=== PATIENT | male | born 1995 | race Caucasian/White ===

== ENCOUNTER 2018-09-07 23:12 | Emergency (ER) | payer MEDICAID, OTHER ==
[~2018-09-07] VITALS: Ht 175.3 cm; Wt 54.4 kg
[2018-09-07 23:59] LABS: Basophils # (auto) 0.1 uL; Basophils % (auto) 1.5 % (0.0-2.0); Eosinophils # (auto) 0.2 uL; Eosinophils % (auto) 2.6 % (0.0-7.0); Hematocrit 48.4 % (41.0-53.0); Hemoglobin 16.9 g/dL (13.5-17.5); Lymphocytes # (auto) 1.4 uL; Lymphocytes % (auto) 16.5 % (10.0-50.0); Mean Corpuscular Hemoglobin 32.6 pg (28.0-32.0); Mean Corpuscular Hgb Conc. 34.9 g/dL (32.0-36.0); Mean Corpuscular Volume 93.4 fL (80.0-100.0); Monocytes # (auto) 0.5 uL; Monocytes % (auto) 6.1 % (0.0-12.0); Neutrophils # (auto) 6.2 uL; Neutrophils % (auto) 73.3 % (37.0-80.0); Nucleated Red Blood Cells % 0.1 %; Platelet Count (auto) 151 10^3/uL (140-450); Red Blood Cells 5.18 10^6/uL (4.5-5.90); Red Cell Distribution Width 12.5 % (11.8-14.3); White Blood Cell 8.5 10^3/uL (4.4-10.8)
[2018-09-08 00:08] LABS: Alanine Aminotransferase 38 U/L (16-61); Albumin 3.9 g/dL (3.4-5.0); Amylase 69 U/L (25-115); Anion Gap 3 (5-15); Aspartate Aminotransferase 17 U/L (15-37); Calcium 8.5 mg/dL (8.5-10.1); Carbon Dioxide 29 mmol/L (21-32); Chloride 107 mmol/L (98-107); GFR African American > 60 mL/min; GFR Non-African American > 60 mL/min; Glucose 103 mg/dL (74-106); Lipase 101 U/L (73-393); Magnesium 2.3 mg/dL (1.6-2.6); Potassium 3.7 mmol/L (3.5-5.1); Sodium 139 mmol/L (136-145)
[2018-09-08 00:12] LABS: Alkaline Phosphatase 126 U/L (45-117); BUN/Creatinine Ratio 13.3; Bilirubin, Total 0.5 mg/dL (0.2-1.0); Blood Urea Nitrogen 10 mg/dL (7-18); Total Protein 7.5 g/dL (6.4-8.2)
[2018-09-08 01:40] VITALS: BP 102/57
[2018-09-08] MEDS ORDERED: MAGNESIUM CITRATE SOLUTION 300 ML BTL PO ONE (02:00)
== END 2018-09-08 02:14 | disposition home or self-care (01) ==
LOC: EDBD 23:12 → ER 23:15 → EDUNIT# 23:21 → ER 09-08 02:14
DX: K59.00 Constipation, unspecified (principal); G10 Huntington's disease
CPT/HCPCS: 36415; 74176; 80053; 82150; 83690; 83735; 85025

== ENCOUNTER 2019-03-16 11:56 | Emergency (ER) | payer MEDICAID ==
[~2019-03-16] VITALS: Ht 165.1 cm; Wt 52.2 kg
[2019-03-16] MEDS ORDERED: SODIUM CHLORIDE 0.9% 1,000 ML IVB ONE (12:42)
[2019-03-16 13:27] LABS: Basophils # (auto) 0 uL; Basophils % (auto) 0.4 % (0.0-2.0); Eosinophils # (auto) 0 uL; Eosinophils % (auto) 0.7 % (0.0-7.0); Hematocrit 41.9 % (41.0-53.0); Lymphocytes # (auto) 1.2 uL; Lymphocytes % (auto) 17.3 % (10.0-50.0); Mean Corpuscular Hemoglobin 33.5 pg (28.0-32.0); Mean Corpuscular Hgb Conc. 35.8 g/dL (32.0-36.0); Mean Corpuscular Volume 93.4 fL (80.0-100.0); Monocytes # (auto) 0.4 uL; Monocytes % (auto) 6.2 % (0.0-12.0); Neutrophils # (auto) 5.3 uL; Neutrophils % (auto) 75.4 % (37.0-80.0); Nucleated Red Blood Cells % 0.1 %; Platelet Count (auto) 129 10^3/uL (140-450); Red Blood Cells 4.49 10^6/uL (4.5-5.90); Red Cell Distribution Width 12.6 % (11.8-14.3)
[2019-03-16 13:51] LABS: Albumin 2.5 g/dL (3.4-5.0); Calcium 7.1 mg/dL (8.5-10.1); Magnesium 1.7 mg/dL (1.6-2.6); Potassium 3.3 mmol/L (3.5-5.1)
[2019-03-16 14:18] LABS: BUN/Creatinine Ratio 13.5; Bilirubin, Total 0.4 mg/dL (0.2-1.0)
[2019-03-16] MEDS ORDERED: POTASSIUM EFFERVESENT TAB 25 MEQ PO ONE (14:45)
[2019-03-16 15:22] VITALS: BP 120/72
[2019-03-16 15:37] LABS: Urine Bacteria NONE SEEN /hpf (None Seen); Urine Blood Negative /uL (Negative); Urine Specific Gravity 1.005 (1.001-1.035); Urine WBC <1 /hpf (0 - 3)
== END 2019-03-16 15:59 | disposition home or self-care (01) ==
LOC: EDBD 11:56 → ER 11:56
DX: S09.8XXA Other specified injuries of head, initial encounter (principal); E87.6 Hypokalemia; R55 Syncope and collapse; W22.8XXA Striking against or struck by other objects, initial encounter; Y93.E1 Activity, personal bathing and showering; Y92.091 Bathroom in other non-institutional residence as the place of occurrence of the external cause; Y99.8 Other external cause status
CPT/HCPCS: 36415; 70450; 71045; 80053; 81001; 82962; 83735; 85025; 94761; 96360; 99284; J7030

== ENCOUNTER 2024-04-25 05:06 | Inpatient (IN) | payer MEDICAID ==
[~2024-04-25] VITALS: Ht 172.7 cm; Wt 46.4 kg
[2024-04-25 06:07] VITALS: PULSE 58; RESP 14; O2SAT 96
[2024-04-25] MEDS: SODIUM CHLORIDE 0.9% 1,000 ML IV ONE (06:32)
[2024-04-25 07:10] LABS: Basophils # (auto) 0 10 ^3/uL (0-0.2); Basophils % (auto) 0.2 % (0.0-2.0); Eosinophils # (auto) 0.1 10 ^3/uL (0-0.8); Eosinophils % (auto) 0.5 % (0.0-7.0); Hematocrit 42.4 % (41.0-53.0); Hemoglobin 14.9 g/dL (13.5-17.5); Lymphocytes # (auto) 1.8 10 ^3/uL (0.4-5.4); Lymphocytes % (auto) 14.6 % (10.0-50.0); Mean Corpuscular Hemoglobin 32.4 pg (28.0-32.0); Mean Corpuscular Hgb Conc. 35.2 g/dL (32.0-36.0); Mean Corpuscular Volume 92.3 fL (80.0-100.0); Monocytes # (auto) 0.7 10 ^3/uL (0-1.3); Neutrophils # (auto) 9.8 10 ^3/uL (1.6-8.6); Neutrophils % (auto) 78.7 % (37.0-80.0); Platelet Count (auto) 203 10^3/uL (140-450); Red Cell Distribution Width 14.1 % (11.8-14.3); White Blood Cell 12.5 10^3/uL (4.4-10.8)
[2024-04-25 07:25] LABS: Alanine Aminotransferase 15 U/L (7-40); Albumin 3.7 g/dL (3.2-4.8); Alkaline Phosphatase 103 U/L (46-116); Anion Gap 4 (5-15); Aspartate Aminotransferase 13 U/L (13-40); BUN/Creatinine Ratio 11.7 (10.0-20.0); Blood Urea Nitrogen 7 mg/dL (9-23); Calcium 9.2 mg/dL (8.7-10.4); Carbon Dioxide 25 mmol/L (20-30); Chloride 105 mmol/L (98-107); Glucose 90 mg/dL (74-106); Potassium 3.5 mmol/L (3.5-5.1); Sodium 134 mmol/L (136-145)
[2024-04-25 07:26] LABS: Bilirubin, Total 1.1 mg/dL (0.2-1.0); Total Protein 6.7 g/dL (5.7-8.2)
[2024-04-25] MEDS: PANTOPRAZOLE 40 MG/10 ML VIAL INJ IV ONE (13:15)
[2024-04-25] MEDS ORDERED: ONDANSETRON HCL 4 MG/2 ML VIAL IV PRN (13:15)
[2024-04-25] MEDS: SODIUM CHLORIDE 0.9% 1,000 ML IV SCH (13:15)
[2024-04-25] MEDS ORDERED: PPN PER PHARMACY 0 ML IV SCH ×2 (13:15→13:30)
[2024-04-25] MEDS: LIDOCAINE 2% JELLY 11ml (GLYDO) UR ONE (13:30)
[2024-04-25] MEDS: POTASSIUM CHL 20MEQ/100ML 100 ML IV ONE (14:00)
[2024-04-25] MEDS ORDERED: AZEL0.054 EACHEYE (14:02)
[2024-04-25 14:20] VITALS: BP 107/55; PULSE 52; RESP 17; TEMP 98; O2SAT 97
[2024-04-25] MEDS: AMINO ACID INFUSION IN D10W 1,000 ML IV ONE (15:00)
[2024-04-25 20:00] VITALS: PULSE 43; RESP 16; O2SAT 99
[2024-04-25 21:00] VITALS: BP 98/63; PULSE 43; RESP 16; TEMP 97.6; O2SAT 99
[2024-04-25] MEDS: LORazepam 2MG/ML-1ML VIAL IV ONE (22:03)
[2024-04-26] VITALS (8 sets, daily range): BP systolic 103–118; BP diastolic 57–76; PULSE 44–72; RESP 16–22; TEMP 97.4–98.3; O2SAT 98–100
[2024-04-26 06:27] LABS: Alanine Aminotransferase 11 U/L (7-40); Albumin 3.6 g/dL (3.2-4.8); Alkaline Phosphatase 84 U/L (46-116); Anion Gap 4 (5-15); Aspartate Aminotransferase < 8 U/L (13-40); BUN/Creatinine Ratio 11.5 (10.0-20.0); Blood Urea Nitrogen 6 mg/dL (9-23); Calcium 8.4 mg/dL (8.7-10.4); Carbon Dioxide 26 mmol/L (20-30); Chloride 106 mmol/L (98-107); Glucose 87 mg/dL (74-106); Magnesium 1.8 mg/dL (1.6-2.6); Potassium 3.5 mmol/L (3.5-5.1); Sodium 136 mmol/L (136-145)
[2024-04-26 06:28] LABS: Bilirubin, Total 0.8 mg/dL (0.2-1.0); Total Protein 6.3 g/dL (5.7-8.2)
[2024-04-26 07:48] LABS: Basophils # (auto) 0 10 ^3/uL (0-0.2); Basophils % (auto) 0.2 % (0.0-2.0); Eosinophils # (auto) 0.1 10 ^3/uL (0-0.8); Eosinophils % (auto) 2.1 % (0.0-7.0); Hemoglobin 13.9 g/dL (13.5-17.5); Lymphocytes # (auto) 1.8 10 ^3/uL (0.4-5.4); Lymphocytes % (auto) 30.2 % (10.0-50.0); Mean Corpuscular Hemoglobin 31.9 pg (28.0-32.0); Mean Corpuscular Volume 93.9 fL (80.0-100.0); Monocytes # (auto) 0.6 10 ^3/uL (0-1.3); Monocytes % (auto) 9.3 % (0.0-12.0); Neutrophils # (auto) 3.5 10 ^3/uL (1.6-8.6); Neutrophils % (auto) 58.2 % (37.0-80.0); Nucleated Red Blood Cells % 0.2 %; Platelet Count (auto) 180 10^3/uL (140-450); Red Blood Cells 4.37 10^6/uL (4.5-5.90); Red Cell Distribution Width 14.4 % (11.8-14.3)
[2024-04-26 09:09] LABS: Urine Bacteria None Seen /hpf (None Seen)
[2024-04-26 09:21] LABS: Urine Blood Negative /uL (Negative); Urine Clarity Clear (Clear); Urine Color Yellow (Yellow); Urine Mucus FEW (None Seen); Urine Protein, UAD Negative (Negative); Urine Specific Gravity 1.017 (1.001-1.035); Urine Urobilinogen 8 mg/dL (Negative); Urine WBC 70 /hpf (0 - 3)
[2024-04-26 09:32] LABS: Amphetamine Screen, Urine Neg (NEGATIVE); Barbiturate Scree,Urine Neg (NEGATIVE); Benzodiazephine Screen, Urine Neg (NEGATIVE); Cocaine Screen, Urine Neg (NEGATIVE)
[2024-04-26 09:33] LABS: Opiate Scree,Urine Neg (NEGATIVE); Phencyclidine Screen, Urine Neg (NEGATIVE)
[2024-04-26 09:34] LABS: Cannabinoid Screen, Urine Neg (NEGATIVE)
[2024-04-26] MEDS: LORazepam 2MG/ML-1ML VIAL IV ONE (09:45)
[2024-04-26] MEDS: SODIUM PHOSPHATES 20 MEQ in SODIUM CHL 0.9% 100 ML IV ONE (09:45)
[2024-04-26] MEDS: PANTOPRAZOLE 40 MG/10 ML VIAL INJ IV SCH (09:54)
[2024-04-26] MEDS: AUSTEDO PO SCH (10:00)
[2024-04-26] MEDS: InsuLIN REG 1unit/0.01ml Soln (100units/ml) SC SCH (12:00)
[2024-04-26] MEDS ORDERED: DEXTROSE (50%) 50ML SYRG IV SCH (12:00)
[2024-04-26] MEDS: ACCU-CHEK COMFORT CURVE STRIP VI SCH (12:08)
[2024-04-26] MEDS: SODIUM CHLORIDE 0.9% 1,000 ML IV SCH (12:23)
[2024-04-26] MEDS: POTASSIUM CHL 20MEQ/100ML 50 ML IV ONE (13:29)
[2024-04-26] MEDS: cefTRIAXone 1GM/50ML D5W 50 ML IV ONE (17:48)
[2024-04-26] MEDS: AZITHROMYCIN 500MG/ 250ML 250 ML IV ONE (17:49)
[2024-04-26] MEDS: ENOXAPARIN SOD 30 MG/0.3 ML SYRINGE SC ONE (17:56)
[2024-04-26 19:38] LABS: COVID19 ANTIGEN SOFIA FIA NEGATIVE (NEGATIVE)
[2024-04-26 19:42] LABS: Rapid Influenza A Negative (Negative); Rapid Influenza B Negative (Negative)
[2024-04-26] MEDS: POTASSIUM PHOSPHATE IV NR (19:47)
[2024-04-26] MEDS: [UNRECOGNIZED DRUG - OTHER] IV NR (19:47)
[2024-04-26] MEDS: SODIUM CHLORIDE IV NR (19:47)
[2024-04-26] MEDS: FAT EMULSION IV NR (19:47)
[2024-04-26] MEDS ORDERED: [UNRECOGNIZED DRUG - OTHER] IV NR (20:00)
[2024-04-26] MEDS ORDERED: POTASSIUM PHOSPHATE IV NR (20:00)
[2024-04-26] MEDS ORDERED: FAT EMULSION IV NR (20:00)
[2024-04-26] MEDS ORDERED: SODIUM CHLORIDE IV NR (20:00)
[2024-04-27] VITALS (8 sets, daily range): BP systolic 105–120; BP diastolic 57–84; PULSE 42–75; RESP 17–22; TEMP 97.5–98; O2SAT 98–100
[2024-04-27] MEDS: LORazepam 2MG/ML-1ML VIAL IV PRN (01:06)
[2024-04-27 06:14] LABS: Basophils # (auto) 0 10 ^3/uL (0-0.2); Basophils % (auto) 0.3 % (0.0-2.0); Eosinophils # (auto) 0.1 10 ^3/uL (0-0.8); Eosinophils % (auto) 1.5 % (0.0-7.0); Hematocrit 38.2 % (41.0-53.0); Hemoglobin 13.9 g/dL (13.5-17.5); Lymphocytes # (auto) 1.7 10 ^3/uL (0.4-5.4); Mean Corpuscular Hemoglobin 32.4 pg (28.0-32.0); Mean Corpuscular Hgb Conc. 36.4 g/dL (32.0-36.0); Mean Corpuscular Volume 88.9 fL (80.0-100.0); Monocytes # (auto) 0.5 10 ^3/uL (0-1.3); Monocytes % (auto) 8.4 % (0.0-12.0); Neutrophils # (auto) 3.9 10 ^3/uL (1.6-8.6); Neutrophils % (auto) 62.8 % (37.0-80.0); Nucleated Red Blood Cells % 0.2 %; Platelet Count (auto) 158 10^3/uL (140-450); Red Cell Distribution Width 13.7 % (11.8-14.3); White Blood Cell 6.2 10^3/uL (4.4-10.8)
[2024-04-27 06:25] LABS: Alanine Aminotransferase 14 U/L (7-40); Alkaline Phosphatase 81 U/L (46-116); Calcium 8.7 mg/dL (8.7-10.4); Chloride 105 mmol/L (98-107); Triglycerides 69 mg/dL (< 150)
[2024-04-27 06:26] LABS: Albumin 3.5 g/dL (3.2-4.8); Anion Gap 3 (5-15); Aspartate Aminotransferase < 8 U/L (13-40); Bilirubin, Total 0.6 mg/dL (0.2-1.0); Carbon Dioxide 28 mmol/L (20-30); Glucose 88 mg/dL (74-106); Magnesium 1.8 mg/dL (1.6-2.6); Phosphorus 2.7 mg/dL (2.4-5.1); Potassium 3.3 mmol/L (3.5-5.1); Sodium 136 mmol/L (136-145); Total Protein 6.2 g/dL (5.7-8.2)
[2024-04-27 06:31] LABS: Blood Urea Nitrogen < 5 mg/dL (9-23)
[2024-04-27] MEDS: cefTRIAXone 1GM/50ML D5W 50 ML IV SCH (09:50)
[2024-04-27] MEDS: AZITHROMYCIN 500MG/ 250ML 250 ML IV SCH (10:00)
[2024-04-27] MEDS: ENOXAPARIN SOD 30 MG/0.3 ML SYRINGE SC SCH (10:02)
[2024-04-27] MEDS: POTASSIUM CHL 20MEQ/100ML 100 ML IV ONE (10:41)
[2024-04-27] MEDS: FAT EMULSION IV NR (20:33)
[2024-04-27] MEDS: POTASSIUM PHOSPHATE IV NR (20:33)
[2024-04-27] MEDS: [UNRECOGNIZED DRUG - OTHER] IV NR (20:33)
[2024-04-27] MEDS: SODIUM CHLORIDE IV NR (20:33)
[2024-04-28] VITALS (8 sets, daily range): BP systolic 101–113; BP diastolic 61–77; PULSE 44–53; RESP 15–20; TEMP 96.4–98.6; O2SAT 97–100
[2024-04-28 09:44] LABS: Basophils # (auto) 0 10 ^3/uL (0-0.2); Basophils % (auto) 0.4 % (0.0-2.0); Eosinophils # (auto) 0.1 10 ^3/uL (0-0.8); Eosinophils % (auto) 1.1 % (0.0-7.0); Hematocrit 42.5 % (41.0-53.0); Lymphocytes # (auto) 1.6 10 ^3/uL (0.4-5.4); Mean Corpuscular Hemoglobin 31.8 pg (28.0-32.0); Mean Corpuscular Hgb Conc. 35.2 g/dL (32.0-36.0); Mean Corpuscular Volume 90.3 fL (80.0-100.0); Monocytes # (auto) 0.4 10 ^3/uL (0-1.3); Monocytes % (auto) 7.2 % (0.0-12.0); Neutrophils # (auto) 3.9 10 ^3/uL (1.6-8.6); Neutrophils % (auto) 65.3 % (37.0-80.0); Platelet Count (auto) 167 10^3/uL (140-450); Red Blood Cells 4.71 10^6/uL (4.5-5.90); Red Cell Distribution Width 13.8 % (11.8-14.3)
[2024-04-28 09:48] LABS: Chloride 103 mmol/L (98-107); Potassium 3.9 mmol/L (3.5-5.1); Sodium 135 mmol/L (136-145)
[2024-04-28 09:49] LABS: Anion Gap 5 (5-15); Calcium 9.2 mg/dL (8.7-10.4); Carbon Dioxide 27 mmol/L (20-30)
[2024-04-28 09:54] LABS: BUN/Creatinine Ratio 9.1 (10.0-20.0); Blood Urea Nitrogen 5 mg/dL (9-23); Glucose 101 mg/dL (74-106)
[2024-04-28] MEDS: ceFAZolin 1GM/50ML 50 ML IV ONE (12:15)
[2024-04-28 12:34] LABS: Phosphorus 3.4 mg/dL (2.4-5.1)
[2024-04-28] MEDS ORDERED: MIDAZOLAM HCL 2MG/2ML 2ml VIAL (1mg/ml) ONE (14:01)
[2024-04-28] MEDS ORDERED: KETAMINE 50mg/ML 1ml syringe ONE (14:01)
[2024-04-28] MEDS ORDERED: PROPOFOL 10 MG/ML 20 ML IV ONE (14:02)
[2024-04-28] MEDS: ONDANSETRON HCL 4 MG/2 ML VIAL IV ONE (14:30)
[2024-04-28] MEDS: FAT EMULSION IV NR (21:35)
[2024-04-28] MEDS: [UNRECOGNIZED DRUG - OTHER] IV NR (21:35)
[2024-04-28] MEDS: SODIUM CHLORIDE IV NR (21:35)
[2024-04-28] MEDS: POTASSIUM CHLORIDE IV NR (21:35)
[2024-04-29] VITALS (8 sets, daily range): BP systolic 92–121; BP diastolic 51–79; PULSE 49–104; RESP 16–20; TEMP 97.7–98.4; O2SAT 92–100
[2024-04-29] MEDS: ENSURE CLEAR Apple 8oz Carton PO SCH (05:50)
[2024-04-29 07:25] LABS: Basophils # (auto) 0 10 ^3/uL (0-0.2); Basophils % (auto) 0.3 % (0.0-2.0); Eosinophils # (auto) 0 10 ^3/uL (0-0.8); Eosinophils % (auto) 0.2 % (0.0-7.0); Hematocrit 39.3 % (41.0-53.0); Hemoglobin 13.9 g/dL (13.5-17.5); Lymphocytes % (auto) 11.3 % (10.0-50.0); Mean Corpuscular Hemoglobin 31.9 pg (28.0-32.0); Mean Corpuscular Hgb Conc. 35.5 g/dL (32.0-36.0); Mean Corpuscular Volume 89.9 fL (80.0-100.0); Monocytes # (auto) 0.6 10 ^3/uL (0-1.3); Monocytes % (auto) 6.7 % (0.0-12.0); Neutrophils # (auto) 7.3 10 ^3/uL (1.6-8.6); Neutrophils % (auto) 81.5 % (37.0-80.0); Platelet Count (auto) 153 10^3/uL (140-450); Red Blood Cells 4.37 10^6/uL (4.5-5.90); Red Cell Distribution Width 13.9 % (11.8-14.3)
[2024-04-29] MEDS: POTASSIUM CHLORIDE 60 MEQ, LIDOCAINE 1% (LOCAL ANESTH.) 6 ML in SODIUM CHL 0.9% 500 ML IV ONE (07:30)
[2024-04-29] MEDS: CALCIUM GLUC 1,000mg/50ml-NS 50 ML IV SCH (07:30)
[2024-04-29 08:36] LABS: INR 1.13 (0.9-1.15); Partial Thromboplastin Time 29.9 SEC (24.5-34.5); Prothrombin Time 11.9 sec (9.3-11.8)
[2024-04-29 08:53] LABS: Alkaline Phosphatase 79 U/L (46-116); Anion Gap 6 (5-15); Aspartate Aminotransferase < 8 U/L (13-40); Blood Urea Nitrogen 8 mg/dL (9-23); Carbon Dioxide 24 mmol/L (20-30); Chloride 107 mmol/L (98-107); Glucose 102 mg/dL (74-106); Potassium 3.7 mmol/L (3.5-5.1); Sodium 137 mmol/L (136-145)
[2024-04-29 08:54] LABS: Alanine Aminotransferase 15 U/L (7-40); Albumin 3.6 g/dL (3.2-4.8); Bilirubin, Total 0.8 mg/dL (0.2-1.0); Calcium 8.9 mg/dL (8.7-10.4); Magnesium 1.9 mg/dL (1.6-2.6); Phosphorus 1.9 mg/dL (2.4-5.1); Total Protein 6.2 g/dL (5.7-8.2)
[2024-04-29] MEDS: ENSURE CLEAR Apple 8oz Carton GT SCH (10:00)
[2024-04-29] MEDS ORDERED: AZIT-185 PO (14:28)
[2024-04-29] MEDS ORDERED: NUTR-1045 GT (17:40)
[2024-04-29 18:34] LABS: Alanine Aminotransferase 16 U/L (7-40); Albumin 3.5 g/dL (3.2-4.8); Alkaline Phosphatase 75 U/L (46-116); Anion Gap 5 (5-15); Aspartate Aminotransferase < 8 U/L (13-40); Carbon Dioxide 24 mmol/L (20-30); Chloride 108 mmol/L (98-107); Glucose 91 mg/dL (74-106); Phosphorus 2.3 mg/dL (2.4-5.1); Potassium 3.9 mmol/L (3.5-5.1); Sodium 137 mmol/L (136-145)
[2024-04-29 18:35] LABS: Bilirubin, Total 0.6 mg/dL (0.2-1.0); Total Protein 6.1 g/dL (5.7-8.2)
[2024-04-29 18:38] LABS: BUN/Creatinine Ratio 11.6 (10.0-20.0); Blood Urea Nitrogen < 5 mg/dL (9-23)
[2024-04-29] MEDS ORDERED: [UNRECOGNIZED DRUG - OTHER] IV NR ×2 (20:00→23:00)
[2024-04-29] MEDS ORDERED: CALCIUM GLUC IV NR ×2 (20:00→23:00)
[2024-04-29] MEDS ORDERED: SODIUM PHOSPHATES IV NR ×2 (20:00→23:00)
[2024-04-29] MEDS ORDERED: FAT EMULSION IV NR ×2 (20:00→23:00)
[2024-04-29] MEDS: POTASSIUM PHOSPHATE 22 MEQ in SODIUM CHL 0.9% 100 ML IV ONE (20:15)
[2024-04-29] MEDS: AMINO ACID INFUSION IN D10W 1,000 ML IV SCH (22:55)
[2024-04-29] MEDS: ERGOCALCIFEROL 50,000 UNIT(1.25MG) CAP PO SCH (23:40)
[2024-04-30 01:00] VITALS: BP 124/54; PULSE 55; RESP 16; TEMP 98; O2SAT 97
[2024-04-30 05:00] VITALS: BP 91/45; PULSE 50; RESP 16; TEMP 97.4; O2SAT 99
[2024-04-30 06:15] LABS: Basophils # (auto) 0 10 ^3/uL (0-0.2); Basophils % (auto) 0.3 % (0.0-2.0); Eosinophils # (auto) 0 10 ^3/uL (0-0.8); Eosinophils % (auto) 0.4 % (0.0-7.0); Hematocrit 38.3 % (41.0-53.0); Hemoglobin 13.6 g/dL (13.5-17.5); Lymphocytes # (auto) 1.4 10 ^3/uL (0.4-5.4); Lymphocytes % (auto) 16.7 % (10.0-50.0); Mean Corpuscular Hemoglobin 31.9 pg (28.0-32.0); Mean Corpuscular Hgb Conc. 35.6 g/dL (32.0-36.0); Mean Corpuscular Volume 89.7 fL (80.0-100.0); Monocytes # (auto) 0.8 10 ^3/uL (0-1.3); Neutrophils % (auto) 72.6 % (37.0-80.0); Platelet Count (auto) 154 10^3/uL (140-450); Red Blood Cells 4.27 10^6/uL (4.5-5.90); Red Cell Distribution Width 13.7 % (11.8-14.3); White Blood Cell 8.2 10^3/uL (4.4-10.8)
[2024-04-30 06:34] LABS: Alanine Aminotransferase 12 U/L (7-40); Albumin 3.7 g/dL (3.2-4.8); Alkaline Phosphatase 72 U/L (46-116); Anion Gap 5 (5-15); Aspartate Aminotransferase < 8 U/L (13-40); BUN/Creatinine Ratio 20.9 (10.0-20.0); Blood Urea Nitrogen 9 mg/dL (9-23); Calcium 8.6 mg/dL (8.7-10.4); Carbon Dioxide 24 mmol/L (20-30); Chloride 108 mmol/L (98-107); Glucose 87 mg/dL (74-106); Magnesium 1.8 mg/dL (1.6-2.6); Potassium 3.1 mmol/L (3.5-5.1); Sodium 137 mmol/L (136-145)
[2024-04-30 06:35] LABS: Bilirubin, Total 0.5 mg/dL (0.2-1.0); Phosphorus 3.1 mg/dL (2.4-5.1); Total Protein 6.2 g/dL (5.7-8.2)
[2024-04-30 09:00] VITALS: BP 99/52; PULSE 55; RESP 16; TEMP 97.9; O2SAT 100
[2024-04-30] MEDS: POTASSIUM CHL 20MEQ/100ML 100 ML IV ONE ×2 (09:44→14:09)
[2024-04-30 13:00] VITALS: BP 99/60; PULSE 73; RESP 18; TEMP 97.3; O2SAT 99
[2024-04-30] MEDS: MAGNESIUM SULFATE 1GM/100ML 100 ML IV ONE (14:10)
[2024-04-30 17:04] VITALS: BP 95/51; PULSE 49; RESP 14; TEMP 97.7; O2SAT 100
[2024-04-30] MEDS ORDERED: PROPOFOL 10 MG/ML 20 ML IV ONE (19:39)
[2024-04-30] MEDS ORDERED: PPN PER PHARMACY IV NR (20:00)
[2024-04-30] MEDS ORDERED: AMINO ACID INFUSION IN D10W 1,000 ML IV SCH (20:00)
== END 2024-04-30 19:40 | disposition home health service (06) | DRG 42 ==
LOC: ER 05:06 → EDBD 05:06 → OVERFLOW 13:13 → ER 13:14 → WEST WING 16:24
PROVIDERS: ADMIT Internal Medicine Pulmonary Disease; ATTEND Internal Medicine Pulmonary Disease
PROC: 0DH63UZ Insertion of Feeding Device into Stomach, Percutaneous Approach (ICD-10-PCS; principal; 2024-04-28 13:57)
DX: G10 Huntington's disease (principal); R65.11 Systemic inflammatory response syndrome (SIRS) of non-infectious origin with acute organ dysfunction; R64 Cachexia; J15.69 Pneumonia due to other Gram-negative bacteria; E46 Unspecified protein-calorie malnutrition; J15.9 Unspecified bacterial pneumonia; E83.39 Other disorders of phosphorus metabolism; R62.7 Adult failure to thrive; E86.0 Dehydration; Z20.822 Contact with and (suspected) exposure to COVID-19; R91.1 Solitary pulmonary nodule; E87.6 Hypokalemia; Z68.1 Body mass index [BMI] 19.9 or less, adult; Z83.3 Family history of diabetes mellitus; Z82.49 Family history of ischemic heart disease and other diseases of the circulatory system
CPT/HCPCS: 36415; 71045; 71250; 74176; 80048; 80053; 80307; 81001; 82306; 82607; 82962; 83036; 83735; 84100; 84478; 85025; 85610; 85730; 87426; 87804; 92507; 92610; 93005; G0378; J1815; J2001; J2250; J2470; J2704; J3480; J7131

== ENCOUNTER 2024-05-07 00:33 | Inpatient (IN) | payer MEDICAID ==
[~2024-05-07] VITALS: Ht 170.2 cm; Wt 45.2 kg
[~2024-05-07 00:33] MED LIST: AZEL0.054 EACHEYE; AZIT-185 PO; NUTR-1045 GT
[2024-05-07 01:15] VITALS: PULSE 55; RESP 12; O2SAT 100
[2024-05-07] MEDS: ATROPINE SULF 0.5 MG/5ML SYR ONE ×2 (02:07→18:13)
[2024-05-07] MEDS: ATROPINE SULFATE 1 MG/1 ML VIAL ONE (02:08)
[2024-05-07 02:23] LABS: Basophils # (auto) 0 10 ^3/uL (0-0.2); Basophils % (auto) 0.3 % (0.0-2.0); Eosinophils # (auto) 0 10 ^3/uL (0-0.8); Eosinophils % (auto) 0.5 % (0.0-7.0); Hematocrit 41.5 % (41.0-53.0); Hemoglobin 14.6 g/dL (13.5-17.5); Lymphocytes # (auto) 1.6 10 ^3/uL (0.4-5.4); Lymphocytes % (auto) 15.8 % (10.0-50.0); Mean Corpuscular Hemoglobin 32.4 pg (28.0-32.0); Mean Corpuscular Hgb Conc. 35.3 g/dL (32.0-36.0); Mean Corpuscular Volume 91.8 fL (80.0-100.0); Monocytes # (auto) 0.6 10 ^3/uL (0-1.3); Monocytes % (auto) 6.1 % (0.0-12.0); Neutrophils # (auto) 7.8 10 ^3/uL (1.6-8.6); Neutrophils % (auto) 77.3 % (37.0-80.0); Platelet Count (auto) 183 10^3/uL (140-450); Red Blood Cells 4.52 10^6/uL (4.5-5.90); Red Cell Distribution Width 13.9 % (11.8-14.3); White Blood Cell 10.1 10^3/uL (4.4-10.8)
[2024-05-07 02:32] LABS: Alanine Aminotransferase 16 U/L (7-40); Alkaline Phosphatase 89 U/L (46-116); Anion Gap 3 (5-15); Aspartate Aminotransferase < 8 U/L (13-40); BUN/Creatinine Ratio 10.3 (10.0-20.0); Blood Urea Nitrogen 6 mg/dL (9-23); Calcium 9.4 mg/dL (8.7-10.4); Carbon Dioxide 30 mmol/L (20-30); Chloride 104 mmol/L (98-107); Glucose 89 mg/dL (74-106); Potassium 3.8 mmol/L (3.5-5.1); Sodium 137 mmol/L (136-145)
[2024-05-07 02:33] LABS: Bilirubin, Total 0.5 mg/dL (0.2-1.0); Total Protein 6.9 g/dL (5.7-8.2)
[2024-05-07 02:43] LABS: Blood Alcohol < 3.0 mg/dL (<10)
[2024-05-07] MEDS: ATROPINE SULF 1 MG/10ml SYR IV ONE ×3 (03:00→18:11)
[2024-05-07] MEDS: LORazepam 2MG/ML-1ML VIAL ONE (08:17)
[2024-05-07] MEDS: LORazepam 2MG/ML-1ML VIAL IV ONE (08:18)
[2024-05-07] MEDS ORDERED: NITROGLYCERIN 0.4 MG SL TAB SL PRN (12:00)
[2024-05-07] MEDS ORDERED: MORPHINE SULFATE INJ 2 MG/ml SYRG IV PRN (12:00)
[2024-05-07] MEDS ORDERED: ONDANSETRON HCL 4 MG/2 ML VIAL IV PRN (12:00)
[2024-05-07] MEDS ORDERED: DOCUSATE SOD 100 MG CAP PO PRN (12:00)
[2024-05-07] MEDS: SODIUM CHLORIDE 0.9% 1,000 ML IV SCH (12:12)
[2024-05-07] MEDS: LORazepam 2MG/ML-1ML VIAL IV PRN (15:05)
[2024-05-07 15:33] LABS: Urine Amorphous Crystal FEW /hpf (None Seen); Urine Bacteria FEW /hpf (None Seen); Urine Blood Negative /uL (Negative); Urine Clarity Turbid (Clear); Urine Color Yellow (Yellow); Urine Protein, UAD TRACE (Negative); Urine Specific Gravity 1.023 (1.001-1.035); Urine Urobilinogen 8 mg/dL (Negative); Urine WBC 6 /hpf (0 - 3); Urine pH 7.5 (5.0-9.0)
[2024-05-07 20:30] VITALS: PULSE 53; O2SAT 53
[2024-05-07] MEDS: GASTROGRAFIN 30 ML SOL ONE (21:30)
[2024-05-08 04:25] LABS: Basophils # (auto) 0 10 ^3/uL (0-0.2); Basophils % (auto) 0.5 % (0.0-2.0); Eosinophils # (auto) 0 10 ^3/uL (0-0.8); Eosinophils % (auto) 0.5 % (0.0-7.0); Hematocrit 38.7 % (41.0-53.0); Hemoglobin 13.6 g/dL (13.5-17.5); Lymphocytes # (auto) 0.9 10 ^3/uL (0.4-5.4); Lymphocytes % (auto) 18.3 % (10.0-50.0); Mean Corpuscular Hgb Conc. 35.2 g/dL (32.0-36.0); Mean Corpuscular Volume 90.8 fL (80.0-100.0); Monocytes # (auto) 0.3 10 ^3/uL (0-1.3); Monocytes % (auto) 6.7 % (0.0-12.0); Neutrophils # (auto) 3.8 10 ^3/uL (1.6-8.6); Platelet Count (auto) 210 10^3/uL (140-450); Red Blood Cells 4.26 10^6/uL (4.5-5.90); Red Cell Distribution Width 14.1 % (11.8-14.3); White Blood Cell 5.2 10^3/uL (4.4-10.8)
[2024-05-08 05:00] LABS: Alanine Aminotransferase 16 U/L (7-40); Albumin 3.8 g/dL (3.2-4.8); Alkaline Phosphatase 85 U/L (46-116); Anion Gap 12 (5-15); Aspartate Aminotransferase < 8 U/L (13-40); BUN/Creatinine Ratio 10.5 (10.0-20.0); Blood Urea Nitrogen 6 mg/dL (9-23); Chloride 108 mmol/L (98-107); Glucose 140 mg/dL (74-106); Potassium 3.6 mmol/L (3.5-5.1); Sodium 139 mmol/L (136-145)
[2024-05-08 05:01] LABS: Bilirubin, Total 0.8 mg/dL (0.2-1.0); Total Protein 6.2 g/dL (5.7-8.2)
[2024-05-08 05:10] LABS: Carbon Dioxide 19 mmol/L (20-30)
[2024-05-08 07:45] VITALS: PULSE 46; RESP 10; O2SAT 100
[2024-05-08] MEDS: ENOXAPARIN SOD 40 MG/0.4 ML SYRINGE SC SCH (11:26)
[2024-05-08 11:50] LABS: Magnesium 1.8 mg/dL (1.6-2.6)
[2024-05-08 11:51] LABS: Phosphorus 1.8 mg/dL (2.4-5.1)
[2024-05-08 12:08] LABS: Rapid Influenza A Negative (Negative); Rapid Influenza B Negative (Negative)
[2024-05-08 12:09] LABS: COVID19 ANTIGEN SOFIA FIA NEGATIVE (NEGATIVE)
[2024-05-08] MEDS: POTASSIUM CHL 20MEQ/100ML 100 ML IV SCH (15:14)
[2024-05-08 19:30] VITALS: PULSE 46; RESP 14; O2SAT 96
[2024-05-08] MEDS: POTASSIUM PHOSPHATE 22 MEQ in SODIUM CHL 0.9% 100 ML IV ONE (20:00)
[2024-05-08] MEDS: MAGNESIUM SULFATE 1GM/100ML 100 ML IV ONE (20:00)
[2024-05-08] MEDS: ERGOCALCIFEROL 50,000 UNIT(1.25MG) CAP PO SCH (20:00)
[2024-05-09 06:00] LABS: Basophils # (auto) 0 10 ^3/uL (0-0.2); Basophils % (auto) 0.5 % (0.0-2.0); Eosinophils # (auto) 0.1 10 ^3/uL (0-0.8); Eosinophils % (auto) 1.8 % (0.0-7.0); Hematocrit 41.3 % (41.0-53.0); Hemoglobin 14.6 g/dL (13.5-17.5); Lymphocytes # (auto) 1.1 10 ^3/uL (0.4-5.4); Lymphocytes % (auto) 23.8 % (10.0-50.0); Mean Corpuscular Hemoglobin 32.2 pg (28.0-32.0); Mean Corpuscular Hgb Conc. 35.4 g/dL (32.0-36.0); Mean Corpuscular Volume 90.9 fL (80.0-100.0); Monocytes # (auto) 0.3 10 ^3/uL (0-1.3); Monocytes % (auto) 7.3 % (0.0-12.0); Neutrophils # (auto) 3.1 10 ^3/uL (1.6-8.6); Neutrophils % (auto) 66.6 % (37.0-80.0); Nucleated Red Blood Cells % 0.1 %; Platelet Count (auto) 205 10^3/uL (140-450); Red Blood Cells 4.55 10^6/uL (4.5-5.90); Red Cell Distribution Width 14.3 % (11.8-14.3); White Blood Cell 4.6 10^3/uL (4.4-10.8)
[2024-05-09 06:13] LABS: Chloride 106 mmol/L (98-107); Potassium 4.1 mmol/L (3.5-5.1); Sodium 140 mmol/L (136-145)
[2024-05-09 06:14] LABS: Anion Gap 12 (5-15); Calcium 9.5 mg/dL (8.7-10.4); Carbon Dioxide 22 mmol/L (20-30)
[2024-05-09 06:19] LABS: Glucose 103 mg/dL (74-106); Magnesium 1.9 mg/dL (1.6-2.6)
[2024-05-09 06:21] LABS: BUN/Creatinine Ratio 8.6 (10.0-20.0); Blood Urea Nitrogen < 5 mg/dL (9-23); Phosphorus 3.2 mg/dL (2.4-5.1)
[2024-05-09 10:02] VITALS: PULSE 49; RESP 12; O2SAT 96
[2024-05-09 16:45] VITALS: BP_SYST 96; BP_SYST 99; BP_DIAS 61; BP_DIAS 65; PULSE 41; PULSE 46; PULSE 89; RESP 18; TEMP 97.6; TEMP 98.3; O2SAT 98; O2SAT 99
[2024-05-09 20:00] VITALS: PULSE 52; RESP 19
[2024-05-09 21:00] VITALS: BP 93/50; PULSE 49; RESP 16; TEMP 97.6; O2SAT 100
[2024-05-10] VITALS (9 sets, daily range): BP systolic 89–104; BP diastolic 48–62; PULSE 43–72; RESP 14–18; TEMP 97.4–98.2; O2SAT 91–100
[2024-05-10 06:11] LABS: Basophils # (auto) 0 10 ^3/uL (0-0.2); Basophils % (auto) 0.4 % (0.0-2.0); Eosinophils # (auto) 0.1 10 ^3/uL (0-0.8); Eosinophils % (auto) 1.8 % (0.0-7.0); Hematocrit 41.4 % (41.0-53.0); Hemoglobin 14.6 g/dL (13.5-17.5); Lymphocytes # (auto) 1.5 10 ^3/uL (0.4-5.4); Mean Corpuscular Hgb Conc. 35.2 g/dL (32.0-36.0); Mean Corpuscular Volume 90.8 fL (80.0-100.0); Monocytes # (auto) 0.4 10 ^3/uL (0-1.3); Monocytes % (auto) 7.7 % (0.0-12.0); Neutrophils # (auto) 2.7 10 ^3/uL (1.6-8.6); Neutrophils % (auto) 57.1 % (37.0-80.0); Nucleated Red Blood Cells % 0.1 %; Platelet Count (auto) 234 10^3/uL (140-450); Red Blood Cells 4.56 10^6/uL (4.5-5.90); Red Cell Distribution Width 14.7 % (11.8-14.3); White Blood Cell 4.7 10^3/uL (4.4-10.8)
[2024-05-10 06:18] LABS: Alanine Aminotransferase 18 U/L (7-40); Albumin 3.9 g/dL (3.2-4.8); Alkaline Phosphatase 82 U/L (46-116); Anion Gap 6 (5-15); Aspartate Aminotransferase < 8 U/L (13-40); Blood Urea Nitrogen 6 mg/dL (9-23); Carbon Dioxide 30 mmol/L (20-30); Chloride 103 mmol/L (98-107); Glucose 91 mg/dL (74-106); Magnesium 2.1 mg/dL (1.6-2.6); Phosphorus 3.4 mg/dL (2.4-5.1); Potassium 4.5 mmol/L (3.5-5.1); Sodium 139 mmol/L (136-145)
[2024-05-10 06:19] LABS: Bilirubin, Total 0.7 mg/dL (0.2-1.0); Total Protein 6.5 g/dL (5.7-8.2)
[2024-05-10 06:51] LABS: Calcium 9.5 mg/dL (8.7-10.4)
[2024-05-10] MEDS: Jevity 1.2 Cal/Fiber 1 Liter GT SCH (21:15)
[2024-05-10] MEDS ORDERED: ERGO1CAP23 PO (22:09)
[2024-05-11] VITALS (8 sets, daily range): BP systolic 87–97; BP diastolic 51–59; PULSE 42–54; RESP 15–16; TEMP 97.3–97.6; O2SAT 91–100
[2024-05-11] MEDS ORDERED: [UNRECOGNIZED DRUG - CODE] OR (18:24)
== END 2024-05-11 20:50 | disposition home or self-care (01) | DRG 423 ==
LOC: EDBD 00:33 → ER 00:33 → TELE 11:59 → TELE-EAST 05-09 16:23 → EAST 05-11 09:06
PROVIDERS: ADMIT Internal Medicine Pulmonary Disease; ATTEND Internal Medicine Pulmonary Disease
DX: E83.39 Other disorders of phosphorus metabolism (principal); G93.41 Metabolic encephalopathy; G10 Huntington's disease; E87.20 Acidosis, unspecified; R13.19 Other dysphagia; E87.8 Other disorders of electrolyte and fluid balance, not elsewhere classified; R00.1 Bradycardia, unspecified; E55.9 Vitamin D deficiency, unspecified; N39.0 Urinary tract infection, site not specified; R91.1 Solitary pulmonary nodule; E87.6 Hypokalemia; Z93.1 Gastrostomy status; Z79.899 Other long term (current) drug therapy
CPT/HCPCS: 36415; 36600; 70450; 70551; 71045; 74018; 80048; 80053; 80320; 81001; 82306; 82805; 82962; 83605; 83735; 84100; 84443; 84484; 85025; 85379; 87426; 87804; 92610; 93005; 93306; 93886; G0378; J0461; J3480

== ENCOUNTER 2024-08-17 22:07 | Emergency (ER) | payer MEDICAID ==
[~2024-08-17] VITALS: Ht 175.3 cm; Wt 49.1 kg
[~2024-08-17 22:07] MED LIST changes: +ERGO1CAP23 PO; +[UNRECOGNIZED DRUG - CODE] OR
--- NOTE | 2024-08-17 22:59 | ED.PDOC ---
History of Present Illness HPI Comments 29 y/o M, with a Hx of [place]'s disease, G-tube placement, home O2 use, assisted home care, presents with mother with c/o cough, congestion, shortness of breath, and low heart rate, today. Per mother, patient is nonverbal and is in advanced stages of [place]'s disease and was brought after she noticed his SpO2 being at 79% with his home O2 and heart rate in the "low 30's," this evening, along with other remaining symptoms. Patient's baseline heart rate is stated to, usually, be within the 50-60's range after last hospitalization 2x months ago. Mother denies on the patient having any recent sick contact, injuries, strenuous activities, or other relevant or pertinent Hx. She denies on the patient having any chest pain, fever, chills, or other associated symptoms or modifiers at this time. Chief Complaint: Shortness of Breath Time Seen by MD: 22:30 Primary Care Provider: UNKNOWN Reviewed Notes: Nurses Notes, Medications, Allergies Allergies: Coded Allergies: NO KNOWN ALLERGIES (Unverified , 09/07/18) Home Meds Active Scripts Nutritional Supplements (JEVITY 1 FELIPA) Liq, 1 BOT OR DAILY for 30 Days, #30 LIQ Prov:HAILE MILLIGAN RESIDENT 05/11/24 Ergocalciferol (VITAMIN D 63237 UNIT) 50,000 [place], [address] UNIT PO Q7D for 30 Days, #10 CAP Prov:HAILE MILLIGAN RESIDENT 05/10/24 Nutritional Supplements (ENSURE CLEAR) Bbry/Pom Liq, 240 ML GT Q6HR for 30 Days, #120 LIQ Prov:HAILE MILLIGAN RESIDENT 04/29/24 Azithromycin (ZITHROMAX TABLET) 250 Mg Tb, 250 MG PO DAILY for 3 Days, #3 TAB Prov:CHELHAILE [facility] 04/29/24 Reported Medications Azelastine Hcl (Ophth) (Azelastine Hcl) 0.05 % Ketan, 1 DROP EACHEYE BID, #6 ML 2 Refills 04/25/24 Information Source: Relative (Mother) Mode of Arrival: Wheelchair Severity: Moderate Timing: Hours Duration: Since onset Prehospital treatment: None Past Medical History Past Medical History (Other): [place]'s disease, with neuromuscular dysphagia sinus bradycardia hypophosphatemia, hypokalemia, hypercholeremia with secondary metabolic acidosis vitamin D-deficiency Surgical History (Other): G-tube placement Family History Family History: Reviewed,noncontributory to illness, No family hx of DM, No family hx of Heart silver, No family hx of HTN, No family hx ofKidney silver, No family hx of Liver silver, No family hx of Lung silver, No family hx of Stroke, Family hx of Cancer Social History Smoker: Non-Smoker Alcohol: Denies ETOH Use Drugs: Denies Drug Use Lives In: Home, Assisted Care Other wheelchair-bound EENTM: reports: others (congestion) Respiratory: reports: cough, shortness of breath Cardiovascular: reports: others (bradycardia ) All Other Systems: Reviewed and Negative (negative unless otherwise stated above or in HPI) Physical Exam Exam Comments Patient is nonverbal and is in advanced stages of [place]'s disease General Appearance: No Apparent Distress, Normal HEENT: Normal ENT Inspection, Pharynx Normal, TMs Normal Neck: Full Range of Motion, Non-Tender, Normal, Normal Inspection Respiratory: Chest Non-Tender, Lungs Clear, No Accessory Muscle Use, No Respiratory Distress, Normal Breath Sounds Cardiovascular: No Edema, No JVD, No Murmur, No Gallop, Normal Peripheral Pulses, Regular Rate/Rhythm Breast Exam: Deferred Gastrointestinal: No Organomegaly, Non Tender, No Pulsatile Mass, Normal Bowel Sounds, Soft, Other (G-tube in place ) Genitalia: Deferred Pelvic: Deferred Rectal: Deferred Extremities: NOT DONE Musculoskeletal : Apperance: Normal Neurologic: NOT DONE Cerebellar Function: NOT DONE Reflexes: NOT DONE Skin: Dry, Normal Color, Warm Lymphatic: No Adenopathy Was a procedure done? Was a procedure done?: No EKG EKG : Pulse Rate (adult): 53 [place]aw: Normal Cardiac Rhythm: NSR Block: None Hypertrophy: None ST: Normal Differential Dx Considerations may include: URI, viral syndrome, bradycardia, arrhythmia, PNA, bronchitis, pleural effusions, influenza, covid19, acute respiratory failure X-Ray, Labs, Meds, VS Vital Signs Date Time Temp Pulse Resp B/P (MAP) Pulse Ox O2 Delivery O2 Flow Rate FiO2 08/17/24 22:59 53 08/17/24 22:40 53 08/17/24 22:37 99.1 56 16 94/62 (73) 99 X-Ray, Labs, Meds, VS Comment Imaging: X-rays and CT scans were reviewed and interpreted by this provider, imaging shows no fractures and no pathological disease. Pending radiology review. Laboratory: Labs reviewed and interpreted by this provider. No significant abnormalities noted. Patient has prior medical visits reviewed. Med reconciliation performed Vital signs reviewed Patient clinically stable, asymptomatic upon triage and upon discharge. Time of 1ST Reevaluation: 23:00 Reevaluation 1ST: Unchanged Patient Education/Counseling: Other (patient has Brittany's disease) Family Education/Counseling: Diagnosis, Treatment, Need For Follow Up (Patient advised to follow-up in the emergency room in the next 24 to 48 hours if symptoms do not improve. Advised follow-up with PCP in the next 3 to 5 days. Patient verbalized understanding. ) Additional Information Reviewed previous notes: admission discharge summary report on 05/10/24 ordered: EKG, chest X-ray concur with result findings: chest X-ray information provided by: mother Departure 1 Departure Time of Disposition: 00:09 Impression: Primary Impression: Brittany's disease Additional Impression: Bradycardia Disposition: 01 HOME / SELF CARE / HOMELESS Condition: Fair Discharged With: Relative (Mother) Comments Mother advised he will need to follow up with a contract administration manager or PCP next available appointment. They may return to emergency department if symptoms worsen or returned. Critical Care Note Critical Care Time?: No Stability Stability form required: No Heart Score Heart Score: Heart Score Response (Comments) Value History N/A 0 EKG N/A 0 Age N/A 0 Risk Factors N/A 0 Troponin N/A 0 Total 0 I personally scribed for FEDERICO TANG ([email or web address]) on 08/17/24 at 22:59. Electronically submitted by Jovani Tomas ([email or web address]). FEDERICO TANG Aug 17, 2024 22:59
--- NOTE | 2024-08-17 23:26 | DVH ---
EXAM: XY CHEST XRAY 1 VIEW CLINICAL HISTORY: cough TECHNIQUE: Single AP view of the chest WID: COMPARISON: XY CHEST PORTABLE on DOS: 05/07/24 FINDINGS: Lines and tubes: Gastrostomy tube projects over the left upper quadrant. Chest: The heart size and pulmonary vasculature is within normal limits. No pleural effusion, pneumothorax, or consolidation. The osseous structures are grossly intact. IMPRESSION: No acute cardiopulmonary abnormality.
[2024-08-18 00:36] VITALS: BP 112/81; PULSE 57; RESP 18; O2SAT 98
--- NOTE | 2024-08-18 19:09 | ECG ---
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
== END 2024-08-18 00:36 | disposition home or self-care (01) ==
LOC: ER 22:07
DX: G10 Huntington's disease (principal); R00.1 Bradycardia, unspecified; F06.70 Mild neurocognitive disorder due to known physiological condition without behavioral disturbance; Z99.3 Dependence on wheelchair
CPT/HCPCS: 71045; 93005

== ENCOUNTER 2024-09-06 16:33 | Inpatient (IN) | payer MEDICAID ==
[~2024-09-06] VITALS: Ht 165.1 cm; Wt 48.5 kg
[2024-09-06] MEDS: ACCU-CHEK COMFORT CURVE STRIP VI ONE ×2 (16:21→18:57)
[2024-09-06] MEDS: DEXTROSE (50%) 50ML SYRG IV ONE ×2 (16:37→18:21)
[2024-09-06] MEDS ORDERED: GLUCAGON EMERG KIT 1mg/1ml ONE (16:38)
[2024-09-06] MEDS: ATROPINE SULF 1 MG/10ml SYR IV ONE (16:38)
[2024-09-06] MEDS: ETOMIDATE (2MG/ML) 20ML VIAL IV ONE ×2 (16:43→17:07)
[2024-09-06] MEDS: SUCCINYLCHOLINE CHLORIDE 20 MG/ML 10ML VIAL IV ONE ×2 (16:44→17:07)
[2024-09-06 17:10] VITALS: PULSE 166; RESP 15; O2SAT 99
[2024-09-06] MEDS ORDERED: VANCOMYCIN PER PHARMACY 0 MG IV SCH (17:15)
[2024-09-06] MEDS: fentaNYL Drip 2500mCg/250mlNS 250 ML IV SCH (18:19)
[2024-09-06] MEDS: DEXTROSE 10% 250 ML IV ONE (18:21)
[2024-09-06] MEDS: DEXTROSE 10% 1,000 ML IV ONE (18:22)
--- NOTE | 2024-09-06 18:37 | ED.PDOC ---
Altered Mental Status HPI Comments Jayy Delgado is a 29-year-old male patient with a past medical history of Brittany disease who was brought to ER by his family for the evaluation of unresponsiveness.Per records, patient is not vocal for the past many years per his mom, and usually conveys his wishes by nodding. On the time of evaluation patient was unresponsive with hypoglycemia (24), was not protecting airway, decided to emergently intubate patient. No review of systems could be obtained at the moment of evaluation, all past medical history obtained from EMR. Past medical history: Britt[place]'s disease, neuromuscular dysphagia status post PEG placement, asymptomatic bradycardia (evaluated by cardiology previously), V itamin D deficiency, left lower lobar solitary nodule Surgical history: 04/2024 PEG tube placement Family history: Non contributory Social history Lives with family. Denies tobacco, alcohol and other drug abuse. Allergies: Denies Chief Complaint: ALOC Time Seen by MD: 16:50 Primary Care Provider: UNKNOWN Allergies: Coded Allergies: NO KNOWN ALLERGIES (Unverified , 09/07/18) Home Meds Active Scripts Nutritional Supplements (JEVITY 1 FELIPA) Liq, 1 BOT OR DAILY for 30 Days, #30 LIQ Prov:HIALE MILLIGAN RESIDENT 05/11/24 Ergocalciferol (VITAMIN D 01103 UNIT) 50,000 [place], [address] UNIT PO Q7D for 30 Days, #10 CAP Prov:HAILE MILLIGAN RESIDENT 05/10/24 Nutritional Supplements (ENSURE CLEAR) Bbry/Pom Liq, 240 ML GT Q6HR for 30 Days, #120 LIQ Prov:HAILE MILLIGAN RESIDENT 04/29/24 Azithromycin (ZITHROMAX TABLET) 250 Mg Tb, 250 MG PO DAILY for 3 Days, #3 TAB Prov:HAILE MILLIGAN RESIDENT 04/29/24 Reported Medications Azelastine Hcl (Ophth) (Azelastine Hcl) 0.05 % Ketan, 1 DROP EACHEYE BID, #6 ML 2 Refills 04/25/24 Information Source: Emergency Med Personnel Mode of Arrival: EMS Severity: Severe Family History Family History: Reviewed,noncontributory to illness, No family hx of DM, No family hx of Heart silver, No family hx of HTN, No family hx ofKidney silver, No family hx of Liver silver, No family hx of Lung silver, No family hx of Stroke, Family hx of Cancer Social History Smoker: Non-Smoker Alcohol: Denies ETOH Use Drugs: Denies Drug Use Lives In: Home, Assisted Care Unable to Obtain due to: Altered Mental Status Physical Exam General Appearance: Cachectic, Mild Distress HEENT: Other (Pupils symmetric and reactive. Dry mucous membranes.) Neck: Full Range of Motion, Normal Inspection Respiratory: Accessory Muscle Use, Decreased Breath Sounds Cardiovascular: Bradycardia, No Edema, No JVD Breast Exam: Deferred Gastrointestinal: Soft, Other (PEG) Genitalia: Deferred Pelvic: Deferred Rectal: Deferred Extremities: No pedal edema, Other (Increased tonicity, diffuse muscle wasting) Neurologic: Aphasia, Motor Weakness, Sensory Deficit Cerebellar Function: Unable to Test, NOT DONE Reflexes: NOT DONE Skin: Dry, Pallor, Warm Lymphatic: NOT DONE Was a procedure done? Was a procedure done?: Yes Sedation Sedation?: No, Yes Informed consent obtained: No Sedation start time: 16:45 Sedation end time: 17:00 Sedation total time: 15 Central Line Recorder of insertion practice: Forepart Laster Indication: Hypotension, CVP monitoring, Volume resuscitation Room prepared for procedure: Yes Forepart Laster performed hand hygien: Yes Maximal sterile barrier precau: Mask/Eye shield, Sterile gown, Cap, Sterlie gloves, Large sterlie drape Skin Preparation: Chlorhexidine gluconate Skin preparation completely dr: Yes Insertion site: Left, Internal jugular Central line catheter type: [id number]-dlb dialysis Number of lumens: 3 Central line exchanged over a: No Antiseptic ointment applied to: Yes Post Assessment: Chest X-Ray Informed consent obtained: No Risks/benefits/alt described: No UTO Consent Altered mental status Intubation Indication: Altered Mental Status, Airway Protection Prep: Preoxygenation Pretreated with: Sedation Intubation Approach: Orotracheal Intubation size: cm (7) Informed consent obtained: No Risks/benefits/alt described: No UTO Consent Altered mental status Differential Diagnosis (ALOC) Differential Diagnosis: Dehydration, Hypoglycemia, Encephalopathy, Sepsis, Hypoxemia, CVA, Drug Overdose, ETOH Intoxication, Other (Electrolyte imbalance, infection such as UTI, arrhythmia, DE, among others) X-Ray, Labs, Meds, VS Vital Signs Date Time Temp Pulse Resp B/P (MAP) Pulse Ox O2 Delivery O2 Flow Rate FiO2 09/06/24 22:00 88/63 09/06/24 21:00 90.9 60 16 95/65 (75) 96 90.9 09/06/24 20:45 90.9 63 16 96/68 (77) 96 90.9 09/06/24 20:30 90.1 70 16 114/83 (93) 97 90.1 09/06/24 20:15 76 16 105/74 (84) 99 40 09/06/24 20:15 90.1 76 16 105/74 (84) 98 90.1 09/06/24 20:00 90.1 76 16 105/74 (84) 98 90.1 09/06/24 19:45 89.8 73 16 98/74 (82) 98 89.8 09/06/24 19:30 89.4 71 15 120/86 (97) 100 89.4 09/06/24 19:19 98/74 09/06/24 18:45 97 25 126/80 (95) 98 100 09/06/24 18:30 85.6 99 126/80 (95) 100 85.6 09/06/24 18:19 126/80 09/06/24 18:15 86.7 171 96 86.7 09/06/24 18:00 95 18 141/104 (116) 99 09/06/24 17:45 83 22 145/109 (121) 99 09/06/24 17:30 80 17 133/100 (111) 100 09/06/24 17:15 54 16 108/80 (89) 99 09/06/24 17:10 166 15 99 Mechanical Ventilator+ 100 100 09/06/24 17:03 60 16 96/62 (73) 99 100 09/06/24 16:33 84.8 37 12 107/68 (81) 91 Lab Test 09/06/24 21:30 09/06/24 19:48 09/06/24 19:28 09/06/24 18:54 Range/Units Direct Bilirubin 1.8 H <0.3 mg/dL Troponin I High Sensitivity 10 7 </=54 ng/L Thyroid Stimulating Hormone (TSH) Pending Blood Gas Specimen Type Arterial Blood Gas Sample Site Right radial Blood Gas Patient Temperature 37.0 Arterial Blood Date Drawn [id number] Arterial Blood pH 7.361 7.350-7.450 Arterial Blood Partial Pressure CO2 38.3 35.0-48.0 mmHg Arterial Blood Partial Pressure O2 > 529.9 *H 83.0-108.0 mmHg Arterial Blood HCO3 21.2 21.0-28.0 mmol/L Arterial Blood Oxygen Saturation 99.6 H 94.0-98.0 % Arterial Blood Base Excess -3.8 L -2.0-3.0 mmol/L Arterial Blood Oxyhemoglobin 98.6 H 94.0-98.0 % Arterial Blood Carboxyhemoglobin 0.3 L 0.5-1.5 % Arterial Blood Methemoglobin 0.7 0.0-1.5 % Yasir Test Modified Blood Gas Total Hemoglobin 13.50 13.5-17.5 g/dL Blood Gas Set Respiration Rate 16.0 Blood Gas Modality Vent - ac FiO2 % 100.0 Blood Gas Tidal Volume 400.0 Blood Gas PEEP or CPAP 5.0 Blood Gas Critical Value Read Back Yes Blood Gas Notified Whom Dr. obed degroot Blood Gas Notified Time [id number] Blood Gas Notified By Rt elsa young POC Glucose 181 H 300 H 70-106 mg/dl Test 09/06/24 18:16 09/06/24 18:15 09/06/24 18:00 09/06/24 17:05 Range/Units POC Glucose 29 *L 70-106 mg/dl Lactic Acid Level 1.7 0.4-2.0 mmol/L White Blood Count 9.8 4.4-10.8 10^3/uL Red Blood Count 4.52 4.5-5.90 10^6/uL Hemoglobin 15.0 13.5-17.5 g/dL Hematocrit 42.0 41.0-53.0 % Mean Corpuscular Volume 92.9 80.0-100.0 fL Mean Corpuscular Hemoglobin 33.3 H 28.0-32.0 pg Mean Corpuscular Hemoglobin Concent 35.8 32.0-36.0 g/dL Red Cell Distribution Width 13.3 11.8-14.3 % Platelet Count 131 L 140-450 10^3/uL Mean Platelet Volume 9.0 6.9-10.8 fL Neutrophils (%) (Auto) 78.0 37.0-80.0 % Lymphocytes (%) (Auto) 17.9 10.0-50.0 % Monocytes (%) (Auto) 3.9 0.0-12.0 % Eosinophils (%) (Auto) 0.1 0.0-7.0 % Basophils (%) (Auto) 0.1 0.0-2.0 % Neutrophils # (Auto) 7.7 1.6-8.6 10 ^3/uL Lymphocytes # (Auto) 1.8 0.4-5.4 10 ^3/uL Monocytes # (Auto) 0.4 0-1.3 10 ^3/uL Eosinophils # (Auto) 0 0-0.8 10 ^3/uL Basophils # (Auto) 0 0-0.2 10 ^3/uL Nucleated Red Blood Cells 0.1 % Prothrombin Time 16.9 H 9.3-11.8 sec Prothrombin Time INR 1.68 H 0.9-1.15 Activated Partial Thromboplast Time 30.2 24.5-34.5 SEC Sodium Level 136 136-145 mmol/L Potassium Level 5.3 H 3.5-5.1 mmol/L Chloride Level 100 98-107 mmol/L Carbon Dioxide Level 30 20-31 mmol/L Anion Gap 6 5-15 Blood Urea Nitrogen 43 H 9-23 mg/dL Creatinine 0.48 L 0.700-1.30 mg/dL Glomerular Filtration Rate Calc 143 >90 mL/min BUN/Creatinine Ratio 89.6 H 10.0-20.0 Serum Glucose 37 *L 74-106 mg/dL Calcium Level 8.0 L 8.7-10.4 mg/dL Magnesium Level 2.0 1.6-2.6 mg/dL Total Bilirubin 2.6 H 0.2-1.0 mg/dL Aspartate Amino Transferase (AST) 4741 H 13-40 U/L Alanine Aminotransferase (ALT) 3394 H 7-40 U/L Alkaline Phosphatase 670 H 46-116 U/L Troponin I High Sensitivity 6 </=54 ng/L Total Protein 5.9 5.7-8.2 g/dL Albumin 3.4 3.2-4.8 g/dL Plasma/Serum Blood Alcohol 3.3 <10 mg/dL Hepatitis A IgM Antibody Pending Hepatitis B Surface Antigen Pending Hepatitis B Core IgM Antibody Pending Hepatitis C Antibody Pending Urine Color Yellow Yellow Urine Clarity Clear Clear Urine pH 6.0 5.0-9.0 Urine Specific Wells 1.019 1.001-1.035 Urine Protein Negative Negative Urine Ketones Negative Negative Urine Blood Trace H Negative /uL Urine Nitrite 1+ H Negative Urine Bilirubin Negative Negative Urine Urobilinogen 3 H Negative mg/dL Urine Leukocyte Esterase 1+ Negative /uL Urine RBC 1 0 - 3 /hpf Urine WBC 8 0 - 3 /hpf Urine Squamous Epithelial Cells Few <5 /hpf Urine Bacteria None seen None Seen /hpf Urine Hyaline Casts Mod 0 - 2 /lpf Urine Mucus Few None Seen Urine Glucose 3+ H Normal mg/dL Urine Opiates Screen Neg NEGATIVE Urine Fentanyl Screen Neg NEGATIVE Urine Barbiturates Screen Neg NEGATIVE Urine Phencyclidine Screen Neg NEGATIVE Urine Amphetamines Screen Neg NEGATIVE Urine Benzodiazepines Screen Neg NEGATIVE Urine Cocaine Screen Neg NEGATIVE Urine Cannabinoids Screen Neg NEGATIVE Current Medications Medications (Trade) Dose Ordered Sig/Gisselle Route Start Time Stop Time Status Last Admin Diagnostic Test (Pha) (Accu-Chek Comfort Curve T) 1 strip ONCE ONCE 09/06/24 17:15 09/06/24 17:16 DC 09/06/24 16:21 Diagnostic Test (Pha) (Accu-Chek Comfort Curve T) 1 strip ONCE ONCE 09/06/24 17:30 09/06/24 17:31 DC 09/06/24 18:57 Dextrose 50 ml PRN ONCE IV 09/06/24 17:15 09/06/24 17:16 DC 09/06/24 16:37 Dextrose 50 ml PRN ONCE IV 09/06/24 17:30 09/06/24 17:31 DC 09/06/24 18:21 Sodium Chloride 1,000 ml @ 150 mls/hr Q6H40M ONCE IV 09/06/24 17:15 09/06/24 23:54 09/06/24 18:48 Dextrose 250 ml @ 1,000 mls/hr ONCE ONCE IV 09/06/24 17:15 09/06/24 17:32 DC 09/06/24 18:21 Ceftriaxone Sodium 50 ml @ 100 mls/hr ONCE ONCE IV 09/06/24 17:15 09/06/24 17:44 DC 09/06/24 19:30 Etomidate 30 mg ONCE ONCE IV 09/06/24 17:15 09/06/24 17:16 DC 09/06/24 16:43 Succinylcholine Chloride (Quelicin) 80 mg ONCE ONCE IV 09/06/24 17:15 09/06/24 17:16 DC 09/06/24 16:44 Atropine Sulfate (Atropine Sulfate) 1 mg ONCE ONCE IV 09/06/24 17:30 09/06/24 17:31 DC 09/06/24 16:38 Vancomycin HCl 100 ml @ 100 mls/hr ONCE ONCE IV 09/06/24 18:00 09/06/24 18:59 DC 09/06/24 19:47 Fentanyl Citrate 250 ml @ 2.5 mls/hr Q24H IV 09/06/24 17:45 09/06/24 18:19 Lorazepam (Ativan Inj) 1 mg Q5MINP PRN IV 09/06/24 18:45 09/06/24 19:06 Midazolam HCl 50 ml @ 1 mls/hr Q24H IV 09/06/24 19:45 09/06/24 22:40 Artificial Tears (Tears Naturale) 2 drop HS EACHEYE 09/06/24 22:00 09/06/24 22:00 Dextrose 1,000 ml @ 100 mls/hr Q10H IV 09/06/24 20:00 09/06/24 22:30 DC 09/06/24 20:27 Pantoprazole Sodium (Protonix) 40 mg ONCE ONCE IV 09/06/24 21:00 09/06/24 21:01 DC 09/06/24 22:04 Dopamine HCl/ Dextrose 250 ml @ 8.438 mls/ hr Q24H ONCE IV 09/06/24 22:00 09/07/24 21:59 09/06/24 22:00 PROCEDURE(s): HWOCT - HEAD WITHOUT CONTRAST REASON: ALOC ORDER NUMBER(s): [id number], ACCESSION NUMBER(s): [id number] EXAM: CT HEAD WITHOUT CONTRAST INDICATION: ALOC TECHNIQUE: CT of the head without intravenous contrast. Radiation Dose : 1. Head: CT Dose: CTDI volume is 56.5 mGy. Dose-length product is 1131.62 mGy*cm The dose indicators for CT are the volume Computed Tomography (CT) Dose Index (CTDIvol) and the Dose Length Product (DLP), and are measured in units of mGy and mGy-cm, respectively. These indicators are not patient dose, but values generated from the CT scanner acquisition factors. The report includes radiation exposure data for exposures received during this examination. COMPARISON: CT HEAD WITHOUT CONTRAST on DOS: 05/07/24 FINDINGS: There is no evidence of acute intracranial hemorrhage, extra-axial collection, mass effect, midline shift, herniation or hydrocephalus. The ventricles, sulci and cisterns are age appropriate. The morrissey-white differentiation is intact. Patchy periventricular and subcortical white matter hypoattenuation is nonspecific but may be related to small vessel ischemic disease. The visualized paranasal sinuses and mastoid air cells are clear. The surrounding soft tissues and osseous structures are unremarkable. IMPRESSION: 1. No acute intracranial abnormality. Radiation optimization: All CT scans at this facility use at least one of these dose optimization techniques: automated exposure control mA and/or kV adjustment per patient size (includes targeted exams where dose is matched to clinical indication) or iterative reconstruction. EDURE(s): CXRP - CHEST PORTABLE REASON: Post intubation and central line ORDER NUMBER(s): [id number], ACCESSION NUMBER(s): [id number] EXAM: XR Chest, 1 View CLINICAL INDICATION: Post intubation and central line TECHNIQUE: Frontal view of the chest. COMPARISON: XY CHEST XRAY 1 VIEW on DOS: 08/17/24, XY CHEST PORTABLE on DOS: 05/07/24, XY CHEST PORTABLE on DOS: 04/25/24 FINDINGS: LUNGS AND PLEURAL SPACES: Unremarkable. No consolidation. No pneumothorax. HEART: Unremarkable. No cardiomegaly. MEDIASTINUM: Unremarkable. Normal mediastinal contour. BONES/JOINTS: Unremarkable. No acute fracture. TUBES, LINES AND DEVICES: Left internal jugular central venous catheter tip in the superior vena cava. OTHER FINDINGS: . . ETt. . IMPRESSION: No acute cardiopulmonary process. HS:Y X-Ray, Labs, Meds, VS Comment Patient seen in conjunction with Candelaria Milligan, resident physician. Agree with assessment and plan. Jayy Delgado is a 29-year-old male patient with a past medical history of Brittany disease who was brought to ER by his family for the evaluation of unresponsiveness Vitals remarkable for rectal temperature 90.[address] unremarkable Chest x-ray unremarkable CBC unremarkable Metabolic panel remarkable for potassium 5.3, BUN 43, creatinine 0.48, glucose 37, calcium 8, AST 4741, ALT 11/21/1993, alkaline phos 670 Troponin and BNP negative Lactate normal Lipase, ammonia level, CT abdomen and pelvis and right upper quadrant ultrasound pending Patient treated with the following in the ED Intubated by Dr. Milligan for airway protection. Although oxygen saturation was normal, there was there was a large amount of vomitus within the oral cavity, so there was a high suspicion for aspiration. Patient also received IV D50 for hypoglycemia which improved his blood glucose from 27 to 300, atropine for bradycardia at 33, which improved his heart rate to the 80s initially. Patient began to drop his heart rate to the 50s and blood pressure was borderline, so he was placed on a dopamine infusion. Patient also received IV antibiotic coverage for possible sepsis with Rocephin and vancomycin, and a 30 cc/kilogram IV normal saline bolus. He also received Lokelma 10 g via G-tube for hyperkalemia. Time of 1ST Reevaluation: 23:00 Reevaluation 1ST: Improved Patient Education/Counseling: Pt Unresponsive Family Education/Counseling: Diagnosis, Treatment Departure 1 Departure Time of Disposition: 23:00 Impression: Primary Impression: Metabolic encephalopathy Additional Impressions: Altered mental status Sepsis Aspiration pneumonia UTI (urinary tract infection) Transaminitis Acute kidney injury Hyperkalemia Hypoglycemia Bradycardia Disposition: ADMITTED INPATIENT Admit to: ICU Condition: Serious Critical Care Note Critical Care Time?: Yes (45 min-critical care time only) Critical care comment: Critical care time including multiple bedside re-evaluations, review of lab and imaging studies, and discussion of the case with the admitting provider. Patient is high risk for respiratory, metabolic and/or hemodynamic decompensation. Stability Stability form required: No Heart Score Heart Score: Heart Score Response (Comments) Value History N/A 0 EKG N/A 0 Age N/A 0 Risk Factors N/A 0 Troponin N/A 0 Total 0 [place] PARNELL MD Sep 06, 2024 18:37
--- NOTE | 2024-09-06 18:40 | DVH ---
EXAM: XR Chest, 1 View CLINICAL INDICATION: Post intubation and central line TECHNIQUE: Frontal view of the chest. COMPARISON: XY CHEST XRAY 1 VIEW on DOS: 08/17/24, XY CHEST PORTABLE on DOS: 05/07/24, XY CHEST PORT ABLE on DOS: 04/25/24 FINDINGS: LUNGS AND PLEURAL SPACES: Unremarkable. No consolidation. No pneumothorax. HEART: Unremarkable. No cardiomegaly. MEDIASTINUM: Unremarkable. Normal mediastinal contour. BONES/JOINTS: Unremarkable. No acute fracture. TUBES, LINES AND DEVICES: Left internal jugular central venous catheter tip in the superior vena cav a. OTHER FINDINGS: . . ETt. . IMPRESSION: No acute cardiopulmonary process. HS:Y
[2024-09-06 18:45] VITALS: BP 126/80; PULSE 97; RESP 25; O2SAT 98
[2024-09-06] MEDS: SODIUM CHLORIDE 0.9% 1,000 ML IV ONE (18:48)
[2024-09-06 18:50] LABS: Basophils # (auto) 0 10 ^3/uL (0-0.2); Basophils % (auto) 0.1 % (0.0-2.0); Eosinophils # (auto) 0 10 ^3/uL (0-0.8); Eosinophils % (auto) 0.1 % (0.0-7.0); Lymphocytes # (auto) 1.8 10 ^3/uL (0.4-5.4); Lymphocytes % (auto) 17.9 % (10.0-50.0); Mean Corpuscular Hemoglobin 33.3 pg (28.0-32.0); Mean Corpuscular Hgb Conc. 35.8 g/dL (32.0-36.0); Mean Corpuscular Volume 92.9 fL (80.0-100.0); Monocytes # (auto) 0.4 10 ^3/uL (0-1.3); Monocytes % (auto) 3.9 % (0.0-12.0); Neutrophils # (auto) 7.7 10 ^3/uL (1.6-8.6); Nucleated Red Blood Cells % 0.1 %; Platelet Count (auto) 131 10^3/uL (140-450); Red Blood Cells 4.52 10^6/uL (4.5-5.90); Red Cell Distribution Width 13.3 % (11.8-14.3); White Blood Cell 9.8 10^3/uL (4.4-10.8)
[2024-09-06 19:06] LABS: Albumin 3.4 g/dL (3.2-4.8); Anion Gap 6 (5-15); BUN/Creatinine Ratio 89.6 (10.0-20.0); Blood Alcohol 3.3 mg/dL (<10); Carbon Dioxide 30 mmol/L (20-31); Chloride 100 mmol/L (98-107)
[2024-09-06] MEDS: LORazepam 2MG/ML-1ML VIAL IV PRN (19:06)
[2024-09-06 19:07] LABS: Total Protein 5.9 g/dL (5.7-8.2)
[2024-09-06 19:08] LABS: INR 1.68 (0.9-1.15); Partial Thromboplastin Time 30.2 SEC (24.5-34.5); Prothrombin Time 16.9 sec (9.3-11.8)
[2024-09-06] MEDS: cefTRIAXone 1GM/50ML D5W 50 ML IV ONE (19:30)
[2024-09-06 19:43] LABS: Urine Bacteria None Seen /hpf (None Seen)
[2024-09-06] MEDS: ARTIFICIAL TEAR OPTH(EYE) OINT 3.5GM EACHEYE ONE (19:45)
[2024-09-06] MEDS: VANCOMYCIN 750MG KIT 100 ML IV ONE (19:47)
[2024-09-06 19:54] LABS: Base Excess -3.8 mmol/L (-2.0-3.0)
[2024-09-06 20:15] VITALS: BP 105/74; PULSE 76; RESP 16; O2SAT 99
[2024-09-06 20:17] LABS: Urine Blood TRACE /uL (Negative); Urine Clarity Clear (Clear); Urine Color Yellow (Yellow); Urine Hyaline Cast MOD /lpf (0 - 2); Urine Mucus FEW (None Seen); Urine Protein, UAD Negative (Negative); Urine Specific Gravity 1.019 (1.001-1.035); Urine Squamous Epithelial Cell FEW /hpf (<5); Urine Urobilinogen 3 mg/dL (Negative); Urine WBC 8 /hpf (0 - 3)
[2024-09-06 20:19] LABS: Alanine Aminotransferase 3394 U/L (7-40); Alkaline Phosphatase 670 U/L (46-116); Aspartate Aminotransferase 4741 U/L (13-40); Bilirubin, Total 2.6 mg/dL (0.2-1.0); Blood Urea Nitrogen 43 mg/dL (9-23); Potassium 5.3 mmol/L (3.5-5.1); Sodium 136 mmol/L (136-145)
[2024-09-06 20:20] LABS: Amphetamine Screen, Urine Neg (NEGATIVE); Barbiturate Scree,Urine Neg (NEGATIVE); Benzodiazephine Screen, Urine Neg (NEGATIVE); Cannabinoid Screen, Urine Neg (NEGATIVE); Cocaine Screen, Urine Neg (NEGATIVE); Opiate Scree,Urine Neg (NEGATIVE); Phencyclidine Screen, Urine Neg (NEGATIVE)
[2024-09-06 20:20] LABS: Glucose 37 mg/dL (74-106)
[2024-09-06] MEDS: DEXTROSE 10% 1,000 ML IV SCH (20:27)
--- NOTE | 2024-09-06 20:27 | DVH ---
EXAM: CT HEAD WITHOUT CONTRAST INDICATION: ALOC TECHNIQUE: CT of the head without intravenous contrast. Radiation Dose : 1. Head: CT Dose: CTDI volume is 56.5 mGy. Dose-length product is 1131.62 mGy*cm The dose indicators for CT are the volume Computed Tomography (CT) Dose Index (CTDIvol) and the Dose Length Product (DLP), and are measured in units of mGy and mGy-cm, respectively. These indicators are not patient dose, but values generated from the CT scanner acquisition factors. The report includes radiation exposure data for exposures received during this examination. COMPARISON: CT HEAD WITHOUT CONTRAST on DOS: 05/07/24 FINDINGS: There is no evidence of acute intracranial hemorrhage, extra-axial collection, mass effect, midline s hift, herniation or hydrocephalus. The ventricles, sulci and cisterns are age appropriate. The morrissey-white differentiation is intact. Patchy periventricular and subcortical white matter hypoattenuation is nonspecific but may be related to small vessel ischemic disease. The visualized paranasal sinuses and mastoid air cells are clear. The surrounding soft tissues and osseous structures are unremarkable. IMPRESSION: 1. No acute intracranial abnormality. Radiation optimization: All CT scans at this facility use at least one of these dose optimization dangelo hniques: automated exposure control mA and/or kV adjustment per patient size (includes targeted exam s where dose is matched to clinical indication) or iterative reconstruction.
[2024-09-06] MEDS: DOPamine 1600MCG/ML D5W 250 ML IV ONE (22:00)
[2024-09-06] MEDS: ARTIFICIAL TEARS 15ml EACHEYE SCH (22:00)
[2024-09-06] MEDS: PANTOPRAZOLE 40 MG/10 ML VIAL INJ IV ONE (22:04)
[2024-09-06 22:30] VITALS: BP 93/67; PULSE 57; RESP 16; O2SAT 96
[2024-09-06] MEDS: D5W 5% 1,000 ML IV SCH (22:30)
[2024-09-06] MEDS ORDERED: Glucerna 1.2 Cal 1Liter BOTTLE GT SCH (22:30)
--- NOTE | 2024-09-06 22:32 | DVHHPRES ---
History of Present Illness Resident Creating Document: TERRY VAZQUEZ RESIDENT History of Present Illness Patient is 29-year-old male with past medical history of Union's disease who brought to the hospital by family members for evaluation of altered level of consciousness. As per mother , patient was not responding to commands, head gestures of upper arm contractions, low temperature that prompted visit to emergency department. During initial evaluation in emergency department, patient was unresponsive with hypoglycemia and he was not protecting airway that is why patient was intubated in emergency department. At the time of evaluation patient was intubated , on dopamine for bradycardia, received antibiotics and on D10 IV fluids for hypo glycemia. All information obtained from EMR and family members. No any other events. Past medical history: Union disease, asymptomatic bradycardia, vitamin-D deficiency, left lower lobe solitary nodules, status post PEG tube placement in mid of 2023. Surgical history: Peg tube placement in 2023. Family history noncontributory Social history noncontributory Allergies none Review of Systems Review of Systems ROS can not be obtained given patient is intubated on sedated. Allergies: Coded Allergies: NO KNOWN ALLERGIES (Unverified , 09/07/18) Medications Current Medications Medications Dose Ordered Sig/Gisselle Route Start Time Stop Time Status Last Admin Dose Admin Ceftriaxone Sodium 50 ml @ 100 mls/hr DAILY@09 IV 09/07/24 09:00 Vancomycin HCl 0 ml @ 0 mls/hr UD IV 09/06/24 17:15 Fentanyl Citrate 250 ml @ 2.5 mls/hr Q24H IV 09/06/24 17:45 09/06/24 18:19 2.5 MLS/HR Lorazepam 1 mg Q5MINP PRN IV 09/06/24 18:45 09/06/24 19:06 1 MG Midazolam HCl 50 ml @ 1 mls/hr Q24H IV 09/06/24 19:45 Artificial Tears 2 drop HS EACHEYE 09/06/24 22:00 09/06/24 22:00 2 DROP Pantoprazole Sodium 40 mg DAILY IV 09/07/24 10:00 Enoxaparin Sodium 30 mg DAILY SC 09/07/24 10:00 Enteral Nutritional Formula 1,000 ml 30ML/HR GT 09/06/24 22:30 UNV Dextrose 1,000 ml @ 75 mls/hr [id number] IV 09/06/24 22:30 UNV Exam Vital Signs Vital Signs Date Time Temp Pulse Resp B/P (MAP) Pulse Ox O2 Delivery O2 Flow Rate FiO2 09/06/24 22:00 88/63 09/06/24 21:00 90.9 60 16 96 90.9 09/06/24 20:15 40 09/06/24 17:10 Mechanical Ventilator+ Exam General Appearance: Ventilated and sedated. Head Exam: Normal inspection Neck Exam: Normal inspection. Non-tender. Normal alignment Pulmonary/Respiratory: Chest non-tender. Clear bilateral breath sounds Cardiovascular/Chest: Regular rate and rhythm. No murmurs. No JVD. Peripheral Pulses: 2+ Radial (R). 2+ Radial (L). 2+ Pedal (R). 2+ Pedal (L) Abdominal Exam: Normal bowel sounds. Soft. Nontender. No hepatospenomegaly. No masses Ankle Exam: Negative ankle edema Lower extremities: Negative lower extremity edema Neuro/Mental Status: Sedated, pupillary reflex present. Labs/Xrays Labs Test 09/06/24 21:30 09/06/24 19:48 09/06/24 19:28 09/06/24 18:15 Range/Units Troponin I High Sensitivity 10 </=54 ng/L Blood Gas Specimen Type Arterial Blood Gas Sample Site Right radial Blood Gas Patient Temperature 37.0 Arterial Blood Date Drawn [id number] Arterial Blood pH 7.361 7.350-7.450 Arterial Blood Partial Pressure CO2 38.3 35.0-48.0 mmHg Arterial Blood Partial Pressure O2 > 529.9 *H 83.0-108.0 mmHg Arterial Blood HCO3 21.2 21.0-28.0 mmol/L Arterial Blood Oxygen Saturation 99.6 H 94.0-98.0 % Arterial Blood Base Excess -3.8 L -2.0-3.0 mmol/L Arterial Blood Oxyhemoglobin 98.6 H 94.0-98.0 % Arterial Blood Carboxyhemoglobin 0.3 L 0.5-1.5 % Arterial Blood Methemoglobin 0.7 0.0-1.5 % Yasir Test Modified Blood Gas Total Hemoglobin 13.50 13.5-17.5 g/dL Blood Gas Set Respiration Rate 16.0 Blood Gas Modality Vent - ac FiO2 % 100.0 Blood Gas Tidal Volume 400.0 Blood Gas PEEP or CPAP 5.0 Blood Gas Critical Value Read Back Yes Blood Gas Notified Whom Dr. obed degroot Blood Gas Notified Time [id number] Blood Gas Notified By Rt elsa young POC Glucose 181 H 70-106 mg/dl Lactic Acid Level 1.7 0.4-2.0 mmol/L Test 09/06/24 18:00 09/06/24 17:05 Range/Units White Blood Count 9.8 4.4-10.8 10^3/uL Red Blood Count 4.52 4.5-5.90 10^6/uL Hemoglobin 15.0 13.5-17.5 g/dL Hematocrit 42.0 41.0-53.0 % Mean Corpuscular Volume 92.9 80.0-100.0 fL Mean Corpuscular Hemoglobin 33.3 H 28.0-32.0 pg Mean Corpuscular Hemoglobin Concent 35.8 32.0-36.0 g/dL Red Cell Distribution Width 13.3 11.8-14.3 % Platelet Count 131 L 140-450 10^3/uL Mean Platelet Volume 9.0 6.9-10.8 fL Neutrophils (%) (Auto) 78.0 37.0-80.0 % Lymphocytes (%) (Auto) 17.9 10.0-50.0 % Monocytes (%) (Auto) 3.9 0.0-12.0 % Eosinophils (%) (Auto) 0.1 0.0-7.0 % Basophils (%) (Auto) 0.1 0.0-2.0 % Neutrophils # (Auto) 7.7 1.6-8.6 10 ^3/uL Lymphocytes # (Auto) 1.8 0.4-5.4 10 ^3/uL Monocytes # (Auto) 0.4 0-1.3 10 ^3/uL Eosinophils # (Auto) 0 0-0.8 10 ^3/uL Basophils # (Auto) 0 0-0.2 10 ^3/uL Nucleated Red Blood Cells 0.1 % Prothrombin Time 16.9 H 9.3-11.8 sec Prothrombin Time INR 1.68 H 0.9-1.15 Activated Partial Thromboplast Time 30.2 24.5-34.5 SEC Sodium Level 136 136-145 mmol/L Potassium Level 5.3 H 3.5-5.1 mmol/L Chloride Level 100 98-107 mmol/L Carbon Dioxide Level 30 20-31 mmol/L Anion Gap 6 5-15 Blood Urea Nitrogen 43 H 9-23 mg/dL Creatinine 0.48 L 0.700-1.30 mg/dL Glomerular Filtration Rate Calc 143 >90 mL/min BUN/Creatinine Ratio 89.6 H 10.0-20.0 Serum Glucose 37 *L 74-106 mg/dL Calcium Level 8.0 L 8.7-10.4 mg/dL Magnesium Level 2.0 1.6-2.6 mg/dL Total Bilirubin 2.6 H 0.2-1.0 mg/dL Aspartate Amino Transferase (AST) 4741 H 13-40 U/L Alanine Aminotransferase (ALT) 3394 H 7-40 U/L Alkaline Phosphatase 670 H 46-116 U/L Total Protein 5.9 5.7-8.2 g/dL Albumin 3.4 3.2-4.8 g/dL Plasma/Serum Blood Alcohol 3.3 <10 mg/dL Urine Color Yellow Yellow Urine Clarity Clear Clear Urine pH 6.0 5.0-9.0 Urine Specific [place] 1.019 1.001-1.035 Urine Protein Negative Negative Urine Ketones Negative Negative Urine Blood Trace H Negative /uL Urine Nitrite 1+ H Negative Urine Bilirubin Negative Negative Urine Urobilinogen 3 H Negative mg/dL Urine Leukocyte Esterase 1+ Negative /uL Urine RBC 1 0 - 3 /hpf Urine WBC 8 0 - 3 /hpf Urine Squamous Epithelial Cells Few <5 /hpf Urine Bacteria None seen None Seen /hpf Urine Hyaline Casts Mod 0 - 2 /lpf Urine Mucus Few None Seen Urine Glucose 3+ H Normal mg/dL Urine Opiates Screen Neg NEGATIVE Urine Fentanyl Screen Neg NEGATIVE Urine Barbiturates Screen Neg NEGATIVE Urine Phencyclidine Screen Neg NEGATIVE Urine Amphetamines Screen Neg NEGATIVE Urine Benzodiazepines Screen Neg NEGATIVE Urine Cocaine Screen Neg NEGATIVE Urine Cannabinoids Screen Neg NEGATIVE Assessment/Plan Assessment/Plan Sepsis likely due to UTI Acute metabolic encephalopathy Altered mental status likely due to sepsis Acute hypoxic respiratory failure UTI Asymptomatic bradycardia Transaminitis with hyperbilirubinemia Severe hypoglycemia Hyperkalemia Plan/recommendation -on mechanical ventilation: Currently in setting of respiratory rate 16, tidal volume 400, FiO2 30%, peep of five. Sedation with midazolam and fentanyl. -dopamine drip for severe bradycardia, Cardiology consultation -sepsis protocol: Cumulative IV fluid given 1.5 L., IV fluid normal saline at 75 mL/hour, transitioned from D5 to NS given hypoglycemia improved. -IV antibiotic with ceftriaxone and vancomycin, continue follow with vancomycin level. -pending blood culture, sputum culture urine culture. -urinalysis likely positive for UTI -nutrition via G-tube, Glucerna target rate 30 mL/hour. -PUD prophylaxis with Protonix -DVT prophylaxis with enoxaparin -p.r.n. Acetaminophen for elevated temperature. Goals of care discussed with mother, greater than 22 minutes, full code status. Plan discussed with Dr. Arzola Plan discussed with: Other (mother) My Orders Orders - TERRY VAZQUEZ Procedure Category Date Status Time Abdomen Limited US 09/06/24 Logged 22:24 Nutritional PHA 09/06/24 Logged Supplements (Glucerna 22:30 Thyroid Stimulating LAB 09/06/24 In Process Hormone 22:24 Electrocardigram EKG 09/06/24 Logged 22:24 Admit ADMIT 09/06/24 Transmitted 22:28 Stat Ekg For Chest JN 09/06/24 In Process Pain 22:28 Notify Of Changes JN 09/06/24 In Process From Base 22:28 Pulverizer Mill Operator For JN 09/06/24 In Process 24 Hours 22:28 Emergency Dysrhythmia JN 09/06/24 In Process Protocol 22:28 Rhythm Strips Once [facility] 09/06/24 In Process Every Shift 22:28 D5w 5% (Dextrose 5%) PHA 09/06/24 Logged 22:30 Bilirubin, Direct LAB 09/06/24 In Process 22:30 Acute Hepatitis Panel LAB 09/06/24 In Process 22:30 Date of Service: Sep 06, 2024 Billing Provider: TOMY ARZOLA MD Common Visit Codes: [id number] INP/OBS CARE (HIGH) TERRY VAZQUEZ Sep 06, 2024 22:32 TOMY ARZOLA MD Sep 07, 2024 09:45
[2024-09-06] MEDS: MIDAZOLAM DRIP 50 mg/50mL 50 ML IV SCH (22:40)
[2024-09-06 22:48] VITALS: BP 101/60; PULSE 60; RESP 14; O2SAT 100
[2024-09-07] VITALS (71 sets, daily range): BP systolic 79–138; BP diastolic 45–99; PULSE 49–101; RESP 15–17; TEMP 95.2–98.8; O2SAT 96–100
--- NOTE | 2024-09-07 00:06 | DVH ---
INDICATION: elevated liver enzyme TECHNIQUE: Multiple real-time sonographic images were obtained of the right upper quadrant. COMPARISON: None FINDINGS: The liver demonstrates normal echotexture without focal mass lesions. The liver measures 1 0.3 cm. There is no intrahepatic or extrahepatic ductal dilatation. The common duct is not visualized. The gallbladder is without evidence of stone or sludge. The gallbladder wall is within normal limits . The pancreas is not well visualized due to overlying bowel gas. IMPRESSION: 1. Unremarkable right upper quadrant sonogram.
[2024-09-07] MEDS: SODIUM ZIRCONIUM CYCL 10 GM PAK GT ONE (00:29)
[2024-09-07] MEDS ORDERED: ACETAMINOPHEN 650 MG RECT SUPP PR PRN (05:30)
--- NOTE | 2024-09-07 05:41 | DVH ---
CHEST RADIOGRAPH Indication: intubated Technique: Single frontal view of the chest was obtained COMPARISON: XY CHEST PORTABLE on DOS: 09/06/24, XY CHEST XRAY 1 VIEW on DOS: 08/17/24, XY CHEST PORTAB LE on DOS: 05/07/24, XY CHEST PORTABLE on DOS: 04/25/24 FINDINGS: Lines and Tubes: Endotracheal tube and enteric catheter in satisfactory position. Lungs: Clear Pleura: No effusion. No pneumothorax. Cardiomediastinal contours: Unremarkable Bones: Unremarkable IMPRESSION: Lines and tubes in satisfactory position. No significant interval change.
[2024-09-07 06:25] LABS: Base Excess 3.2 mmol/L (-2.0-3.0)
[2024-09-07 06:26] LABS: Anion Gap 7 (5-15); BUN/Creatinine Ratio 57.7 (10.0-20.0); Carbon Dioxide 27 mmol/L (20-31)
[2024-09-07 06:39] LABS: Alanine Aminotransferase 3123 U/L (7-40); Alkaline Phosphatase 651 U/L (46-116); Aspartate Aminotransferase 4090 U/L (13-40); Blood Urea Nitrogen 30 mg/dL (9-23); Calcium 7.4 mg/dL (8.7-10.4); Chloride 97 mmol/L (98-107); Glucose 140 mg/dL (74-106); Potassium 3.3 mmol/L (3.5-5.1); Sodium 131 mmol/L (136-145); Total Protein 5.4 g/dL (5.7-8.2)
[2024-09-07 07:19] LABS: Basophils # (auto) 0 10 ^3/uL (0-0.2); Basophils % (auto) 0.1 % (0.0-2.0); Eosinophils # (auto) 0 10 ^3/uL (0-0.8); Hematocrit 40.4 % (41.0-53.0); Hemoglobin 14.5 g/dL (13.5-17.5); Lymphocytes # (auto) 2.2 10 ^3/uL (0.4-5.4); Lymphocytes % (auto) 17.8 % (10.0-50.0); Mean Corpuscular Hemoglobin 33.3 pg (28.0-32.0); Mean Corpuscular Hgb Conc. 35.9 g/dL (32.0-36.0); Mean Corpuscular Volume 92.8 fL (80.0-100.0); Monocytes # (auto) 0.7 10 ^3/uL (0-1.3); Monocytes % (auto) 5.5 % (0.0-12.0); Neutrophils # (auto) 9.3 10 ^3/uL (1.6-8.6); Neutrophils % (auto) 76.6 % (37.0-80.0); Nucleated Red Blood Cells % 0.2 %; Platelet Count (auto) 119 10^3/uL (140-450); Red Blood Cells 4.35 10^6/uL (4.5-5.90); Red Cell Distribution Width 13.7 % (11.8-14.3); White Blood Cell 12.1 10^3/uL (4.4-10.8)
[2024-09-07] MEDS: DOPamine 1600MCG/ML D5W 250 ML IV ONE (08:31)
[2024-09-07] MEDS: cefTRIAXone 1GM/50ML D5W 50 ML IV ONE (08:32)
[2024-09-07] MEDS: POTASSIUM CHL 20MEQ/100ML 100 ML IV ONE ×3 (08:32→11:50)
[2024-09-07] MEDS: cefTRIAXone 1GM/50ML D5W 50 ML IV SCH (08:32)
[2024-09-07] MEDS: SODIUM CHLORIDE 0.9% 1,000 ML IV SCH (08:34)
[2024-09-07] MEDS: MAGNESIUM SULFATE 1GM/100ML 100 ML IV ONE ×2 (08:35→08:43)
[2024-09-07] MEDS: DOPamine 1600MCG/ML D5W 250 ML IV SCH (09:00)
--- NOTE | 2024-09-07 09:46 | DVH ---
Procedure: CT CT AB PEL WO CON-NO ORAL OR IV 09/07/2024 09:04 AM Indication: transaminitis, aloc Comparison Study: None available at time of dictation. Technique: Axial images were obtained and reformatted in coronal and sagittal planes. All CT scans at this medical facility are performed using dose modulation techniques as appropriate t o a performed exam including the following: Automated exposure control was utilized; adjustment of th e MA and/or KV according to patient size; and use of iterative reconstruction technique. CT Dose: CTDI volume is 5.24 mGy. Dose-length product is 291.86 mGy*cm FINDINGS: Lower Chest: Unremarkable. Hepatobiliary: Unremarkable. Spleen: Unremarkable. Pancreas: Unremarkable. Adrenal Glands: Unremarkable. tract: The kidneys are normal in size bilaterally without hydronephrosis or nephrolithiasis. [place] is partially decompressed with a Lilly catheter and cannot be adequately assessed. Moderate amoun t of air is seen in the lumen of the bladder GI tract: The enteric tube ends in the distal esophagus not extending to the gastric lumen. A G-tube is seen in the lumen of the stomach. The stomach is moderately gas and fluid distended mostly disten ded with air. Moderate gaseous distention of the large bowel measuring up to 8.8 cm. Mild fecal rete ntion throughout the large bowel. The small bowel is collapsed and displaced to the pelvis by the dis tended stomach and large bowel. Small caliber tube is seen in the rectum. Lymphatics: No mesenteric, retroperitoneal or periportal lymphadenopathy. Vasculature: The abdominal aorta is normal in in caliber. Pelvic Organs: Unremarkable Bones/soft tissues: No acute abnormality. Other: None. IMPRESSION: 1. The NGT ends in the distal esophagus and does not extend to the lumen of the stomach. Recommend at least 10 cm advancement. 2. The gastric tube in satisfactory position. Moderately gas and fluid distended stomach. 3. Moderately gas distended large bowel. Mild fecal retention throughout the large bowel. A small avtar iber tube is seen in the lumen of the rectum. 4. Small bowel is collapsed and displaced to pelvis by distended large bowel and stomach. 5. The liver is grossly unremarkable. No signs of hepatic steatosis. Hepatic vein appears engorged th at is of uncertain etiology. No evidence of CHF or right heart strain.
[2024-09-07] MEDS: PANTOPRAZOLE 40 MG/10 ML VIAL INJ IV SCH (10:35)
[2024-09-07] MEDS: ENOXAPARIN SOD 30 MG/0.3 ML SYRINGE SC SCH (10:35)
--- NOTE | 2024-09-07 10:51 | DVH ---
Upper extremity Procedure: US Lt Upper Ext Art Duplex Exam Date: 09/07/2024 09:39 AM History: PERFUSION, COLD TO TOUCH Comparison Study: None available at time of dictation. Findings: Duplex Doppler interrogation of the upper extremity arteries was performed including color Doppler an d spectral/pulsed waveform analysis. Left upper extremity velocities and ratios within normal limits. IMPRESSION: Normal study. END IMPRESSION:
[2024-09-07] MEDS: MAGNESIUM SULFATE 1GM/100ML 100 ML IV SCH (11:28)
[2024-09-07] MEDS: PIPERACILLIN-TAZO 4.5GM 100 ML IV ONE (11:40)
[2024-09-07] MEDS ORDERED: PIPERACILLIN-TAZOB 3.375GM 100 ML IV SCH (12:00)
[2024-09-07] MEDS: InsuLIN REG 1unit/0.01ml Soln (100units/ml) SC SCH (12:08)
[2024-09-07] MEDS: ACCU-CHEK COMFORT CURVE STRIP VI SCH (12:09)
[2024-09-07] MEDS: NOREPINEPHRINE 8 MG/250ML KIT 250 ML IV SCH (12:25)
--- NOTE | 2024-09-07 13:54 | DVHNC2 ---
Central Line Recorder of insertion practice: Hiv Cts Specialist Occupation of alarm operator: Other (Resident) Indication: Hypotension, Volume resuscitation, Inability to obtain IV Room prepared for procedure: Yes Hiv Cts Specialist performed hand hygien: Yes Maximal sterile barrier precau: Mask/Eye shield, Sterile gown, Cap, Sterlie gloves, Large sterlie drape Skin Preparation: Chlorhexidine gluconate Skin preparation completely dr: Yes Insertion site: Left, Internal jugular Number of lumens: 3 Central line exchanged over a: No Antiseptic ointment applied to: No UTO Consent Patient was non responsive, did not obtain informed consent. supervised by Dr Barron Date of Service: Sep 06, 2024 Billing Provider: KY PARNELL MD Common Visit Codes: PROCEDURE ONLY Procedure Codes: [id number] NON-TUNNEL CV CATH HAILE MILLIGAN RESIDENT Sep 07, 2024 13:54
--- NOTE | 2024-09-07 13:56 | DVHNC2 ---
Intubation Indication: Respiratory Insufficiency, Airway Protection Prep: Preoxygenation Pretreated with: Sedation Medicated with: Succinylcholine, Other (Rocuronium) Intubation Approach: Orotracheal Intubation size: cm (7) Informed consent obtained: No Risks/benefits/alt described: No UTO Consent Did not obtain consent due to unresponsiveness. Procedure supervised by Dr Barron Date of Service: Sep 06, 2024 Billing Provider: KY PARNELL MD Common Visit Codes: PROCEDURE ONLY Procedure Codes: [id number] NON-TUNNEL CV CATH HAILE MILLIGAN RESIDENT Sep 07, 2024 13:56
[2024-09-07] MEDS: DEXTROSE (50%) 50ML SYRG IV PRN (15:33)
[2024-09-07] MEDS: PIPERACILLIN-TAZOB 3.375GM 100 ML IV SCH (17:20)
--- NOTE | 2024-09-07 19:28 | DVHPNRES ---
Progress Note Date Seen: Sep 07, 2024 Resident Creating Document: MALDONADO LOPEZ RESIDENT Medical Necessity Reason Pt with a Central, PICC or Fol: No Subjective Review of Systems Patient seen and examined at bedside Patient is currently sedated and intubated Review of system could not be done as patient is intubated and sedated Objective vital signs Vital Sign Date Time Temp Pulse Resp B/P (MAP) Pulse Ox O2 Delivery O2 Flow Rate FiO2 09/07/24 19:15 98.8 90 16 105/67 (80) 98 209.8 09/07/24 18:35 30 09/07/24 18:00 Mechanical Ventilator+ 09/06/24 19:30 0 Total Intake and Output 09/06/24 09/06/24 09/07/24 15:00 23:00 07:00 Intake Total 905.0 ml 750 ml Balance 905.0 ml 750 ml medications Current Medications Medications Dose Ordered Sig/Gisselle Route Start Time Stop Time Status Last Admin Dose Admin Vancomycin HCl 0 ml @ 0 mls/hr UD IV 09/06/24 17:15 Fentanyl Citrate 250 ml @ 2.5 mls/hr Q24H IV 09/06/24 17:45 09/06/24 18:19 2.5 MLS/HR Midazolam HCl 50 ml @ 1 mls/hr Q24H IV 09/06/24 19:45 09/07/24 17:21 5 MLS/HR Artificial Tears 2 drop HS EACHEYE 09/06/24 22:00 09/06/24 22:00 2 DROP Pantoprazole Sodium 40 mg DAILY IV 09/07/24 10:00 09/07/24 10:35 40 MG Enoxaparin Sodium 30 mg DAILY SC 09/07/24 10:00 09/07/24 10:35 30 MG Enteral Nutritional Formula 1,000 ml 30ML/HR GT 09/06/24 22:30 Acetaminophen 650 mg Q6HP PRN DE 09/07/24 05:30 Sodium Chloride 1,000 ml @ 75 mls/hr [id number] IV 09/07/24 07:30 09/07/24 08:34 75 MLS/HR Diagnostic Test (Pha) 1 strip IQ4HR 09/07/24 12:00 09/07/24 15:37 1 STRIP Insulin Human Regular IQ4HR SC 09/07/24 12:00 09/07/24 12:08 2 UNITS Dextrose 50 ml UD PRN IV 09/07/24 08:45 09/07/24 15:33 50 ML Dopamine HCl/ Dextrose 250 ml @ 8.438 mls/ hr Q24H IV 09/07/24 09:00 09/07/24 11:00 33.75 MLS/HR Norepinephrine Bitartrate 250 ml @ 3.75 mls/hr Q24H IV 09/07/24 11:30 09/07/24 12:25 3.75 MLS/HR Piperacillin Sod/ Tazobactam Sod 100 ml @ 25 mls/hr Q6HR IV 09/07/24 18:00 09/07/24 17:20 25 MLS/HR Vancomycin HCl 100 ml @ 100 mls/hr Q6H IV 09/07/24 23:00 Examination Examination General Appearance: Sedated and intubated Respiratory: on Mechanical ventilation Cardiovascular: Regular rate, Normal S1, Normal S2 Abdominal: Nondistended, peg tube present Extremities: No cyanosis, No edema, Normal pulses, No tenderness/swelling Skin: No rashes, No breakdown Neuro: sedated and intubated laboratory and microbiology Laboratory Tests 09/07/24 04:58 Test 09/07/24 04:58 Range/Units Serum Glucose 140 #H 74-106 mg/dL Microbiology Date/Time Source Procedure Growth Status 09/06/24 18:15 Blood Blood Culture - Preliminary Resulted 09/06/24 17:05 Urine - Lilly [place] Urine Culture - Preliminary Resulted 09/06/24 17:00 Sputum Gram Stain - Final Resulted 09/06/24 17:00 Sputum Respiratory Culture - Preliminary Resulted Labs and/or images reviewed: Labs reviewed by me, Image(s) reviewed by me Problem List/Assessment/Plan Problem List/Assessment/Plan Assessment/plan Neurology # sedation -on midazolam # metabolic encephalopathy due to sepsis -head CT did not show any acute abnormalities # 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 Aspiration pneumonia -IV antibiotics Sputum culture Many growth: Possible Staphylococcus aureus GI # status post PEG tube, present on admission -was placed due to dysphagia due to Brittany's # transaminitis likely due to septic shock Monitor liver enzymes #Moderately gas distended large bowel. -seen on imaging -NG tube, low continuous suction #Moderately gas and fluid distended stomach. -seen on imaging NG tube, low continuous suction # engorged hepatic vein Uncertain etiology Seen on imaging Nephrology # hypomagnesemia Corrected Monitor # hypokalemia Corrected Monitor #hyperkalemia -resolved # hyponatremia -monitor BMP Hematology/oncology # thrombocytopenia likely due to sepsis Monitor Endocrine # hypoglycemia likely due to sepsis -started IV Clinimix, D 10 W -Accu-Cheks Dermatology/integumentary # sacral ulcer, POA -wound culture # hypothermia likely due to sepsis Warm blanket Urology # UTI -urine culture IV antibiotic DVT prophylaxis -Low dose Lovenox 30 mg SC daily Peptic ulcer disease prophylaxis IV Protonix Nutrition Hold enteral nutrition due to possible bowel obstruction IV Clinimix Bowel Regimen Currently on hold as patient has distended colon stomach Drips Midazolam Norepinephrine Dopamine Lines Lilly's catheter placed on 09/06/2023 Left internal jugular CVC placed on 09/06/2023 Code status discussed with the family for greater than 23 minutes, full code Mother at bedside explained about the condition of the patient Case discussion with dr mishra Critical care time excluding procedures: 87 minutes Plan discussed with: Other My Orders My Orders Orders - MALDNOADO LOPEZ RESIDENT Procedure Category Date Status Time Mrsa Screen SANJAY 09/07/24 Logged 18:07 Warming Logan JN 09/07/24 In Process 10:34 Norepinephrine 8 PHA 09/07/24 In Process Mg/250ml Kit 11:30 Piperacillin-Tazob PHA 09/07/24 In Process 3.375gm (Zosyn 3.375g 18:00 Mrsa Screen SANJAY 09/07/24 In Process 09:40 Wound Culture W/ Gs SANJAY 09/07/24 Logged 17:01 Ventilator Orders RT 09/07/24 Transmitted 17:03 Clinimix Per Pharmacy JN 09/07/24 In Process 17:14 Kub Abdomen Single XY 09/08/24 Logged View 04:00 Comprehensive LAB 09/08/24 Verified Metabolic Panel 04:00 Magnesium LAB 09/08/24 Verified 04:00 Chest Portable XY 09/08/24 Logged 04:00 Abg W/ Co-Ox RT 09/08/24 Logged 04:00 Blood Culture SANJAY 09/08/24 Uncollected 04:00 Wound Culture W/ Gs SANJAY 09/07/24 Uncollected 19:18 Date of Service: Sep 07, 2024 Billing Provider: RADHA MISHRA MD Common Visit Codes: [id number] CARE 30-74 MIN, [id number] CARE-EACH +30MIN MALDONADO LOPEZ RESIDENT Sep 07, 2024 19:28 RADHA MISHRA MD Sep 08, 2024 15:51
[2024-09-07] MEDS ORDERED: CLINIMIX PER PHARMACY 0 ML IV SCH (21:15)
[2024-09-07] MEDS: DEXTROSE 10% 1,000 ML IV SCH (21:26)
[2024-09-07] MEDS: VANCOMYCIN 750MG KIT 100 ML IV SCH (22:58)
[2024-09-08] VITALS (108 sets, daily range): BP systolic 92–146; BP diastolic 54–101; PULSE 37–116; RESP 14–19; TEMP 96.3–99.5; O2SAT 97–100
[2024-09-08] MEDS: AMINO ACID INFUSION IN D10W 1,000 ML IV SCH (00:24)
[2024-09-08 03:51] LABS: Anion Gap 5 (5-15); BUN/Creatinine Ratio 35.3 (10.0-20.0); Carbon Dioxide 26 mmol/L (20-31); Chloride 102 mmol/L (98-107)
[2024-09-08 04:09] LABS: Alanine Aminotransferase 1990 U/L (7-40); Albumin 2.6 g/dL (3.2-4.8); Alkaline Phosphatase 495 U/L (46-116); Aspartate Aminotransferase 1441 U/L (13-40); Bilirubin, Total 2.6 mg/dL (0.2-1.0); Blood Urea Nitrogen 24 mg/dL (9-23); Glucose 131 mg/dL (74-106); Phosphorus 1.2 mg/dL (2.4-5.1); Potassium 2.9 mmol/L (3.5-5.1); Sodium 133 mmol/L (136-145); Total Protein 4.6 g/dL (5.7-8.2)
[2024-09-08 04:21] LABS: Magnesium 2.4 mg/dL (1.6-2.6)
[2024-09-08 04:27] LABS: Basophils # (auto) 0 10 ^3/uL (0-0.2); Basophils % (auto) 0.1 % (0.0-2.0); Eosinophils # (auto) 0 10 ^3/uL (0-0.8); Hematocrit 36.8 % (41.0-53.0); Hemoglobin 13.2 g/dL (13.5-17.5); Lymphocytes # (auto) 1.3 10 ^3/uL (0.4-5.4); Lymphocytes % (auto) 12.3 % (10.0-50.0); Mean Corpuscular Hemoglobin 33.5 pg (28.0-32.0); Mean Corpuscular Hgb Conc. 35.9 g/dL (32.0-36.0); Mean Corpuscular Volume 93.3 fL (80.0-100.0); Monocytes # (auto) 0.4 10 ^3/uL (0-1.3); Monocytes % (auto) 3.3 % (0.0-12.0); Neutrophils % (auto) 84.3 % (37.0-80.0); Nucleated Red Blood Cells % 0.2 %; Platelet Count (auto) 85 10^3/uL (140-450); Red Blood Cells 3.94 10^6/uL (4.5-5.90); Red Cell Distribution Width 13.7 % (11.8-14.3); White Blood Cell 10.6 10^3/uL (4.4-10.8)
--- NOTE | 2024-09-08 05:24 | DVH ---
CHEST RADIOGRAPH Indication: mechanical vent Technique: Single frontal view of the chest was obtained Comparison: XY CHEST XRAY 1 VIEW on DOS: 09/07/24, XY CHEST PORTABLE on DOS: 09/06/24, XY CHEST XRAY 1 VIEW on DOS: 08/17/24, XY CHEST PORTABLE on DOS: 05/07/24, XY CHEST PORTABLE on DOS: 04/25/24, XY CHEST XRAY 1 VIEW on DOS: 09/07/24 FINDINGS: Lines and Tubes: Endotracheal tube and enteric catheter in satisfactory position. Lungs: Clear Pleura: No effusion. No pneumothorax. Cardiomediastinal contours: Unremarkable Bones: Unremarkable IMPRESSION: 1. Lines and tubes in satisfactory position. No significant interval change.
[2024-09-08] MEDS: POTASSIUM CHL 20MEQ/100ML 100 ML IV SCH (07:04)
--- NOTE | 2024-09-08 07:12 | DVH ---
Exam: XY KUB ABDOMEN SINGLE VIEW Indication: bowel distension Comparison: XY KUB ABDOMEN SINGLE VIEW on DOS: 05/07/24 Technique: 1 radiographic views of the abdomen. Findings: Enteric catheter in satisfactory position. Gastrostomy tube in-situ. Abnormal nonspecific bowel-gas pattern with large volume colonic stool. There is no definite evidence for pneumoperitoneum. No abnormal calcifications noted. Impression: Abnormal nonspecific bowel-gas pattern with large volume colonic stool.
[2024-09-08] MEDS: CALCIUM GLUC 1,000mg/50ml-NS 50 ML IV ONE (09:00)
--- NOTE | 2024-09-08 09:18 | DVHINCON2 ---
Date Seen: Sep 08, 2024 Referring Physician MD Marti resident Reason for Consultation Bradycardia History of Present Illness This is a 29-year-old male patient who presents to the emergency room with chief complaint of altered level of mentation. Apparently, the patient has been nonverbal for many years but can respond by nodding to his family members. When the family members noted that he was not responding, EMS was called and the patient was brought to the emergency room. The patient was emergently intubated upon emergency room arrival per documentation. At the time of assessment, the patient remains chemically sedated and mechanically ventilated. Cardiology has been consulted at this time for bradycardia. No twelve lead electrocardiogram done on admission (didn't find in hard chart or cardioserver). Per emergency room documentation, the patient was found to have a heart rate of 31bpm by emergency medical services and atropine was administered. Apparently, he remained bradycardic upon emergency room arrival and so the patient was started on dopamine for chronotropic support by ER physician. While in the emergency room, he was found to have a rectal temperature as low as 89.6 F (per RN note in ER). He was also found to have a blood glucose level of 37 upon emergency room arrival. At the time of assessment, the patient is now in sinus tachycardia on front desk monitor while in the intensive care unit. Serial troponin levels have been negative. At the time of assessment, there is no family at bedside. Past medical history from medical records and bedside RN. 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 Of note, records show that the patient has had previous episodes of asymptomatic bradycardia in the past. The patient was seen at this facility in April 2024 in which our cardiology team saw the patient for sinus bradycardia. It was noted that the patient was in sinus bradycardia with rate in the 40s without any pauses or AV blocks and no further workup was deemed necessary at that time. Past Medical History Past medical history reviewed. No other significant than mentioned above. Past Surgical History Denies Family History: Diabetes during grandmother, Onset:40's - 50 Hypertension grandmother, Onset:50's - 60 Family History Family history reviewed. Social History Denies the use of tobacco, alcohol or illicit drugs. Allergies: Coded Allergies: NO KNOWN ALLERGIES (Unverified , 09/07/18) Home Meds Active Scripts Nutritional Supplements (JEVITY 1 FELIPA) Liq, 1 BOT OR DAILY for 30 Days, #30 LIQ Prov:HAILE MILLIGAN RESIDENT 05/11/24 Ergocalciferol (VITAMIN D 28848 UNIT) 50,000 [place], [address] UNIT PO Q7D for 30 Days, #10 CAP Prov:HAILE MILLIGAN 05/10/24 Nutritional Supplements (ENSURE CLEAR) Bbry/Pom Liq, 240 ML GT Q6HR for 30 Days, #120 LIQ Prov:HAILE MILLIGAN RESIDENT 04/29/24 Azithromycin (ZITHROMAX TABLET) 250 Mg Tb, 250 MG PO DAILY for 3 Days, #3 TAB Prov:HAILE MILLIGAN RESIDENT 04/29/24 Reported Medications Azelastine Hcl (Ophth) (Azelastine Hcl) 0.05 % Ketan, 1 DROP EACHEYE BID, #6 ML 2 Refills 04/25/24 Home Meds Home medications reviewed. Current Medications Current Medications Medications (Trade) Dose Ordered Sig/Gisselle Route PRN Reason Start Time Stop Time Status Last Admin Pantoprazole Sodium (Protonix) 40 mg DAILY IV 09/07/24 10:00 09/07/24 10:35 Enoxaparin Sodium (Lovenox) 30 mg DAILY SC 09/07/24 10:00 09/07/24 10:35 Diagnostic Test (Pha) (Accu-Chek Comfort Curve T) 1 strip IQ4HR 09/07/24 12:00 09/08/24 07:56 Insulin Human Regular (InsuLIN R) IQ4HR SC 09/07/24 12:00 09/08/24 00:16 Piperacillin Sod/ Tazobactam Sod 100 ml @ 25 mls/hr Q6HR IV 09/07/24 12:00 09/07/24 12:17 DC Magnesium Sulfate/ Dextrose 100 ml @ 100 mls/hr Q1HR IV 09/07/24 11:00 09/07/24 14:59 DC 09/07/24 15:35 Norepinephrine Bitartrate 250 ml @ 3.75 mls/hr Q24H IV 09/07/24 11:30 09/08/24 06:55 Piperacillin Sod/ Tazobactam Sod 100 ml @ 25 mls/hr Q6HR IV 09/07/24 18:00 09/08/24 06:55 Vancomycin HCl 100 ml @ 100 mls/hr Q6H IV 09/07/24 23:00 09/08/24 05:44 Dextrose 1,000 ml @ 30 mls/hr Q24H IV 09/07/24 20:45 09/07/24 21:26 Amino Acids 0 ml @ 0 mls/hr PER PHARMACY IV 09/07/24 21:15 Amino Acids/ Electrolytes/ Dextrose 1,000 ml @ 41 mls/hr DAILY@2200 IV 09/07/24 22:00 09/08/24 00:24 Potassium Chloride 100 ml @ 50 mls/hr Q2H IV 09/08/24 05:45 09/08/24 09:44 09/08/24 07:04 Review of Systems Constitutional: No symptom reported Ears, Nose, & Throat: No symptom reported Eyes: No symptom reported Neurological: Altered level of consciousness Pulmonary/Respiratory: No symptoms reported Cardiovascular: No symptom reported Gastrointestinal: No symptom reported Genitourinary: No symptom reported Musculoskeletal: No symptom reported Skin: No symptom reported Psychiatric: No symptom reported Endocrine: No symptom reported Hematologic/Lymphatic: No symptom reported Vital Signs Vital Signs Date Time Temp Pulse Resp B/P (MAP) Pulse Ox O2 Delivery O2 Flow Rate FiO2 09/08/24 07:00 104/66 09/08/24 06:45 97.5 54 14 99 207.5 09/08/24 06:30 30 09/08/24 06:00 Mechanical Ventilator+ 09/06/24 19:30 0 Physical Exam General Appearance: Calm, relaxed. Thin, frail, cachectic Pulmonary/Respiratory: Clear, bilateral breaths sounds. Mechanically ventilated Cardiovascular/Chest: Regular rate and rhythm. Peripheral Pulses: 2+ Radial (R). 2+ Radial (L). 2+ Pedal (R). 2+ Pedal (L) Abdominal Exam: Normal bowel sounds. Ankle Exam: Negative ankle edema Lower extremities: Negative lower extremity edema Neuro/Mental Status: Chemically sedated Thoughts/Psych: Deferred Appearance: No acute distress. Skin Exam: Sacral wounds. Skin warm and dry Labs/Diagnostic Data Labs Test 09/08/24 07:55 09/08/24 03:05 09/07/24 11:53 09/07/24 06:14 Range/Units POC Glucose 95 70-106 mg/dl White Blood Count 10.6 4.4-10.8 10^3/uL Red Blood Count 3.94 L 4.5-5.90 10^6/uL Hemoglobin 13.2 L 13.5-17.5 g/dL Hematocrit 36.8 L 41.0-53.0 % Mean Corpuscular Volume 93.3 80.0-100.0 fL Mean Corpuscular Hemoglobin 33.5 H 28.0-32.0 pg Mean Corpuscular Hemoglobin Concent 35.9 32.0-36.0 g/dL Red Cell Distribution Width 13.7 11.8-14.3 % Platelet Count 85 L 140-450 10^3/uL Mean Platelet Volume 8.8 6.9-10.8 fL Neutrophils (%) (Auto) 84.3 H 37.0-80.0 % Lymphocytes (%) (Auto) 12.3 10.0-50.0 % Monocytes (%) (Auto) 3.3 0.0-12.0 % Eosinophils (%) (Auto) 0.0 0.0-7.0 % Basophils (%) (Auto) 0.1 0.0-2.0 % Neutrophils # (Auto) 9.0 H 1.6-8.6 10 ^3/uL Lymphocytes # (Auto) 1.3 0.4-5.4 10 ^3/uL Monocytes # (Auto) 0.4 0-1.3 10 ^3/uL Eosinophils # (Auto) 0 0-0.8 10 ^3/uL Basophils # (Auto) 0 0-0.2 10 ^3/uL Nucleated Red Blood Cells 0.2 % Sodium Level 133 L 136-145 mmol/L Potassium Level 2.9 L 3.5-5.1 mmol/L Chloride Level 102 98-107 mmol/L Carbon Dioxide Level 26 20-31 mmol/L Anion Gap 5 5-15 Blood Urea Nitrogen 24 H 9-23 mg/dL Creatinine 0.68 L 0.700-1.30 mg/dL Glomerular Filtration Rate Calc 129 >90 mL/min BUN/Creatinine Ratio 35.3 H 10.0-20.0 Serum Glucose 131 H 74-106 mg/dL Calcium Level 7.0 L 8.7-10.4 mg/dL Phosphorus Level 1.2 L 2.4-5.1 mg/dL Magnesium Level 2.4 # 1.6-2.6 mg/dL Total Bilirubin 2.6 H 0.2-1.0 mg/dL Aspartate Amino Transferase (AST) 1441 H 13-40 U/L Alanine Aminotransferase (ALT) 1990 H 7-40 U/L Alkaline Phosphatase 495 H 46-116 U/L Total Protein 4.6 L 5.7-8.2 g/dL Albumin 2.6 L 3.2-4.8 g/dL Lactic Acid Level 1.1 0.4-2.0 mmol/L Ammonia 35 H 11-32 umol/L Acetaminophen Level < 2.0 L 10.0-20.0 UG/ML Blood Gas Specimen Type Arterial Blood Gas Sample Site Right radial Blood Gas Patient Temperature 37.0 Arterial Blood Date Drawn Arterial Blood pH 7.533 H 7.350-7.450 Arterial Blood Partial Pressure CO2 30.3 L 35.0-48.0 mmHg Arterial Blood Partial Pressure O2 133.9 H 83.0-108.0 mmHg Arterial Blood HCO3 24.9 21.0-28.0 mmol/L Arterial Blood Oxygen Saturation 98.8 H 94.0-98.0 % Arterial Blood Base Excess 3.2 H -2.0-3.0 mmol/L Arterial Blood Oxyhemoglobin 97.8 94.0-98.0 % Arterial Blood Carboxyhemoglobin 0.3 L 0.5-1.5 % Arterial Blood Methemoglobin 0.7 0.0-1.5 % Yasir Test Yes Blood Gas Total Hemoglobin 15.00 13.5-17.5 g/dL Blood Gas Set Respiration Rate 16.0 Blood Gas Modality Vent - ac FiO2 % 30.0 Blood Gas Tidal Volume 400.0 Blood Gas PEEP or CPAP 5.0 Test 09/07/24 04:58 09/07/24 01:00 09/06/24 21:30 09/06/24 19:48 Range/Units Hemoglobin A1c 4.7 <5.7 % A1C Random Vancomycin Level 9.1 5-10 ug/mL Lipase 49 12-53 U/L Direct Bilirubin 1.8 H <0.3 mg/dL Troponin I High Sensitivity 10 </=54 ng/L Thyroid Stimulating Hormone (TSH) 3.31 0.55-4.78 uIU/mL Blood Gas Critical Value Read Back Yes Blood Gas Notified Whom Dr. obed degroot Blood Gas Notified Time [id number] Blood Gas Notified By Rt b young Test 09/06/24 18:00 09/06/24 17:05 Range/Units Prothrombin Time 16.9 H 9.3-11.8 sec Prothrombin Time INR 1.68 H 0.9-1.15 Activated Partial Thromboplast Time 30.2 24.5-34.5 SEC Plasma/Serum Blood Alcohol 3.3 <10 mg/dL Urine Color Yellow Yellow Urine Clarity Clear Clear Urine pH 6.0 5.0-9.0 Urine Specific [place] 1.019 1.001-1.035 Urine Protein Negative Negative Urine Ketones Negative Negative Urine Blood Trace H Negative /uL Urine Nitrite 1+ H Negative Urine Bilirubin Negative Negative Urine Urobilinogen 3 H Negative mg/dL Urine Leukocyte Esterase 1+ Negative /uL Urine RBC 1 0 - 3 /hpf Urine WBC 8 0 - 3 /hpf Urine Squamous Epithelial Cells Few <5 /hpf Urine Bacteria None seen None Seen /hpf Urine Hyaline Casts Mod 0 - 2 /lpf Urine Mucus Few None Seen Urine Glucose 3+ H Normal mg/dL Urine Opiates Screen Neg NEGATIVE Urine Fentanyl Screen Neg NEGATIVE Urine Barbiturates Screen Neg NEGATIVE Urine Phencyclidine Screen Neg NEGATIVE Urine Amphetamines Screen Neg NEGATIVE Urine Benzodiazepines Screen Neg NEGATIVE Urine Cocaine Screen Neg NEGATIVE Urine Cannabinoids Screen Neg NEGATIVE Microbiology Date/Time Source Procedure Growth Status 09/06/24 18:15 Blood Blood Culture - Preliminary Staphylococcus aureus Resulted 09/06/24 17:05 Urine - [place] Urine Culture - Preliminary Resulted 09/06/24 17:00 Sputum Gram Stain - Final Resulted 09/06/24 17:00 Sputum Respiratory Culture - Preliminary Resulted Assessment Sinus bradycardia, now sinus tachycardia Edwards's disease Bacteremia Acute hypoxic respiratory failure Hypoglycemia Hypothermia Thrombocytopenia Transaminitis Urinary tract infection Plan/Recommendation We will continue following plan/recommendations (Dr. Schulz): * Echocardiogram to evaluate cardiac function * Avoid all AV eli blocking agents * Dopamine drip- titrate down to assess chronotropic response * Vasopressors for hemodynamic support * EKG in AM * Antibiotics per primary care team Patient seen and examined at bedside by . At this time, we will recommend to titrate patient off of dopamine drip as tolerated. Patient currently sinus tachycardia on front desk monitor. The patient has a previous history of asymptomatic bradycardia. The patient came in with hypothermia, hypoglycemia, and acute respiratory failure which can all further contribute to bradycardia. We will recommend to treat the underlying causes and began to wean the patient of the dopamine drip. Thank you for allowing us to care for this patient. Please call with any questions or concerns. Critical care time spent: 43 minutes This medical document was created using an electronic medical record system with voice recognition software and computerized dictation system. Although this document has been carefully reviewed, there might still be some phonetic and typographical errors. Occasional wrong-word or ``sound-alike substitutions may have occurred due to the inherent limitations of voice recognition software. These areas are purely typographical due to imperfections of the software programs and do not reflect any compromise in the patient's medical care. Please read the chart carefully and recognize, using context, where these s ubstitutions have occurred. Plan discussed with: Patient NYHA Physical activity limitations: NA Date of Service: Sep 08, 2024 Billing Provider: DAVID SCHULZ MD Cardiology Common Codes: 91787-[id number] INP/OBS CARE (High) Cardiology Consultation Codes: [id number] CONSULT <45MIN FISH GRAY Sep 08, 2024 09:18
[2024-09-08] MEDS: NEUTRA-PHOS TABLET PO ONE (10:25)
[2024-09-08 10:48] LABS: Base Excess 0.8 mmol/L (-2.0-3.0)
[2024-09-08] MEDS: POTASSIUM CHL 20MEQ/100ML 100 ML IV ONE ×2 (11:35→22:11)
--- NOTE | 2024-09-08 14:49 | DVHPNRES ---
Progress Note Date Seen: Sep 08, 2024 Resident Creating Document: MALDONADO LOPEZ RESIDENT Medical Necessity Reason Pt with a Central, PICC or Fol: No Subjective Review of Systems Patient seen and examined at bedside Patient is currently sedated and intubated Review of system could not be done as patient is intubated and sedated Objective vital signs Vital Sign Date Time Temp Pulse Resp B/P (MAP) Pulse Ox O2 Delivery O2 Flow Rate FiO2 09/08/24 14:20 125/87 09/08/24 14:00 30 09/08/24 14:00 14 98 Mechanical Ventilator+ 09/08/24 12:00 96.4 44 205.5 09/06/24 19:30 0 Total Intake and Output 09/07/24 09/07/24 09/08/24 15:00 23:00 07:00 Intake Total 1560.483 ml 1085.56 ml 1627.00 ml Output Total 1650 ml 1700 ml Balance 1560.483 ml -564.44 ml -73.00 ml medications Current Medications Medications Dose Ordered Sig/Gisselle Route Start Time Stop Time Status Last Admin Dose Admin Vancomycin HCl 0 ml @ 0 mls/hr UD IV 09/06/24 17:15 Fentanyl Citrate 250 ml @ 2.5 mls/hr Q24H IV 09/06/24 17:45 09/06/24 18:19 2.5 MLS/HR Midazolam HCl 50 ml @ 1 mls/hr Q24H IV 09/06/24 19:45 09/08/24 11:16 7 MLS/HR Artificial Tears 2 drop HS EACHEYE 09/06/24 22:00 09/07/24 22:59 2 DROP Pantoprazole Sodium 40 mg DAILY IV 09/07/24 10:00 09/08/24 10:25 40 MG Enoxaparin Sodium 30 mg DAILY SC 09/07/24 10:00 09/08/24 11:15 30 MG Enteral Nutritional Formula 1,000 ml 30ML/HR GT 09/06/24 22:30 Acetaminophen 650 mg Q6HP PRN CO 09/07/24 05:30 Diagnostic Test (Pha) 1 strip IQ4HR 09/07/24 12:00 09/08/24 12:15 1 STRIP Insulin Human Regular IQ4HR SC 09/07/24 12:00 09/08/24 00:16 3 UNITS Dextrose 50 ml UD PRN IV 09/07/24 08:45 09/07/24 20:42 50 ML Dopamine HCl/ Dextrose 250 ml @ 8.438 mls/ hr Q24H IV 09/07/24 09:00 09/07/24 11:00 33.75 MLS/HR Norepinephrine Bitartrate 250 ml @ 3.75 mls/hr Q24H IV 09/07/24 11:30 09/08/24 06:55 11.25 MLS/HR Piperacillin Sod/ Tazobactam Sod 100 ml @ 25 mls/hr Q6HR IV 09/07/24 18:00 09/08/24 12:15 25 MLS/HR Vancomycin HCl 100 ml @ 100 mls/hr Q6H IV 09/07/24 23:00 09/08/24 10:26 100 MLS/HR Dextrose 1,000 ml @ 30 mls/hr Q24H IV 09/07/24 20:45 09/07/24 21:26 30 MLS/HR Amino Acids 0 ml @ 0 mls/hr PER PHARMACY IV 09/07/24 21:15 Amino Acids/ Electrolytes/ Dextrose 1,000 ml @ 41 mls/hr DAILY@2200 IV 09/07/24 22:00 09/08/24 00:24 41 MLS/HR Examination Examination General Appearance: Sedated and intubated Respiratory: on Mechanical ventilation Cardiovascular: Regular rate, Normal S1, Normal S2 Abdominal: Nondistended, peg tube present Extremities: No cyanosis, No edema, Normal pulses, No tenderness/swelling Skin: No rashes, No breakdown Neuro: sedated and intubated laboratory and microbiology Laboratory Tests 09/08/24 03:05 Test 09/08/24 03:05 Range/Units Serum Glucose 131 H 74-106 mg/dL Microbiology Date/Time Source Procedure Growth Status 09/07/24 16:00 Scrotum Gram Stain - Final Resulted 09/07/24 16:00 Scrotum Wound Culture Pending Resulted 09/06/24 18:15 Blood Blood Culture - Preliminary Staphylococcus aureus Resulted 09/06/24 17:05 Urine - [place] Urine Culture - Final Staphylococcus aureus Complete 09/06/24 17:00 Sputum Gram Stain - Final Complete 09/06/24 17:00 Respiratory Culture - Final Staphylococcus aureus Complete Labs and/or images reviewed: Labs reviewed by me, Image(s) reviewed by me Problem List/Assessment/Plan Problem List/Assessment/Plan Assessment/plan Neurology # sedation -on midazolam # metabolic encephalopathy due to sepsis -head CT did not show any acute abnormalities # 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 Aspiration pneumonia -IV antibiotics Sputum culture Many growth: Possible Staphylococcus aureus GI # status post PEG tube, present on admission -was placed due to dysphagia due to Brittany's # transaminitis likely due to septic shock Monitor liver enzymes #Moderately gas distended large bowel. -seen on imaging -NG tube, low continuous suction #Moderately gas and fluid distended stomach. -seen on imaging NG tube, low continuous suction # engorged hepatic vein Uncertain etiology Seen on imaging Nephrology # hypomagnesemia Corrected Monitor # hypokalemia Corrected Monitor #hyperkalemia -resolved # hyponatremia -monitor BMP #hypophosphatemia corrected Hematology/oncology # thrombocytopenia likely due to sepsis Monitor Endocrine # hypoglycemia likely due to sepsis -started IV Clinimix, D 10 W -Accu-Cheks Dermatology/integumentary # sacral ulcer, POA -wound culture # hypothermia likely due to sepsis Warm blanket Urology # UTI -urine culture shows staph aureus IV antibiotic DVT prophylaxis -Low dose Lovenox 30 mg SC daily Peptic ulcer disease prophylaxis IV Protonix Nutrition Hold enteral nutrition due to possible bowel obstruction IV Clinimix Bowel Regimen Currently on hold as patient has distended colon stomach Drips Midazolam Norepinephrine Dopamine Lines Lilly's catheter placed on 09/06/2023 Left internal jugular CVC placed on 09/06/2023 Code status discussed with the family for greater than 23 minutes, full code Mother at bedside explained about the condition of the patient Case discussion with dr mishra Critical care time excluding procedures: 83 minutes Plan discussed with: Other My Orders My Orders Orders - MALDONADO LOPEZ RESIDENT Procedure Category Date Status Time Wound Culture W/ Gs SANJAY 09/07/24 In Process 17:01 Ventilator Orders RT 09/07/24 Transmitted 17:03 Clinimix Per Pharmacy JN 09/07/24 In Process 17:14 Kub Abdomen Single XY 09/08/24 Resulted View 04:00 Chest Portable XY 09/08/24 Resulted 04:00 Abg W/ Co-Ox RT 09/08/24 Logged 04:00 Blood Culture SANJAY 09/08/24 Uncollected 04:00 Wound Culture W/ Gs SANJAY 09/07/24 Uncollected 19:18 Dextrose 10% PHA 09/07/24 In Process 20:45 Clinimix Per Pharmacy PHA 09/07/24 In Process 21:15 Amino Acid Infusion PHA 09/07/24 In Process In D10w (Clinimix 4. 22:00 Dietary Evaluation Review Comments: 1) If GI is accessible, consider Jevity 1.2 @ 35 ml/hr x 24hr goal rate as tolerated 2) Consider 1 pkt BEN BID for wound 3) If pt remains NPO >7 days consider TPN to meet at least 75% of estimated needs Expected Outcomes/Goals: 1) Pt to receive nutrition support within 7 days of NPO status 2) F/U in 2-3 days Date of Service: Sep 08, 2024 Billing Provider: RADHA MISHRA MD Common Visit Codes: [id number] CARE 30-74 MIN, [id number] CARE-EACH +30MIN MALDONADO LOPEZ RESIDENT Sep 08, 2024 14:49 RADHA MISHRA MD Sep 09, 2024 12:09
[2024-09-08] MEDS ORDERED: POTASSIUM PHOSPHATE 22 MEQ in SODIUM CHL 0.9% 100 ML IV ONE (18:00)
[2024-09-08] MEDS: SODIUM PHOSPHATES 24 MEQ in SODIUM CHL 0.9% 100 ML IV ONE (18:10)
[2024-09-08] MEDS: DOPamine 1600MCG/ML D5W 250 ML IV SCH (20:00)
[2024-09-08] MEDS ORDERED: VANCOMYCIN 750MG KIT 100 ML IV SCH (20:00)
[2024-09-08] MEDS: EPINEPHrine HCL 250 ML IV SCH (20:00)
[2024-09-08] MEDS: PIPERACILLIN-TAZOB 3.375GM 100 ML IV SCH (20:25)
[2024-09-08] MEDS: METOCLOPRAMIDE HCL 5MG/ml INJ 2ml VIAL IV SCH (22:00)
[2024-09-08] MEDS: VANCOMYCIN 750MG KIT 100 ML IV SCH (23:00)
[2024-09-09] VITALS (106 sets, daily range): BP systolic 86–132; BP diastolic 48–92; PULSE 34–88; RESP 12–15; TEMP 96.8–99.5; O2SAT 97–100
[2024-09-09] MEDS: ARTIFICIAL TEARS 15ml EACHEYE SCH
[2024-09-09 04:32] LABS: Anion Gap 3 (5-15); Blood Urea Nitrogen 18 mg/dL (9-23); Carbon Dioxide 28 mmol/L (20-31); Magnesium 1.8 mg/dL (1.6-2.6); Sodium 139 mmol/L (136-145)
[2024-09-09 04:52] LABS: Alkaline Phosphatase 422 U/L (46-116); Aspartate Aminotransferase 629 U/L (13-40); Chloride 108 mmol/L (98-107); Glucose 109 mg/dL (74-106); Potassium 3.3 mmol/L (3.5-5.1)
[2024-09-09 04:53] LABS: Alanine Aminotransferase 1417 U/L (7-40); Albumin 2.6 g/dL (3.2-4.8); Bilirubin, Total 2.4 mg/dL (0.2-1.0); Calcium 7.9 mg/dL (8.7-10.4); Phosphorus 0.9 mg/dL (2.4-5.1); Total Protein 4.7 g/dL (5.7-8.2)
--- NOTE | 2024-09-09 05:28 | DVH ---
CHEST RADIOGRAPH Indication: mech vent Technique: Single frontal view of the chest was obtained Comparison: XY CHEST PORTABLE on DOS: 09/08/24 FINDINGS: Lines and Tubes: Endotracheal tube terminates 3.4 cm above the [place]. Left central venous catheter t erminates in the superior vena cava. The enteric tube courses below the left hemidiaphragm and the ti p extends outside the field of view. Lungs: No focal consolidation. Pleura: No effusion. No pneumothorax. Cardiomediastinal contours: Unremarkable Bones: No acute osseous abnormality. IMPRESSION: 1. Appropriate position of the support lines and tubes. 2. No acute cardiopulmonary disease.
--- NOTE | 2024-09-09 05:30 | DVH ---
ABDOMINAL RADIOGRAPH Indication: colonic distension Technique: Single frontal view of the abdomen was obtained Comparison: XY KUB ABDOMEN SINGLE VIEW on DOS: 09/08/24 FINDINGS: Lines and tubes: The enteric tube terminates in the stomach. There is a percutaneous gastrostomy tu be overlying the central abdomen. There is a nonobstructive bowel gas pattern. No supine radiographic evidence of pneumoperitoneum. Bon y structures unremarkable. IMPRESSION: 1. Nonobstructive bowel gas pattern.
[2024-09-09 07:12] LABS: Base Excess 4.2 mmol/L (-2.0-3.0)
[2024-09-09] MEDS ORDERED: EPINEPHrine HCL 250 ML IV SCH (08:15)
[2024-09-09 08:27] LABS: Basophils # (auto) 0 10 ^3/uL (0-0.2); Eosinophils # (auto) 0 10 ^3/uL (0-0.8); Eosinophils % (auto) 0.1 % (0.0-7.0); Hematocrit 35.3 % (41.0-53.0); Hemoglobin 12.6 g/dL (13.5-17.5); Lymphocytes # (auto) 1.6 10 ^3/uL (0.4-5.4); Lymphocytes % (auto) 14.9 % (10.0-50.0); Mean Corpuscular Hemoglobin 33.7 pg (28.0-32.0); Mean Corpuscular Hgb Conc. 35.6 g/dL (32.0-36.0); Mean Corpuscular Volume 94.7 fL (80.0-100.0); Monocytes # (auto) 0.4 10 ^3/uL (0-1.3); Monocytes % (auto) 3.6 % (0.0-12.0); Neutrophils # (auto) 8.5 10 ^3/uL (1.6-8.6); Neutrophils % (auto) 81.4 % (37.0-80.0); Nucleated Red Blood Cells % 0.2 %; Platelet Count (auto) 67 10^3/uL (140-450); Red Blood Cells 3.73 10^6/uL (4.5-5.90); Red Cell Distribution Width 13.3 % (11.8-14.3); White Blood Cell 10.4 10^3/uL (4.4-10.8)
[2024-09-09] MEDS: MAGNESIUM SULFATE 1GM/100ML 100 ML IV ONE (09:03)
[2024-09-09 09:49] LABS: Hepatitis A Ab IgM Negative; Hepatitis B Core IgM Negative (Negative); Hepatitis B Surface Antigen Negative (Negative); Hepatitis C Antibody Negative (Negative)
--- NOTE | 2024-09-09 10:02 | ECG ---
[facility] Test Date: 2024-09-08 Test Time: 20:16:03 Pat Name: JOANNA SCHREIBER Department: Room: [address] [place] [address] A Gender: M Booth Operator: : 1995 Requested By: MALDONADO LOPEZ Order Number: [id number] Reading MD: Kendall Stewart Measurements Intervals [place] Rate: 55 P: 0 MA: 158 QRS: 150 QRSD: 84 T: 146 QT: 478 QTc: 457 Interpretive Statements Suspect arm lead reversal, interpretation assumes no reversal Sinus bradycardia Low voltage QRS Possible Lateral infarct , age undetermined T wave abnormality, consider anterior ischemia Electronically Signed On 09-09-2024 13:38:01 PST by Kendall Stewart Please click the below link to view image of tracing.
[2024-09-09] MEDS: POTASSIUM PHOSPHATE 22 MEQ in SODIUM CHL 0.9% 100 ML IV ONE (10:18)
--- NOTE | 2024-09-09 11:15 | DVHSR ---
APPROVED REPORT EXAM: Two-dimensional and M-mode echocardiogram with Doppler and color Doppler. Blood Pressure: 105/63 mmHg INDICATION Evaluate cardiac function RISK FACTORS Height: 5'5", Weight: 74 DIMENSIONS LVDd3.5 (3.8-5.7cm)LA (2D)1.5 (1.9-4.0cm)Aortic Root (2.0-3.7cm) LVDs2.4 (2.5-4.0cm)LA (MM) (1.9-4.0cm)Aortic Cusp Exc (1.5-2.0cm) EF (%) 60.0 (55-70%)Rt. Atrium (1.9-4.0cm)Asc. Aorta cm IVSd0.6 (0.7-1.1cm)RV (D) (1.8-2.4cm) PWd0.7 (0.7-1.1cm) Mitral Valve MitralMitral Stenosis E/A ratio0.02D MVAcm2 Aortic Valve Aortic ValveAortic Stenosis LVOT Diameter2.0 (1.8-2.4cm)Doppler AVAcm2 Tricuspid Valve TR Velocity1.95m/s [id number] LEFT VENTRICLE The left ventricle is of normal size. Wall thickness is normal. Ejection fraction is normal and is estimated at 60%. There is no gross motion abnormalities. Diastolic function not assessed. RIGHT VENTRICLE Not well visualized. ATRIA The left atrium is of normal size. The right atrium is not well visualized. Not well visualized. MITRAL VALVE Normal structure and function. No significant mitral regurgitation. PULMONIC VALVE Not visualized. TRICUSPID VALVE Not well visualized. PA systolic pressure is not estimated. AORTIC VALVE Limited evaluation. Normal structure in the parasternal views. GREAT VESSELS Aortic root is of normal size. Proximal ascending aorta is not well visualized. PERICARDIAL EFFUSION No significant pericardial effusion. IVC is of normal size. Other Information Quality : Technically LimitedRhythm : Technically limited study due to body habitus and on vent. Conclusion The study is very technically limited. Normal left ventricular size and systolic function. Ejection fraction is estimated at 60%. The right ventricle is not well visualized. No significant pericardial effusion.
--- NOTE | 2024-09-09 13:03 | ECG ---
[facility] [place]24-09-08 Test Time: 20:18:06 Pat Name: JOANNA SCHREIBER Department: Room: [address] [place] [address] A Gender: M Fpga Design Engineer: : 1995 Requested By: MALDONADO LOPEZ Order Number: [id number] Reading MD: Kendall Stewart Measurements Intervals [place] Rate: 51 P: 41 AR: 172 QRS: 89 QRSD: 84 T: 86 QT: 464 QTc: 427 Interpretive Statements Sinus bradycardia ST & T wave abnormality, consider anterior ischemia Electronically Signed On 09-09-2024 13:38:06 PST by Kendall Stewart Please click the below link to view image of tracing.
--- NOTE | 2024-09-09 13:06 | ECG ---
[facility] Test Date: 2024-09-08 Test Time: 09:39:38 Pat Name: JOANNA SCHREIBER Department: Room: [address] [place] [address] A Gender: M Materials Mgmt Tech: : 1995 Requested By: FISH GRAY Order Number: [id number] Reading MD: Kendall Stewart Measurements Intervals [place] Rate: 47 P: 0 PA: 0 QRS: 94 QRSD: 80 T: 37 QT: 614 QTc: 543 Interpretive Statements Junctional rhythm with occasional premature ventricular complexes Rightward axis Nonspecific ST and T wave abnormality Prolonged QT Electronically Signed On 09-09-2024 13:32:58 PST by Kendall Stewart Please click the below link to view image of tracing.
[2024-09-09] MEDS: EPINEPHrine HCL 0 ML IV ONE (13:23)
[2024-09-09] MEDS: EPINEPHrine HCL 250 ML IV SCH (13:45)
[2024-09-09] MEDS: SODIUM PHOSPHATES 20 MEQ in SODIUM CHL 0.9% 100 ML IV ONE (14:55)
--- NOTE | 2024-09-09 15:34 | ECG ---
[facility] Test Date: 2024-09-08 Test Time: 09:38:28 Pat Name: JOANNA SCHREIBER Department: Room: [address] [place] [address] A Gender: M Principal Secretary: : 1995 Requested By: MALDONADO LOPEZ Order Number: [id number] Reading MD: Kendall Stewart Measurements Intervals [place] Rate: 46 P: 0 [place]: 0 QRS: 95 QRSD: 80 T: 38 QT: 606 QTc: 530 Interpretive Statements Junctional rhythm with occasional premature ventricular complexes Rightward axis Nonspecific ST and T wave abnormality Prolonged QT Electronically Signed On 09-13-2024 10:11:36 PST by Kendall Stewart Please click the below link to view image of tracing.
--- NOTE | 2024-09-09 18:02 | DVHPN2 ---
Consult Progress Note Date Seen: Sep 09, 2024 Subjective Other Systems: No overnight cardiac events Objective vital signs Vital Sign Date Time Temp Pulse Resp B/P (MAP) Pulse Ox O2 Delivery O2 Flow Rate FiO2 09/09/24 16:45 46 14 101/62 (75) 99 30 09/09/24 16:00 Mechanical Ventilator+ 09/09/24 15:45 99.5 211.1 Total Intake and Output 09/08/24 09/08/24 09/09/24 15:00 23:00 07:00 Intake Total 1032.772 ml 938.850 ml 1102.760 ml Output Total 1750 ml 910 ml Balance 1032.772 ml -811.150 ml 192.760 ml medications Current Medications Medications Dose Ordered Sig/Gisselle Route Start Time Stop Time Status Last Admin Dose Admin Vancomycin HCl 0 ml @ 0 mls/hr UD IV 09/06/24 17:15 Fentanyl Citrate 250 ml @ 2.5 mls/hr Q24H IV 09/06/24 17:45 09/08/24 15:58 2.5 MLS/HR Midazolam HCl 50 ml @ 1 mls/hr Q24H IV 09/06/24 19:45 09/08/24 11:16 7 MLS/HR Pantoprazole Sodium 40 mg DAILY IV 09/07/24 10:00 09/09/24 10:03 40 MG Enoxaparin Sodium 30 mg DAILY SC 09/07/24 10:00 09/09/24 10:04 30 MG Enteral Nutritional Formula 1,000 ml 30ML/HR GT 09/06/24 22:30 Acetaminophen 650 mg Q6HP PRN WV 09/07/24 05:30 Diagnostic Test (Pha) 1 strip IQ4HR 09/07/24 12:00 09/09/24 16:08 1 STRIP Insulin Human Regular IQ4HR SC 09/07/24 12:00 09/08/24 21:11 3 UNITS Dextrose 50 ml UD PRN IV 09/07/24 08:45 09/07/24 20:42 50 ML Norepinephrine Bitartrate 250 ml @ 3.75 mls/hr Q24H IV 09/07/24 11:30 09/09/24 05:29 18.75 MLS/HR Dextrose 1,000 ml @ 30 mls/hr Q24H IV 09/07/24 20:45 09/09/24 05:38 30 MLS/HR Amino Acids 0 ml @ 0 mls/hr PER PHARMACY IV 09/07/24 21:15 Amino Acids/ Electrolytes/ Dextrose 1,000 ml @ 41 mls/hr DAILY@2200 IV 09/07/24 22:00 09/08/24 22:12 41 MLS/HR Piperacillin Sod/ Tazobactam Sod 100 ml @ 25 mls/hr Q8H IV 09/08/24 20:00 09/09/24 12:20 25 MLS/HR Metoclopramide HCl 5 mg Q8HR IV 09/08/24 22:00 09/09/24 14:11 5 MG Artificial Tears 2 drop Q6HR EACHEYE 09/09/24 00:00 09/09/24 12:00 2 DROP Vancomycin HCl 100 ml @ 100 mls/hr Q12H IV 09/08/24 23:00 09/09/24 10:57 100 MLS/HR Epinephrine HCl 250 ml @ 7.5 mls/hr Q24H IV 09/09/24 13:45 Examination: GENERAL:Abnormal, LUNGS:Abnormal (Mechanically ventilated), CVS:Abnormal (On vasopressor, off dopamine, HR 40s bpm), NEURO:Abnormal (Chemically sedated) laboratory and microbiology Laboratory Tests 09/09/24 03:52 Test 09/09/24 03:52 Range/Units Serum Glucose 109 H 74-106 mg/dL Problem List/Assessment/Plan Problem List/Assessment/Plan Sinus bradycardia, now sinus tachycardia 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 Schulz) * Transthoracic echocardiogram revealed EF 60% * Avoid all AV eli blocking agents * Vasopressors for hemodynamic support * Antibiotics per primary care team Patient seen and examined at bedside by . The patient has a previous history of asymptomatic bradycardia. The patient came in with hypothermia, hypoglycemia, and acute respiratory failure which can all further contribute to worsening bradycardia. We will sign off at this time. Kindly call if in need to re-consult. Thank you for allowing us to care for this patient. This medical document was created using an electronic medical record system with voice recognition software and computerized dictation system. Although this document has been carefully reviewed, there might still be some phonetic and typographical errors. Occasional wrong-word or ``sound-alike substitutions may have occurred due to the inherent limitations of voice recognition software. These areas are purely typographical due to imperfections of the software programs and do not reflect any compromise in the patient's medical care. Please read the chart carefully and recognize, using context, where these substitutions have occurred. Plan discussed with: Other Dietary Evaluation Review Comments: 1) If GI is accessible, consider Jevity 1.2 @ 35 ml/hr x 24hr goal rate as tolerated 2) Consider 1 pkt BEN BID for wound 3) If pt remains NPO >7 days consider TPN to meet at least 75% of estimated needs Expected Outcomes/Goals: 1) Pt to receive nutrition support within 7 days of NPO status 2) F/U in 2-3 days Date of Service: Sep 09, 2024 Billing Provider: DAVID SCHULZ MD Cardiology Common Codes: [id number] INP/OBS CARE(Mod) ELSA AGUIRRE LEHR ATTENDANT Sep 09, 2024 18:02
--- NOTE | 2024-09-09 20:16 | DVHPNRES ---
Progress Note Date Seen: Sep 09, 2024 Resident Creating Document: MALDONADO LOPEZ RESIDENT Medical Necessity Reason Pt with a Central, PICC or Fol: No Subjective Review of Systems Patient seen and examined at bedside Patient is currently sedated and intubated Review of system could not be done as patient is intubated and sedated Objective vital signs Vital Sign Date Time Temp Pulse Resp B/P (MAP) Pulse Ox O2 Delivery O2 Flow Rate FiO2 09/09/24 18:45 97.9 42 14 109/75 (86) 100 208.2 09/09/24 18:17 30 09/09/24 18:00 Mechanical Ventilator+ Total Intake and Output 09/08/24 09/08/24 09/09/24 14:59 22:59 06:59 Intake Total 1202.377 ml 928.495 ml 1129.010 ml Output Total 1750 ml 910 ml Balance 1202.377 ml -821.505 ml 219.010 ml medications Current Medications Medications Dose Ordered Sig/Gisselle Route Start Time Stop Time Status Last Admin Dose Admin Vancomycin HCl 0 ml @ 0 mls/hr UD IV 09/06/24 17:15 Fentanyl Citrate 250 ml @ 2.5 mls/hr Q24H IV 09/06/24 17:45 09/08/24 15:58 2.5 MLS/HR Midazolam HCl 50 ml @ 1 mls/hr Q24H IV 09/06/24 19:45 09/08/24 11:16 7 MLS/HR Pantoprazole Sodium 40 mg DAILY IV 09/07/24 10:00 09/09/24 10:03 40 MG Enoxaparin Sodium 30 mg DAILY SC 09/07/24 10:00 09/09/24 10:04 30 MG Enteral Nutritional Formula 1,000 ml 30ML/HR GT 09/06/24 22:30 Acetaminophen 650 mg Q6HP PRN [place] 09/07/24 05:30 Diagnostic Test (Pha) 1 strip IQ4HR 09/07/24 12:00 09/09/24 16:08 1 STRIP Insulin Human Regular IQ4HR SC 09/07/24 12:00 09/08/24 21:11 3 UNITS Dextrose 50 ml UD PRN IV 09/07/24 08:45 09/07/24 20:42 50 ML Norepinephrine Bitartrate 250 ml @ 3.75 mls/hr Q24H IV 09/07/24 11:30 09/09/24 05:29 18.75 MLS/HR Dextrose 1,000 ml @ 30 mls/hr Q24H IV 09/07/24 20:45 09/09/24 05:38 30 MLS/HR Amino Acids 0 ml @ 0 mls/hr PER PHARMACY IV 09/07/24 21:15 Amino Acids/ Electrolytes/ Dextrose 1,000 ml @ 41 mls/hr DAILY@2200 IV 09/07/24 22:00 09/08/24 22:12 41 MLS/HR Piperacillin Sod/ Tazobactam Sod 100 ml @ 25 mls/hr Q8H IV 09/08/24 20:00 09/09/24 12:20 25 MLS/HR Metoclopramide HCl 5 mg Q8HR IV 09/08/24 22:00 09/09/24 14:11 5 MG Artificial Tears 2 drop Q6HR EACHEYE 09/09/24 00:00 09/09/24 18:22 2 DROP Vancomycin HCl 100 ml @ 100 mls/hr Q12H IV 09/08/24 23:00 09/09/24 10:57 100 MLS/HR Epinephrine HCl 250 ml @ 7.5 mls/hr Q24H IV 09/09/24 13:45 Examination Examination General Appearance: Sedated and intubated Respiratory: on Mechanical ventilation Cardiovascular: Regular rate, Normal S1, Normal S2 Abdominal: Nondistended, peg tube present Extremities: No cyanosis, No edema, Normal pulses, No tenderness/swelling Skin: No rashes, No breakdown Neuro: sedated and intubated laboratory and microbiology Laboratory Tests 09/09/24 03:52 Test 09/09/24 03:52 Range/Units Serum Glucose 109 H 74-106 mg/dL Microbiology Date/Time Source Procedure Growth Status 09/07/24 16:00 Scrotum Gram Stain - Final Resulted 09/07/24 16:00 Scrotum Wound Culture Pending Resulted 09/06/24 18:15 Blood Blood Culture - Final Staphylococcus aureus Complete 09/06/24 17:05 Urine - Lilly Port Urine Culture - Final Staphylococcus aureus Complete 09/06/24 17:00 Sputum Gram Stain - Final Complete 09/06/24 17:00 Respiratory Culture - Final Staphylococcus aureus Complete Labs and/or images reviewed: Labs reviewed by me, Image(s) reviewed by me Problem List/Assessment/Plan Problem List/Assessment/Plan Assessment/plan Neurology # sedation -on midazolam, fentanyl # metabolic encephalopathy due to sepsis -head CT did not show any acute abnormalities # 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 Aspiration pneumonia -IV antibiotics Sputum culture Many growth: Possible Staphylococcus aureus -IV vancomycin GI # status post PEG tube, present on admission -was placed due to dysphagia due to Klamath's # transaminitis likely due to septic shock, improving Monitor liver enzymes #Moderately gas distended large bowel. -seen on imaging -NG tube, low continuous suction Repeat KUB #Moderately gas and fluid distended stomach. -seen on imaging NG tube, low continuous suction Repeat KUB # engorged hepatic vein Uncertain etiology Seen on imaging Nephrology # hypomagnesemia Corrected Monitor # hypokalemia Corrected Monitor #hyperkalemia -resolved # hyponatremia -monitor BMP #hypophosphatemia corrected Hematology/oncology # thrombocytopenia likely due to sepsis Monitor Endocrine # hypoglycemia likely due to sepsis -started IV Clinimix, D 10 W -Accu-Cheks Dermatology/integumentary # sacral ulcer, POA -wound culture # hypothermia likely due to sepsis Warm blanket Urology # UTI -urine culture shows staph aureus IV antibiotic DVT prophylaxis -Low dose Lovenox 30 mg SC daily Peptic ulcer disease prophylaxis IV Protonix Nutrition Hold enteral nutrition due to possible bowel obstruction IV Clinimix Bowel Regimen Currently on hold as patient has distended colon stomach Drips Midazolam Norepinephrine fentanyl Lines Lilly's catheter placed on 09/06/2023 Left internal jugular CVC placed on 09/06/2023 Code status discussed with the family for greater than 23 minutes, full code Mother at bedside explained about the condition of the patient Case discussion with dr mishra Critical care time excluding procedures: 83 minutes Plan discussed with: Other My Orders My Orders Orders - MALDONADO LOPEZ RESIDENT Procedure Category Date Status Time Chest Portable XY 09/09/24 Resulted 04:00 Abg W/ Co-Ox RT 09/09/24 Logged 04:00 Electrocardigram EKG 09/08/24 Resulted 20:48 Electrocardigram EKG 09/09/24 Resulted 08:06 Ventilator Orders RT 09/09/24 Transmitted 10:27 Comprehensive LAB 09/10/24 Verified Metabolic Panel 04:00 Magnesium LAB 09/10/24 Verified 04:00 Phosphorus LAB 09/10/24 Verified 04:00 Clinimix Per Pharmacy JN 09/09/24 In Process 22:00 Complete Blood Count LAB 09/10/24 Verified 04:00 Chest Portable XY 09/10/24 Logged 04:00 Abg W/ Co-Ox RT 09/10/24 Logged 04:00 Thyroid Stimulating LAB 09/10/24 Verified Hormone 04:00 Nutritional PHA 09/09/24 Transmitted Supplements (Jevity 20:00 Dietary Evaluation Review Comments: 1) If GI is accessible, consider Jevity 1.2 @ 35 ml/hr x 24hr goal rate as tolerated 2) Consider 1 pkt BEN BID for wound 3) If pt remains NPO >7 days consider TPN to meet at least 75% of estimated needs Expected Outcomes/Goals: 1) Pt to receive nutrition support within 7 days of NPO status 2) F/U in 2-3 days Date of Service: Sep 09, 2024 Billing Provider: RADHA MISHRA MD Common Visit Codes: [id number] CARE 30-74 MIN, [id number] CARE-EACH +30MIN MALDONADO LOPEZ RESIDENT Sep 09, 2024 20:15 RADHA MISHRA MD Sep 12, 2024 16:50
[2024-09-10] VITALS (106 sets, daily range): BP systolic 108–166; BP diastolic 54–115; PULSE 51–104; RESP 12–19; TEMP 97.2–99.7; O2SAT 93–100
[2024-09-10 04:49] LABS: Mean Corpuscular Volume 93.4 fL (80.0-100.0); Platelet Count (auto) 56 10^3/uL (140-450); White Blood Cell 8.9 10^3/uL (4.4-10.8)
[2024-09-10 04:51] LABS: Basophils # (auto) 0 10 ^3/uL (0-0.2); Basophils % (auto) 0.3 % (0.0-2.0); Eosinophils # (auto) 0 10 ^3/uL (0-0.8); Eosinophils % (auto) 0.1 % (0.0-7.0); Hematocrit 33.6 % (41.0-53.0); Hemoglobin 12.2 g/dL (13.5-17.5); Lymphocytes # (auto) 0.6 10 ^3/uL (0.4-5.4); Lymphocytes % (auto) 6.9 % (10.0-50.0); Mean Corpuscular Hemoglobin 33.8 pg (28.0-32.0); Mean Corpuscular Hgb Conc. 36.2 g/dL (32.0-36.0); Monocytes # (auto) 0.4 10 ^3/uL (0-1.3); Monocytes % (auto) 4.7 % (0.0-12.0); Neutrophils # (auto) 7.8 10 ^3/uL (1.6-8.6); Nucleated Red Blood Cells % 0.2 %; Red Cell Distribution Width 13.4 % (11.8-14.3)
--- NOTE | 2024-09-10 06:16 | DVH ---
CHEST RADIOGRAPH Indication: mech vent Technique: Single frontal view of the chest was obtained Comparison: XY CHEST PORTABLE on DOS: 09/09/24, XY CHEST PORTABLE on DOS: 09/08/24, XY CHEST XRAY 1 VIE W on DOS: 09/07/24, XY CHEST PORTABLE on DOS: 09/06/24, XY CHEST XRAY 1 VIEW on DOS: 08/17/24, XY CHEST PORTABLE on DOS: 09/09/24 FINDINGS: Lines and Tubes: Endotracheal tube terminates 3.4 cm above the [place]. Left central venous catheter t erminates in the superior vena cava. The enteric tube courses below the left hemidiaphragm and the ti p extends outside the field of view. Lungs: No focal consolidation. Pleura: No effusion. No pneumothorax. Cardiomediastinal contours: Unremarkable Bones: No acute osseous abnormality. IMPRESSION: 1. Appropriate position of the support lines and tubes. 2. No acute cardiopulmonary disease.
[2024-09-10 06:18] LABS: Base Excess 2.5 mmol/L (-2.0-3.0)
[2024-09-10 06:55] LABS: Anion Gap 6 (5-15); BUN/Creatinine Ratio 40.5 (10.0-20.0); Blood Urea Nitrogen 17 mg/dL (9-23); Carbon Dioxide 26 mmol/L (20-31); Chloride 105 mmol/L (98-107); Sodium 137 mmol/L (136-145)
[2024-09-10 06:59] LABS: Alanine Aminotransferase 973 U/L (7-40); Albumin 2.7 g/dL (3.2-4.8); Alkaline Phosphatase 410 U/L (46-116); Aspartate Aminotransferase 355 U/L (13-40); Bilirubin, Total 1.7 mg/dL (0.2-1.0); Calcium 8.2 mg/dL (8.7-10.4); Glucose 111 mg/dL (74-106); Potassium 3.2 mmol/L (3.5-5.1); Total Protein 4.9 g/dL (5.7-8.2)
[2024-09-10] MEDS ORDERED: CLINIMIX PER PHARMACY 0 ML IV SCH (09:00)
[2024-09-10] MEDS: POTASSIUM CHL 20MEQ/100ML 100 ML IV SCH (09:04)
[2024-09-10] MEDS: Jevity 1.2 Cal/Fiber 1 Liter GT SCH (10:47)
[2024-09-10] MEDS: VANCOMYCIN 750MG KIT 100 ML IV SCH (12:26)
[2024-09-10] MEDS: AMINO ACID INFUSION IN D10W 1,000 ML IV SCH (13:49)
[2024-09-10 13:54] LABS: Magnesium 1.6 mg/dL (1.6-2.6); Phosphorus 1.3 mg/dL (2.4-5.1)
[2024-09-10] MEDS: AMINO ACID INFUSION IN D10W 1,000 ML IV NR (14:00)
[2024-09-10] MEDS: MAGNESIUM SULFATE 1GM/100ML 100 ML IV SCH (15:42)
[2024-09-10] MEDS: SODIUM PHOSPHATES 40 MEQ in D5W 5% 250 ML IV ONE (17:12)
--- NOTE | 2024-09-10 18:53 | DVHPNRES ---
Progress Note Date Seen: Sep 10, 2024 Resident Creating Document: MALDONADO LOPEZ RESIDENT Medical Necessity Reason Pt with a Central, PICC or Fol: No Subjective Review of Systems Patient seen and examined at bedside Patient is currently sedated and intubated Review of system could not be done as patient is intubated and sedated pt was off sedation in the morning and was opening eyes and following commands failed CPAP trial will do CPAP trial tomorrow Objective vital signs Vital Sign Date Time Temp Pulse Resp B/P (MAP) Pulse Ox O2 Delivery O2 Flow Rate FiO2 09/10/24 18:15 57 15 147/72 (97) 97 30 09/10/24 18:15 98.1 208.6 09/10/24 18:00 Mechanical Ventilator+ Total Intake and Output 09/09/24 09/09/24 09/10/24 15:00 23:00 07:00 Intake Total 824.25 ml 558.00 ml 335.00 ml Output Total 730 ml 550 ml Balance 824.25 ml -172.00 ml -215.00 ml medications Current Medications Medications Dose Ordered Sig/Gisselle Route Start Time Stop Time Status Last Admin Dose Admin Vancomycin HCl 0 ml @ 0 mls/hr UD IV 09/06/24 17:15 Fentanyl Citrate 250 ml @ 2.5 mls/hr Q24H IV 09/06/24 17:45 09/10/24 07:38 2.5 MLS/HR Midazolam HCl 50 ml @ 1 mls/hr Q24H IV 09/06/24 19:45 09/08/24 11:16 7 MLS/HR Pantoprazole Sodium 40 mg DAILY IV 09/07/24 10:00 09/10/24 10:40 40 MG Enoxaparin Sodium 30 mg DAILY SC 09/07/24 10:00 09/09/24 10:04 30 MG Acetaminophen 650 mg Q6HP PRN [place] 09/07/24 05:30 Diagnostic Test (Pha) 1 strip IQ4HR 09/07/24 12:00 09/10/24 16:01 1 STRIP Insulin Human Regular IQ4HR SC 09/07/24 12:00 09/08/24 21:11 3 UNITS Dextrose 50 ml UD PRN IV 09/07/24 08:45 09/07/24 20:42 50 ML Norepinephrine Bitartrate 250 ml @ 3.75 mls/hr Q24H IV 09/07/24 11:30 09/09/24 20:14 7.5 MLS/HR Dextrose 1,000 ml @ 30 mls/hr Q24H IV 09/07/24 20:45 09/10/24 07:36 30 MLS/HR Metoclopramide HCl 5 mg Q8HR IV 09/08/24 22:00 09/10/24 13:49 5 MG Artificial Tears 2 drop Q6HR EACHEYE 09/09/24 00:00 09/10/24 18:28 2 DROP Epinephrine HCl 250 ml @ 7.5 mls/hr Q24H IV 09/09/24 13:45 Enteral Nutritional Formula 1,000 ml 30ML/HR GT 09/09/24 20:00 09/10/24 10:47 1,000 ML Amino Acids 0 ml @ 0 mls/hr PER PHARMACY IV 09/10/24 09:00 Vancomycin HCl 100 ml @ 100 mls/hr Q10H IV 09/10/24 11:00 09/10/24 12:26 100 MLS/HR Amino Acids/ Electrolytes/ Dextrose 1,000 ml @ 41 mls/hr ONCE IV 09/10/24 13:15 09/10/24 21:59 Amino Acids/ Electrolytes/ Dextrose 1,000 ml @ 41 mls/hr DAILY@2200 IV 09/10/24 22:00 09/10/24 13:49 41 MLS/HR Hydralazine HCl 10 mg Q6HP PRN IV 09/10/24 17:30 Examination Examination General Appearance: Sedated and intubated Respiratory: on Mechanical ventilation Cardiovascular: Regular rate, Normal S1, Normal S2 Abdominal: Nondistended, peg tube present Extremities: No cyanosis, No edema, Normal pulses, No tenderness/swelling Skin: No rashes, No breakdown Neuro: sedated and intubated laboratory and microbiology Laboratory Tests 09/10/24 03:22 Test 09/10/24 03:22 Range/Units Serum Glucose 111 H 74-106 mg/dL Microbiology Date/Time Source Procedure Growth Status 09/07/24 16:00 Scrotum Gram Stain - Final Resulted 09/07/24 16:00 Wound Culture - Preliminary Enterobacter cloacae Enterococcus faecalis Resulted 09/06/24 18:15 Blood Blood Culture - Final Staphylococcus aureus Complete 09/06/24 17:05 Urine - Lilly Port Urine Culture - Final Staphylococcus aureus Complete 09/06/24 17:00 Sputum Gram Stain - Final Complete 09/06/24 17:00 Respiratory Culture - Final Staphylococcus aureus Complete Problem List/Assessment/Plan Problem List/Assessment/Plan Assessment/plan Neurology # sedation -on fentanyl # metabolic encephalopathy due to sepsis -head CT did not show any acute abnormalities # 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 Aspiration pneumonia -IV antibiotics Sputum culture Many growth: Possible Staphylococcus aureus -IV vancomycin GI # status post PEG tube, present on admission -was placed due to dysphagia due to Brittany's # transaminitis likely due to septic shock, improving Monitor liver enzymes #Moderately gas distended large bowel. -seen on imaging -NG tube, low continuous suction Repeat KUB #Moderately gas and fluid distended stomach. -seen on imaging NG tube, low continuous suction Repeat KUB # engorged hepatic vein Uncertain etiology Seen on imaging Nephrology # hypomagnesemia Corrected Monitor # hypokalemia Corrected Monitor #hyperkalemia -resolved # hyponatremia -monitor BMP #hypophosphatemia corrected Hematology/oncology # thrombocytopenia likely due to sepsis Monitor Endocrine # hypoglycemia likely due to sepsis -started IV Clinimix, D 10 W -Accu-Cheks -started on nutrition through NG tube Dermatology/integumentary # sacral ulcer, POA -wound culture growing enterococcus -pt is already on IV vancomycin # hypothermia likely due to sepsis Warm blanket Urology # UTI -urine culture shows staph aureus IV antibiotic DVT prophylaxis -Low dose Lovenox 30 mg SC daily, on hold because of low platelets -SCD's Peptic ulcer disease prophylaxis IV Protonix Nutrition started on NG tube feedings Bowel Regimen Currently on hold as patient has distended colon stomach Drips fentanyl Lines Lilly's catheter placed on 09/06/2023 Left internal jugular CVC placed on 09/06/2023 Code status discussed with the family for greater than 23 minutes, full code Mother at bedside explained about the condition of the patient Case discussion with dr Dangelo Critical care time excluding procedures: 83 minutes Plan discussed with: Other My Orders My Orders Orders - MALDONADO LOPEZ RESIDENT Procedure Category Date Status Time Chest Portable XY 09/10/24 Resulted 04:00 Abg W/ Co-Ox RT 09/10/24 Logged 04:00 Nutritional PHA 09/09/24 In Process Supplements (Jevity 20:00 Clinimix Per Pharmacy PHA 09/10/24 In Process 09:00 Blood Culture SANJAY 09/10/24 In Process 12:58 Amino Acid Infusion PHA 09/10/24 In Process In D10w (Clinimix 4. 13:15 Amino Acid Infusion PHA 09/10/24 In Process In D10w (Clinimix 4. 22:00 Sodium Phosphates PHA 09/10/24 In Process 15:30 Comprehensive LAB 09/11/24 Verified Metabolic Panel 05:00 Magnesium LAB 09/11/24 Verified 05:00 Phosphorus LAB 09/11/24 Verified 05:00 Clinimix Per Pharmacy JN 09/10/24 In Process 22:00 Hydralazine Injection PHA 09/10/24 In Process (Apresoline Inject 17:30 Communication Order ORDERS 09/10/24 Transmitted 17:21 Cpap Trial For Am ORDERS 09/11/24 Transmitted 08:00 Dietary Evaluation Review Comments: 1) If GI is accessible, consider Jevity 1.2 @ 35 ml/hr x 24hr goal rate as tolerated 2) Consider 1 pkt BEN BID for wound 3) If pt remains NPO >7 days consider TPN to meet at least 75% of estimated needs Expected Outcomes/Goals: 1) Pt to receive nutrition support within 7 days of NPO status 2) F/U in 2-3 days MALDONADO LOPEZ RESIDENT Sep 10, 2024 18:53
[2024-09-11] VITALS (108 sets, daily range): BP systolic 121–163; BP diastolic 71–116; PULSE 49–100; RESP 7–19; TEMP 97.5–99.5; O2SAT 96–99
[2024-09-11 04:42] LABS: Anion Gap 4 (5-15); Blood Urea Nitrogen 17 mg/dL (9-23); Carbon Dioxide 29 mmol/L (20-31); Chloride 101 mmol/L (98-107); Magnesium 1.9 mg/dL (1.6-2.6); Potassium 3.9 mmol/L (3.5-5.1)
[2024-09-11 04:44] LABS: Alkaline Phosphatase 365 U/L (46-116); Aspartate Aminotransferase 203 U/L (13-40); Glucose 111 mg/dL (74-106); Sodium 134 mmol/L (136-145)
[2024-09-11 04:45] LABS: Alanine Aminotransferase 694 U/L (7-40); Albumin 2.7 g/dL (3.2-4.8); Bilirubin, Total 1.5 mg/dL (0.2-1.0); Calcium 8.3 mg/dL (8.7-10.4); Phosphorus 2.3 mg/dL (2.4-5.1); Total Protein 4.7 g/dL (5.7-8.2)
[2024-09-11 05:23] LABS: Basophils # (auto) 0 10 ^3/uL (0-0.2); Basophils % (auto) 0.1 % (0.0-2.0); Eosinophils # (auto) 0 10 ^3/uL (0-0.8); Eosinophils % (auto) 0.3 % (0.0-7.0); Lymphocytes # (auto) 1.4 10 ^3/uL (0.4-5.4); Monocytes # (auto) 0.6 10 ^3/uL (0-1.3); Nucleated Red Blood Cells % 0.1 %
[2024-09-11 05:25] LABS: Hematocrit 28.7 % (41.0-53.0); Hemoglobin 10.2 g/dL (13.5-17.5); Lymphocytes % (auto) 16.3 % (10.0-50.0); Mean Corpuscular Hemoglobin 33.8 pg (28.0-32.0); Mean Corpuscular Hgb Conc. 35.7 g/dL (32.0-36.0); Mean Corpuscular Volume 94.7 fL (80.0-100.0); Monocytes % (auto) 7.2 % (0.0-12.0); Neutrophils # (auto) 6.5 10 ^3/uL (1.6-8.6); Neutrophils % (auto) 76.1 % (37.0-80.0); Platelet Count (auto) 62 10^3/uL (140-450); Red Blood Cells 3.03 10^6/uL (4.5-5.90); Red Cell Distribution Width 13.5 % (11.8-14.3); White Blood Cell 8.6 10^3/uL (4.4-10.8)
--- NOTE | 2024-09-11 05:27 | DVH ---
CHEST RADIOGRAPH Indication: mechanical vent Technique: Single frontal view of the chest was obtained COMPARISON: XY CHEST PORTABLE on DOS: 09/10/24, XY CHEST PORTABLE on DOS: 09/09/24, XY CHEST PORTABLE o n DOS: 09/08/24, XY CHEST XRAY 1 VIEW on DOS: 09/07/24, XY CHEST PORTABLE on DOS: 09/06/24 FINDINGS: Lines and Tubes: Endotracheal tube, enteric catheter and left central venous catheter in satisfactory position. Lungs: Mild congestion Pleura: No effusion. No pneumothorax. Cardiomediastinal contours: Unremarkable Bones: Unremarkable IMPRESSION: Lines and tubes in satisfactory position. No significant interval change.
[2024-09-11 09:08] LABS: Base Excess 3.6 mmol/L (-2.0-3.0)
--- NOTE | 2024-09-11 10:43 | MEDREC ---
[facility] Intervention Section I [facility] Intervention: Review courses of therapy (PATIENT IS ON VANCOMYCIN TO TREAT STAPHYLOCOCCUS SPECIES SHOWED IN BLOOD CULTURE AND ENTEROCOCCUS FAECALIS FROM WOUND CULTURE. THE PRELIMINARY WOUND CULTURE ALSO SHOWED ENTEROBACTER CLOACAE WHICH IS SUSCEPTIBLE TO CIPROFLOXACIN, CEFEPIME, OR CARBAPENEM. PLEASE CONSIDER ADDING ANTIBIOTIC TO COVER FOR THIS BACTERIA IF NEEDED) MAZIN PICKARD Sep 11, 2024 10:43
[2024-09-11] MEDS: SODIUM PHOSPHATES 20 MEQ in SODIUM CHL 0.9% 100 ML IV ONE (15:00)
--- NOTE | 2024-09-11 20:29 | DVHPN2 ---
Subjective in bed resting intubated Changes from previous H/P or p: No Changes Objective Vitals Vital Signs Date Time Temp Pulse Resp B/P (MAP) Pulse Ox O2 Delivery O2 Flow Rate FiO2 09/11/24 18:45 97.9 58 13 131/89 (103) 98 208.2 09/11/24 18:00 30 09/11/24 18:00 Mechanical Ventilator+ Intake/Output Intake and Output 09/11/24 05:00 Intake Total 1999.975 ml Output Total 1000 ml Balance 999.975 ml Intake Oral 0 ml IV Total 1926.975 ml Tube Feeding 73 ml Output Urine Total 1000 ml Medications Current Medications Medications Dose Ordered Sig/Gisselle Route Start Time Stop Time Status Last Admin Dose Admin Vancomycin HCl 0 ml @ 0 mls/hr UD IV 09/06/24 17:15 Fentanyl Citrate 250 ml @ 2.5 mls/hr Q24H IV 09/06/24 17:45 09/10/24 07:38 2.5 MLS/HR Midazolam HCl 50 ml @ 1 mls/hr Q24H IV 09/06/24 19:45 09/08/24 11:16 7 MLS/HR Pantoprazole Sodium 40 mg DAILY IV 09/07/24 10:00 09/11/24 08:11 40 MG Acetaminophen 650 mg Q6HP PRN IA 09/07/24 05:30 Diagnostic Test (Pha) 1 strip IQ4HR 09/07/24 12:00 09/11/24 20:01 1 STRIP Insulin Human Regular IQ4HR SC 09/07/24 12:00 09/10/24 23:22 2 UNITS Dextrose 50 ml UD PRN IV 09/07/24 08:45 09/07/24 20:42 50 ML Norepinephrine Bitartrate 250 ml @ 3.75 mls/hr Q24H IV 09/07/24 11:30 09/09/24 20:14 7.5 MLS/HR Dextrose 1,000 ml @ 30 mls/hr Q24H IV 09/07/24 20:45 09/11/24 15:48 30 MLS/HR Metoclopramide HCl 5 mg Q8HR IV 09/08/24 22:00 09/11/24 13:43 5 MG Artificial Tears 2 drop Q6HR EACHEYE 09/09/24 00:00 09/11/24 17:45 2 DROP Epinephrine HCl 250 ml @ 7.5 mls/hr Q24H IV 09/09/24 13:45 Enteral Nutritional Formula 1,000 ml 30ML/HR GT 09/09/24 20:00 09/10/24 10:47 1,000 ML Amino Acids 0 ml @ 0 mls/hr PER PHARMACY IV 09/10/24 09:00 Vancomycin HCl 100 ml @ 100 mls/hr Q10H IV 09/10/24 11:00 09/11/24 16:52 100 MLS/HR Amino Acids/ Electrolytes/ Dextrose 1,000 ml @ 41 mls/hr DAILY@2200 IV 09/10/24 22:00 09/10/24 13:49 41 MLS/HR Hydralazine HCl 10 mg Q6HP PRN IV 09/10/24 17:30 Laboratory Results Laboratory Tests 09/11/24 03:15 Chemistry Test 09/11/24 03:15 Albumin 2.7 g/dL (3.2-4.8) L Calcium Level 8.3 mg/dL (8.7-10.4) L Magnesium Level 1.9 mg/dL (1.6-2.6) Phosphorus Level 2.3 mg/dL (2.4-5.1) L Total Protein 4.7 g/dL (5.7-8.2) L LFT Test 09/11/24 03:15 Alanine Aminotransferase (ALT) 694 U/L (7-40) H Alkaline Phosphatase 365 U/L (46-116) H Aspartate Amino Transferase (AST) 203 U/L (13-40) H Total Bilirubin 1.5 mg/dL (0.2-1.0) H Urinalysis Test 09/06/24 17:05 Urine Color Yellow (Yellow) Urine Clarity Clear (Clear) Urine pH 6.0 (5.0-9.0) Urine Specific [place] 1.019 (1.001-1.035) Urine Protein Negative (Negative) Urine Ketones Negative (Negative) Urine Blood Trace /uL (Negative) H Urine Nitrite 1+ (Negative) H Urine Bilirubin Negative (Negative) Urine Urobilinogen 3 mg/dL (Negative) H Urine Leukocyte Esterase 1+ /uL (Negative) Urine RBC 1 /hpf (0 - 3) Urine WBC 8 /hpf (0 - 3) Urine Squamous Epithelial Cells Few /hpf (<5) Urine Bacteria None seen /hpf (None Seen) Urine Hyaline Casts Mod /lpf (0 - 2) Urine Mucus Few (None Seen) Urine Glucose 3+ mg/dL (Normal) H Blood Gas Results Test 09/11/24 07:30 Arterial Blood pH 7.454 (7.350-7.450) FiO2 % 30.0 Microbiology Microbiology Date/Time Source Procedure Growth Status 09/10/24 18:02 Blood Blood Culture - Preliminary NO GROWTH AFTER 24 HOURS OF INCUBATION. 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 Aspiration pneumonia -IV antibiotics Sputum culture Many growth: Possible Staphylococcus aureus -IV vancomycin GI # status post PEG tube, present on admission -was placed due to dysphagia due to Brittany's # transaminitis likely due to septic shock, improving Monitor liver enzymes #Moderately gas distended large bowel. -seen on imaging -NG tube, low continuous suction Repeat KUB #Moderately gas and fluid distended stomach. -seen on imaging NG tube, low continuous suction Repeat KUB # engorged hepatic vein Uncertain etiology Seen on imaging Nephrology # hypomagnesemia Corrected Monitor # hypokalemia Corrected Monitor #hyperkalemia -resolved # hyponatremia -monitor BMP #hypophosphatemia corrected Hematology/oncology # thrombocytopenia likely due to sepsis Monitor Endocrine # hypoglycemia likely due to sepsis -started IV Clinimix, D 10 W -Accu-Cheks -started on nutrition through NG tube Dermatology/integumentary # sacral ulcer, POA -wound culture growing enterococcus -pt is already on IV vancomycin # hypothermia likely due to sepsis Warm blanket Urology # UTI -urine culture shows staph aureus IV antibiotic DVT prophylaxis -Low dose Lovenox 30 mg SC daily, on hold because of low platelets -SCD's Peptic ulcer disease prophylaxis IV Protonix Nutrition started on NG tube feedings Bowel Regimen Currently on hold as patient has distended colon stomach Drips fentanyl Lines Lilly's catheter placed on 09/06/2023 Left internal jugular CVC placed on 09/06/2023 Code status discussed with the family for greater than 23 minutes, full code Mother at bedside explained about the condition of the patient Critical care time excluding procedures: 83 minutes Plan discussed with: Other (nurse) Date of Service: Sep 11, 2024 Billing Provider: ELFEGO COYNE MD Common Visit Codes: 25516-[id number] CARE 30-74 MIN ELFEGO COYNE MD Sep 11, 2024 20:29
--- NOTE | 2024-09-11 23:15 | DVHINCON2 ---
Date of service: Sep 11, 2024 Referring Physician Jin Feldman MD Reason for Consultation Acute hypoxic respiratory failure requiring mechanical ventilator, aspiration pneumonia History of Present Illness A 29-year-old man with past medical history of left lower lobe solitary pulmonary nodule, Brittany disease, asymptomatic bradycardia, and vitamin-D deficiency who presented to ED on 09/06/24 for evaluation of altered level of consciousness. As per mother, patient was not responding to commands, head gestures of upper arm contractions, low temperature that prompted visit to emergency department. During initial evaluation in ED the patient was unresponsive with hypoglycemia and he was not protecting airway, therefore was intubated and placed on mechanical ventilator. Information was obtained from EMR and family. Patient was thus admitted for further care and pulmonary consultation is requested for evaluation and management due to the above findings. Review of Systems: Unable to obtain d/t intubated status. Past Medical History: Left lower lobe solitary pulmonary nodule, Grant disease, asymptomatic bradycardia, vitamin-D deficiency. Past Surgical History: PEG tube placement in 2023. Medications: Reviewed. Allergies: No known drug allergies. Family History: Hypertension, gestational diabetes. Social History: Nonsmoker. No alcohol or illicit drug use. Family History: Diabetes during grandmother, Onset:40's - 50 Hypertension grandmother, Onset:50's - 60 Allergies: Coded Allergies: NO KNOWN ALLERGIES (Unverified , 09/07/18) Home Meds Active Scripts Nutritional Supplements (JEVITY 1 FELIPA) Liq, 1 BOT OR DAILY for 30 Days, #30 LIQ Prov:HAILE MILLIGAN RESIDENT 05/11/24 Ergocalciferol (VITAMIN D 42694 UNIT) 50,000 [place], [address] UNIT PO Q7D for 30 Days, #10 CAP Prov:HAILE MILLIGAN [facility] 05/10/24 Nutritional Supplements (ENSURE CLEAR) Bbry/Pom Liq, 240 ML GT Q6HR for 30 Days, #120 LIQ Prov:HAILE MILLIGAN [facility] 04/29/24 Azithromycin (ZITHROMAX TABLET) 250 Mg Tb, 250 MG PO DAILY for 3 Days, #3 TAB Prov:HAILE MILLIGAN [facility] 04/29/24 Reported Medications Azelastine Hcl (Ophth) (Azelastine Hcl) 0.05 % Ketan, 1 DROP EACHEYE BID, #6 ML 2 Refills 04/25/24 Vital Signs Vital Signs Date Time Temp Pulse Resp B/P (MAP) Pulse Ox O2 Delivery O2 Flow Rate FiO2 09/11/24 22:00 57 14 138/90 (106) 97 30 09/11/24 22:00 Mechanical Ventilator+ 09/11/24 18:45 97.9 208.2 Physical Exam Gen.: Patient lying in bed in medical ICU. Intubated on mechanical ventilator. Head: Normocephalic, atraumatic. Eyes: PERRLA. Ears: Normal external anatomy. Throat: Endotracheal tube and orogastric tube in place. Neck: Supple, trachea midline. Chest: Transmitted breath sounds bilaterally. Decreased air entry bilaterally. No wheezing. Bibasilar crackles. Cardiovascular: Positive S1, positive S2. Regular rate and rhythm. Abdomen: Positive bowel sounds in all 4 quadrants. Soft, nontender, nondistended. : Lilly in place. Normal external genitalia. Rectal: Deferred. Skin: Warm, dry. Intact. Extremities: 2+ radial pulses bilaterally. No lower extremity edema. Neuro: Off sedation. Labs/Diagnostic Data Labs Test 09/11/24 20:00 09/11/24 15:48 09/11/24 07:30 09/11/24 03:15 Range/Units POC Glucose 91 70-106 mg/dl Vancomycin Level Trough 13.8 H 5-10 ug/mL Blood Gas Specimen Type Arterial Blood Gas Sample Site Right radial Blood Gas Patient Temperature 37.0 Arterial Blood Date Drawn [id number] Arterial Blood pH 7.454 H 7.350-7.450 Arterial Blood Partial Pressure CO2 40.5 35.0-48.0 mmHg Arterial Blood Partial Pressure O2 103.8 83.0-108.0 mmHg Arterial Blood HCO3 27.8 21.0-28.0 mmol/L Arterial Blood Oxygen Saturation 97.6 94.0-98.0 % Arterial Blood Base Excess 3.6 H -2.0-3.0 mmol/L Arterial Blood Oxyhemoglobin 96.9 94.0-98.0 % Arterial Blood Carboxyhemoglobin 0.2 L 0.5-1.5 % Arterial Blood Methemoglobin 0.5 0.0-1.5 % Yasir Test Modified Blood Gas Total Hemoglobin 10.90 L 13.5-17.5 g/dL Blood Gas Set Respiration Rate 14.0 Blood Gas Modality Vent - ac FiO2 % 30.0 Blood Gas Tidal Volume 350.0 Blood Gas PEEP or CPAP 5.0 White Blood Count 8.6 4.4-10.8 10^3/uL Red Blood Count 3.03 L 4.5-5.90 10^6/uL Hemoglobin 10.2 #L 13.5-17.5 g/dL Hematocrit 28.7 #L 41.0-53.0 % Mean Corpuscular Volume 94.7 80.0-100.0 fL Mean Corpuscular Hemoglobin 33.8 H 28.0-32.0 pg Mean Corpuscular Hemoglobin Concent 35.7 32.0-36.0 g/dL Red Cell Distribution Width 13.5 11.8-14.3 % Platelet Count 62 L 140-450 10^3/uL Mean Platelet Volume 9.6 6.9-10.8 fL Neutrophils (%) (Auto) 76.1 37.0-80.0 % Lymphocytes (%) (Auto) 16.3 10.0-50.0 % Monocytes (%) (Auto) 7.2 0.0-12.0 % Eosinophils (%) (Auto) 0.3 0.0-7.0 % Basophils (%) (Auto) 0.1 0.0-2.0 % Neutrophils # (Auto) 6.5 1.6-8.6 10 ^3/uL Lymphocytes # (Auto) 1.4 0.4-5.4 10 ^3/uL Monocytes # (Auto) 0.6 0-1.3 10 ^3/uL Eosinophils # (Auto) 0 0-0.8 10 ^3/uL Basophils # (Auto) 0 0-0.2 10 ^3/uL Nucleated Red Blood Cells 0.1 % Sodium Level 134 L 136-145 mmol/L Potassium Level 3.9 3.5-5.1 mmol/L Chloride Level 101 98-107 mmol/L Carbon Dioxide Level 29 20-31 mmol/L Anion Gap 4 L 5-15 Blood Urea Nitrogen 17 9-23 mg/dL Creatinine 0.34 L 0.700-1.30 mg/dL Glomerular Filtration Rate Calc 159 >90 mL/min BUN/Creatinine Ratio 50.0 H 10.0-20.0 Serum Glucose 111 H 74-106 mg/dL Calcium Level 8.3 L 8.7-10.4 mg/dL Phosphorus Level 2.3 L 2.4-5.1 mg/dL Magnesium Level 1.9 1.6-2.6 mg/dL Total Bilirubin 1.5 H 0.2-1.0 mg/dL Aspartate Amino Transferase (AST) 203 H 13-40 U/L Alanine Aminotransferase (ALT) 694 H 7-40 U/L Alkaline Phosphatase 365 H 46-116 U/L Total Protein 4.7 L 5.7-8.2 g/dL Albumin 2.7 L 3.2-4.8 g/dL Test 09/10/24 03:22 09/09/24 07:32 09/09/24 07:02 09/07/24 11:53 Range/Units Thyroid Stimulating Hormone (TSH) 2.38 0.55-4.78 uIU/mL Blood Gas Critical Value Read Back Yes Blood Gas Spontaneous Rate 20 Lactic Acid Level 1.1 0.4-2.0 mmol/L Ammonia 35 H 11-32 umol/L Acetaminophen Level < 2.0 L 10.0-20.0 UG/ML Test 09/07/24 04:58 09/07/24 01:00 09/06/24 21:30 09/06/24 19:48 Range/Units Hemoglobin A1c 4.7 <5.7 % A1C Random Vancomycin Level 9.1 5-10 ug/mL Lipase 49 12-53 U/L Direct Bilirubin 1.8 H <0.3 mg/dL Troponin I High Sensitivity 10 </=54 ng/L Blood Gas Notified Whom Dr. obed degroot Blood Gas Notified Time [id number] Blood Gas Notified By Rt elsa young Test 09/06/24 18:00 09/06/24 17:05 Range/Units Prothrombin Time 16.9 H 9.3-11.8 sec Prothrombin Time INR 1.68 H 0.9-1.15 Activated Partial Thromboplast Time 30.2 24.5-34.5 SEC Plasma/Serum Blood Alcohol 3.3 <10 mg/dL Hepatitis A IgM Antibody Negative Hepatitis B Surface Antigen Negative Negative Hepatitis B Core IgM Antibody Negative Negative Hepatitis C Antibody Negative Negative Urine Color Yellow Yellow Urine Clarity Clear Clear Urine pH 6.0 5.0-9.0 Urine Specific [place] 1.019 1.001-1.035 Urine Protein Negative Negative Urine Ketones Negative Negative Urine Blood Trace H Negative /uL Urine Nitrite 1+ H Negative Urine Bilirubin Negative Negative Urine Urobilinogen 3 H Negative mg/dL Urine Leukocyte Esterase 1+ Negative /uL Urine RBC 1 0 - 3 /hpf Urine WBC 8 0 - 3 /hpf Urine Squamous Epithelial Cells Few <5 /hpf Urine Bacteria None seen None Seen /hpf Urine Hyaline Casts Mod 0 - 2 /lpf Urine Mucus Few None Seen Urine Glucose 3+ H Normal mg/dL Urine Opiates Screen Neg NEGATIVE Urine Fentanyl Screen Neg NEGATIVE Urine Barbiturates Screen Neg NEGATIVE Urine Phencyclidine Screen Neg NEGATIVE Urine Amphetamines Screen Neg NEGATIVE Urine Benzodiazepines Screen Neg NEGATIVE Urine Cocaine Screen Neg NEGATIVE Urine Cannabinoids Screen Neg NEGATIVE Microbiology Date/Time Source Procedure Growth Status 09/10/24 18:02 Blood Blood Culture - Preliminary NO GROWTH AFTER 24 HOURS OF INCUBATION. Resulted 09/07/24 16:00 Scrotum Gram Stain - Final Resulted 09/07/24 16:00 Wound Culture - Preliminary Enterobacter cloacae Enterococcus faecalis Resulted 09/06/24 17:05 Urine - Lilly [place] Urine Culture - Final Staphylococcus aureus Complete 09/06/24 17:00 Sputum Gram Stain - Final Complete 09/06/24 17:00 Respiratory Culture - Final Staphylococcus aureus Complete Assessment Impression: Acute hypoxic respiratory failure On mechanical ventilator Brittany's disease Acute metabolic encephalopathy Septic shock Aspiration pneumonia Urinary tract infection Plan: s/p intubation on mechanical ventilator. CXR image and report reviewed. Devices in place. Mild pulmonary congestion. No pneumothorax. No pleural effusion. ABG reviewed, notable for alkalemia. Patient failed CPAP trial - apneic episodes. Recommend CPAP in the AM. OK to increase PS to max 20 cmH2O to achieve tidal volume 350-400 mL. On AC mode; RR 20, VT 350, PEEP 5, FiO2 30% Titrate FIO2 to keep O2 saturation above 90%. VAP bundle. Daily ABG and CXR while intubated Off sedation Fentanyl for analgesia. Off pressors, hemodynamically stable. Continue antibiotics. F/u cultures. Start pressors if necessary to maintain a mean arterial blood pressure greater than 65 mmHg. Tube feeds for nutritional support Monitor renal function Monitor electrolytes. Supplement as necessary. Monitor ins and outs. Na phos supplementation D10W for hypoglycemia GI prophylaxis. DVT prophylaxis. Prognosis: Poor given patient's multiple co-morbidities. Condition: Critical Rest of plan per hospitalist and other consultants. A total of 35 minutes of critical care time was spent reviewing the patient record, examining the patient, making a diagnostic and therapeutic plan, discussing this plan with the medical personnel, following up on diagnostic studies and following the patient for clinical stability excluding any and all procedures. At least 50% of this time was spent in direct, [id number] contact. Thank you, Dr. Feldman, for allowing me to participate in this patient's care. Further recommendations will depend on the patient's clinical course. Please do not hesitate to contact me if you have any questions or concerns. This medical document was created using an electronic medical record system with [employer] dictation system. Although these documentations are being carefully reviewed, there may still be some phonetic and typographical changes. The errors are purely typographical, due to imperfection on the software program, and do not reflect any compromise in the patient's medical care. Plan discussed with: Other (SANTOSH Suarez) TIM CADENA MD Sep 11, 2024 23:15
[2024-09-12] VITALS (108 sets, daily range): BP systolic 107–175; BP diastolic 65–110; PULSE 49–114; RESP 7–21; TEMP 97.3–99.3; O2SAT 94–100
--- NOTE | 2024-09-12 | DVH ---
CHEST RADIOGRAPH Indication: INTUBATED Technique: Single frontal view of the chest was obtained Comparison: XY CHEST PORTABLE on DOS: 09/11/24, XY CHEST PORTABLE on DOS: 09/10/24, XY CHEST PORTABLE o n DOS: 09/09/24 FINDINGS: Lines and Tubes: None Lungs: Prominent markings in the lung bases may represent infiltrate or atelectasis. Pleura: No effusion. No pneumothorax. Cardiomediastinal contours: Unremarkable Bones: No acute osseous abnormality. IMPRESSION: 1. Bibasilar areas of developing infiltrate or atelectasis. HS:Y .
[2024-09-12 03:38] LABS: Basophils # (auto) 0 10 ^3/uL (0-0.2); Hemoglobin 9.6 g/dL (13.5-17.5)
[2024-09-12 03:45] LABS: Basophils % (auto) 0.1 % (0.0-2.0); Eosinophils # (auto) 0 10 ^3/uL (0-0.8); Eosinophils % (auto) 0.4 % (0.0-7.0); Hematocrit 26.1 % (41.0-53.0); Lymphocytes # (auto) 0.8 10 ^3/uL (0.4-5.4); Lymphocytes % (auto) 15.5 % (10.0-50.0); Mean Corpuscular Volume 92.8 fL (80.0-100.0); Monocytes # (auto) 0.6 10 ^3/uL (0-1.3); Monocytes % (auto) 10.8 % (0.0-12.0); Neutrophils # (auto) 3.9 10 ^3/uL (1.6-8.6); Neutrophils % (auto) 73.2 % (37.0-80.0); Nucleated Red Blood Cells % 0.2 %; Platelet Count (auto) 59 10^3/uL (140-450); Red Blood Cells 2.82 10^6/uL (4.5-5.90); White Blood Cell 5.3 10^3/uL (4.4-10.8)
[2024-09-12 04:07] LABS: Mean Corpuscular Hgb Conc. 36.6 g/dL (32.0-36.0)
[2024-09-12 04:23] LABS: Anion Gap 4 (5-15); BUN/Creatinine Ratio 66.7 (10.0-20.0); Blood Urea Nitrogen 18 mg/dL (9-23); Carbon Dioxide 29 mmol/L (20-31); Chloride 100 mmol/L (98-107); Potassium 4.2 mmol/L (3.5-5.1)
[2024-09-12 04:26] LABS: Alanine Aminotransferase 540 U/L (7-40); Albumin 2.6 g/dL (3.2-4.8); Alkaline Phosphatase 337 U/L (46-116); Aspartate Aminotransferase 133 U/L (13-40); Bilirubin, Total 1.6 mg/dL (0.2-1.0); Calcium 8.3 mg/dL (8.7-10.4); Glucose 110 mg/dL (74-106); Magnesium 1.6 mg/dL (1.6-2.6); Sodium 133 mmol/L (136-145); Total Protein 4.6 g/dL (5.7-8.2)
[2024-09-12] MEDS: hydrALAZINE HCL 20 MG/ML VL IV PRN (04:28)
[2024-09-12] MEDS: MAGNESIUM SULFATE 1GM/100ML 100 ML IV ONE (05:00)
--- NOTE | 2024-09-12 05:42 | DVH ---
CHEST RADIOGRAPH Indication: intubated Technique: Single frontal view of the chest was obtained COMPARISON: XY CHEST PORTABLE on DOS: 09/11/24, XY CHEST PORTABLE on DOS: 09/11/24, XY CHEST PORTABLE o n DOS: 09/10/24, XY CHEST PORTABLE on DOS: 09/09/24, XY CHEST PORTABLE on DOS: 09/08/24 FINDINGS: Lines and Tubes: The left internal jugular central venous catheter extends to the superior vena cava. Endotracheal tube is above the whitney. The nasogastric tube extends below the diaphragm with its ti p outside field of view. Lungs: Clear Pleura: No effusion. No pneumothorax. Cardiomediastinal contours: Unremarkable Bones: Unremarkable IMPRESSION: 1. No acute disease.
[2024-09-12] MEDS: SODIUM CHLORIDE 0.9% 1,000 ML IV SCH (13:45)
--- NOTE | 2024-09-12 19:55 | DVHPN2 ---
Subjective in bed resting intubated Changes from previous H/P or p: No Changes Objective Vitals Vital Signs Date Time Temp Pulse Resp B/P (MAP) Pulse Ox O2 Delivery O2 Flow Rate FiO2 09/12/24 18:45 98.6 61 14 117/72 (87) 96 209.5 09/12/24 18:27 30 09/12/24 18:00 Mechanical Ventilator+ Intake/Output Intake and Output 09/12/24 04:59 Intake Total 2062.0 ml Output Total 925 ml Balance 1137.0 ml IV Total 1964.0 ml Tube Feeding 98 ml Output Urine Total 925 ml Medications Current Medications Medications Dose Ordered Sig/Gisselle Route Start Time Stop Time Status Last Admin Dose Admin Vancomycin HCl 0 ml @ 0 mls/hr UD IV 09/06/24 17:15 Fentanyl Citrate 250 ml @ 2.5 mls/hr Q24H IV 09/06/24 17:45 09/12/24 04:17 7.5 MLS/HR Midazolam HCl 50 ml @ 1 mls/hr Q24H IV 09/06/24 19:45 09/08/24 11:16 7 MLS/HR Pantoprazole Sodium 40 mg DAILY IV 09/07/24 10:00 09/12/24 07:32 40 MG Acetaminophen 650 mg Q6HP PRN ID 09/07/24 05:30 Diagnostic Test (Pha) 1 strip IQ4HR 09/07/24 12:00 09/12/24 16:28 1 STRIP Insulin Human Regular IQ4HR SC 09/07/24 12:00 09/10/24 23:22 2 UNITS Dextrose 50 ml UD PRN IV 09/07/24 08:45 09/07/24 20:42 50 ML Norepinephrine Bitartrate 250 ml @ 3.75 mls/hr Q24H IV 09/07/24 11:30 09/09/24 20:14 7.5 MLS/HR Dextrose 1,000 ml @ 30 mls/hr Q24H IV 09/07/24 20:45 09/11/24 15:48 30 MLS/HR Metoclopramide HCl 5 mg Q8HR IV 09/08/24 22:00 09/12/24 16:13 5 MG Artificial Tears 2 drop Q6HR EACHEYE 09/09/24 00:00 09/12/24 17:46 2 DROP Epinephrine HCl 250 ml @ 7.5 mls/hr Q24H IV 09/09/24 13:45 Enteral Nutritional Formula 1,000 ml 30ML/HR GT 09/09/24 20:00 09/10/24 10:47 1,000 ML Amino Acids 0 ml @ 0 mls/hr PER PHARMACY IV 09/10/24 09:00 Vancomycin HCl 100 ml @ 100 mls/hr Q10H IV 09/10/24 11:00 09/12/24 16:13 100 MLS/HR Amino Acids/ Electrolytes/ Dextrose 1,000 ml @ 41 mls/hr DAILY@2200 IV 09/10/24 22:00 09/11/24 22:06 41 MLS/HR Hydralazine HCl 10 mg Q6HP PRN IV 09/10/24 17:30 09/12/24 11:48 10 MG Sodium Chloride 1,000 ml @ 75 mls/hr [id number] IV 09/12/24 13:45 09/12/24 13:45 75 MLS/HR Laboratory Results Laboratory Tests 09/12/24 03:25 Chemistry Test 09/12/24 03:25 Albumin 2.6 g/dL (3.2-4.8) L Calcium Level 8.3 mg/dL (8.7-10.4) L Magnesium Level 1.6 mg/dL (1.6-2.6) Phosphorus Level 3.0 mg/dL (2.4-5.1) Total Protein 4.6 g/dL (5.7-8.2) L LFT Test 09/12/24 03:25 Alanine Aminotransferase (ALT) 540 U/L (7-40) H Alkaline Phosphatase 337 U/L (46-116) H Aspartate Amino Transferase (AST) 133 U/L (13-40) H Total Bilirubin 1.6 mg/dL (0.2-1.0) H Urinalysis Test 09/06/24 17:05 Urine Color Yellow (Yellow) Urine Clarity Clear (Clear) Urine pH 6.0 (5.0-9.0) Urine Specific [place] 1.019 (1.001-1.035) Urine Protein Negative (Negative) Urine Ketones Negative (Negative) Urine Blood Trace /uL (Negative) H Urine Nitrite 1+ (Negative) H Urine Bilirubin Negative (Negative) Urine Urobilinogen 3 mg/dL (Negative) H Urine Leukocyte Esterase 1+ /uL (Negative) Urine RBC 1 /hpf (0 - 3) Urine WBC 8 /hpf (0 - 3) Urine Squamous Epithelial Cells Few /hpf (<5) Urine Bacteria None seen /hpf (None Seen) Urine Hyaline Casts Mod /lpf (0 - 2) Urine Mucus Few (None Seen) Urine Glucose 3+ mg/dL (Normal) H Blood Gas Results Test 09/12/24 07:33 Arterial Blood pH 7.474 (7.350-7.450) FiO2 % 30.0 Microbiology Microbiology Date/Time Source Procedure Growth Status 09/10/24 18:02 Blood Blood Culture - Preliminary NO GROWTH AFTER 48 HOURS OF INCUBATION. 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 Aspiration pneumonia -IV antibiotics Sputum culture Many growth: Possible Staphylococcus aureus -IV vancomycin GI # status post PEG tube, present on admission -was placed due to dysphagia due to [place]'s # transaminitis likely due to septic shock, improving Monitor liver enzymes #Moderately gas distended large bowel. -seen on imaging -NG tube, low continuous suction Repeat KUB #Moderately gas and fluid distended stomach. -seen on imaging NG tube, low continuous suction Repeat KUB # engorged hepatic vein Uncertain etiology Seen on imaging Nephrology # hypomagnesemia Corrected Monitor # hypokalemia Corrected Monitor #hyperkalemia -resolved # hyponatremia -monitor BMP #hypophosphatemia corrected Hematology/oncology # thrombocytopenia likely due to sepsis Monitor Endocrine # hypoglycemia likely due to sepsis -started IV Clinimix, D 10 W -Accu-Cheks -started on nutrition through NG tube Dermatology/integumentary # sacral ulcer, POA -wound culture growing enterococcus -pt is already on IV vancomycin # hypothermia likely due to sepsis Warm blanket Urology # UTI -urine culture shows staph aureus IV antibiotic DVT prophylaxis -Low dose Lovenox 30 mg SC daily, on hold because of low platelets -SCD's Peptic ulcer disease prophylaxis IV Protonix Nutrition started on NG tube feedings Bowel Regimen Currently on hold as patient has distended colon stomach Drips fentanyl Lines Lilly's catheter placed on 09/06/2023 Left internal jugular CVC placed on 09/06/2023 Code status discussed with the family for greater than 23 minutes, full code Mother at bedside explained about the condition of the patient Critical care time excluding procedures: 83 minutes Plan discussed with: Other (mother) My Orders Orders - ELFEGO COYNE MD Procedure Category Date Status Time Sodium Chloride 0.9% PHA 09/12/24 In Process 13:45 * Neurology Consult CONS 09/12/24 Transmitted 13:33 Date of Service: Sep 12, 2024 Billing Provider: ELFEGO COYNE MD Common Visit Codes: [id number] CARE 30-74 MIN ELFEGO COYNE MD Sep 12, 2024 19:55
--- NOTE | 2024-09-12 23:43 | DVHPN2 ---
Progress Note - Dictate Date Seen: Sep 12, 2024 Medical Necessity Reason Pt with a Central, PICC or Fol: No Subjective Patient seen and examined at bedside. Intubated on mechanical ventilator. Overnight events reviewed. vital signs Vital Sign Date Time Temp Pulse Resp B/P (MAP) Pulse Ox O2 Delivery O2 Flow Rate FiO2 09/12/24 23:30 99.1 71 12 138/90 (106) 97 210.4 09/12/24 22:14 30 09/12/24 22:00 Mechanical Ventilator+ Total Intake and Output 09/11/24 09/11/24 09/12/24 15:00 23:00 07:00 Intake Total 588.0 ml 603.0 ml 897.5 ml Output Total 500 ml 325 ml Balance 588.0 ml 103.0 ml 572.5 ml medications Current Medications Medications Dose Ordered Sig/Gisselle Route Start Time Stop Time Status Last Admin Dose Admin Vancomycin HCl 0 ml @ 0 mls/hr UD IV 09/06/24 17:15 Fentanyl Citrate 250 ml @ 2.5 mls/hr Q24H IV 09/06/24 17:45 09/12/24 04:17 7.5 MLS/HR Midazolam HCl 50 ml @ 1 mls/hr Q24H IV 09/06/24 19:45 09/08/24 11:16 7 MLS/HR Pantoprazole Sodium 40 mg DAILY IV 09/07/24 10:00 09/12/24 07:32 40 MG Acetaminophen 650 mg Q6HP PRN NH 09/07/24 05:30 Diagnostic Test (Pha) 1 strip IQ4HR 09/07/24 12:00 09/12/24 19:56 1 STRIP Insulin Human Regular IQ4HR SC 09/07/24 12:00 09/10/24 23:22 2 UNITS Dextrose 50 ml UD PRN IV 09/07/24 08:45 09/07/24 20:42 50 ML Norepinephrine Bitartrate 250 ml @ 3.75 mls/hr Q24H IV 09/07/24 11:30 09/09/24 20:14 7.5 MLS/HR Dextrose 1,000 ml @ 30 mls/hr Q24H IV 09/07/24 20:45 09/12/24 21:02 30 MLS/HR Metoclopramide HCl 5 mg Q8HR IV 09/08/24 22:00 09/12/24 21:46 5 MG Artificial Tears 2 drop Q6HR EACHEYE 09/09/24 00:00 09/12/24 17:46 2 DROP Epinephrine HCl 250 ml @ 7.5 mls/hr Q24H IV 09/09/24 13:45 Enteral Nutritional Formula 1,000 ml 30ML/HR GT 09/09/24 20:00 09/10/24 10:47 1,000 ML Amino Acids 0 ml @ 0 mls/hr PER PHARMACY IV 09/10/24 09:00 Vancomycin HCl 100 ml @ 100 mls/hr Q10H IV 09/10/24 11:00 09/12/24 23:05 100 MLS/HR Amino Acids/ Electrolytes/ Dextrose 1,000 ml @ 41 mls/hr DAILY@2200 IV 09/10/24 22:00 09/12/24 21:47 41 MLS/HR Hydralazine HCl 10 mg Q6HP PRN IV 09/10/24 17:30 09/12/24 11:48 10 MG Sodium Chloride 1,000 ml @ 75 mls/hr [id number] IV 09/12/24 13:45 09/12/24 13:45 75 MLS/HR objective Gen.: Patient lying in bed in medical ICU. Intubated on mechanical ventilator. Head: Normocephalic, atraumatic. Eyes: PERRLA. Ears: Normal external anatomy. Throat: Endotracheal tube and orogastric tube in place. Neck: Supple, trachea midline. Chest: Transmitted breath sounds bilaterally. Decreased air entry bilaterally. No wheezing. Bibasilar crackles. Cardiovascular: Positive S1, positive S2. Regular rate and rhythm. Abdomen: Positive bowel sounds in all 4 quadrants. Soft, nontender, nondistended. : Lilly in place. Normal external genitalia. Rectal: Deferred. Skin: Warm, dry. Intact. Extremities: 2+ radial pulses bilaterally. No lower extremity edema. Neuro: Off sedation. laboratory and microbiology Laboratory Tests 09/12/24 03:25 Test 09/12/24 03:25 Range/Units Serum Glucose 110 H 74-106 mg/dL Assessment/Plan Impression: Acute hypoxic respiratory failure On mechanical ventilator Coeymans's disease Acute metabolic encephalopathy Septic shock Aspiration pneumonia Urinary tract infection Plan: s/p intubation on mechanical ventilator. CXR image and report reviewed. Devices in place. No acute opacities, pneumothorax or pleural effusion. ABG reviewed, notable for alkalemia. Patient failed CPAP trial yesterday, had apneic episodes. On AC mode; RR 20 -->14, VT 350, PEEP 5, FiO2 30% Titrate FIO2 to keep O2 saturation above 90%. VAP bundle. Daily ABG and CXR while intubated Off sedation Fentanyl for analgesia. Off pressors, hemodynamically stable. Continue antibiotics. Start pressors if necessary to maintain a mean arterial blood pressure greater than 65 mmHg. Tube feeds/Clinimix for nutritional support Monitor renal function Monitor electrolytes. Supplement as necessary. Monitor ins and outs. D10W PRN for low blood sugars Consider tracheostomy for liberation from vent. GI prophylaxis. DVT prophylaxis. Prognosis: Poor given patient's multiple co-morbidities. Condition: Critical Rest of plan per hospitalist and other consultants. A total of 35 minutes of critical care time was spent reviewing the patient record, examining the patient, making a diagnostic and therapeutic plan, discussing this plan with the medical personnel, following up on diagnostic studies and following the patient for clinical stability excluding any and all procedures. At least 50% of this time was spent in direct, [id number] contact. Thank you, Dr. Feldman, for allowing me to participate in this patient's care. Further recommendations will depend on the patient's clinical course. Please do not hesitate to contact me if you have any questions or concerns. This medical document was created using an electronic medical record system with [employer] dictation system. Although these documentations are being carefully reviewed, there may still be some phonetic and typographical changes. The errors are purely typographical, due to imperfection on the software program, and do not reflect any compromise in the patient's medical care. Dietary Evaluation Review Comments: 1) If GI is accessible, consider Jevity 1.2 @ 35 ml/hr x 24hr goal rate as tolerated 2) Consider 1 pkt BEN BID for wound 3) If pt remains NPO >7 days consider TPN to meet at least 75% of estimated needs Expected Outcomes/Goals: 1) Pt to receive nutrition support within 7 days of NPO status 2) F/U in 2-3 days Plan discussed with: Other (SANTOSH Suarez) Critical Care Time(min): 35 TIM CADENA MD Sep 12, 2024 23:43
[2024-09-13] VITALS (114 sets, daily range): BP systolic 105–169; BP diastolic 60–129; PULSE 54–128; RESP 8–29; TEMP 96.4–99.3; O2SAT 79–100
[2024-09-13 03:57] LABS: Basophils # (auto) 0 10 ^3/uL (0-0.2); Basophils % (auto) 0.1 % (0.0-2.0); Eosinophils # (auto) 0 10 ^3/uL (0-0.8); Eosinophils % (auto) 0.4 % (0.0-7.0); Lymphocytes # (auto) 0.7 10 ^3/uL (0.4-5.4)
[2024-09-13 04:00] LABS: Hematocrit 25.2 % (41.0-53.0); Hemoglobin 9.4 g/dL (13.5-17.5); Lymphocytes % (auto) 12.2 % (10.0-50.0); Mean Corpuscular Hemoglobin 34.6 pg (28.0-32.0); Mean Corpuscular Volume 92.5 fL (80.0-100.0); Monocytes # (auto) 0.7 10 ^3/uL (0-1.3); Monocytes % (auto) 11.5 % (0.0-12.0); Neutrophils # (auto) 4.6 10 ^3/uL (1.6-8.6); Neutrophils % (auto) 75.8 % (37.0-80.0); Platelet Count (auto) 56 10^3/uL (140-450); Red Blood Cells 2.72 10^6/uL (4.5-5.90)
[2024-09-13 04:10] LABS: Mean Corpuscular Hgb Conc. 37.4 g/dL (32.0-36.0)
[2024-09-13 04:35] LABS: Anion Gap 3 (5-15); BUN/Creatinine Ratio 54.5 (10.0-20.0); Blood Urea Nitrogen 18 mg/dL (9-23); Carbon Dioxide 28 mmol/L (20-31); Chloride 100 mmol/L (98-107); Glucose 92 mg/dL (74-106); Magnesium 1.7 mg/dL (1.6-2.6); Potassium 4.5 mmol/L (3.5-5.1)
[2024-09-13 04:54] LABS: Alanine Aminotransferase 426 U/L (7-40); Albumin 2.7 g/dL (3.2-4.8); Alkaline Phosphatase 328 U/L (46-116); Aspartate Aminotransferase 103 U/L (13-40); Bilirubin, Total 1.5 mg/dL (0.2-1.0); Calcium 8.4 mg/dL (8.7-10.4); Phosphorus 1.9 mg/dL (2.4-5.1); Sodium 131 mmol/L (136-145); Total Protein 4.8 g/dL (5.7-8.2)
--- NOTE | 2024-09-13 05:12 | DVH ---
CHEST RADIOGRAPH Indication: INTUBATED Technique: Single frontal view of the chest was obtained Comparison: XY CHEST PORTABLE on DOS: 09/12/24 FINDINGS: Lines and Tubes: Endotracheal tube terminates 2.8 cm above the [place]. There is a left central venous catheter with its tip terminating in the superior vena cava. Lungs: No focal consolidation. Pleura: No effusion. No pneumothorax. Cardiomediastinal contours: Unremarkable Bones: No acute osseous abnormality. IMPRESSION: 1. Stable position of the support lines and tubes. 2. No acute cardiopulmonary disease.
[2024-09-13 06:31] LABS: Base Excess 2.2 mmol/L (-2.0-3.0)
--- NOTE | 2024-09-13 06:43 | DVHPNRES ---
Progress Note Date Seen: Sep 13, 2024 Resident Creating Document: MALDONADO LOPEZ RESIDENT Medical Necessity Reason Pt with a Central, PICC or Fol: No Subjective Review of Systems pt seen and examined at bedside currently sedated and intubated currently on mechanical ventilator, with RR18/TV 350/30%FiO2 and PEEP of 5 Planned for CPAP trial today Later patient had a CPAP trial and was extubated, was transitioned to BiPAP post extubation Due to work of breathing and patient desaturating, patient was later reintubated in the evening. Objective vital signs Vital Sign Date Time Temp Pulse Resp B/P (MAP) Pulse Ox O2 Delivery O2 Flow Rate FiO2 09/13/24 06:00 61 09/13/24 06:00 128/82 09/13/24 06:00 14 97 Mechanical Ventilator+ 30 30 09/13/24 06:00 98.6 209.5 Total Intake and Output 09/12/24 09/12/24 09/13/24 15:00 23:00 07:00 Intake Total 745.5 ml 1474 ml 1352 ml Output Total 800 ml 1050 ml Balance 745.5 ml 674 ml 302 ml medications Current Medications Medications Dose Ordered Sig/Gisselle Route Start Time Stop Time Status Last Admin Dose Admin Vancomycin HCl 0 ml @ 0 mls/hr UD IV 09/06/24 17:15 Fentanyl Citrate 250 ml @ 2.5 mls/hr Q24H IV 09/06/24 17:45 09/13/24 06:00 10 MLS/HR Midazolam HCl 50 ml @ 1 mls/hr Q24H IV 09/06/24 19:45 09/08/24 11:16 7 MLS/HR Pantoprazole Sodium 40 mg DAILY IV 09/07/24 10:00 09/12/24 07:32 40 MG Acetaminophen 650 mg Q6HP PRN DC 09/07/24 05:30 Diagnostic Test (Pha) 1 strip IQ4HR 09/07/24 12:00 09/13/24 04:27 1 STRIP Insulin Human Regular IQ4HR SC 09/07/24 12:00 09/10/24 23:22 2 UNITS Dextrose 50 ml UD PRN IV 09/07/24 08:45 09/07/24 20:42 50 ML Norepinephrine Bitartrate 250 ml @ 3.75 mls/hr Q24H IV 09/07/24 11:30 09/09/24 20:14 7.5 MLS/HR Dextrose 1,000 ml @ 30 mls/hr Q24H IV 09/07/24 20:45 09/12/24 21:02 30 MLS/HR Metoclopramide HCl 5 mg Q8HR IV 09/08/24 22:00 09/13/24 05:31 5 MG Artificial Tears 2 drop Q6HR EACHEYE 09/09/24 00:00 09/13/24 05:31 2 DROP Epinephrine HCl 250 ml @ 7.5 mls/hr Q24H IV 09/09/24 13:45 Enteral Nutritional Formula 1,000 ml 30ML/HR GT 09/09/24 20:00 09/10/24 10:47 1,000 ML Amino Acids 0 ml @ 0 mls/hr PER PHARMACY IV 09/10/24 09:00 Vancomycin HCl 100 ml @ 100 mls/hr Q10H IV 09/10/24 11:00 09/12/24 23:05 100 MLS/HR Amino Acids/ Electrolytes/ Dextrose 1,000 ml @ 41 mls/hr DAILY@2200 IV 09/10/24 22:00 09/12/24 21:47 41 MLS/HR Hydralazine HCl 10 mg Q6HP PRN IV 09/10/24 17:30 09/12/24 11:48 10 MG Sodium Chloride 1,000 ml @ 75 mls/hr [id number] IV 09/12/24 13:45 09/13/24 02:00 75 MLS/HR Examination Examination General Appearance: Sedated and intubated Respiratory: on Mechanical ventilation Cardiovascular: Regular rate, Normal S1, Normal S2 Abdominal: Nondistended, peg tube present Extremities: No cyanosis, No edema, Normal pulses, No tenderness/swelling Skin: No rashes, No breakdown Neuro: sedated and intubated laboratory and microbiology Laboratory Tests 09/13/24 03:15 Test 09/13/24 03:15 Range/Units Serum Glucose 92 74-106 mg/dL Microbiology Date/Time Source Procedure Growth Status 09/10/24 18:02 Blood Blood Culture - Preliminary NO GROWTH AFTER 48 HOURS OF INCUBATION. Resulted 09/07/24 16:00 Scrotum Gram Stain - Final Complete 09/07/24 16:00 Wound Culture - Final Enterobacter cloacae Enterococcus faecalis Enterobacter aerogenes Pseudomonas aeruginosa Complete 09/06/24 17:05 Urine - [place] Urine Culture - Final Staphylococcus aureus Complete 09/06/24 17:00 Sputum Gram Stain - Final Complete 09/06/24 17:00 Respiratory Culture - Final Staphylococcus aureus Complete Labs and/or images reviewed: Labs reviewed by me, Image(s) reviewed by me Problem List/Assessment/Plan Problem List/Assessment/Plan Assessment/plan Neurology # sedation -on fentanyl # metabolic encephalopathy due to sepsis -head CT did not show any acute abnormalities # [place]'s disease -patient was nonverbal and has dysphagia status post PEG tube Cardiology # sinus bradycardia, resolved -currently off dopamine -has history of sinus bradycardia Likely to hypothermia # shock likely septic -currently off pressors Respiratory # acute on chronic hypoxic respiratory failure likely due to sepsis/aspiration pneumonia -on mechanical ventilator, intubated on 09/06/24 extubated 09/13/2024 reintubated 09/13/24 #? Aspiration pneumonia -IV antibiotics Sputum culture Many growth: Possible Staphylococcus aureus -IV vancomycin GI # status post PEG tube, present on admission -was placed due to dysphagia due to [place]'s # transaminitis likely due to septic shock, improving Monitor liver enzymes #Moderately gas distended large bowel. -seen on imaging -NG tube, low continuous suction Repeat KUB started on tube feedings #Moderately gas and fluid distended stomach. -seen on imaging NG tube, low continuous suction Repeat KUB started on tube feedings # engorged hepatic vein Uncertain etiology Seen on imaging Nephrology # hypomagnesemia Corrected Monitor # hypokalemia Corrected Monitor #hyperkalemia -resolved # hyponatremia -monitor BMP #hypophosphatemia corrected Hematology/oncology # thrombocytopenia likely due to sepsis Monitor Endocrine # hypoglycemia likely due to sepsis -started D 10 W -Accu-Cheks -started on nutrition through NG tube Dermatology/integumentary # sacral ulcer, POA -wound culture growing enterococcus -pt is already on IV vancomycin # hypothermia likely due to sepsis Warm blanket Urology # UTI -urine culture shows staph aureus IV antibiotic DVT prophylaxis -Low dose Lovenox 30 mg SC daily, on hold because of low platelets -SCD's Peptic ulcer disease prophylaxis IV Protonix Nutrition started on NG tube feedings Bowel Regimen started on colace Drips fentanyl Lines Lilly's catheter placed on 09/06/2023 Left internal jugular CVC placed on 09/06/2023 Code status discussed with the family for greater than 23 minutes, full code Mother at bedside explained about the condition of the patient Critical care time excluding procedures and CPAP trial and monitoring post extubation : 111 minutes Plan discussed with: Other My Orders My Orders Orders - MALDONADO LOPEZ Procedure Category Date Status Time Clinimix Per Pharmacy JN 09/12/24 In Process 22:00 Dietary Evaluation Review Comments: 1) If GI is accessible, consider Jevity 1.2 @ 35 ml/hr x 24hr goal rate as tolerated 2) Consider 1 pkt BEN BID for wound 3) If pt remains NPO >7 days consider TPN to meet at least 75% of estimated needs Expected Outcomes/Goals: 1) Pt to receive nutrition support within 7 days of NPO status 2) F/U in 2-3 days Date of Service: Sep 13, 2024 Billing Provider: RADHA MISHRA MD Common Visit Codes: [id number] CARE 30-74 MIN, [id number] CARE-EACH +30MIN (x2) MALDONADO LOPEZ Sep 13, 2024 06:43 RADHA MISHRA MD Sep 14, 2024 13:09
--- NOTE | 2024-09-13 09:00 | DVHINCON2 ---
Date of service: Sep 13, [address] Feldman Reason for Consultation [place] disease History of Present Illness Mr. Delgado is a 29 years old gentleman with a history of Brittany's disease, the patient was brought to the hospital on 08/3024 with a chief company of altered mental status. At this time, he was intubated, but he is awake, he is nonresponsive to my verbal stimuli, or move his extremities, I do not see abnormal spontaneous movement either Before he came to the hospital, the family noted the patient was nonresponsive, when the EMS came over, his sugar level was 24, and in the hospital, he was found to have urinary tract infection, the patient was intubated on 09/07/2024. He was history of [place]'s disease, the symptoms started about 16 years of and then later he was diagnosed with [place]'s disease in the [facility] of the gene test. His problems progressive, he has gait disturbance, he was not able to walk for two years, he was not able to talk for 2-3 years, but mother claimed the patient was has clear sensorium, and he use head movement to company with the family His father and some other paternal family member had/have [place]'s disease He has been seen by [facility], the next appointment is in the few weeks. He was not on specific treatment Mother mentioned the patient need a conservKeyweehip paperwork for the court UDS, 09/06/2024: Negative Plasma alcohol, 09/06/2019 5:3.3 Urinalysis, 09/06/2024: WBC: 8, urine leukocyte esterase: 1+, urine nitrate: 1+ WBC/HB/PLT/MCV, 09/13/2024: 6/9.4/56/92.5 PT/INR/PTT, 16.9/1.68/30.2 BMP, 09/13/2024: Unremarkable TBI/AST/ALT/AP, 09/13/2024: 1.5/103/426/328 Hepatitis panel, 09/06/2024: Negative Chest x-ray, 09/07/2024:Lines and tubes in satisfactory position. No significant interval change (Endotracheal tube and enteric catheter in satisfactory position) CT head, 09/23/2024: No acute intracranial abnormality Past Medical History Sinus bradycardia, hypophosphatemia, hypokalemia, hypochloremia with secondary metabolic acidosis, vitamin-D deficiency, Brittany disease, bradycardia Past Surgical History G-tube insertion Family History: Diabetes during grandmother, Onset:40's - 50 Hypertension grandmother, Onset:50's - 60 Family History Hypertension, diabetes, [place]'s disease run in father's family Social History Smoker: Non-Smoker Alcohol: Denies ETOH Use Drugs: Denies Drug Use Lives In: Home, Assisted Care Allergies: Coded Allergies: NO KNOWN ALLERGIES (Unverified , 09/07/18) Home Meds Active Scripts Nutritional Supplements (JEVITY 1 FEILPA) Liq, 1 BOT OR DAILY for 30 Days, #30 LIQ Prov:HAILE MILLIGAN [facility] 05/11/24 Ergocalciferol (VITAMIN D 92078 UNIT) 50,000 [place], [address] UNIT PO Q7D for 30 Days, #10 CAP [facility] 05/10/24 Nutritional Supplements (ENSURE CLEAR) Bbry/Pom Liq, 240 ML GT Q6HR for 30 Days, #120 LIQ Prov:HAILE MILLIGAN [facility] 04/29/24 Azithromycin (ZITHROMAX TABLET) 250 Mg Tb, 250 MG PO DAILY for 3 Days, #3 TAB Prov:HAILE MILLIGAN [facility] 04/29/24 Reported Medications Azelastine Hcl (Ophth) (Azelastine Hcl) 0.05 % Ketan, 1 DROP EACHEYE BID, #6 ML 2 Refills 04/25/24 Current Medications Current Medications Medications (Trade) Dose Ordered Sig/Gisselle Route PRN Reason Start Time Stop Time Status Last Admin Sodium Chloride 1,000 ml @ 75 mls/hr [id number] IV 09/12/24 13:45 09/13/24 06:54 DC 09/13/24 02:00 Docusate Sodium (Colace Capsule) 100 mg BID PO 09/13/24 10:00 Review of Systems As above, the other systems are negative Vital Signs Vital Signs Date Time Temp Pulse Resp B/P (MAP) Pulse Ox O2 Delivery O2 Flow Rate FiO2 09/13/24 07:17 60 12 122/82 (95) 98 30 09/13/24 07:15 98.4 209.1 09/13/24 06:00 Mechanical Ventilator+ Physical Exam The patient is well-nourished and well-developed with no distress. The patient is intubated HEENT: Normocephalic, neck supple, no carotid bruits Lungs: Clear to auscultation Cardiovascular: Regular rate and region, S1, S2, no murmurs Abdomen: Soft, nontender, normal bowel sounds MENTAL STATUS: HPI CRANIAL NERVES: Pupils are equal, round and reactive. I do not see conjugated eye movement. No signs of facial weakness. There are gagging or coughing reflexes SENSATION: Okay to light painful stimuli MOTOR: Normal tone in the upper and lower extremity. Normal muscle bulk. No fasciculations. No spontaneous movement. No abnormal spontaneous movement REFLEXES: Deep tendon reflexes are symmetrical. No pathological reflexes. CEREBELLAR/COORDINATION: Deferred GAIT/STATION: deferred. Labs/Diagnostic Data Labs Test 09/13/24 07:52 09/13/24 06:26 09/13/24 03:15 09/11/24 15:48 Range/Units POC Glucose 91 70-106 mg/dl Blood Gas Specimen Type Arterial Blood Gas Sample Site Right radial Blood Gas Patient Temperature 37.0 Arterial Blood Date Drawn [id number] Arterial Blood pH 7.416 7.350-7.450 Arterial Blood Partial Pressure CO2 43.1 35.0-48.0 mmHg Arterial Blood Partial Pressure O2 89.1 83.0-108.0 mmHg Arterial Blood HCO3 27.1 21.0-28.0 mmol/L Arterial Blood Oxygen Saturation 96.5 94.0-98.0 % Arterial Blood Base Excess 2.2 -2.0-3.0 mmol/L Arterial Blood Oxyhemoglobin 96.0 94.0-98.0 % Arterial Blood Carboxyhemoglobin 0.3 L 0.5-1.5 % Arterial Blood Methemoglobin 0.2 0.0-1.5 % Yasir Test Modified Blood Gas Total Hemoglobin 11.30 L 13.5-17.5 g/dL Blood Gas Set Respiration Rate 14.0 Blood Gas Modality Vent - ac FiO2 % 30.0 Blood Gas Tidal Volume 350.0 Blood Gas PEEP or CPAP 5.0 White Blood Count 6.0 4.4-10.8 10^3/uL Red Blood Count 2.72 L 4.5-5.90 10^6/uL Hemoglobin 9.4 L 13.5-17.5 g/dL Hematocrit 25.2 L 41.0-53.0 % Mean Corpuscular Volume 92.5 80.0-100.0 fL Mean Corpuscular Hemoglobin 34.6 H 28.0-32.0 pg Mean Corpuscular Hemoglobin Concent 37.4 H 32.0-36.0 g/dL Red Cell Distribution Width 13.0 11.8-14.3 % Platelet Count 56 L 140-450 10^3/uL Mean Platelet Volume 8.0 6.9-10.8 fL Neutrophils (%) (Auto) 75.8 37.0-80.0 % Lymphocytes (%) (Auto) 12.2 10.0-50.0 % Monocytes (%) (Auto) 11.5 0.0-12.0 % Eosinophils (%) (Auto) 0.4 0.0-7.0 % Basophils (%) (Auto) 0.1 0.0-2.0 % Neutrophils # (Auto) 4.6 1.6-8.6 10 ^3/uL Lymphocytes # (Auto) 0.7 0.4-5.4 10 ^3/uL Monocytes # (Auto) 0.7 0-1.3 10 ^3/uL Eosinophils # (Auto) 0 0-0.8 10 ^3/uL Basophils # (Auto) 0 0-0.2 10 ^3/uL Nucleated Red Blood Cells 0.0 % Sodium Level 131 L 136-145 mmol/L Potassium Level 4.5 3.5-5.1 mmol/L Chloride Level 100 98-107 mmol/L Carbon Dioxide Level 28 20-31 mmol/L Anion Gap 3 L 5-15 Blood Urea Nitrogen 18 9-23 mg/dL Creatinine 0.33 L 0.700-1.30 mg/dL Glomerular Filtration Rate Calc 161 >90 mL/min BUN/Creatinine Ratio 54.5 H 10.0-20.0 Serum Glucose 92 74-106 mg/dL Calcium Level 8.4 L 8.7-10.4 mg/dL Phosphorus Level 1.9 L 2.4-5.1 mg/dL Magnesium Level 1.7 1.6-2.6 mg/dL Total Bilirubin 1.5 H 0.2-1.0 mg/dL Aspartate Amino Transferase (AST) 103 H 13-40 U/L Alanine Aminotransferase (ALT) 426 H 7-40 U/L Alkaline Phosphatase 328 H 46-116 U/L Total Protein 4.8 L 5.7-8.2 g/dL Albumin 2.7 L 3.2-4.8 g/dL Vancomycin Level Trough 13.8 H 5-10 ug/mL Test 09/10/24 03:22 09/09/24 07:32 09/09/24 07:02 09/07/24 11:53 Range/Units Thyroid Stimulating Hormone (TSH) 2.38 0.55-4.78 uIU/mL Blood Gas Critical Value Read Back Yes Blood Gas Spontaneous Rate 20 Lactic Acid Level 1.1 0.4-2.0 mmol/L Ammonia 35 H 11-32 umol/L Acetaminophen Level < 2.0 L 10.0-20.0 UG/ML Test 09/07/24 04:58 09/07/24 01:00 09/06/24 21:30 09/06/24 19:48 Range/Units Hemoglobin A1c 4.7 <5.7 % A1C Random Vancomycin Level 9.1 5-10 ug/mL Lipase 49 12-53 U/L Direct Bilirubin 1.8 H <0.3 mg/dL Troponin I High Sensitivity 10 </=54 ng/L Blood Gas Notified Whom Dr. obed degroot Blood Gas Notified Time [id number] Blood Gas Notified By Rt elsa young Test 09/06/24 18:00 09/06/24 17:05 Range/Units Prothrombin Time 16.9 H 9.3-11.8 sec Prothrombin Time INR 1.68 H 0.9-1.15 Activated Partial Thromboplast Time 30.2 24.5-34.5 SEC Plasma/Serum Blood Alcohol 3.3 <10 mg/dL Hepatitis A IgM Antibody Negative Hepatitis B Surface Antigen Negative Negative Hepatitis B Core IgM Antibody Negative Negative Hepatitis C Antibody Negative Negative Urine Color Yellow Yellow Urine Clarity Clear Clear Urine pH 6.0 5.0-9.0 Urine Specific Parnell 1.019 1.001-1.035 Urine Protein Negative Negative Urine Ketones Negative Negative Urine Blood Trace H Negative /uL Urine Nitrite 1+ H Negative Urine Bilirubin Negative Negative Urine Urobilinogen 3 H Negative mg/dL Urine Leukocyte Esterase 1+ Negative /uL Urine RBC 1 0 - 3 /hpf Urine WBC 8 0 - 3 /hpf Urine Squamous Epithelial Cells Few <5 /hpf Urine Bacteria None seen None Seen /hpf Urine Hyaline Casts Mod 0 - 2 /lpf Urine Mucus Few None Seen Urine Glucose 3+ H Normal mg/dL Urine Opiates Screen Neg NEGATIVE Urine Fentanyl Screen Neg NEGATIVE Urine Barbiturates Screen Neg NEGATIVE Urine Phencyclidine Screen Neg NEGATIVE Urine Amphetamines Screen Neg NEGATIVE Urine Benzodiazepines Screen Neg NEGATIVE Urine Cocaine Screen Neg NEGATIVE Urine Cannabinoids Screen Neg NEGATIVE Microbiology Date/Time Source Procedure Growth Status 09/10/24 18:02 Blood Blood Culture - Preliminary NO GROWTH AFTER 48 HOURS OF INCUBATION. Resulted 09/07/24 16:00 Scrotum Gram Stain - Final Complete 09/07/24 16:00 Wound Culture - Final Enterobacter cloacae Enterococcus faecalis Enterobacter aerogenes Pseudomonas aeruginosa Complete 09/06/24 17:05 Urine - [place] Urine Culture - Final Staphylococcus aureus Complete 09/06/24 17:00 Sputum Gram Stain - Final Complete 09/06/24 17:00 Respiratory Culture - Final Staphylococcus aureus Complete Assessment Altered mental status Metabolic encephalopathy Hypoxic encephalopathy Toxic encephalopathy Urinary tract infection Sepsis Hypoglycemia Respiratory failure Brittany's disease General weakness Gait disturbance/bed-bound Bradycardia Plan/Recommendation Monitoring Supportive treatment Follow-up lab Stabilize vitals Respiratory support/vent management IV antibiotics Tube feeding Follow with his [facility] on discharge More recommendation per clinical course Progress: Poor This medical document was created using an electronic medical record system with [employer] dictation system. Although this document has been carefully reviewed, there may still be some phonetic and typographical errors. These areas are purely typographical due to imperfections of the software programs, and do not reflect any compromise in the patient's medical care. Plan discussed with: Other ALISHA LOVE MD Sep 13, 2024 09:00
[2024-09-13 10:00] LABS: Base Excess 3.3 mmol/L (-2.0-3.0)
[2024-09-13] MEDS: DOCUSATE SOD 100 MG CAP PO SCH (10:00)
[2024-09-13] MEDS: FUROSEMIDE 20 MG/2 ML VIAL IV ONE (10:55)
[2024-09-13] MEDS: FUROSEMIDE 20 MG/2 ML VIAL ONE (10:55)
--- NOTE | 2024-09-13 11:40 | DVH ---
CHEST RADIOGRAPH Indication: S/P EXTUBATION Technique: Single frontal view of the chest was obtained Comparison: XY CHEST PORTABLE on DOS: 09/13/24, XY CHEST PORTABLE on DOS: 09/12/24, XY CHEST PORTABLE o n DOS: 09/11/24, XY CHEST PORTABLE on DOS: 09/11/24, XY CHEST PORTABLE on DOS: 09/10/24 FINDINGS: Lines and Tubes: Left central venous catheter is unchanged. Endotracheal tube and nasogastric tube whatley ve been removed. Lungs: No focal consolidation. Pleura: No effusion. No pneumothorax. Cardiomediastinal contours: Unremarkable Bones: No acute osseous abnormality. IMPRESSION: No acute cardiopulmonary disease.
[2024-09-13 12:08] LABS: Base Excess 4.4 mmol/L (-2.0-3.0)
[2024-09-13] MEDS: ALBUTEROL SULF 2.5 MG/0.5ML(0.5%) NEB SOLN NEB PRN (17:32)
[2024-09-13] MEDS: IPRATROPIUM BROM 0.5 MG/2.5ML INH SOL NEB PRN (17:32)
[2024-09-13] MEDS: ETOMIDATE (2MG/ML) 20ML VIAL IV ONE ×3 (18:11→20:26)
[2024-09-13] MEDS: ROCURONIUM 10MG/ML 10ML VIAL IV ONE ×3 (18:13→20:26)
[2024-09-13] MEDS: NOREPINEPHRINE 8 MG/250ML KIT 250 ML IV SCH (18:15)
--- NOTE | 2024-09-13 18:45 | DVH ---
EXAM: XR Chest, 1 View CLINICAL INDICATION: intubation TECHNIQUE: Frontal view of the chest. COMPARISON: XY CHEST PORTABLE on DOS: 09/13/24, XY CHEST PORTABLE on DOS: 09/13/24, XY CHEST PORTABLE on DOS: 09/12/24, XY CHEST PORTABLE on DOS: 09/11/24, XY CHEST PORTABLE on DOS: 09/11/24 FINDINGS: LUNGS AND PLEURAL SPACES: Right basilar atelectasis or pneumonia. No pneumothorax. HEART: Unremarkable. No cardiomegaly. MEDIASTINUM: Unremarkable. Normal mediastinal contour. BONES/JOINTS: Unremarkable. No acute fracture. TUBES, LINES AND DEVICES: The endotracheal tube (ETT) is in satisfactory position. Left internal ju gular central venous catheter tip in the superior vena cava. OTHER FINDINGS: . . IMPRESSION: Right basilar atelectasis or pneumonia. HS:Y
[2024-09-13 21:17] LABS: Base Excess 0.1 mmol/L (-2.0-3.0)
--- NOTE | 2024-09-13 21:49 | ED.PDOC ---
Was a procedure done? Was a procedure done?: Yes Sedation Sedation?: No Intubation Indication: Altered Mental Status, Airway Protection Prep: Preoxygenation Pretreated with: Other (Fentanyl) Medicated with: Nothing Intubation Approach: Orotracheal Intubation size: cm (7.5) Informed consent obtained: No Risks/benefits/alt described: No Notes Replaced patients 6.5 tube with a 7.5 over bougie. RIVAS THAYER MD Sep 13, 2024 21:49
--- NOTE | 2024-09-13 22:23 | DVHNC2 ---
Intubation Indication: Respiratory Insufficiency Medicated with: Other (etomidate and rocuronium) Intubation Approach: Orotracheal Intubation size: cm (6.5cm) Notes PROCEDURE SUMMARY: A time out was performed. My hands were washed immediately prior to the pro cedure. I wore a surgical cap, mask with protective eyewear, gown and gloves throughout the procedure. The patient was placed on a front desk monitor including continuous pulse oximetry. Rapid Sequence Intubation was conducted. The patient received 15 mg of etomidate for induction and 50 mg of rocuronium for adequate paralysis. Cricoid pressure was maintained from time induction agent was given to time of cuff balloon inflation. Using a video laryngoscope and an endotracheal tube with stylet, the patient was intubated . pt was tried 1st with a tube size of 7cm which was not passing through the vocal cords and then tube with 6.5cm was inserted which was easily passing through the vocal cords. The stylet was removed and cuff balloon was inflated. Appropriate endotracheal tube position was confirmed by direct visualization of vocal cord passage, fogging of the tube, CO2 colormetric indicator and symmetric breath sounds. The tube was secured at 26 cm at the lips. ET tube exchange of 7cm with bougie was tired but there was resistance and 6.5 cm ET tube was reinserted again. Post intubation chest x-ray showed confirmation of the ET tube position. Jimmy Grimm Leroy MD Date of Service: Sep 13, 2024 Billing Provider: MYRA RICHEY MD Common Visit Codes: PROCEDURE ONLY Procedure Codes: [id number] JIMMY GRIMM Sep 13, 2024 22:22
--- NOTE | 2024-09-13 22:42 | DVH ---
CHEST RADIOGRAPH Indication: ett exchange Technique: Single frontal view of the chest was obtained Comparison: XY CHEST XRAY 1 VIEW on DOS: 09/13/24, XY CHEST PORTABLE on DOS: 09/13/24, XY CHEST PORTABL E on DOS: 09/13/24 FINDINGS: Lines and Tubes: Endotracheal tube projects 2 cm superior to the whitney. Left IJ CVC projects termina ting near the cavoatrial junction. Lungs: Clear Pleura: No effusion. No pneumothorax. Cardiomediastinal contours: Unremarkable Bones: Unremarkable IMPRESSION: Life-support devices as described above. Hyperexpanded lungs otherwise no active cardiopulmonary dis ease.
[2024-09-14] VITALS (100 sets, daily range): BP systolic 79–134; BP diastolic 51–96; PULSE 48–121; RESP 11–23; TEMP 97.2–99.3; O2SAT 90–100
[2024-09-14 04:07] LABS: Basophils # (auto) 0 10 ^3/uL (0-0.2); Basophils % (auto) 0.1 % (0.0-2.0); Eosinophils # (auto) 0 10 ^3/uL (0-0.8); Hemoglobin 8.9 g/dL (13.5-17.5); Lymphocytes # (auto) 0.5 10 ^3/uL (0.4-5.4); Nucleated Red Blood Cells % 0.1 %
[2024-09-14 04:15] LABS: Hematocrit 24.5 % (41.0-53.0); Lymphocytes % (auto) 9.3 % (10.0-50.0); Mean Corpuscular Hemoglobin 33.6 pg (28.0-32.0); Mean Corpuscular Hgb Conc. 36.3 g/dL (32.0-36.0); Mean Corpuscular Volume 92.4 fL (80.0-100.0); Monocytes # (auto) 0.7 10 ^3/uL (0-1.3); Monocytes % (auto) 12.7 % (0.0-12.0); Neutrophils # (auto) 4.2 10 ^3/uL (1.6-8.6); Neutrophils % (auto) 77.9 % (37.0-80.0); Platelet Count (auto) 63 10^3/uL (140-450); Red Blood Cells 2.65 10^6/uL (4.5-5.90); Red Cell Distribution Width 12.9 % (11.8-14.3); White Blood Cell 5.4 10^3/uL (4.4-10.8)
[2024-09-14 04:26] LABS: Anion Gap 3 (5-15); BUN/Creatinine Ratio 47.5 (10.0-20.0); Blood Urea Nitrogen 19 mg/dL (9-23); Carbon Dioxide 29 mmol/L (20-31); Chloride 100 mmol/L (98-107); Glucose 75 mg/dL (74-106); Potassium 4.3 mmol/L (3.5-5.1)
[2024-09-14 04:27] LABS: Alanine Aminotransferase 333 U/L (7-40); Albumin 2.8 g/dL (3.2-4.8); Alkaline Phosphatase 294 U/L (46-116); Aspartate Aminotransferase 75 U/L (13-40); Bilirubin, Total 1.4 mg/dL (0.2-1.0); Calcium 8.5 mg/dL (8.7-10.4); Magnesium 1.4 mg/dL (1.6-2.6); Sodium 132 mmol/L (136-145); Total Protein 4.7 g/dL (5.7-8.2)
--- NOTE | 2024-09-14 05:19 | DVH ---
CHEST RADIOGRAPH Indication: mech vent Technique: Single frontal view of the chest was obtained COMPARISON: XY CHEST PORTABLE on DOS: 09/13/24, XY CHEST XRAY 1 VIEW on DOS: 09/13/24, XY CHEST PORTABL E on DOS: 09/13/24, XY CHEST PORTABLE on DOS: 09/13/24, XY CHEST PORTABLE on DOS: 09/12/24 FINDINGS: Lines and Tubes: Endotracheal tube and left central venous catheter in satisfactory position. Lungs: Clear Pleura: No effusion. No pneumothorax. Cardiomediastinal contours: Unremarkable Bones: Unremarkable IMPRESSION: Lines and tubes in satisfactory position. No significant interval change.
[2024-09-14] MEDS: PIPERACILLIN-TAZOB 3.375GM 100 ML IV ONE (10:06)
[2024-09-14] MEDS: MAGNESIUM SULFATE 1GM/100ML 100 ML IV SCH (10:06)
--- NOTE | 2024-09-14 10:32 | DVHPN2 ---
Progress Note - Dictate Date Seen: Sep 14, 2024 Medical Necessity Reason Pt with a Central, PICC or Fol: No Subjective Mr. Delgado is a 29 years old gentleman with a history of Macoupin's disease, the patient was brought to the hospital on 08/3024 with a chief company of altered mental status. I have seen and examined the patient, I have talked to his nurse, the patient was intubated, but he is awake, he tracks, he follows verbal commands, he was able to move the arms and legs UDS, 09/06/2024: Negative Plasma alcohol, 09/06/2019 5:3.3 Urinalysis, 09/06/2024: WBC: 8, urine leukocyte esterase: 1+, urine nitrate: 1+ WBC/HB/PLT/MCV, 09/13/2024: 6/9.4/56/92.5 PT/INR/PTT, 16.9/1.68/30.2 BMP, 09/13/2024: Unremarkable TBI/AST/ALT/AP, 09/13/2024: 1.5/103/426/328 Hepatitis panel, 09/06/2024: Negative Chest x-ray, 09/07/2024:Lines and tubes in satisfactory position. No significant interval change (Endotracheal tube and enteric catheter in satisfactory position) CT head, 09/23/2024: No acute intracranial abnormality vital signs Vital Sign Date Time Temp Pulse Resp B/P (MAP) Pulse Ox O2 Delivery O2 Flow Rate FiO2 09/14/24 08:06 58 14 92/58 (69) 97 30 09/14/24 07:42 Mechanical Ventilator+ 09/14/24 06:45 97.2 207.0 09/13/24 16:37 10.0 Total Intake and Output 09/13/24 09/13/24 09/14/24 15:00 23:00 07:00 Intake Total 361 ml 315.0 ml 462.45 ml Output Total 1800 ml 550 ml Balance 361 ml -1485.0 ml -87.55 ml medications Current Medications Medications Dose Ordered Sig/Gisselle Route Start Time Stop Time Status Last Admin Dose Admin Vancomycin HCl 0 ml @ 0 mls/hr UD IV 09/06/24 17:15 Fentanyl Citrate 250 ml @ 2.5 mls/hr Q24H IV 09/06/24 17:45 09/13/24 06:00 10 MLS/HR Midazolam HCl 50 ml @ 1 mls/hr Q24H IV 09/06/24 19:45 09/08/24 11:16 7 MLS/HR Pantoprazole Sodium 40 mg DAILY IV 09/07/24 10:00 09/14/24 09:00 40 MG Acetaminophen 650 mg Q6HP PRN WA 09/07/24 05:30 Diagnostic Test (Pha) 1 strip IQ4HR 09/07/24 12:00 09/14/24 08:13 1 STRIP Insulin Human Regular IQ4HR SC 09/07/24 12:00 09/10/24 23:22 2 UNITS Dextrose 50 ml UD PRN IV 09/07/24 08:45 09/07/24 20:42 50 ML Dextrose 1,000 ml @ 30 mls/hr Q24H IV 09/07/24 20:45 09/14/24 04:14 30 MLS/HR Metoclopramide HCl 5 mg Q8HR IV 09/08/24 22:00 09/14/24 05:58 5 MG Artificial Tears 2 drop Q6HR EACHEYE 09/09/24 00:00 09/14/24 05:58 2 DROP Enteral Nutritional Formula 1,000 ml 30ML/HR GT 09/09/24 20:00 09/13/24 17:01 1,000 ML Vancomycin HCl 100 ml @ 100 mls/hr Q10H IV 09/10/24 11:00 09/14/24 04:42 100 MLS/HR Ipratropium [place] 0.5 mg Q4HPRN PRN NEB 09/13/24 13:30 09/13/24 17:32 0.5 MG Albuterol 2.5 mg Q4HPRN PRN NEB 09/13/24 13:30 09/13/24 17:32 2.5 MG Norepinephrine Bitartrate 250 ml @ 3.75 mls/hr Q24H IV 09/13/24 18:15 09/14/24 03:19 3.75 MLS/HR Piperacillin Sod/ Tazobactam Sod 100 ml @ 25 mls/hr Q6H IV 09/14/24 16:00 Magnesium Sulfate/ Dextrose 100 ml @ 100 mls/hr Q1HR IV 09/14/24 10:00 09/14/24 12:59 09/14/24 10:06 100 MLS/HR Docusate Sodium 100 mg BID GT 09/14/24 22:00 UNV objective The patient is the cachectic. The patient is intubated MENTAL STATUS: Subjective CRANIAL NERVES: Pupils are equal, round and reactive. There is normal conjugated eye movement. No signs of facial weakness. There are gagging or coughing reflexes SENSATION: Okay to light painful stimuli MOTOR: Normal tone in the upper and lower extremity. Diffuse muscle atrophy. No fasciculations. No spontaneous movement. Moves the arms and legs for me REFLEXES: Deep tendon reflexes are symmetrical. No pathological reflexes. CEREBELLAR/COORDINATION: Deferred GAIT/STATION: deferred. laboratory and microbiology Laboratory Tests 09/14/24 03:30 Test 09/14/24 03:30 Range/Units Serum Glucose 75 74-106 mg/dL Problem List Altered mental status Metabolic encephalopathy Hypoxic encephalopathy Toxic encephalopathy Urinary tract infection Sepsis Hypoglycemia Respiratory failure Macoupin's disease General weakness Gait disturbance/bed-bound Bradycardia Assessment/Plan Monitoring Supportive treatment Follow-up lab Stabilize vitals Respiratory support/vent management IV antibiotics Tube feeding Follow with his [place] [facility] on discharge More recommendation per clinical course This medical document was created using an electronic medical record system with [employer] computerized dictation system. Although this document has been carefully reviewed, there may still be some phonetic and typographical errors. These areas are purely typographical due to imperfections of the software programs, and do not reflect any compromise in the patient's medical care Prognosis guarded Dietary Evaluation Review Comments: 1) If GI is accessible, consider Jevity 1.2 @ 35 ml/hr x 24hr goal rate as tolerated 2) Consider 1 pkt BEN BID for wound 3) If pt remains NPO >7 days consider TPN to meet at least 75% of estimated needs Expected Outcomes/Goals: 1) Pt to receive nutrition support within 7 days of NPO status 2) F/U in 2-3 days Plan discussed with: Other Critical Care Time(min): 30 AILSHA LOVE MD Sep 14, 2024 10:32
[2024-09-14 13:36] LABS: Base Excess 2.4 mmol/L (-2.0-3.0)
[2024-09-14] MEDS: PIPERACILLIN-TAZOB 3.375GM 100 ML IV SCH (14:44)
[2024-09-14 15:23] LABS: INR 1.3 (0.9-1.15); Partial Thromboplastin Time 28.8 SEC (24.5-34.5); Prothrombin Time 13.4 sec (9.3-11.8)
--- NOTE | 2024-09-14 17:09 | DVHINCON2 ---
Consultation - Surgical Date Seen: Sep 14, 2024 Referring Physician Referring Physician Icu Reason for Consultation resp. failure/failure to wean of vent. History of Present Illness History of Present Illness A 29-year-old man with past medical history of left lower lobe solitary pulmonary nodule, Brittany disease, asymptomatic bradycardia, and vitamin-D deficiency who presented to ED on 09/06/24 for evaluation of altered level of consciousness. As per mother, patient was not responding to commands, head gestures of upper arm contractions, low temperature that prompted visit to emergency department. During initial evaluation in ED the patient was unresponsive with hypoglycemia and he was not protecting airway, therefore was intubated and placed on mechanical ventilator. 48 hours ago the patient was extubated had to be reintubated within 12 hours. Is currently on ventilator Levophed. May require tracheostomy. Patient currently blood cultures as well as sputum. Past Medical/Surgical History Past Medical/Surgical History Walton disease, asymptomatic bradycardia, and vitamin-D deficiency Family and Social History Family and Social History Noncontributory Allergies and medications Allergies: Coded Allergies: NO KNOWN ALLERGIES (Unverified , 09/07/18) Home Meds Active Scripts Nutritional Supplements (JEVITY 1 FELIPA) Liq, 1 BOT OR DAILY for 30 Days, #30 LIQ Prov:HAILE MILLIGAN RESIDENT 05/11/24 Ergocalciferol (VITAMIN D 76932 UNIT) 50,000 [place], [address] UNIT PO Q7D for 30 Days, #10 CAP Prov:HAILE MILLIGAN RESIDENT 05/10/24 Nutritional Supplements (ENSURE CLEAR) Bbry/Pom Liq, 240 ML GT Q6HR for 30 Days, #120 LIQ Prov:HAILE MILLIGAN RESIDENT 04/29/24 Azithromycin (ZITHROMAX TABLET) 250 Mg Tb, 250 MG PO DAILY for 3 Days, #3 TAB Prov:HAILE MILLIGAN RESIDENT 04/29/24 Reported Medications Azelastine Hcl (Ophth) (Azelastine Hcl) 0.05 % Ketan, 1 DROP EACHEYE BID, #6 ML 2 Refills 04/25/24 Review of systems Review of Systems: HEENT:Normal, CVS:Abnormal (Hypotensive), RESPIRATORY:Abnormal (Ventilated) Examination Vital signs Vital Signs Date Time Temp Pulse Resp B/P (MAP) Pulse Ox O2 Delivery O2 Flow Rate FiO2 09/14/24 16:00 98.4 56 13 93/59 (70) 97 209.1 09/14/24 15:57 30 09/14/24 15:43 Mechanical Ventilator+ 09/13/24 16:37 10.0 Medications Current Medications Medications (Trade) Dose Ordered Sig/Gisselle Route PRN Reason Start Time Stop Time Status Last Admin Norepinephrine Bitartrate 250 ml @ 3.75 mls/hr Q24H IV 09/13/24 18:15 09/14/24 03:19 Piperacillin Sod/ Tazobactam Sod 100 ml @ 25 mls/hr Q6H IV 09/14/24 16:00 Magnesium Sulfate/ Dextrose 100 ml @ 100 mls/hr Q1HR IV 09/14/24 10:00 09/14/24 12:59 DC 09/14/24 12:00 Docusate Sodium (Colace Liquid) 100 mg BID GT 09/14/24 22:00 Laboratory Labs Test 09/14/24 14:19 09/14/24 14:05 09/14/24 14:00 09/14/24 07:12 Range/Units Prothrombin Time 13.4 H 9.3-11.8 sec Prothrombin Time INR 1.30 H 0.9-1.15 Activated Partial Thromboplast Time 28.8 24.5-34.5 SEC POC Glucose 145 H 70-106 mg/dl Vancomycin Level Trough 23.0 H 5-10 ug/mL Blood Gas Specimen Type Arterial Blood Gas Sample Site Right radial Blood Gas Patient Temperature 37.0 Arterial Blood Date Drawn [id number] Arterial Blood pH 7.405 7.350-7.450 Arterial Blood Partial Pressure CO2 44.9 35.0-48.0 mmHg Arterial Blood Partial Pressure O2 97.0 83.0-108.0 mmHg Arterial Blood HCO3 27.5 21.0-28.0 mmol/L Arterial Blood Oxygen Saturation 96.6 94.0-98.0 % Arterial Blood Base Excess 2.4 -2.0-3.0 mmol/L Arterial Blood Oxyhemoglobin 95.9 94.0-98.0 % Arterial Blood Carboxyhemoglobin 0.2 L 0.5-1.5 % Arterial Blood Methemoglobin 0.5 0.0-1.5 % Yasir Test Modified Blood Gas Total Hemoglobin 9.50 L 13.5-17.5 g/dL Blood Gas Set Respiration Rate 14.0 Blood Gas Modality Vent - ac Blood Gas Spontaneous Rate 18 FiO2 % 30.0 Blood Gas Tidal Volume 350.0 Blood Gas PEEP or CPAP 5.0 Test 09/14/24 03:30 09/13/24 16:15 09/13/24 12:03 09/13/24 09:55 Range/Units White Blood Count 5.4 4.4-10.8 10^3/uL Red Blood Count 2.65 L 4.5-5.90 10^6/uL Hemoglobin 8.9 L 13.5-17.5 g/dL Hematocrit 24.5 L 41.0-53.0 % Mean Corpuscular Volume 92.4 80.0-100.0 fL Mean Corpuscular Hemoglobin 33.6 H 28.0-32.0 pg Mean Corpuscular Hemoglobin Concent 36.3 H 32.0-36.0 g/dL Red Cell Distribution Width 12.9 11.8-14.3 % Platelet Count 63 L 140-450 10^3/uL Mean Platelet Volume 8.9 6.9-10.8 fL Neutrophils (%) (Auto) 77.9 37.0-80.0 % Lymphocytes (%) (Auto) 9.3 L 10.0-50.0 % Monocytes (%) (Auto) 12.7 H 0.0-12.0 % Eosinophils (%) (Auto) 0.0 0.0-7.0 % Basophils (%) (Auto) 0.1 0.0-2.0 % Neutrophils # (Auto) 4.2 1.6-8.6 10 ^3/uL Lymphocytes # (Auto) 0.5 0.4-5.4 10 ^3/uL Monocytes # (Auto) 0.7 0-1.3 10 ^3/uL Eosinophils # (Auto) 0 0-0.8 10 ^3/uL Basophils # (Auto) 0 0-0.2 10 ^3/uL Nucleated Red Blood Cells 0.1 % Sodium Level 132 L 136-145 mmol/L Potassium Level 4.3 3.5-5.1 mmol/L Chloride Level 100 98-107 mmol/L Carbon Dioxide Level 29 20-31 mmol/L Anion Gap 3 L 5-15 Blood Urea Nitrogen 19 9-23 mg/dL Creatinine 0.40 L 0.700-1.30 mg/dL Glomerular Filtration Rate Calc 151 >90 mL/min BUN/Creatinine Ratio 47.5 H 10.0-20.0 Serum Glucose 75 74-106 mg/dL Calcium Level 8.5 L 8.7-10.4 mg/dL Magnesium Level 1.4 L 1.6-2.6 mg/dL Total Bilirubin 1.4 H 0.2-1.0 mg/dL Aspartate Amino Transferase (AST) 75 H 13-40 U/L Alanine Aminotransferase (ALT) 333 H 7-40 U/L Alkaline Phosphatase 294 H 46-116 U/L Total Protein 4.7 L 5.7-8.2 g/dL Albumin 2.8 L 3.2-4.8 g/dL Blood Gas EPAP 5 Blood Gas IPAP 10 Blood Gas Critical Value Read Back Yes Blood Gas Notified Whom Blood Gas Notified Time [id number] Blood Gas Notified By Power Switchboard Operator jermaine Blood Gas Pressure Support 8 Test 09/13/24 03:15 09/10/24 03:22 09/07/24 11:53 09/07/24 04:58 Range/Units Phosphorus Level 1.9 L 2.4-5.1 mg/dL Thyroid Stimulating Hormone (TSH) 2.38 0.55-4.78 uIU/mL Lactic Acid Level 1.1 0.4-2.0 mmol/L Ammonia 35 H 11-32 umol/L Acetaminophen Level < 2.0 L 10.0-20.0 UG/ML Hemoglobin A1c 4.7 <5.7 % A1C Random Vancomycin Level 9.1 5-10 ug/mL Test 09/07/24 01:00 09/06/24 21:30 09/06/24 18:00 09/06/24 17:05 Range/Units Lipase 49 12-53 U/L Direct Bilirubin 1.8 H <0.3 mg/dL Troponin I High Sensitivity 10 </=54 ng/L Plasma/Serum Blood Alcohol 3.3 <10 mg/dL Hepatitis A IgM Antibody Negative Hepatitis B Surface Antigen Negative Negative Hepatitis B Core IgM Antibody Negative Negative Hepatitis C Antibody Negative Negative Urine Color Yellow Yellow Urine Clarity Clear Clear Urine pH 6.0 5.0-9.0 Urine Specific [place] 1.019 1.001-1.035 Urine Protein Negative Negative Urine Ketones Negative Negative Urine Blood Trace H Negative /uL Urine Nitrite 1+ H Negative Urine Bilirubin Negative Negative Urine Urobilinogen 3 H Negative mg/dL Urine Leukocyte Esterase 1+ Negative /uL Urine RBC 1 0 - 3 /hpf Urine WBC 8 0 - 3 /hpf Urine Squamous Epithelial Cells Few <5 /hpf Urine Bacteria None seen None Seen /hpf Urine Hyaline Casts Mod 0 - 2 /lpf Urine Mucus Few None Seen Urine Glucose 3+ H Normal mg/dL Urine Opiates Screen Neg NEGATIVE Urine Fentanyl Screen Neg NEGATIVE Urine Barbiturates Screen Neg NEGATIVE Urine Phencyclidine Screen Neg NEGATIVE Urine Amphetamines Screen Neg NEGATIVE Urine Benzodiazepines Screen Neg NEGATIVE Urine Cocaine Screen Neg NEGATIVE Urine Cannabinoids Screen Neg NEGATIVE Microbiology Date/Time Source Procedure Growth Status 09/13/24 18:20 Sputum Gram Stain - Final Resulted 09/13/24 18:20 Sputum Respiratory Culture - Preliminary Resulted 09/10/24 18:02 Blood Blood Culture - Preliminary NO GROWTH AFTER 72 HOURS OF INCUBATION. Resulted 09/07/24 16:00 Scrotum Gram Stain - Final Complete 09/07/24 16:00 Wound Culture - Final Enterobacter cloacae Enterococcus faecalis Enterobacter aerogenes Pseudomonas aeruginosa Complete 09/06/24 17:05 Urine - [place] Urine Culture - Final Staphylococcus aureus Complete Examination: GENERAL:Abnormal (Well-nourished), LUNGS:Abnormal (Currently on the ventilator decreased breath sounds at bases), CVS:Abnormal (Hypotensive on Levophed), ABDOMEN:Abnormal (Soft), MSK:Normal Problem List/Assessment/Plan Problems: (1) Brittany's disease (2) Aspiration pneumonia (3) Sepsis Assessment and Plan 29-year-old male with Walton's disease. Currently failed recent extubation attempt. May require tracheostomy near future. Needs to be stabilized prior to considering tracheostomy Will discuss Dr. Reis Plan discussed with Plan discussed with: Other (nurse) Visit Coding Surgery Date of Service if different f: Sep 14, 2024 Billing Provider: DA MCGHEE Jr., MD Surgery Visit Codes: 45288 - INP CONSULT <80 MIN DA MCGHEE Jr., MD Sep 14, 2024 17:09
[2024-09-14] MEDS ORDERED: SODIUM CHLORIDE 0.9% 1,000 ML IV SCH (17:15)
[2024-09-14] MEDS: SODIUM CHLORIDE 0.9% 1,000 ML IV SCH (17:30)
--- NOTE | 2024-09-14 19:00 | DVHPNRES ---
Progress Note Date Seen: Sep 14, 2024 Resident Creating Document: MALDONADO LOPEZ RESIDENT Medical Necessity Reason Pt with a Central, PICC or Fol: No Subjective Review of Systems pt seen and examined at bedside. he is sedated and intubated on [facility] vent ROS could not be done as patient is sedated Objective vital signs Vital Sign Date Time Temp Pulse Resp B/P (MAP) Pulse Ox O2 Delivery O2 Flow Rate FiO2 09/14/24 18:00 52 16 83/53 (63) 97 30 09/14/24 17:34 Mechanical Ventilator+ 09/14/24 16:00 98.4 209.1 09/13/24 16:37 10.0 Total Intake and Output 09/13/24 09/13/24 09/14/24 15:00 23:00 07:00 Intake Total 361 ml 315.0 ml 462.45 ml Output Total 1800 ml 550 ml Balance 361 ml -1485.0 ml -87.55 ml medications Current Medications Medications Dose Ordered Sig/Gisselle Route Start Time Stop Time Status Last Admin Dose Admin Vancomycin HCl 0 ml @ 0 mls/hr UD IV 09/06/24 17:15 Fentanyl Citrate 250 ml @ 2.5 mls/hr Q24H IV 09/06/24 17:45 09/14/24 11:14 15 MLS/HR Midazolam HCl 50 ml @ 1 mls/hr Q24H IV 09/06/24 19:45 09/08/24 11:16 7 MLS/HR Pantoprazole Sodium 40 mg DAILY IV 09/07/24 10:00 09/14/24 09:00 40 MG Acetaminophen 650 mg Q6HP PRN ID 09/07/24 05:30 Diagnostic Test (Pha) 1 strip IQ4HR 09/07/24 12:00 09/14/24 16:14 1 STRIP Insulin Human Regular IQ4HR SC 09/07/24 12:00 09/14/24 12:00 2 UNITS Dextrose 50 ml UD PRN IV 09/07/24 08:45 09/14/24 17:03 50 ML Dextrose 1,000 ml @ 30 mls/hr Q24H IV 09/07/24 20:45 09/14/24 04:14 30 MLS/HR Metoclopramide HCl 5 mg Q8HR IV 09/08/24 22:00 09/14/24 14:14 5 MG Artificial Tears 2 drop Q6HR EACHEYE 09/09/24 00:00 09/14/24 17:03 2 DROP Enteral Nutritional Formula 1,000 ml 30ML/HR GT 09/09/24 20:00 09/13/24 17:01 1,000 ML Vancomycin HCl 100 ml @ 100 mls/hr Q10H IV 09/10/24 11:00 09/14/24 04:42 100 MLS/HR Ipratropium [place] 0.5 mg Q4HPRN PRN NEB 09/13/24 13:30 09/13/24 17:32 0.5 MG Albuterol 2.5 mg Q4HPRN PRN NEB 09/13/24 13:30 09/13/24 17:32 2.5 MG Norepinephrine Bitartrate 250 ml @ 3.75 mls/hr Q24H IV 09/13/24 18:15 09/14/24 03:19 3.75 MLS/HR Piperacillin Sod/ Tazobactam Sod 100 ml @ 25 mls/hr Q6H IV 09/14/24 16:00 Docusate Sodium 100 mg BID GT 09/14/24 22:00 Sodium Chloride 1,000 ml @ 60 mls/hr [id number] IV 09/14/24 17:30 09/14/24 23:59 Examination Examination General Appearance: Sedated and intubated Respiratory: on Mechanical ventilation Cardiovascular: Regular rate, Normal S1, Normal S2 Abdominal: Nondistended, peg tube present Extremities: No cyanosis, No edema, Normal pulses, No tenderness/swelling Skin: No rashes, No breakdown Neuro: sedated and intubated laboratory and microbiology Laboratory Tests 09/14/24 03:30 Test 09/14/24 03:30 Range/Units Serum Glucose 75 74-106 mg/dL Microbiology Date/Time Source Procedure Growth Status 09/13/24 18:20 Sputum Gram Stain - Final Resulted 09/13/24 18:20 Sputum Respiratory Culture - Preliminary Resulted 09/10/24 18:02 Blood Blood Culture - Preliminary NO GROWTH AFTER 72 HOURS OF INCUBATION. 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 Aspiration pneumonia -IV antibiotics Sputum culture Many growth: Possible Staphylococcus aureus -IV vancomycin -added IV zosyn based on repeat sputum GI # status post PEG tube, present on admission -was placed due to dysphagia due to Brittany's # transaminitis likely due to septic shock, improving Monitor liver enzymes #Moderately gas distended large bowel. -seen on imaging -NG tube, low continuous suction Repeat KUB started on tube feedings #Moderately gas and fluid distended stomach. -seen on imaging NG tube, low continuous suction Repeat KUB started on tube feedings # engorged hepatic vein Uncertain etiology Seen on imaging Nephrology # hypomagnesemia Corrected Monitor # hypokalemia Corrected Monitor #hyperkalemia -resolved # hyponatremia -monitor BMP #hypophosphatemia corrected Hematology/oncology # thrombocytopenia likely due to sepsis Monitor Endocrine # hypoglycemia likely due to sepsis -started D 10 W -Accu-Cheks -started on nutrition through NG tube Dermatology/integumentary # sacral ulcer, POA -wound culture growing enterococcus -pt is already on IV vancomycin # hypothermia likely due to sepsis Warm blanket Urology # UTI -urine culture shows staph aureus IV antibiotic DVT prophylaxis -Low dose Lovenox 30 mg SC daily, on hold because of low platelets -SCD's Peptic ulcer disease prophylaxis IV Protonix Nutrition started on NG tube feedings Bowel Regimen started on colace Drips fentanyl Lines Lilly's catheter placed on 09/06/2023 Left internal jugular CVC placed on 09/06/2023 Code status discussed with the family for greater than 23 minutes, full code Mother at bedside explained about the condition of the patient had a discussion regarding the need for tracheostomy surgery was consulted Later family decided not to take a decision right now regarding tracheostomy \ Critical care time excluding procedures : 87 minutes Plan discussed with: Other My Orders My Orders Orders - MALDONADO LOPEZ Procedure Category Date Status Time Respiratory Culture SANJAY 09/13/24 In Process W/ Gs 19:00 Ventilator Orders RT 09/13/24 Transmitted 20:12 Abg W/ Co-Ox RT 09/13/24 Logged 19:00 Chest Portable XY 09/14/24 Resulted 04:00 Abg W/ Co-Ox RT 09/14/24 Logged 04:00 Piperacillin-Tazob PHA 09/14/24 In Process 3.375gm (Zosyn 3.375g 16:00 Docusate Sodium PHA 09/14/24 In Process Liquid (Colace Liquid) 22:00 Send Out LAB 09/14/24 Logged Miscellaneous Lab Ref 13:52 Routine Bacterial SANJAY 09/14/24 Uncollected Culture 13:56 Sodium Chloride 0.9% PHA 09/14/24 In Process 17:30 Dietary Evaluation Review Comments: 1) If GI is accessible, consider Jevity 1.2 @ 35 ml/hr x 24hr goal rate as tolerated 2) Consider 1 pkt BEN BID for wound 3) If pt remains NPO >7 days consider TPN to meet at least 75% of estimated needs Expected Outcomes/Goals: 1) Pt to receive nutrition support within 7 days of NPO status 2) F/U in 2-3 days Date of Service: Sep 14, 2024 Billing Provider: RADHA MISHRA MD Common Visit Codes: [id number] CARE 30-74 MIN, [id number] CARE-EACH +30MIN MALDONADO LOPEZ Sep 14, 2024 19:00 RADHA MISHRA MD Sep 19, 2024 11:42
[2024-09-14] MEDS: DOCUSATE ORAL LIQUID 100 MG/10 ML UD GT SCH (21:31)
[2024-09-15] VITALS (105 sets, daily range): BP systolic 84–133; BP diastolic 17–102; PULSE 49–130; RESP 3–24; TEMP 97–100.2; O2SAT 91–100
[2024-09-15 03:58] LABS: Basophils # (auto) 0 10 ^3/uL (0-0.2); Basophils % (auto) 0.1 % (0.0-2.0); Eosinophils # (auto) 0 10 ^3/uL (0-0.8); Eosinophils % (auto) 0.5 % (0.0-7.0); Hemoglobin 8.3 g/dL (13.5-17.5); Neutrophils # (auto) 5.9 10 ^3/uL (1.6-8.6); Nucleated Red Blood Cells % 0.1 %; White Blood Cell 7.9 10^3/uL (4.4-10.8)
[2024-09-15 04:03] LABS: Chloride 101 mmol/L (98-107); Potassium 4.2 mmol/L (3.5-5.1)
[2024-09-15 04:04] LABS: Anion Gap 2 (5-15)
[2024-09-15 04:07] LABS: Hematocrit 22.9 % (41.0-53.0); Lymphocytes # (auto) 0.9 10 ^3/uL (0.4-5.4); Lymphocytes % (auto) 11.6 % (10.0-50.0); Mean Corpuscular Hemoglobin 33.7 pg (28.0-32.0); Mean Corpuscular Hgb Conc. 36.3 g/dL (32.0-36.0); Mean Corpuscular Volume 92.6 fL (80.0-100.0); Monocytes % (auto) 13.1 % (0.0-12.0); Neutrophils % (auto) 74.7 % (37.0-80.0); Platelet Count (auto) 108 10^3/uL (140-450); Red Blood Cells 2.48 10^6/uL (4.5-5.90); Red Cell Distribution Width 12.8 % (11.8-14.3)
[2024-09-15 04:09] LABS: Blood Urea Nitrogen 16 mg/dL (9-23)
[2024-09-15 04:10] LABS: Magnesium 1.9 mg/dL (1.6-2.6)
[2024-09-15 04:17] LABS: Calcium 7.9 mg/dL (8.7-10.4); Carbon Dioxide 31 mmol/L (20-31); Glucose 127 mg/dL (74-106); Sodium 134 mmol/L (136-145)
--- NOTE | 2024-09-15 04:48 | DVH ---
CHEST RADIOGRAPH Indication: [facility] vent Technique: Single frontal view of the chest was obtained Comparison: XY CHEST PORTABLE on DOS: 09/14/24 FINDINGS: Lines and Tubes: Endotracheal tube terminates 2.9 cm above [place]. Left central venous catheter term inates in the superior vena cava. Lungs: No focal consolidation. Pleura: No effusion. No pneumothorax. Cardiomediastinal contours: Unremarkable Bones: No acute osseous abnormality. IMPRESSION: 1. Stable position of the support lines and tubes. 2. No acute cardiopulmonary disease.
[2024-09-15 08:36] LABS: Base Excess 1.5 mmol/L (-2.0-3.0)
--- NOTE | 2024-09-15 09:56 | DVHPN2 ---
Progress Note - Dictate Date Seen: Sep 15, 2024 Medical Necessity Reason Pt with a Central, PICC or Fol: No Subjective Mr. Delgado is a 29 years old gentleman with a history of [place]'s disease, the patient was brought to the hospital on 08/3024 with a chief company of altered mental status. I have seen and examined the patient, I have talked to his nurse, the patient was intubated, eyes are alf open, but he is not respond to verbal stimuli. No spontaneous extremity movement noticed UDS, 09/06/2024: Negative Plasma alcohol, 09/06/2019 5:3.3 Urinalysis, 09/06/2024: WBC: 8, urine leukocyte esterase: 1+, urine nitrate: 1+ WBC/HB/PLT/MCV, 09/13/2024: 6/9.4/56/92.5 PT/INR/PTT, 16.9/1.68/30.2 BMP, 09/13/2024: Unremarkable TBI/AST/ALT/AP, 09/13/2024: 1.5/103/426/328 Hepatitis panel, 09/06/2024: Negative Chest x-ray, 09/07/2024:Lines and tubes in satisfactory position. No significant interval change (Endotracheal tube and enteric catheter in satisfactory position) CT head, 09/23/2024: No acute intracranial abnormality vital signs Vital Sign Date Time Temp Pulse Resp B/P (MAP) Pulse Ox O2 Delivery O2 Flow Rate FiO2 09/15/24 07:53 54 15 93/55 (68) 99 30 09/15/24 06:30 98.8 209.8 09/15/24 06:00 Mechanical Ventilator+ 09/13/24 16:37 10.0 Total Intake and Output 09/14/24 09/14/24 09/15/24 15:00 23:00 07:00 Intake Total 441.00 ml 1277.50 ml 698.50 ml Output Total 900 ml 700 ml Balance 441.00 ml 377.50 ml -1.50 ml medications Current Medications Medications Dose Ordered Sig/Gisselle Route Start Time Stop Time Status Last Admin Dose Admin Vancomycin HCl 0 ml @ 0 mls/hr UD IV 09/06/24 17:15 Fentanyl Citrate 250 ml @ 2.5 mls/hr Q24H IV 09/06/24 17:45 09/15/24 01:40 20 MLS/HR Midazolam HCl 50 ml @ 1 mls/hr Q24H IV 09/06/24 19:45 09/14/24 23:01 1 MLS/HR Pantoprazole Sodium 40 mg DAILY IV 09/07/24 10:00 09/14/24 09:00 40 MG Acetaminophen 650 mg Q6HP PRN VA 09/07/24 05:30 Diagnostic Test (Pha) 1 strip IQ4HR 09/07/24 12:00 09/15/24 04:00 1 STRIP Insulin Human Regular IQ4HR SC 09/07/24 12:00 09/14/24 12:00 2 UNITS Dextrose 50 ml UD PRN IV 09/07/24 08:45 09/14/24 20:07 50 ML Dextrose 1,000 ml @ 30 mls/hr Q24H IV 09/07/24 20:45 09/14/24 04:14 30 MLS/HR Metoclopramide HCl 5 mg Q8HR IV 09/08/24 22:00 09/15/24 05:47 5 MG Artificial Tears 2 drop Q6HR EACHEYE 09/09/24 00:00 09/15/24 05:48 2 DROP Enteral Nutritional Formula 1,000 ml 30ML/HR GT 09/09/24 20:00 09/13/24 17:01 1,000 ML Ipratropium [place] 0.5 mg Q4HPRN PRN NEB 09/13/24 13:30 09/13/24 17:32 0.5 MG Albuterol 2.5 mg Q4HPRN PRN NEB 09/13/24 13:30 09/13/24 17:32 2.5 MG Norepinephrine Bitartrate 250 ml @ 3.75 mls/hr Q24H IV 09/13/24 18:15 09/15/24 00:04 18.75 MLS/HR Piperacillin Sod/ Tazobactam Sod 100 ml @ 25 mls/hr Q6H IV 09/14/24 16:00 09/15/24 03:47 25 MLS/HR Docusate Sodium 100 mg BID GT 09/14/24 22:00 09/14/24 21:31 100 MG objective The patient is the cachectic. The patient is intubated MENTAL STATUS: Subjective CRANIAL NERVES: Pupils are equal, round and reactive.There are corneal reflexes and doll's eyes phenomenon. No signs of facial weakness. There are gagging or coughing reflexes SENSATION: Okay to light painful stimuli MOTOR: Normal tone in the upper and lower extremity. Diffuse muscle atrophy. No fasciculations. No spontaneous movement. No spontaneous extremity movement REFLEXES: Deep tendon reflexes are symmetrical. No pathological reflexes. CEREBELLAR/COORDINATION: Deferred GAIT/STATION: deferred. laboratory and microbiology Laboratory Tests 09/15/24 03:12 Test 09/15/24 03:12 Range/Units Serum Glucose 127 H 74-106 mg/dL Problem List Altered mental status Metabolic encephalopathy Hypoxic encephalopathy Toxic encephalopathy Urinary tract infection Sepsis Hypoglycemia Respiratory failure Brittany's disease General weakness Gait disturbance/bed-bound Bradycardia Assessment/Plan Monitoring Supportive treatment Follow-up lab Stabilize vitals Respiratory support/vent management IV antibiotics Tube feeding Follow with his [place] [facility] on discharge More recommendation per clinical course This medical document was created using an electronic medical record system with [employer] dictation system. Although this document has been carefully reviewed, there may still be some phonetic and typographical errors. These areas are purely typographical due to imperfections of the software programs, and do not reflect any compromise in the patient's medical care Prognosis Guarded, poor Dietary Evaluation Review Comments: 1) If GI is accessible, consider Jevity 1.2 @ 35 ml/hr x 24hr goal rate as tolerated 2) Consider 1 pkt BEN BID for wound 3) If pt remains NPO >7 days consider TPN to meet at least 75% of estimated needs Expected Outcomes/Goals: 1) Pt to receive nutrition support within 7 days of NPO status 2) F/U in 2-3 days Plan discussed with: Other ALISHA LOVE MD Sep 15, 2024 09:56
[2024-09-15] MEDS: VANCOMYCIN 750MG KIT 100 ML IV SCH (12:00)
--- NOTE | 2024-09-15 13:25 | DVH ---
EXAM: XY CHEST PORTABLE Indication: PICC LINE PLACEMENT. Technique: Single frontal view of the chest was obtained Comparison: XY CHEST PORTABLE on DOS: 09/15/24, XY CHEST PORTABLE on DOS: 09/14/24, XY CHEST PORTABLE o n DOS: 09/13/24, XY CHEST XRAY 1 VIEW on DOS: 09/13/24, XY CHEST PORTABLE on DOS: 09/13/24 FINDINGS: Lines and Tubes: Right PICC tip projects over the superior vena cava left internal jugular central ve nous catheter tip projects over the vena cava. Endotracheal tube is 2 cm above level the [place]. Lungs: No focal consolidation. Pleura: No effusion. No pneumothorax. Cardiomediastinal contours: Unremarkable Bones: No acute osseous abnormality. IMPRESSION: Interval placement right PICC with tip in appropriate position.
[2024-09-15] MEDS: PIPERACILLIN-TAZOB 3.375GM 100 ML IV SCH (17:32)
--- NOTE | 2024-09-15 18:14 | DVHPNRES ---
Progress Note Date Seen: Sep 15, 2024 Resident Creating Document: MALDONADO LOPEZ RESIDENT Medical Necessity Reason Pt with a Central, PICC or Fol: No Subjective Review of Systems pt seen and examined at bedside. he is sedated and intubated on [facility] vent ROS could not be done as patient is sedated Objective vital signs Vital Sign Date Time Temp Pulse Resp B/P (MAP) Pulse Ox O2 Delivery O2 Flow Rate FiO2 09/15/24 17:15 98.2 74 14 97/61 (73) 100 208.8 09/15/24 16:00 30 09/15/24 16:00 Mechanical Ventilator+ 09/13/24 16:37 10.0 Total Intake and Output 09/14/24 09/14/24 09/15/24 15:00 23:00 07:00 Intake Total 441.00 ml 1277.50 ml 770.75 ml Output Total 900 ml 700 ml Balance 441.00 ml 377.50 ml 70.75 ml medications Current Medications Medications Dose Ordered Sig/Gisselle Route Start Time Stop Time Status Last Admin Dose Admin Vancomycin HCl 0 ml @ 0 mls/hr UD IV 09/06/24 17:15 Fentanyl Citrate 250 ml @ 2.5 mls/hr Q24H IV 09/06/24 17:45 09/15/24 11:50 22.5 MLS/HR Midazolam HCl 50 ml @ 1 mls/hr Q24H IV 09/06/24 19:45 09/14/24 23:01 1 MLS/HR Pantoprazole Sodium 40 mg DAILY IV 09/07/24 10:00 09/15/24 09:49 40 MG Acetaminophen 650 mg Q6HP PRN HI 09/07/24 05:30 Diagnostic Test (Pha) 1 strip IQ4HR 09/07/24 12:00 09/15/24 16:00 1 STRIP Insulin Human Regular IQ4HR SC 09/07/24 12:00 09/14/24 12:00 2 UNITS Dextrose 50 ml UD PRN IV 09/07/24 08:45 09/14/24 20:07 50 ML Dextrose 1,000 ml @ 30 mls/hr Q24H IV 09/07/24 20:45 09/14/24 04:14 30 MLS/HR Metoclopramide HCl 5 mg Q8HR IV 09/08/24 22:00 09/15/24 13:59 5 MG Artificial Tears 2 drop Q6HR EACHEYE 09/09/24 00:00 09/15/24 17:30 2 DROP Enteral Nutritional Formula 1,000 ml 30ML/HR GT 09/09/24 20:00 09/15/24 17:30 1,000 ML Ipratropium Skip[place] 0.5 mg Q4HPRN PRN NEB 09/13/24 13:30 09/15/24 11:51 0.5 MG Albuterol 2.5 mg Q4HPRN PRN NEB 09/13/24 13:30 09/15/24 11:51 2.5 MG Norepinephrine Bitartrate 250 ml @ 3.75 mls/hr Q24H IV 09/13/24 18:15 09/15/24 11:51 18.75 MLS/HR Docusate Sodium 100 mg BID GT 09/14/24 22:00 09/15/24 09:48 100 MG Vancomycin HCl 100 ml @ 100 mls/hr Q12H IV 09/15/24 12:00 09/15/24 12:00 100 MLS/HR Piperacillin Sod/ Tazobactam Sod 100 ml @ 25 mls/hr Q8H IV 09/15/24 18:00 09/15/24 17:32 25 MLS/HR Sodium Chloride 10 ml QSHIFT@10,22 IV 09/15/24 22:00 Examination Examination General Appearance: Sedated and intubated Respiratory: on Mechanical ventilation Cardiovascular: Regular rate, Normal S1, Normal S2 Abdominal: Nondistended, peg tube present Extremities: No cyanosis, No edema, Normal pulses, No tenderness/swelling Skin: No rashes, No breakdown Neuro: sedated and intubated laboratory and microbiology Laboratory Tests 09/15/24 03:12 Test 09/15/24 03:12 Range/Units Serum Glucose 127 H 74-106 mg/dL Microbiology Date/Time Source Procedure Growth Status 09/13/24 18:20 Sputum Gram Stain - Final Complete 09/13/24 18:20 Respiratory Culture - Final Pseudomonas aeruginosa Complete 09/10/24 18:02 Blood Blood Culture - Preliminary NO GROWTH AFTER 72 HOURS OF INCUBATION. 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 Aspiration pneumonia -IV antibiotics Sputum culture Many growth: Possible Staphylococcus aureus -IV vancomycin -added IV Meropenem based on culture and sensitivity GI # status post PEG tube, present on admission -was placed due to dysphagia due to Brittany's # transaminitis likely due to septic shock, improving Monitor liver enzymes #Moderately gas distended large bowel. -seen on imaging -NG tube, low continuous suction Repeat KUB started on tube feedings #Moderately gas and fluid distended stomach. -seen on imaging NG tube, low continuous suction Repeat KUB started on tube feedings # engorged hepatic vein Uncertain etiology Seen on imaging Nephrology # hypomagnesemia Corrected Monitor # hypokalemia Corrected Monitor #hyperkalemia -resolved # hyponatremia -monitor BMP #hypophosphatemia corrected Hematology/oncology # thrombocytopenia likely due to sepsis Monitor Endocrine # hypoglycemia likely due to sepsis -started D 10 W -Accu-Cheks -started on nutrition through NG tube Dermatology/integumentary # sacral ulcer, POA -wound culture growing enterococcus -pt is already on IV vancomycin # hypothermia likely due to sepsis Warm blanket Urology # UTI -urine culture shows staph aureus IV antibiotic DVT prophylaxis -Low dose Lovenox 30 mg SC daily, on hold because of low platelets -SCD's Peptic ulcer disease prophylaxis IV Protonix Nutrition started on NG tube feedings Bowel Regimen started on colace Drips fentanyl midazolam norepi Lines Lilly's catheter placed on 09/06/2023 Left internal jugular CVC placed on 09/06/2023 Code status discussed with the family for greater than 23 minutes, full code Mother updated about the condition of the patient over the phone will have a family meeting AM Case discussion with Dr mishra Critical care time excluding procedures : 63 minutes Plan discussed with: Other My Orders My Orders Orders - MALDONADO LOPEZ Procedure Category Date Status Time Chest Portable XY 09/15/24 Resulted 04:00 Abg W/ Co-Ox RT 09/15/24 Logged 04:00 Piperacillin-Tazob PHA 09/15/24 In Process 3.375gm (Zosyn 3.375g 18:00 Meropenem 1gm Ivpb X PHA 09/15/24 Verified ONE 18:15 Meropenem 1gm PHA 09/15/24 Verified Q8h(Gfr>50) 22:00 Dietary Evaluation Review Comments: 1) If GI is accessible, consider Jevity 1.2 @ 35 ml/hr x 24hr goal rate as tolerated 2) Consider 1 pkt BEN BID for wound 3) If pt remains NPO >7 days consider TPN to meet at least 75% of estimated needs Expected Outcomes/Goals: 1) Pt to receive nutrition support within 7 days of NPO status 2) F/U in 2-3 days Date of Service: Sep 15, 2024 Billing Provider: RADHA MISHRA MD Common Visit Codes: [id number] CARE 30-74 MIN MALDONADO LOPEZ Sep 15, 2024 18:14 RADHA MISHRA MD Sep 16, 2024 11:08
[2024-09-15] MEDS: MEROPENEM 1GM IVPB 50 ML IV ONE (19:51)
[2024-09-15] MEDS: SODIUM CHLOR 0.9% PF (SALINE LOCK) 10ML VIAL/SYR IV SCH (21:45)
[2024-09-16] VITALS (106 sets, daily range): BP systolic 97–129; BP diastolic 53–87; PULSE 58–107; RESP 10–19; TEMP 97.2–99.1; O2SAT 98–100
[2024-09-16] MEDS: VANCOMYCIN 1GM/250ML KIT 250 ML IV ONE (00:42)
[2024-09-16 03:57] LABS: Chloride 101 mmol/L (98-107); Potassium 3.9 mmol/L (3.5-5.1)
[2024-09-16 03:58] LABS: Anion Gap 3 (5-15)
[2024-09-16 04:03] LABS: BUN/Creatinine Ratio 36.1 (10.0-20.0); Blood Urea Nitrogen 13 mg/dL (9-23)
[2024-09-16 04:06] LABS: Carbon Dioxide 31 mmol/L (20-31); Glucose 115 mg/dL (74-106); Magnesium 1.5 mg/dL (1.6-2.6); Sodium 135 mmol/L (136-145)
[2024-09-16 04:41] LABS: Basophils # (auto) 0 10 ^3/uL (0-0.2); Eosinophils # (auto) 0 10 ^3/uL (0-0.8); Hematocrit 22.7 % (41.0-53.0); Lymphocytes # (auto) 0.1 10 ^3/uL (0.4-5.4); Monocytes # (auto) 0 10 ^3/uL (0-1.3); Neutrophils # (auto) 0 10 ^3/uL (1.6-8.6)
[2024-09-16 04:43] LABS: Basophils % (auto) 1.2 % (0.0-2.0); Eosinophils % (auto) 6.4 % (0.0-7.0); Hemoglobin 8.2 g/dL (13.5-17.5); Mean Corpuscular Hemoglobin 33.7 pg (28.0-32.0); Mean Corpuscular Hgb Conc. 36.2 g/dL (32.0-36.0); Mean Corpuscular Volume 93.2 fL (80.0-100.0); Neutrophils % (auto) 13.8 % (37.0-80.0); Nucleated Red Blood Cells % 0.2 %; Platelet Count (auto) 89 10^3/uL (140-450); Red Blood Cells 2.44 10^6/uL (4.5-5.90); Red Cell Distribution Width 12.9 % (11.8-14.3)
[2024-09-16 04:44] LABS: Lymphocytes % (auto) 55.2 % (10.0-50.0); Monocytes % (auto) 23.4 % (0.0-12.0)
[2024-09-16] MEDS: MEROPENEM 1GM IVPB 50 ML IV SCH (04:44)
[2024-09-16 04:47] LABS: White Blood Cell 0.2 10^3/uL (4.4-10.8)
--- NOTE | 2024-09-16 05:27 | DVH ---
Exam: US US GUIDED VASCULAR ACCESS Clinical History: PICC PLACEMENT Comparison: None Findings: Targeted sonographic evaluation of the right arm veinwas obtained utilizing grayscale and color Doppl er imaging. IMPRESSION: Sonographic assistance for peripheral central line placement. Please refer to procedural report for d etailed findings.
--- NOTE | 2024-09-16 05:27 | DVH ---
CHEST RADIOGRAPH Indication: mech vent Technique: Single frontal view of the chest was obtained COMPARISON: XY CHEST PORTABLE on DOS: 09/15/24, XY CHEST PORTABLE on DOS: 09/15/24, XY CHEST PORTABLE o n DOS: 09/14/24, XY CHEST PORTABLE on DOS: 09/13/24, XY CHEST XRAY 1 VIEW on DOS: 09/13/24 FINDINGS: Lines and Tubes: Endotracheal tube, right PICC and gastrostomy tube appear in satisfactory position. Lungs: Clear Pleura: No effusion. No pneumothorax. Cardiomediastinal contours: Unremarkable Bones: Unremarkable IMPRESSION: Lines and tubes in satisfactory position. No significant interval change.
[2024-09-16 05:46] LABS: Base Excess 6.4 mmol/L (-2.0-3.0)
[2024-09-16] MEDS: MAGNESIUM SULFATE 1GM/100ML 100 ML IV ONE (06:31)
[2024-09-16] MEDS: LIDOCAINE 1% (LOCAL ANESTH.) PF 5ml SDV ID ONE (08:00)
[2024-09-16 08:47] LABS: Bilirubin, Total 0.8 mg/dL (0.2-1.0)
[2024-09-16 08:51] LABS: Albumin 2.6 g/dL (3.2-4.8); Bilirubin, Direct 0.5 mg/dL (<0.3); Total Protein 4.5 g/dL (5.7-8.2)
[2024-09-16] MEDS: MAGNESIUM SULFATE 1GM/100ML 100 ML IV SCH (09:10)
[2024-09-16 09:28] LABS: Basophils # (auto) 0 10 ^3/uL (0-0.2); Eosinophils # (auto) 0 10 ^3/uL (0-0.8); Hemoglobin 7.2 g/dL (13.5-17.5); Lymphocytes # (auto) 0.1 10 ^3/uL (0.4-5.4); Monocytes # (auto) 0.1 10 ^3/uL (0-1.3); Neutrophils # (auto) 0 10 ^3/uL (1.6-8.6)
[2024-09-16 09:30] LABS: Basophils % (auto) 0.6 % (0.0-2.0); Eosinophils % (auto) 4.7 % (0.0-7.0); Hematocrit 19.8 % (41.0-53.0); Lymphocytes % (auto) 50.6 % (10.0-50.0); Mean Corpuscular Hemoglobin 33.8 pg (28.0-32.0); Mean Corpuscular Hgb Conc. 36.1 g/dL (32.0-36.0); Mean Corpuscular Volume 93.5 fL (80.0-100.0); Nucleated Red Blood Cells % 1.8 %; Platelet Count (auto) 82 10^3/uL (140-450); Red Blood Cells 2.12 10^6/uL (4.5-5.90); Red Cell Distribution Width 12.9 % (11.8-14.3)
[2024-09-16 09:46] LABS: Monocytes % (auto) 34.1 % (0.0-12.0)
[2024-09-16 09:47] LABS: White Blood Cell 0.2 10^3/uL (4.4-10.8)
--- NOTE | 2024-09-16 11:00 | DVHPN2 ---
Progress Note - Dictate Date Seen: Sep 16, 2024 Medical Necessity Reason Pt with a Central, PICC or Fol: No Subjective Mr. Delgado is a 29 years old gentleman with a history of Ellsworth's disease, the patient was brought to the hospital on 08/3024 with a chief company of altered mental status. I have seen and examined the patient, I have talked to his nurse, the patient is intubated, sedated, he is nonresponsive to painful stimuli today, pupils are small and nonreactive Fentanyl 175 mcg/hour, Versed 3mg/hour UDS, 09/06/2024: Negative Plasma alcohol, 09/06/2019 5:3.3 Urinalysis, 09/06/2024: WBC: 8, urine leukocyte esterase: 1+, urine nitrate: 1+ WBC/HB/PLT/MCV, 09/13/2024: 6/9.4/56/92.5 PT/INR/PTT, 16.9/1.68/30.2 BMP, 09/13/2024: Unremarkable TBI/AST/ALT/AP, 09/13/2024: 1.5/103/426/328 Hepatitis panel, 09/06/2024: Negative Chest x-ray, 09/07/2024:Lines and tubes in satisfactory position. No significant interval change (Endotracheal tube and enteric catheter in satisfactory position) CT head, 09/23/2024: No acute intracranial abnormality vital signs Vital Sign Date Time Temp Pulse Resp B/P (MAP) Pulse Ox O2 Delivery O2 Flow Rate FiO2 09/16/24 10:00 59 14 101/61 (74) 99 30 09/16/24 08:00 Mechanical Ventilator+ 09/16/24 07:00 98.1 208.6 Total Intake and Output 09/15/24 09/15/24 09/16/24 15:00 23:00 07:00 Intake Total 727.00 ml 701.50 ml 735.00 ml Output Total 600 ml 400 ml Balance 727.00 ml 101.50 ml 335.00 ml medications Current Medications Medications Dose Ordered Sig/Gisselle Route Start Time Stop Time Status Last Admin Dose Admin Vancomycin HCl 0 ml @ 0 mls/hr UD IV 09/06/24 17:15 Fentanyl Citrate 250 ml @ 2.5 mls/hr Q24H IV 09/06/24 17:45 09/16/24 00:40 17.5 MLS/HR Midazolam HCl 50 ml @ 1 mls/hr Q24H IV 09/06/24 19:45 09/15/24 20:37 2 MLS/HR Pantoprazole Sodium 40 mg DAILY IV 09/07/24 10:00 09/16/24 09:11 40 MG Acetaminophen 650 mg Q6HP PRN AL 09/07/24 05:30 Diagnostic Test (Pha) 1 strip IQ4HR 09/07/24 12:00 09/16/24 08:58 1 STRIP Insulin Human Regular IQ4HR SC 09/07/24 12:00 09/14/24 12:00 2 UNITS Dextrose 50 ml UD PRN IV 09/07/24 08:45 09/14/24 20:07 50 ML Dextrose 1,000 ml @ 30 mls/hr Q24H IV 09/07/24 20:45 09/14/24 04:14 30 MLS/HR Metoclopramide HCl 5 mg Q8HR IV 09/08/24 22:00 09/16/24 06:00 5 MG Artificial Tears 2 drop Q6HR EACHEYE 09/09/24 00:00 09/16/24 06:00 2 DROP Enteral Nutritional Formula 1,000 ml 30ML/HR GT 09/09/24 20:00 09/15/24 17:30 1,000 ML Ipratropium [place] 0.5 mg Q4HPRN PRN NEB 09/13/24 13:30 09/16/24 06:45 0.5 MG Albuterol 2.5 mg Q4HPRN PRN NEB 09/13/24 13:30 09/16/24 06:45 2.5 MG Norepinephrine Bitartrate 250 ml @ 3.75 mls/hr Q24H IV 09/13/24 18:15 09/16/24 00:39 18.75 MLS/HR Docusate Sodium 100 mg BID GT 09/14/24 22:00 09/16/24 09:11 100 MG Vancomycin HCl 100 ml @ 100 mls/hr Q12H IV 09/15/24 12:00 09/15/24 12:00 100 MLS/HR Sodium Chloride 10 ml QSHIFT@ IV 09/15/24 22:00 09/16/24 09:11 10 ML Meropenem 50 ml @ 17 mls/hr Q8H IV 09/16/24 04:00 09/16/24 04:44 17 MLS/HR Magnesium Sulfate/ Dextrose 100 ml @ 100 mls/hr Q1HR IV 09/16/24 09:00 09/16/24 11:59 09/16/24 10:46 100 MLS/HR objective The patient is the cachectic. The patient is intubated MENTAL STATUS: Subjective CRANIAL NERVES: Pupils are equal, round and reactive.There are corneal reflexes and doll's eyes phenomenon. No signs of facial weakness. There are gagging or coughing reflexes SENSATION: Okay to light painful stimuli MOTOR: Normal tone in the upper and lower extremity. Diffuse muscle atrophy. No fasciculations. No spontaneous movement. No spontaneous extremity movement REFLEXES: Deep tendon reflexes are symmetrical. No pathological reflexes. CEREBELLAR/COORDINATION: Deferred GAIT/STATION: deferred. laboratory and microbiology Laboratory Tests 09/16/24 09:07 09/16/24 03:05 Test 09/16/24 03:05 Range/Units Serum Glucose 115 H 74-106 mg/dL Problem List Altered mental status Metabolic encephalopathy Hypoxic encephalopathy Toxic encephalopathy Urinary tract infection Sepsis Hypoglycemia Respiratory failure Ellsworth's disease General weakness Gait disturbance/bed-bound Bradycardia Assessment/Plan Monitoring Supportive treatment Follow-up lab Stabilize vitals Respiratory support/vent management IV antibiotics Tube feeding Follow with his [facility] on discharge More recommendation per clinical course This medical document was created using an electronic medical record system with [employer] dictation system. Although this document has been carefully reviewed, there may still be some phonetic and typographical errors. These areas are purely typographical due to imperfections of the software programs, and do not reflect any compromise in the patient's medical care Prognosis guarded Dietary Evaluation Review Comments: 1) If GI is accessible, consider Jevity 1.2 @ 35 ml/hr x 24hr goal rate as tolerated 2) Consider 1 pkt BEN BID for wound 3) If pt remains NPO >7 days consider TPN to meet at least 75% of estimated needs Expected Outcomes/Goals: 1) Pt to receive nutrition support within 7 days of NPO status 2) F/U in 2-3 days Plan discussed with: Other ALISHA LOVE MD Sep 16, 2024 11:00
--- NOTE | 2024-09-16 14:29 | DVHPNRES ---
Progress Note Date Seen: Sep 16, 2024 Resident Creating Document: MALDONADO LOPEZ RESIDENT Medical Necessity Reason Pt with a Central, PICC or Fol: No Subjective Review of Systems pt seen and examined at bedside. he is sedated and intubated on [place] vent ROS could not be done as patient is sedated Objective vital signs Vital Sign Date Time Temp Pulse Resp B/P (MAP) Pulse Ox O2 Delivery O2 Flow Rate FiO2 09/16/24 14:00 14 99 Mechanical Ventilator+ 30 30 09/16/24 14:00 69 09/16/24 13:53 100/61 09/16/24 11:15 97.2 207.0 Total Intake and Output 09/15/24 09/15/24 09/16/24 15:00 23:00 07:00 Intake Total 727.00 ml 701.50 ml 766.75 ml Output Total 600 ml 400 ml Balance 727.00 ml 101.50 ml 366.75 ml medications Current Medications Medications Dose Ordered Sig/Gisselle Route Start Time Stop Time Status Last Admin Dose Admin Vancomycin HCl 0 ml @ 0 mls/hr UD IV 09/06/24 17:15 Fentanyl Citrate 250 ml @ 2.5 mls/hr Q24H IV 09/06/24 17:45 09/16/24 13:53 17.5 MLS/HR Midazolam HCl 50 ml @ 1 mls/hr Q24H IV 09/06/24 19:45 09/16/24 11:05 3 MLS/HR Pantoprazole Sodium 40 mg DAILY IV 09/07/24 10:00 09/16/24 09:11 40 MG Acetaminophen 650 mg Q6HP PRN NM 09/07/24 05:30 Diagnostic Test (Pha) 1 strip IQ4HR 09/07/24 12:00 09/16/24 11:08 1 STRIP Insulin Human Regular IQ4HR SC 09/07/24 12:00 09/14/24 12:00 2 UNITS Dextrose 50 ml UD PRN IV 09/07/24 08:45 09/14/24 20:07 50 ML Dextrose 1,000 ml @ 30 mls/hr Q24H IV 09/07/24 20:45 09/14/24 04:14 30 MLS/HR Artificial Tears 2 drop Q6HR EACHEYE 09/09/24 00:00 09/16/24 12:04 2 DROP Enteral Nutritional Formula 1,000 ml 30ML/HR GT 09/09/24 20:00 09/15/24 17:30 1,000 ML Ipratropium [place] 0.5 mg Q4HPRN PRN NEB 09/13/24 13:30 09/16/24 06:45 0.5 MG Albuterol 2.5 mg Q4HPRN PRN NEB 09/13/24 13:30 09/16/24 06:45 2.5 MG Norepinephrine Bitartrate 250 ml @ 3.75 mls/hr Q24H IV 09/13/24 18:15 09/16/24 00:39 18.75 MLS/HR Docusate Sodium 100 mg BID GT 09/14/24 22:00 09/16/24 09:11 100 MG Vancomycin HCl 100 ml @ 100 mls/hr Q12H IV 09/15/24 12:00 09/16/24 11:56 100 MLS/HR Sodium Chloride 10 ml QSHIFT@10,22 IV 09/15/24 22:00 09/16/24 09:11 10 ML Meropenem 50 ml @ 17 mls/hr Q8H IV 09/16/24 04:00 09/16/24 11:56 17 MLS/HR Examination Examination General Appearance: Sedated and intubated Respiratory: on Mechanical ventilation Cardiovascular: Regular rate, Normal S1, Normal S2 Abdominal: Nondistended, peg tube present Extremities: No cyanosis, No edema, Normal pulses, No tenderness/swelling Skin: No rashes, No breakdown Neuro: sedated and intubated laboratory and microbiology Laboratory Tests 09/16/24 09:07 09/16/24 03:05 Test 09/16/24 03:05 Range/Units Serum Glucose 115 H 74-106 mg/dL Microbiology Date/Time Source Procedure Growth Status 09/15/24 18:20 Catheter Site Aerobic Culture - Preliminary Resulted 09/13/24 18:20 Sputum Gram Stain - Final Complete 09/13/24 18:20 Respiratory Culture - Final Pseudomonas aeruginosa Complete 09/10/24 18:02 Blood Blood Culture - Final NO GROWTH AFTER 5 DAYS OF INCUBATION. 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 Aspiration pneumonia -IV antibiotics Sputum culture: Pseudomonas -IV vancomycin -will switch to tobramycin considering sudden drop in WBC count after starting the meropenam GI # status post PEG tube, present on admission -was placed due to dysphagia due to Brittany's # transaminitis likely due to septic shock, improving Monitor liver enzymes #Moderately gas distended large bowel. -seen on imaging -NG tube, low continuous suction Repeat KUB started on tube feedings #Moderately gas and fluid distended stomach. -seen on imaging NG tube, low continuous suction Repeat KUB started on tube feedings # engorged hepatic vein Uncertain etiology Seen on imaging Nephrology # hypomagnesemia Corrected Monitor # hypokalemia Corrected Monitor #hyperkalemia -resolved # hyponatremia -monitor BMP #hypophosphatemia corrected Hematology/oncology #Leukopenia -sudden drop in WBC count 0.2 -will switch to tobramycin considering sudden drop in WBC count after starting the meropenam # thrombocytopenia likely due to sepsis Monitor Endocrine # hypoglycemia likely due to sepsis -started D 10 W -Accu-Cheks -started on nutrition through NG tube Dermatology/integumentary # sacral ulcer, POA -wound culture growing enterococcus -pt is already on IV vancomycin # hypothermia likely due to sepsis Warm blanket Urology # UTI -urine culture shows staph aureus IV antibiotic DVT prophylaxis -Low dose Lovenox 30 mg SC daily, on hold because of low platelets -SCD's Peptic ulcer disease prophylaxis IV Protonix Nutrition started on NG tube feedings Bowel Regimen started on colace Drips fentanyl midazolam norepi Lines Lilly's catheter placed on 09/06/2023 Left internal jugular CVC placed on 09/06/2023 Code status discussed with the family for greater than 23 minutes, full code Mother updated about the condition of the patient mother initially decided for LTACH facility transfer and refused for tracheostomy Discussion was continued in the evening Mother decided for home hospice Case discussion with Dr mishra Critical care time excluding procedures : 89 minutes Plan discussed with: Other My Orders My Orders Orders - MALDONADO LOPEZ Procedure Category Date Status Time Routine Bacterial SANJAY 09/14/24 In Process Culture 13:56 Chest Portable XY 09/16/24 Resulted 04:00 Abg W/ Co-Ox RT 09/16/24 Logged 04:00 Meropenem 1gm Ivpb PHA 09/16/24 In Process (Merrem 1gm/ Ns) 04:00 Comprehensive LAB 09/17/24 Verified Metabolic Panel 04:00 Complete Blood Count LAB 09/17/24 Verified 04:00 Magnesium LAB 09/17/24 Verified 04:00 Abg W/ Co-Ox RT 09/17/24 Verified 04:00 Chest Portable XY 09/17/24 Verified 04:00 Dietary Evaluation Review Comments: 1) If GI is accessible, consider Jevity 1.2 @ 35 ml/hr x 24hr goal rate as tolerated 2) Consider 1 pkt BEN BID for wound 3) If pt remains NPO >7 days consider TPN to meet at least 75% of estimated needs Expected Outcomes/Goals: 1) Pt to receive nutrition support within 7 days of NPO status 2) F/U in 2-3 days Date of Service: Sep 16, 2024 Billing Provider: RADHA MISHRA MD Common Visit Codes: [id number] CARE 30-74 MIN, [id number] CARE-EACH +30MIN MALDONADO LOPEZ Sep 16, 2024 14:29 RADHA MISHRA MD Sep 19, 2024 12:28
[2024-09-16 14:59] LABS: Basophils # (auto) 0 10 ^3/uL (0-0.2); Eosinophils # (auto) 0 10 ^3/uL (0-0.8); Eosinophils % (auto) 4.9 % (0.0-7.0); Neutrophils # (auto) 0 10 ^3/uL (1.6-8.6)
[2024-09-16 15:04] LABS: Basophils % (auto) 0.5 % (0.0-2.0); Hematocrit 22.4 % (41.0-53.0); Hemoglobin 8.1 g/dL (13.5-17.5); Lymphocytes # (auto) 0.1 10 ^3/uL (0.4-5.4); Lymphocytes % (auto) 48.2 % (10.0-50.0); Mean Corpuscular Hemoglobin 33.4 pg (28.0-32.0); Mean Corpuscular Hgb Conc. 35.9 g/dL (32.0-36.0); Mean Corpuscular Volume 93.2 fL (80.0-100.0); Monocytes # (auto) 0.1 10 ^3/uL (0-1.3); Monocytes % (auto) 39.3 % (0.0-12.0); Neutrophils % (auto) 7.1 % (37.0-80.0); Nucleated Red Blood Cells % 2.1 %; Platelet Count (auto) 96 10^3/uL (140-450); Red Blood Cells 2.41 10^6/uL (4.5-5.90); Red Cell Distribution Width 12.5 % (11.8-14.3)
[2024-09-16 15:17] LABS: White Blood Cell 0.2 10^3/uL (4.4-10.8)
[2024-09-16 15:32] LABS: Platelet Estimate Decreased
[2024-09-16] MEDS ORDERED: TOBRAMYCIN PER PHARMACY 0 ML IV SCH (19:00)
[2024-09-16] MEDS: CEFTAZIDIME-AVIBACTAM 2.5gm 2.5 GM in D5W 5% 100 ML IV SCH (21:59)
[2024-09-17] VITALS (107 sets, daily range): BP systolic 90–131; BP diastolic 51–90; PULSE 57–91; RESP 11–20; TEMP 95.9–98.9; O2SAT 98–100
[2024-09-17 04:14] LABS: Hematocrit 20.4 % (41.0-53.0); Hemoglobin 7.3 g/dL (13.5-17.5); Mean Corpuscular Hemoglobin 33.3 pg (28.0-32.0); Mean Corpuscular Hgb Conc. 35.8 g/dL (32.0-36.0); Platelet Count (auto) 93 10^3/uL (140-450); Red Cell Distribution Width 12.8 % (11.8-14.3)
[2024-09-17 04:19] LABS: White Blood Cell 0.6 10^3/uL (4.4-10.8)
[2024-09-17 04:20] LABS: Band Neutrophils % (manual) 0; Basophils % (manual) 0 (0.0-2.0); Blast Cells 0; Metamyelocytes % 0; Myelocytes % 0; Promyelocytes % 0; Reactive Lymphocytes 0
[2024-09-17 04:39] LABS: Anion Gap 1 (5-15); BUN/Creatinine Ratio 32.4 (10.0-20.0); Blood Urea Nitrogen 11 mg/dL (9-23); Chloride 101 mmol/L (98-107); Magnesium 1.8 mg/dL (1.6-2.6); Potassium 3.9 mmol/L (3.5-5.1)
[2024-09-17 04:40] LABS: Aspartate Aminotransferase 27 U/L (13-40)
[2024-09-17 04:41] LABS: Bilirubin, Total 0.6 mg/dL (0.2-1.0)
[2024-09-17 04:44] LABS: Carbon Dioxide 34 mmol/L (20-31); Sodium 136 mmol/L (136-145)
[2024-09-17 04:45] LABS: Alanine Aminotransferase 143 U/L (7-40); Albumin 2.3 g/dL (3.2-4.8); Alkaline Phosphatase 202 U/L (46-116); Calcium 7.9 mg/dL (8.7-10.4); Glucose 130 mg/dL (74-106)
[2024-09-17 04:59] LABS: Eosinophils % (manual) 5 (0-7); Lymphocytes % (manual) 49 (10.0-50.0); Monocytes % (manual) 43 (0-12)
[2024-09-17 05:00] LABS: Platelet Estimate Decreased
--- NOTE | 2024-09-17 05:41 | DVH ---
[facility] Single frontal view of the chest was obtained Comparison: XY CHEST PORTABLE on DOS: 09/16/24 FINDINGS: Lines and Tubes: The endotracheal tube terminates 3.1 cm above the [place]. Right PICC terminates in the superior vena cava. Lungs: Hazy right upper lobe opacity. Patchy right basilar opacity. Pleura: No effusion. No pneumothorax. Cardiomediastinal contours: Unremarkable Bones: No acute osseous abnormality. IMPRESSION: 1. Appropriate position of the support lines and tubes. 2. Right upper and right basilar opacity which may reflect atelectasis or pneumonia.
[2024-09-17] MEDS: ACCU-CHEK COMFORT CURVE STRIP VI SCH ×2 (09:00→14:35)
[2024-09-17] MEDS: VANCOMYCIN 750MG KIT 100 ML IV SCH (11:00)
[2024-09-17] MEDS: InsuLIN REG 1unit/0.01ml Soln (100units/ml) SC SCH (12:00)
--- NOTE | 2024-09-17 18:28 | DVHPNRES ---
Progress Note Date Seen: Sep 17, 2024 Resident Creating Document: MALDONADO LOPEZ RESIDENT Medical Necessity Reason Pt with a Central, PICC or Fol: No Subjective Review of Systems pt seen and examined at bedside. he is sedated and intubated on [facility] vent ROS could not be done as patient is sedated Objective vital signs Vital Sign Date Time Temp Pulse Resp B/P (MAP) Pulse Ox O2 Delivery O2 Flow Rate FiO2 09/17/24 18:00 72 09/17/24 18:00 13 103/63 (76) 100 09/17/24 18:00 Mechanical Ventilator+ 30 30 09/17/24 16:00 98.4 98.4 Total Intake and Output 09/16/24 09/16/24 09/17/24 15:00 23:00 07:00 Intake Total 754.00 ml 608.58 ml 1010.67 ml Output Total 350 ml 350 ml Balance 754.00 ml 258.58 ml 660.67 ml medications Current Medications Medications Dose Ordered Sig/Gisselle Route Start Time Stop Time Status Last Admin Dose Admin Vancomycin HCl 0 ml @ 0 mls/hr UD IV 09/06/24 17:15 Fentanyl Citrate 250 ml @ 2.5 mls/hr Q24H IV 09/06/24 17:45 09/17/24 17:19 17.5 MLS/HR Midazolam HCl 50 ml @ 1 mls/hr Q24H IV 09/06/24 19:45 09/17/24 17:17 3 MLS/HR Pantoprazole Sodium 40 mg DAILY IV 09/07/24 10:00 09/17/24 09:21 40 MG Acetaminophen 650 mg Q6HP PRN FL 09/07/24 05:30 Dextrose 1,000 ml @ 30 mls/hr Q24H IV 09/07/24 20:45 09/14/24 04:14 30 MLS/HR Artificial Tears 2 drop Q6HR EACHEYE 09/09/24 00:00 09/17/24 17:28 2 DROP Enteral Nutritional Formula 1,000 ml 30ML/HR GT 09/09/24 20:00 09/17/24 05:56 1,000 ML Ipratropium [place] 0.5 mg Q4HPRN PRN NEB 09/13/24 13:30 09/16/24 06:45 0.5 MG Albuterol 2.5 mg Q4HPRN PRN NEB 09/13/24 13:30 09/16/24 06:45 2.5 MG Norepinephrine Bitartrate 250 ml @ 3.75 mls/hr Q24H IV 09/13/24 18:15 09/17/24 17:18 3.75 MLS/HR Docusate Sodium 100 mg BID GT 09/14/24 22:00 09/17/24 09:21 100 MG Sodium Chloride 10 ml QSHIFT@10,22 IV 09/15/24 22:00 09/17/24 09:21 10 ML Tobramycin Sulfate 0 ml @ 0 mls/hr PER PHARMACY IV 09/16/24 19:00 UNV Vancomycin HCl 100 ml @ 100 mls/hr Q11H IV 09/17/24 11:00 09/17/24 11:00 100 MLS/HR Diagnostic Test (Pha) 1 strip Q6HR 09/17/24 12:00 09/17/24 17:27 1 STRIP Insulin Human Regular Q6HR SC 09/17/24 12:00 Dextrose 50 ml UD PRN IV 09/17/24 12:15 Ceftolozane/ Tazobactam 3 gm/ Dextrose 100 ml @ 100 mls/hr Q8HR IV 09/17/24 22:00 Examination Examination General Appearance: Sedated and intubated Respiratory: on Mechanical ventilation Cardiovascular: Regular rate, Normal S1, Normal S2 Abdominal: Nondistended, peg tube present Extremities: No cyanosis, No edema, Normal pulses, No tenderness/swelling Skin: No rashes, No breakdown Neuro: sedated and intubated laboratory and microbiology Laboratory Tests 09/17/24 03:23 Test 09/17/24 03:23 Range/Units Serum Glucose 130 H 74-106 mg/dL Microbiology Date/Time Source Procedure Growth Status 09/15/24 18:20 Catheter Site Aerobic Culture - Preliminary Resulted 09/13/24 18:20 Sputum Gram Stain - Final Complete 09/13/24 18:20 Respiratory Culture - Final Pseudomonas aeruginosa Complete 09/10/24 18:02 Blood Blood Culture - Final NO GROWTH AFTER 5 DAYS OF INCUBATION. 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 Aspiration pneumonia -IV antibiotics Sputum culture: Pseudomonas -IV vancomycin -will switch to Zerbaxa considering sudden drop in WBC count after starting the meropenam -ID consulted GI # status post PEG tube, present on admission -was placed due to dysphagia due to Edson's # transaminitis likely due to septic shock, improving Monitor liver enzymes #Moderately gas distended large bowel. -seen on imaging -NG tube, low continuous suction Repeat KUB started on tube feedings #Moderately gas and fluid distended stomach. -seen on imaging NG tube, low continuous suction Repeat KUB started on tube feedings # engorged hepatic vein Uncertain etiology Seen on imaging Nephrology # hypomagnesemia Corrected Monitor # hypokalemia Corrected Monitor #hyperkalemia -resolved # hyponatremia -monitor BMP #hypophosphatemia corrected Hematology/oncology #Leukopenia -sudden drop in WBC count 0.2 -will switch to tobramycin considering sudden drop in WBC count after starting the meropenam -hematology and oncology consulted # thrombocytopenia likely due to sepsis Monitor Endocrine # hypoglycemia likely due to sepsis -started D 10 W -Accu-Cheks -started on nutrition through NG tube Dermatology/integumentary # sacral ulcer, POA -wound culture growing enterococcus -pt is already on IV vancomycin # hypothermia likely due to sepsis Warm blanket Urology # UTI -urine culture shows staph aureus IV antibiotic DVT prophylaxis -Low dose Lovenox 30 mg SC daily, on hold because of low platelets -SCD's Peptic ulcer disease prophylaxis IV Protonix Nutrition started on NG tube feedings Bowel Regimen started on colace Drips fentanyl midazolam norepi Lines Lilly's catheter placed on 09/06/2023 Left internal jugular CVC placed on 09/06/2023 Code status discussed with the family for greater than 23 minutes, full code Mother at bedside updated about the condition of the patient Case discussion with Dr Dangelo Critical care time excluding procedures : 63 minutes Plan discussed with: Other My Orders My Orders Orders - MALDONADO LOPEZ RESIDENT Procedure Category Date Status Time * [employer] CONS 09/17/24 Transmitted Consult Glucose Blood PHA 09/17/24 In Process (Accu-Chek Comfort 12:00 Insulin R (Human) PHA 09/17/24 In Process (Insulin R) 12:00 Dextrose 50% Syringe PHA 09/17/24 In Process 12:15 Antibiotics JN 09/17/24 In Process Clarification Orde 15:18 Ceftolozane-Tazob PHA 09/17/24 In Process 1g/0.5g Vl (Zerbaxa 1g 22:00 * Infectious [place]- Dr. CONS 09/17/24 Transmitted Mallad 15:13 * Hematology/Oncology CONS 09/17/24 Transmitted Consult 15:22 Modified Resuscitive CODE 09/17/24 Transmitted Measures Code Status CODE 09/17/24 Transmitted 18:04 Dietary Evaluation Review Comments: 1) If GI is accessible, consider Jevity 1.2 @ 35 ml/hr x 24hr goal rate as tolerated 2) Consider 1 pkt BEN BID for wound 3) If pt remains NPO >7 days consider TPN to meet at least 75% of estimated needs Expected Outcomes/Goals: 1) Pt to receive nutrition support within 7 days of NPO status 2) F/U in 2-3 days MALDONADO LOPEZ RESIDENT Sep 17, 2024 18:28
--- NOTE | 2024-09-17 20:09 | DVHPN2 ---
Progress Note - Dictate Date Seen: Sep 17, 2024 Medical Necessity Reason Pt with a Central, PICC or Fol: No Subjective Mr. Delgado is a 29 years old gentleman with a history of Grampian's disease, the patient was brought to the hospital on 08/3024 with a chief company of altered mental status. I have seen and examined the patient, I have talked to his nurse, the patient is intubated, sedated, he is nonresponsive to painful stimuli, pupils are small and nonreactive UDS, 09/06/2024: Negative Plasma alcohol, 09/06/2019 5:3.3 Urinalysis, 09/06/2024: WBC: 8, urine leukocyte esterase: 1+, urine nitrate: 1+ WBC/HB/PLT/MCV, 09/13/2024: 6/9.4/56/92.5, 09/17/2024: 0.6/7.3/93/ PT/INR/PTT, 16.9/1.68/30.2 BMP, 09/13/2024: Unremarkable HCO3 :34 . TBI/AST/ALT/AP, 09/13/2024: 1.5/103/426/328, 09/17/2024: 0.6/27/143/202 Hepatitis panel, 09/06/2024: Negative Chest x-ray, 09/07/2024:Lines and tubes in satisfactory position. No significant interval change (Endotracheal tube and enteric catheter in satisfactory position) Chest x-ray, 09/17/19 25: 1. Appropriate position of the support lines and tubes. 2. Right upper and right basilar opacity which may reflect atelectasis or pneumonia. CT head, 09/06/2024: No acute intracranial abnormality vital signs Vital Sign Date Time Temp Pulse Resp B/P (MAP) Pulse Ox O2 Delivery O2 Flow Rate FiO2 09/17/24 18:05 68 19 103/63 (76) 100 30 09/17/24 18:00 Mechanical Ventilator+ 09/17/24 16:00 98.4 98.4 Total Intake and Output 09/16/24 09/16/24 09/17/24 15:00 23:00 07:00 Intake Total 754.00 ml 608.58 ml 1010.67 ml Output Total 350 ml 350 ml Balance 754.00 ml 258.58 ml 660.67 ml medications Current Medications Medications Dose Ordered Sig/Gisselle Route Start Time Stop Time Status Last Admin Dose Admin Vancomycin HCl 0 ml @ 0 mls/hr UD IV 09/06/24 17:15 Fentanyl Citrate 250 ml @ 2.5 mls/hr Q24H IV 09/06/24 17:45 09/17/24 17:19 17.5 MLS/HR Midazolam HCl 50 ml @ 1 mls/hr Q24H IV 09/06/24 19:45 09/17/24 17:17 3 MLS/HR Pantoprazole Sodium 40 mg DAILY IV 09/07/24 10:00 09/17/24 09:21 40 MG Acetaminophen 650 mg Q6HP PRN [place] 09/07/24 05:30 Dextrose 1,000 ml @ 30 mls/hr Q24H IV 09/07/24 20:45 09/14/24 04:14 30 MLS/HR Artificial Tears 2 drop Q6HR EACHEYE 09/09/24 00:00 09/17/24 17:28 2 DROP Enteral Nutritional Formula 1,000 ml 30ML/HR GT 09/09/24 20:00 09/17/24 05:56 1,000 ML Ipratropium [place] 0.5 mg Q4HPRN PRN NEB 09/13/24 13:30 09/16/24 06:45 0.5 MG Albuterol 2.5 mg Q4HPRN PRN NEB 09/13/24 13:30 09/16/24 06:45 2.5 MG Norepinephrine Bitartrate 250 ml @ 3.75 mls/hr Q24H IV 09/13/24 18:15 09/17/24 17:18 3.75 MLS/HR Docusate Sodium 100 mg BID GT 09/14/24 22:00 09/17/24 09:21 100 MG Sodium Chloride 10 ml QSHIFT@10,22 IV 09/15/24 22:00 09/17/24 09:21 10 ML Tobramycin Sulfate 0 ml @ 0 mls/hr PER PHARMACY IV 09/16/24 19:00 UNV Vancomycin HCl 100 ml @ 100 mls/hr Q11H IV 09/17/24 11:00 09/17/24 11:00 100 MLS/HR Diagnostic Test (Pha) 1 strip Q6HR 09/17/24 12:00 09/17/24 17:27 1 STRIP Insulin Human Regular Q6HR SC 09/17/24 12:00 Dextrose 50 ml UD PRN IV 09/17/24 12:15 Ceftolozane/ Tazobactam 3 gm/ Dextrose 100 ml @ 100 mls/hr Q8HR IV 09/17/24 22:00 objective The patient is the cachectic. The patient is intubated MENTAL STATUS: Subjective CRANIAL NERVES: Pupils are equal, round and reactive.There are corneal reflexes and doll's eyes phenomenon. No signs of facial weakness. There are gagging or coughing reflexes SENSATION: Okay to light painful stimuli MOTOR: Normal tone in the upper and lower extremity. Diffuse muscle atrophy. No fasciculations. No spontaneous movement. No spontaneous extremity movement REFLEXES: Deep tendon reflexes are symmetrical. No pathological reflexes. CEREBELLAR/COORDINATION: Deferred GAIT/STATION: deferred. laboratory and microbiology Laboratory Tests 09/17/24 03:23 Test 09/17/24 03:23 Range/Units Serum Glucose 130 H 74-106 mg/dL Problem List Altered mental status Metabolic encephalopathy Hypoxic encephalopathy Toxic encephalopathy Urinary tract infection Sepsis Hypoglycemia Respiratory failure Brittany's disease General weakness Gait disturbance/bed-bound Bradycardia Assessment/Plan Monitoring Supportive treatment Follow-up lab Stabilize vitals Respiratory support/vent management IV antibiotics Tube feeding Follow with his [place] [facility] on discharge More recommendation per clinical course This medical document was created using an electronic medical record system with [employer] dictation system. Although this document has been carefully reviewed, there may still be some phonetic and typographical errors. These areas are purely typographical due to imperfections of the software programs, and do not reflect any compromise in the patient's medical care Prognosis guarded Dietary Evaluation Review Comments: 1) If GI is accessible, consider Jevity 1.2 @ 35 ml/hr x 24hr goal rate as tolerated 2) Consider 1 pkt BEN BID for wound 3) If pt remains NPO >7 days consider TPN to meet at least 75% of estimated needs Expected Outcomes/Goals: 1) Pt to receive nutrition support within 7 days of NPO status 2) F/U in 2-3 days Plan discussed with: Other ALISHA LOVE MD Sep 17, 2024 20:09
--- NOTE | 2024-09-17 20:27 | DVHINCON2 ---
Date of service: Sep 17, 2024 Reason for Consultation Sepsis History of Present Illness Patient is 29-year-old male presents to the hospital, brought by family member for evaluation of altered level of consciousness. Patient's mother reports that patient was not responding to commands, head gestures of upper arm contractions, low temperature that prompted visit to emergency department. Patient was intubated in ED, he was unresponsive with hypoglycemia. At the time of evaluation patient was intubated , on dopamine for bradycardia, received antibiotics and on D10 IV fluids for hypoglycemia. Past Medical History Patient's past medical history is significant for [place] disease, asymptomatic bradycardia, vitamin-D deficiency, left lower lobe solitary nodules, status post PEG tube placement in mid of 2023. Past Surgical History Surgical history: Peg tube placement in 2023. Family History: Diabetes during grandmother, Onset:40's - 50 Hypertension grandmother, Onset:50's - 60 Allergies: Coded Allergies: NO KNOWN ALLERGIES (Unverified , 09/07/18) Home Meds Active Scripts Nutritional Supplements (JEVITY 1 FELIPA) Liq, 1 BOT OR DAILY for 30 Days, #30 LIQ Prov:HAILE MILLIGAN RESIDENT 05/11/24 Ergocalciferol (VITAMIN D 51547 UNIT) 50,000 [place], [address] UNIT PO Q7D for 30 D ays, #10 CAP Prov:HAILE MILLIGAN [facility] 05/10/24 Nutritional Supplements (ENSURE CLEAR) Bbry/Pom Liq, 240 ML GT Q6HR for 30 Days, #120 LIQ Prov:HAILE MLILIGAN [facility] 04/29/24 Azithromycin (ZITHROMAX TABLET) 250 Mg Tb, 250 MG PO DAILY for 3 Days, #3 TAB Prov:HAILE MILLIGAN [facility] 04/29/24 Reported Medications Azelastine Hcl (Ophth) (Azelastine Hcl) 0.05 % Ketan, 1 DROP EACHEYE BID, #6 ML 2 Refills 04/25/24 Current Medications Current Medications Medications (Trade) Dose Ordered Sig/Gisselle Route PRN Reason Start Time Stop Time Status Last Admin Ceftazidime Sodium 2.5 gm/ Dextrose 100 ml @ 33.333 mls/ hr Q8H IV 09/16/24 22:00 09/17/24 15:18 DC 09/17/24 14:36 Diagnostic Test (Pha) (Accu-Chek Comfort Curve T) 1 strip Q6HR 09/17/24 09:00 09/17/24 13:29 DC Vancomycin HCl 100 ml @ 100 mls/hr Q11H IV 09/17/24 11:00 09/17/24 11:00 Diagnostic Test (Pha) (Accu-Chek Comfort Curve T) 1 strip Q6HR 09/17/24 12:00 09/17/24 17:27 Insulin Human Regular (InsuLIN R) Q6HR SC 09/17/24 12:00 Dextrose 50 ml UD PRN IV Blood Sugar LESS THAN 60 09/17/24 12:15 Ceftolozane/ Tazobactam 3 gm/ Dextrose 100 ml @ 100 mls/hr Q8HR IV 09/17/24 22:00 Review of Systems Unable to assess, patient in intubated. Vital Signs Vital Signs Date Time Temp Pulse Resp B/P (MAP) Pulse Ox O2 Delivery O2 Flow Rate FiO2 09/17/24 20:07 68 20 100/64 (76) 100 30 09/17/24 18:00 Mechanical Ventilator+ 09/17/24 16:00 98.4 98.4 Physical Exam General Appearance: Ventilated and sedated. Head Exam: Normal inspection Neck Exam: Normal inspection. Non-tender. Normal alignment Pulmonary/Respiratory: Chest non-tender. Clear bilateral breath sounds Cardiovascular/Chest: Regular rate and rhythm. No murmurs. No JVD. Peripheral Pulses: 2+ Radial (R). 2+ Radial (L). 2+ Pedal (R). 2+ Pedal (L) Abdominal Exam: Normal bowel sounds. Soft. Nontender. No hepatospenomegaly. No masses Ankle Exam: Negative ankle edema Lower extremities: Negative lower extremity edema Neuro/Mental Status: Sedated, pupillary reflex present. Labs/Diagnostic Data Labs Test 09/17/24 17:20 09/17/24 08:26 09/17/24 03:23 09/16/24 23:09 Range/Units POC Glucose 109 H 70-106 mg/dl Blood Gas Specimen Type Arterial Blood Gas Sample Site Right brachial Blood Gas Patient Temperature 37.0 Arterial Blood Date Drawn [id number] Arterial Blood pH 7.441 7.350-7.450 Arterial Blood Partial Pressure CO2 49.7 H 35.0-48.0 mmHg Arterial Blood Partial Pressure O2 122.8 H 83.0-108.0 mmHg Arterial Blood HCO3 33.1 H 21.0-28.0 mmol/L Arterial Blood Oxygen Saturation 97.8 94.0-98.0 % Arterial Blood Base Excess 8.0 H -2.0-3.0 mmol/L Arterial Blood Oxyhemoglobin 96.9 94.0-98.0 % Arterial Blood Carboxyhemoglobin 0.3 L 0.5-1.5 % Arterial Blood Methemoglobin 0.6 0.0-1.5 % Yasir Test N/a Blood Gas Total Hemoglobin 9.10 L 13.5-17.5 g/dL Blood Gas Set Respiration Rate 14.0 Blood Gas Modality Vent - ac Blood Gas Spontaneous Rate 15 FiO2 % 30.0 Blood Gas Tidal Volume 350.0 Blood Gas PEEP or CPAP 5.0 Specimen Drawn By Lexi escobar White Blood Count 0.6 #*L 4.4-10.8 10^3/uL Red Blood Count 2.20 L 4.5-5.90 10^6/uL Hemoglobin 7.3 L 13.5-17.5 g/dL Hematocrit 20.4 L 41.0-53.0 % Mean Corpuscular Volume 93.0 80.0-100.0 fL Mean Corpuscular Hemoglobin 33.3 H 28.0-32.0 pg Mean Corpuscular Hemoglobin Concent 35.8 32.0-36.0 g/dL Red Cell Distribution Width 12.8 11.8-14.3 % Platelet Count 93 L 140-450 10^3/uL Mean Platelet Volume 7.9 6.9-10.8 fL Neutrophils (%) (Auto) 37.0-80.0 % Lymphocytes (%) (Auto) 10.0-50.0 % Monocytes (%) (Auto) 0.0-12.0 % Basophils (%) (Auto) 0.0-2.0 % Neutrophils # (Auto) 1.6-8.6 10 ^3/uL Lymphocytes # (Auto) 0.4-5.4 10 ^3/uL Monocytes # (Auto) 0-1.3 10 ^3/uL Differential Total Cells Counted 100.0 100 Neutrophils % (Manual) 3 L 37.0-80.0 Band Neutrophils % (Manual) 0 Lymphocytes % (Manual) 49 10.0-50.0 Monocytes % (Manual) 43 H 0-12 Eosinophils % (Manual) 5 0-7 Basophils % (Manual) 0 0.0-2.0 Metamyelocytes % (manual) 0 Myelocytes % (Manual) 0 Promyelocytes % (Manual) 0 Blast Cells % (Manual) 0 Reactive Lymphocytes 0 Platelet Estimate Decreased Sodium Level 136 136-145 mmol/L Potassium Level 3.9 3.5-5.1 mmol/L Chloride Level 101 98-107 mmol/L Carbon Dioxide Level 34 H 20-31 mmol/L Anion Gap 1 L 5-15 Blood Urea Nitrogen 11 9-23 mg/dL Creatinine 0.34 L 0.700-1.30 mg/dL Glomerular Filtration Rate Calc 159 >90 mL/min BUN/Creatinine Ratio 32.4 H 10.0-20.0 Serum Glucose 130 H 74-106 mg/dL Calcium Level 7.9 L 8.7-10.4 mg/dL Magnesium Level 1.8 1.6-2.6 mg/dL Total Bilirubin 0.6 0.2-1.0 mg/dL Aspartate Amino Transferase (AST) 27 13-40 U/L Alanine Aminotransferase (ALT) 143 H 7-40 U/L Alkaline Phosphatase 202 H 46-116 U/L Total Protein 4.0 L 5.7-8.2 g/dL Albumin 2.3 L 3.2-4.8 g/dL Vancomycin Level Trough 13.8 H 5-10 ug/mL Test 09/16/24 14:50 09/16/24 05:25 09/16/24 03:05 09/15/24 03:12 Range/Units Eosinophils (%) (Auto) 4.9 0.0-7.0 % Eosinophils # (Auto) 0 0-0.8 10 ^3/uL Basophils # (Auto) 0 0-0.2 10 ^3/uL Nucleated Red Blood Cells 2.1 % Lactic Acid Level 0.8 0.4-2.0 mmol/L Direct Bilirubin 0.5 H <0.3 mg/dL Random Vancomycin Level 10.5 H 5-10 ug/mL Test 09/14/24 14:19 09/13/24 16:15 09/13/24 12:03 09/13/24 09:55 Range/Units Prothrombin Time 13.4 H 9.3-11.8 sec Prothrombin Time INR 1.30 H 0.9-1.15 Activated Partial Thromboplast Time 28.8 24.5-34.5 SEC Blood Gas EPAP 5 Blood Gas IPAP 10 Blood Gas Critical Value Read Back Yes Blood Gas Notified Whom Blood Gas Notified Time [id number] Blood Gas Notified By Utility Agent jermaine Blood Gas Pressure Support 8 Test 09/13/24 03:15 09/10/24 03:22 09/07/24 11:53 09/07/24 04:58 Range/Units Phosphorus Level 1.9 L 2.4-5.1 mg/dL Thyroid Stimulating Hormone (TSH) 2.38 0.55-4.78 uIU/mL Ammonia 35 H 11-32 umol/L Acetaminophen Level < 2.0 L 10.0-20.0 UG/ML Hemoglobin A1c 4.7 <5.7 % A1C Test 09/07/24 01:00 09/06/24 21:30 09/06/24 18:00 09/06/24 17:05 Range/Units Lipase 49 12-53 U/L Troponin I High Sensitivity 10 </=54 ng/L Plasma/Serum Blood Alcohol 3.3 <10 mg/dL Hepatitis A IgM Antibody Negative Hepatitis B Surface Antigen Negative Negative Hepatitis B Core IgM Antibody Negative Negative Hepatitis C Antibody Negative Negative Urine Color Yellow Yellow Urine Clarity Clear Clear Urine pH 6.0 5.0-9.0 Urine Specific [place] 1.019 1.001-1.035 Urine Protein Negative Negative Urine Ketones Negative Negative Urine Blood Trace H Negative /uL Urine Nitrite 1+ H Negative Urine Bilirubin Negative Negative Urine Urobilinogen 3 H Negative mg/dL Urine Leukocyte Esterase 1+ Negative /uL Urine RBC 1 0 - 3 /hpf Urine WBC 8 0 - 3 /hpf Urine Squamous Epithelial Cells Few <5 /hpf Urine Bacteria None seen None Seen /hpf Urine Hyaline Casts Mod 0 - 2 /lpf Urine Mucus Few None Seen Urine Glucose 3+ H Normal mg/dL Urine Opiates Screen Neg NEGATIVE Urine Fentanyl Screen Neg NEGATIVE Urine Barbiturates Screen Neg NEGATIVE Urine Phencyclidine Screen Neg NEGATIVE Urine Amphetamines Screen Neg NEGATIVE Urine Benzodiazepines Screen Neg NEGATIVE Urine Cocaine Screen Neg NEGATIVE Urine Cannabinoids Screen Neg NEGATIVE Microbiology Date/Time Source Procedure Growth Status 09/15/24 18:20 Catheter Site Aerobic Culture - Preliminary Resulted 09/13/24 18:20 Sputum Gram Stain - Final Complete 09/13/24 18:20 Respiratory Culture - Final Pseudomonas aeruginosa Complete 09/10/24 18:02 Blood Blood Culture - Final NO GROWTH AFTER 5 DAYS OF INCUBATION. Complete 09/06/24 17:05 Urine - [place] Urine Culture - Final Staphylococcus aureus Complete Assessment Patient is a 29-year-old male presented to the hospital with: Sepsis likely due to UTI Acute metabolic encephalopathy Altered mental status likely due to sepsis Acute hypoxic respiratory failure UTI Asymptomatic bradycardia Transaminitis with hyperbilirubinemia Severe hypoglycemia Hyperkalemia Recommendations: Antibiotic status: Ceftolozane/Tazobactam IV [Started on 09/17] Vancomycin IV [Started on 09/06] Ceftazidime Sodium IV [Started on 09/16] Vancomycin Trough on 09/16 is 13.8 Patient is on pressors WBC count low Culture review: 09/15, Aerobic culture preliminary showed no growth 09/13, Sputum culture showed Pseudomonas aeruginosa 09/10, Blood culture showed no growth 09/07, Wound culture showed Enterobacter cloacae, Enterococcus faecalis, Enterobacter aerogenes and Pseudomonas aeruginosa 09/07, MRSA screening negative 09/06, Urine culture showed Staphylococcus Aureus Thank you for consult. AYUSH SHI MD Sep 17, 2024 20:27
[2024-09-17] MEDS: CeftoloZANE-TAZOB 3 GM in D5W 5% 100 ML IV SCH (23:16)
[2024-09-18] VITALS (108 sets, daily range): BP systolic 91–135; BP diastolic 50–86; PULSE 49–119; RESP 12–25; TEMP 97–98.8; O2SAT 9–100
[2024-09-18 03:59] LABS: Hematocrit 21.8 % (41.0-53.0); Hemoglobin 7.7 g/dL (13.5-17.5); Mean Corpuscular Hemoglobin 33.5 pg (28.0-32.0); Mean Corpuscular Hgb Conc. 35.5 g/dL (32.0-36.0); Mean Corpuscular Volume 94.6 fL (80.0-100.0); Platelet Count (auto) 85 10^3/uL (140-450); Red Cell Distribution Width 12.9 % (11.8-14.3)
[2024-09-18 04:01] LABS: White Blood Cell 0.8 10^3/uL (4.4-10.8)
[2024-09-18 04:03] LABS: Band Neutrophils % (manual) 0; Basophils % (manual) 0 (0.0-2.0); Blast Cells 0; Metamyelocytes % 0; Myelocytes % 0; Promyelocytes % 0; Reactive Lymphocytes 0
[2024-09-18 04:18] LABS: Anion Gap 0 (5-15); Aspartate Aminotransferase 33 U/L (13-40); BUN/Creatinine Ratio 26.2 (10.0-20.0); Blood Urea Nitrogen 11 mg/dL (9-23); Chloride 102 mmol/L (98-107); Glucose 94 mg/dL (74-106); Magnesium 1.8 mg/dL (1.6-2.6); Potassium 4.3 mmol/L (3.5-5.1)
[2024-09-18 04:19] LABS: Alanine Aminotransferase 123 U/L (7-40); Albumin 2.3 g/dL (3.2-4.8); Alkaline Phosphatase 182 U/L (46-116); Bilirubin, Total 0.6 mg/dL (0.2-1.0); Carbon Dioxide 34 mmol/L (20-31); Sodium 136 mmol/L (136-145)
[2024-09-18 04:45] LABS: Eosinophils % (manual) 2 (0-7); Lymphocytes % (manual) 54 (10.0-50.0); Monocytes % (manual) 42 (0-12); Platelet Estimate Decreased
--- NOTE | 2024-09-18 06:18 | DVH ---
CHEST RADIOGRAPH Indication: mech vent Technique: Single frontal view of the chest was obtained Comparison: XY CHEST PORTABLE on DOS: 09/17/24, XY CHEST PORTABLE on DOS: 09/16/24, XY CHEST PORTABLE o n DOS: 09/15/24 IMPRESSION: Heart appears normal in size. No sizable effusion or pneumothorax. Possible patchy airspace opacity in the right lower lung appears more prominent. Endotracheal tube and right PICC line appear unchange d in satisfactory position.
[2024-09-18 07:57] LABS: Base Excess 8.8 mmol/L (-2.0-3.0)
[2024-09-18 08:23] LABS: Chloride 100 mmol/L (98-107); Potassium 4.8 mmol/L (3.5-5.1)
[2024-09-18 08:24] LABS: Anion Gap 2 (5-15)
[2024-09-18 08:29] LABS: BUN/Creatinine Ratio 23.2 (10.0-20.0); Blood Urea Nitrogen 13 mg/dL (9-23); Glucose 85 mg/dL (74-106)
[2024-09-18 08:36] LABS: Carbon Dioxide 34 mmol/L (20-31); Sodium 136 mmol/L (136-145)
[2024-09-18] MEDS: SODIUM CHLORIDE 0.9% 500 ML IV ONE (11:20)
--- NOTE | 2024-09-18 13:44 | DVHPN2 ---
Subjective Intubated and sedated Reviewed: Care Plan, H&P, Labs, Medications, Previous Orders, Radiology, Other (Consultations) Changes from previous H/P or p: No Changes Objective Vitals Vital Signs Date Time Temp Pulse Resp B/P (MAP) Pulse Ox O2 Delivery O2 Flow Rate FiO2 09/18/24 13:30 65 13 116/73 (87) 98 09/18/24 12:00 Mechanical Ventilator+ 30 30 09/18/24 12:00 97.6 97.6 Intake/Output Intake and Output 09/18/24 07:00 Intake Total 1793.00 ml Output Total 650 ml Balance 1143.00 ml Intake Oral 60 ml IV Total 999.00 ml Tube Feeding 734 ml Output Urine Total 650 ml General Appearance: Other (Intubated and sedated) HEENT: Atraumatic Lungs: Other (Mechanical ventilation sounds) Cardiovascular: Regular rate, Normal S1, Normal S2 Abdomen: Soft, Other (Decreased bowel sounds; G-tube in place) Genitourinary: Other (Lilly's) Neuro: Other (Sedated) Skin: Other (Sacral decubitus ulcer; dressed) Psych/Mental Status: Other (Sedated) Medications Current Medications Medications Dose Ordered Sig/Gisselle Route Start Time Stop Time Status Last Admin Dose Admin Vancomycin HCl 0 ml @ 0 mls/hr UD IV 09/06/24 17:15 Fentanyl Citrate 250 ml @ 2.5 mls/hr Q24H IV 09/06/24 17:45 09/18/24 06:18 17.5 MLS/HR Midazolam HCl 50 ml @ 1 mls/hr Q24H IV 09/06/24 19:45 09/18/24 06:17 3 MLS/HR Pantoprazole Sodium 40 mg DAILY IV 09/07/24 10:00 09/18/24 09:19 40 MG Acetaminophen 650 mg Q6HP PRN MN 09/07/24 05:30 Dextrose 1,000 ml @ 30 mls/hr Q24H IV 09/07/24 20:45 09/14/24 04:14 30 MLS/HR Artificial Tears 2 drop Q6HR EACHEYE 09/09/24 00:00 09/18/24 12:13 2 DROP Enteral Nutritional Formula 1,000 ml 30ML/HR GT 09/09/24 20:00 09/18/24 05:10 1,000 ML Ipratropium [place] 0.5 mg Q4HPRN PRN NEB 09/13/24 13:30 09/16/24 06:45 0.5 MG Albuterol 2.5 mg Q4HPRN PRN NEB 09/13/24 13:30 09/16/24 06:45 2.5 MG Norepinephrine Bitartrate 250 ml @ 3.75 mls/hr Q24H IV 09/13/24 18:15 09/17/24 17:18 3.75 MLS/HR Docusate Sodium 100 mg BID GT 09/14/24 22:00 09/18/24 09:19 100 MG Sodium Chloride 10 ml QSHIFT@10,22 IV 09/15/24 22:00 09/18/24 09:19 10 ML Tobramycin Sulfate 0 ml @ 0 mls/hr PER PHARMACY IV 09/16/24 19:00 UNV Diagnostic Test (Pha) 1 strip Q6HR 09/17/24 12:00 09/18/24 12:14 1 STRIP Insulin Human Regular Q6HR SC 09/17/24 12:00 Dextrose 50 ml UD PRN IV 09/17/24 12:15 Ceftolozane/ Tazobactam 3 gm/ Dextrose 100 ml @ 100 mls/hr Q8HR IV 09/17/24 22:00 09/18/24 05:17 100 MLS/HR Laboratory Results Laboratory Tests 09/18/24 03:26 09/18/24 07:48 Chemistry Test 09/18/24 03:26 09/18/24 07:48 Albumin 2.3 g/dL (3.2-4.8) L Calcium Level 8.0 mg/dL (8.7-10.4) L 8.0 mg/dL (8.7-10.4) L Magnesium Level 1.8 mg/dL (1.6-2.6) Total Protein 4.0 g/dL (5.7-8.2) L LFT Test 09/18/24 03:26 Alanine Aminotransferase (ALT) 123 U/L (7-40) H Alkaline Phosphatase 182 U/L (46-116) H Aspartate Amino Transferase (AST) 33 U/L (13-40) Total Bilirubin 0.6 mg/dL (0.2-1.0) Urinalysis Test 09/06/24 17:05 Urine Color Yellow (Yellow) Urine Clarity Clear (Clear) Urine pH 6.0 (5.0-9.0) Urine Specific [place] 1.019 (1.001-1.035) Urine Protein Negative (Negative) Urine Ketones Negative (Negative) Urine Blood Trace /uL (Negative) H Urine Nitrite 1+ (Negative) H Urine Bilirubin Negative (Negative) Urine Urobilinogen 3 mg/dL (Negative) H Urine Leukocyte Esterase 1+ /uL (Negative) Urine RBC 1 /hpf (0 - 3) Urine WBC 8 /hpf (0 - 3) Urine Squamous Epithelial Cells Few /hpf (<5) Urine Bacteria None seen /hpf (None Seen) Urine Hyaline Casts Mod /lpf (0 - 2) Urine Mucus Few (None Seen) Urine Glucose 3+ mg/dL (Normal) H Blood Gas Results Test 09/18/24 07:20 Arterial Blood pH 7.442 (7.350-7.450) FiO2 % 30.0 Microbiology Microbiology Date/Time Source Procedure Growth Status 09/15/24 18:20 Catheter Site Aerobic Culture - Preliminary Resulted 09/13/24 18:20 Sputum Gram Stain - Final Complete 09/13/24 18:20 Respiratory Culture - Final Pseudomonas aeruginosa Complete 09/10/24 18:02 Blood Blood Culture - Final NO GROWTH AFTER 5 DAYS OF INCUBATION. Complete 09/06/24 17:05 Urine - [place] Urine Culture - Final Staphylococcus aureus Complete Labs and/or images reviewed: Labs reviewed by me, Image(s) reviewed by me Assessment/Plan Assessment/Plan Covering Dr. Kaminski: #Acute hypoxic/metabolic/toxic encephalopathy in the setting of septic shock; currently intubated and sedated; reviewed brain imaging; neurology is following; continue close monitoring #Septic shock due to aspiration pneumonia, UTI, and infected ulcers; reviewed the available cultures; reviewed the draft note of Infectious Disease; continue current IV antibiotics; continue IV vasopressors as needed; continue close monitoring #Acute on chronic hypoxic respiratory failure due to aspiration pneumonia; on mechanical ventilation (intubated initially on the August, then extubated on the 13 September 2024 and later on reintubated on the August,); reviewed available ABGs and chest x-rays; IV antibiotics as per infectious disease; reviewed available sputum cultures; continue close monitoring #Sinus bradycardia; resolved; was on dopamine infusion; continue close monitoring #Advanced Brittany's disease; bedridden with multiple decubitus ulcers; status post G- tube; patient was nonverbal; continue close monitoring #Elevated LFTs due to septic shock; avoid hepatotoxic agents; continue close monitoring #Distended stomach and large intestine; continue low intermittent suction via NG tube; reviewed available imaging studies; continue close monitoring #Electrolytes disturbances; correct and replace electrolytes as indicated; continue close monitoring #Pancytopenia in the setting of septic shock; hematology/oncology consulted; changed IV antibiotics suspected of causing leukopenia; protective isolation; continue close monitoring #Engorged hepatic vein; unclear etiology; incidental finding on imaging studies; continue close monitoring #Hypoglycemia; most likely due to septic shock; on D/W fluids; on tube feeding; continue close monitoring #Infected sacral decubitus ulcer; present on admission; reviewed wound cultures; wound care is following; continue IV antibiotics as per infectious disease; continue close monitoring 130 minutes of critical care time. Late Entry. This medical document was created using an electronic medical record system with computerized dictation system. Although this document has been carefully reviewed, there might still be some phonetic and typographical errors. These areas are purely typographical due to imperfections of the software programs, and do not reflect any compromise in the patient's medical care. Plan discussed with: Other (Nurse) Date of Service: Sep 18, 2024 Billing Provider: DERRELL GASTON MD Common Visit Codes: 98799-ADTMSSFG CARE 30-74 MIN (130 minutes ), 66835- CRITICAL CARE-EACH +30MIN DERRELL GASTON MD Sep 18, 2024 13:44
[2024-09-18] MEDS: VANCOMYCIN 750MG KIT 100 ML IV ONE (18:38)
--- NOTE | 2024-09-18 23:22 | DVHPN2 ---
Progress Note - Dictate Date Seen: Sep 18, 2024 Medical Necessity Reason Pt with a Central, PICC or Fol: No Subjective Mr. Delgado is a 29 years old gentleman with a history of Early's disease, the patient was brought to the hospital on 08/3024 with a chief company of altered mental status. I have seen and examined the patient, I have talked to his nurse, the patient is intubated, sedated, but is awake, he follows verbal commands, he moves all the extremities Fentanyl 175 mcg/hour, Versed 4 mg/hour, levo 2 mcg/minute UDS, 09/06/2024: Negative Plasma alcohol, 09/06/2019 5:3.3 Urinalysis, 09/06/2024: WBC: 8, urine leukocyte esterase: 1+, urine nitrate: 1+ WBC/HB/PLT/MCV, 09/13/2024: 6/9.4/56/92.5, 09/17/2024: 0.6/7.3/93/ PT/INR/PTT, 16.9/1.68/30.2 BMP, 09/13/2024: Unremarkable HCO3 :34 . TBI/AST/ALT/AP, 09/13/2024: 1.5/103/426/328, 09/17/2024: 0.6/27/143/202 Hepatitis panel, 09/06/2024: Negative Chest x-ray, 09/07/2024:Lines and tubes in satisfactory position. No significant interval change (Endotracheal tube and enteric catheter in satisfactory position) Chest x-ray, 09/17/19 25: 1. Appropriate position of the support lines and tubes. 2. Right upper and right basilar opacity which may reflect atelectasis or pneumonia. CT head, 09/06/2024: No acute intracranial abnormality vital signs Vital Sign Date Time Temp Pulse Resp B/P (MAP) Pulse Ox O2 Delivery O2 Flow Rate FiO2 09/18/24 23:00 57 13 103/64 (77) 97 09/18/24 22:00 Mechanical Ventilator+ 30 30 09/18/24 20:00 97.1 97.1 Total Intake and Output 09/17/24 09/17/24 09/18/24 15:00 23:00 07:00 Intake Total 314.75 ml 631.25 ml 847.00 ml Output Total 375 ml 275 ml Balance 314.75 ml 256.25 ml 572.00 ml medications Current Medications Medications Dose Ordered Sig/Gisselle Route Start Time Stop Time Status Last Admin Dose Admin Vancomycin HCl 0 ml @ 0 mls/hr UD IV 09/06/24 17:15 Fentanyl Citrate 250 ml @ 2.5 mls/hr Q24H IV 09/06/24 17:45 09/18/24 06:18 17.5 MLS/HR Midazolam HCl 50 ml @ 1 mls/hr Q24H IV 09/06/24 19:45 09/18/24 06:17 3 MLS/HR Pantoprazole Sodium 40 mg DAILY IV 09/07/24 10:00 09/18/24 09:19 40 MG Acetaminophen 650 mg Q6HP PRN ND 09/07/24 05:30 Dextrose 1,000 ml @ 30 mls/hr Q24H IV 09/07/24 20:45 09/14/24 04:14 30 MLS/HR Artificial Tears 2 drop Q6HR EACHEYE 09/09/24 00:00 09/18/24 18:13 2 DROP Enteral Nutritional Formula 1,000 ml 30ML/HR GT 09/09/24 20:00 09/18/24 05:10 1,000 ML Ipratropium [place] 0.5 mg Q4HPRN PRN NEB 09/13/24 13:30 09/16/24 06:45 0.5 MG Albuterol 2.5 mg Q4HPRN PRN NEB 09/13/24 13:30 09/16/24 06:45 2.5 MG Norepinephrine Bitartrate 250 ml @ 3.75 mls/hr Q24H IV 09/13/24 18:15 09/18/24 18:34 3.75 MLS/HR Docusate Sodium 100 mg BID GT 09/14/24 22:00 09/18/24 21:48 100 MG Sodium Chloride 10 ml QSHIFT@10,22 IV 09/15/24 22:00 09/18/24 21:48 10 ML Tobramycin Sulfate 0 ml @ 0 mls/hr PER PHARMACY IV 09/16/24 19:00 UNV Diagnostic Test (Pha) 1 strip Q6HR 09/17/24 12:00 09/18/24 18:13 1 STRIP Insulin Human Regular Q6HR SC 09/17/24 12:00 Dextrose 50 ml UD PRN IV 09/17/24 12:15 Ceftolozane/ Tazobactam 3 gm/ Dextrose 100 ml @ 100 mls/hr Q8HR IV 09/17/24 22:00 09/18/24 14:51 100 MLS/HR objective The patient is the cachectic. The patient is intubated MENTAL STATUS: Subjective CRANIAL NERVES: Pupils are equal, round and reactive. He came but I did not see conjugated eye movement. No signs of facial weakness. There are gagging or coughing reflexes SENSATION: Okay to light painful stimuli MOTOR: Normal tone in the upper and lower extremity. Diffuse muscle atrophy. No fasciculations. No spontaneous movement. He can move the extremities, the muscle power is no less than 3/5 in all extremities REFLEXES: Deep tendon reflexes are symmetrical. No pathological reflexes. CEREBELLAR/COORDINATION: Deferred GAIT/STATION: deferred. laboratory and microbiology Laboratory Tests 09/18/24 07:48 09/18/24 03:26 Test 09/18/24 07:48 Range/Units Serum Glucose 85 74-106 mg/dL Problem List Altered mental status Metabolic encephalopathy Hypoxic encephalopathy Toxic encephalopathy Urinary tract infection Sepsis Hypoglycemia Respiratory failure Early's disease General weakness Gait disturbance/bed-bound Bradycardia Assessment/Plan Monitoring Supportive treatment Follow-up lab Stabilize vitals Respiratory support/vent management IV antibiotics Tube feeding Follow with his [place] [facility] on discharge More recommendation per clinical course This medical document was created using an electronic medical record system with [employer] dictation system. Although this document has been carefully reviewed, there may still be some phonetic and typographical errors. These areas are purely typographical due to imperfections of the software programs, and do not reflect any compromise in the patient's medical care Prognosis guarded Dietary Evaluation Review Comments: 1) If GI is accessible, consider Jevity 1.2 @ 35 ml/hr x 24hr goal rate as tolerated 2) Consider 1 pkt BEN BID for wound 3) If pt remains NPO >7 days consider TPN to meet at least 75% of estimated needs Expected Outcomes/Goals: 1) Pt to receive nutrition support within 7 days of NPO status 2) F/U in 2-3 days Plan discussed with: Other ALISHA LOVE MD Sep 18, 2024 23:22
--- NOTE | 2024-09-18 23:26 | DVHPN2 ---
Progress Note - Dictate Date Seen: Sep 18, 2024 Medical Necessity Reason Pt with a Central, PICC or Fol: No Subjective Patient seen and examined at bedside. Sedated, intubated on mechanical ventilator. Overnight events reviewed. vital signs Vital Sign Date Time Temp Pulse Resp B/P (MAP) Pulse Ox O2 Delivery O2 Flow Rate FiO2 09/18/24 23:00 57 13 103/64 (77) 97 09/18/24 22:00 Mechanical Ventilator+ 30 30 09/18/24 20:00 97.1 97.1 Total Intake and Output 09/17/24 09/17/24 09/18/24 15:00 23:00 07:00 Intake Total 314.75 ml 631.25 ml 847.00 ml Output Total 375 ml 275 ml Balance 314.75 ml 256.25 ml 572.00 ml medications Current Medications Medications Dose Ordered Sig/Gisselle Route Start Time Stop Time Status Last Admin Dose Admin Vancomycin HCl 0 ml @ 0 mls/hr UD IV 09/06/24 17:15 Fentanyl Citrate 250 ml @ 2.5 mls/hr Q24H IV 09/06/24 17:45 09/18/24 06:18 17.5 MLS/HR Midazolam HCl 50 ml @ 1 mls/hr Q24H IV 09/06/24 19:45 09/18/24 06:17 3 MLS/HR Pantoprazole Sodium 40 mg DAILY IV 09/07/24 10:00 09/18/24 09:19 40 MG Acetaminophen 650 mg Q6HP PRN [place] 09/07/24 05:30 Dextrose 1,000 ml @ 30 mls/hr Q24H IV 09/07/24 20:45 09/14/24 04:14 30 MLS/HR Artificial Tears 2 drop Q6HR EACHEYE 09/09/24 00:00 09/18/24 18:13 2 DROP Enteral Nutritional Formula 1,000 ml 30ML/HR GT 09/09/24 20:00 09/18/24 05:10 1,000 ML Ipratropium [place] 0.5 mg Q4HPRN PRN NEB 09/13/24 13:30 09/16/24 06:45 0.5 MG Albuterol 2.5 mg Q4HPRN PRN NEB 09/13/24 13:30 09/16/24 06:45 2.5 MG Norepinephrine Bitartrate 250 ml @ 3.75 mls/hr Q24H IV 09/13/24 18:15 09/18/24 18:34 3.75 MLS/HR Docusate Sodium 100 mg BID GT 09/14/24 22:00 09/18/24 21:48 100 MG Sodium Chloride 10 ml QSHIFT@10,22 IV 09/15/24 22:00 09/18/24 21:48 10 ML Tobramycin Sulfate 0 ml @ 0 mls/hr PER PHARMACY IV 09/16/24 19:00 UNV Diagnostic Test (Pha) 1 strip Q6HR 09/17/24 12:00 09/18/24 18:13 1 STRIP Insulin Human Regular Q6HR SC 09/17/24 12:00 Dextrose 50 ml UD PRN IV 09/17/24 12:15 Ceftolozane/ Tazobactam 3 gm/ Dextrose 100 ml @ 100 mls/hr Q8HR IV 09/17/24 22:00 09/18/24 14:51 100 MLS/HR objective Gen.: Patient lying in bed in medical ICU. Sedated, intubated on mechanical ventilator. Head: Normocephalic, atraumatic. Eyes: PERRLA. Ears: Normal external anatomy. Throat: Endotracheal tube and orogastric tube in place. Neck: Supple, trachea midline. Chest: Transmitted breath sounds bilaterally. Decreased air entry bilaterally. No wheezing. Bibasilar crackles. Cardiovascular: Positive S1, positive S2. Regular rate and rhythm. Abdomen: Positive bowel sounds in all 4 quadrants. Soft, nontender, nondistended. : Lilly in place. Normal external genitalia. Rectal: Deferred. Skin: Warm, dry. Intact. Extremities: 2+ radial pulses bilaterally. No lower extremity edema. Neuro: Sedated. laboratory and microbiology Laboratory Tests 09/18/24 07:48 09/18/24 03:26 Test 09/18/24 07:48 Range/Units Serum Glucose 85 74-106 mg/dL Assessment/Plan Impression: Acute hypoxic respiratory failure On mechanical ventilator Wellington's disease Acute metabolic encephalopathy Septic shock Aspiration pneumonia Urinary tract infection Events: Remains on vent support On AC mode; RR 14, VT 350, PEEP 5, FiO2 30% CXR reviewed. Devices in place. Possible patchy airspace opacity in the right lower lung appears more prominent. ABG reviewed, compensated. On pressors for hemodynamic support Levophed 2 mcg/min Titrate to keep mean arterial pressure greater than 65 mmHg. Sedated on Versed/Fentanyl. Tube feeds for nutritional support Hospice eval. Labs and imaging reviewed. Rest of plan as noted below Plan: s/p intubation on mechanical ventilator. On AC mode; RR 14, VT 350, PEEP 5, FiO2 30% Titrate FIO2 to keep O2 saturation above 90%. VAP bundle. Daily ABG and CXR while intubated Sedated for vent synchrony On pressors for hemodynamic support Titrate to keep mean arterial pressure greater than 65 mmHg. Continue antibiotics. Tube feeds/Clinimix for nutritional support Monitor renal function Monitor electrolytes. Supplement as necessary. Monitor ins and outs. D10W PRN for low blood sugars Consider tracheostomy for liberation from vent. GI prophylaxis. DVT prophylaxis. Prognosis: Poor given patient's multiple co-morbidities. Condition: Critical Rest of plan per hospitalist and other consultants. A total of 35 minutes of critical care time was spent reviewing the patient record, examining the patient, making a diagnostic and therapeutic plan, discussing this plan with the medical personnel, following up on diagnostic studies and following the patient for clinical stability excluding any and all procedures. At least 50% of this time was spent in direct, [id number] contact. Thank you, Dr. Feldman, for allowing me to participate in this patient's care. Further recommendations will depend on the patient's clinical course. Please do not hesitate to contact me if you have any questions or concerns. This medical document was created using an electronic medical record system with [employer] dictation system. Although these documentations are being carefully reviewed, there may still be some phonetic and typographical changes. The errors are purely typographical, due to imperfection on the software program, and do not reflect any compromise in the patient's medical care. Dietary Evaluation Review Comments: 1) If GI is accessible, consider Jevity 1.2 @ 35 ml/hr x 24hr goal rate as tolerated 2) Consider 1 pkt BEN BID for wound 3) If pt remains NPO >7 days consider TPN to meet at least 75% of estimated needs Expected Outcomes/Goals: 1) Pt to receive nutrition support within 7 days of NPO status 2) F/U in 2-3 days Plan discussed with: Other (SANTOSH Jimenez) Critical Care Time(min): 35 TIM CADENA MD Sep 18, 2024 23:26
[2024-09-19] VITALS (113 sets, daily range): BP systolic 94–122; BP diastolic 50–78; PULSE 57–104; RESP 11–27; TEMP 97–98.2; O2SAT 95–100
[2024-09-19 03:58] LABS: Hemoglobin 7.8 g/dL (13.5-17.5)
[2024-09-19 04:02] LABS: Hematocrit 21.9 % (41.0-53.0); Mean Corpuscular Hemoglobin 33.9 pg (28.0-32.0); Mean Corpuscular Hgb Conc. 35.9 g/dL (32.0-36.0); Mean Corpuscular Volume 94.4 fL (80.0-100.0); Platelet Count (auto) 117 10^3/uL (140-450); Red Blood Cells 2.32 10^6/uL (4.5-5.90); Red Cell Distribution Width 13.2 % (11.8-14.3)
[2024-09-19 04:20] LABS: Anion Gap 3 (5-15); Aspartate Aminotransferase 29 U/L (13-40); Blood Urea Nitrogen 16 mg/dL (9-23); Chloride 101 mmol/L (98-107); Potassium 4.5 mmol/L (3.5-5.1); Sodium 137 mmol/L (136-145)
[2024-09-19 04:21] LABS: Bilirubin, Total 0.6 mg/dL (0.2-1.0)
[2024-09-19 04:26] LABS: Alanine Aminotransferase 110 U/L (7-40); Albumin 2.4 g/dL (3.2-4.8); Alkaline Phosphatase 183 U/L (46-116); Calcium 8.3 mg/dL (8.7-10.4); Carbon Dioxide 33 mmol/L (20-31); Glucose 110 mg/dL (74-106); Total Protein 4.3 g/dL (5.7-8.2)
[2024-09-19 04:37] LABS: Band Neutrophils % (manual) 0; Basophils % (manual) 0 (0.0-2.0); Blast Cells 0; Metamyelocytes % 0; Myelocytes % 0; Promyelocytes % 0; Reactive Lymphocytes 0
--- NOTE | 2024-09-19 05:25 | DVH ---
CHEST RADIOGRAPH Indication: Intubated. Technique: Single frontal view of the chest was obtained Comparison: XY CHEST PORTABLE on DOS: 09/18/24, XY CHEST PORTABLE on DOS: 09/17/24, XY CHEST PORTABLE o n DOS: 09/16/24 IMPRESSION: Heart appears normal in size. There is patchy opacity in the left lower lung and right lower lung, si milar to prior examination. No sizable effusion or pneumothorax. Support lines and tubes appear unch anged in position.
[2024-09-19 05:31] LABS: Eosinophils % (manual) 3 (0-7); Lymphocytes % (manual) 56 (10.0-50.0); Monocytes % (manual) 30 (0-12); Platelet Estimate Decreased
[2024-09-19 08:44] LABS: Base Excess 9.1 mmol/L (-2.0-3.0)
--- NOTE | 2024-09-19 15:54 | DVHPN2 ---
Subjective Intubated and sedated Reviewed: Care Plan, H&P, Labs, Medications, Previous Orders, Radiology, Other (Consultations) Changes from previous H/P or p: No Changes Objective Vitals Vital Signs Date Time Temp Pulse Resp B/P (MAP) Pulse Ox O2 Delivery O2 Flow Rate FiO2 09/19/24 14:36 100/54 09/19/24 14:02 67 15 97 30 09/19/24 13:40 Mechanical Ventilator+ 09/19/24 10:00 98.2 98.2 Intake/Output Intake and Output 09/19/24 07:00 Intake Total 1522.75 ml Output Total 775 ml Balance 747.75 ml Intake Oral 110 ml IV Total 804.75 ml Tube Feeding 608 ml Output Urine Total 775 ml General Appearance: Other (Intubated and sedated) HEENT: Atraumatic Lungs: Other (Mechanical ventilation sounds) Cardiovascular: Regular rate, Normal S1, Normal S2 Abdomen: Soft, Other (Decreased bowel sounds; G-tube in place) Genitourinary: Other ([place]) Neuro: Other (Sedated) Skin: Other (Sacral decubitus ulcer; dressed) Psych/Mental Status: Other (Sedated) Medications Current Medications Medications Dose Ordered Sig/Gisselle Route Start Time Stop Time Status Last Admin Dose Admin Vancomycin HCl 0 ml @ 0 mls/hr UD IV 09/06/24 17:15 Fentanyl Citrate 250 ml @ 2.5 mls/hr Q24H IV 09/06/24 17:45 09/19/24 09:26 17.5 MLS/HR Midazolam HCl 50 ml @ 1 mls/hr Q24H IV 09/06/24 19:45 09/19/24 14:36 3 MLS/HR Pantoprazole Sodium 40 mg DAILY IV 09/07/24 10:00 09/19/24 09:32 40 MG Acetaminophen 650 mg Q6HP PRN GA 09/07/24 05:30 Dextrose 1,000 ml @ 30 mls/hr Q24H IV 09/07/24 20:45 09/14/24 04:14 30 MLS/HR Artificial Tears 2 drop Q6HR EACHEYE 09/09/24 00:00 09/19/24 11:54 2 DROP Enteral Nutritional Formula 1,000 ml 30ML/HR GT 09/09/24 20:00 09/18/24 05:10 1,000 ML Ipratropium [place] 0.5 mg Q4HPRN PRN NEB 09/13/24 13:30 09/16/24 06:45 0.5 MG Albuterol 2.5 mg Q4HPRN PRN NEB 09/13/24 13:30 09/16/24 06:45 2.5 MG Norepinephrine Bitartrate 250 ml @ 3.75 mls/hr Q24H IV 09/13/24 18:15 09/18/24 19:58 3.75 MLS/HR Docusate Sodium 100 mg BID GT 09/14/24 22:00 09/19/24 09:32 100 MG Sodium Chloride 10 ml QSHIFT@10,22 IV 09/15/24 22:00 09/19/24 09:28 10 ML Tobramycin Sulfate 0 ml @ 0 mls/hr PER PHARMACY IV 09/16/24 19:00 UNV Diagnostic Test (Pha) 1 strip Q6HR 09/17/24 12:00 09/19/24 12:21 1 STRIP Insulin Human Regular Q6HR SC 09/17/24 12:00 Dextrose 50 ml UD PRN IV 09/17/24 12:15 Ceftolozane/ Tazobactam 3 gm/ Dextrose 100 ml @ 100 mls/hr Q8HR IV 09/17/24 22:00 09/19/24 13:44 100 MLS/HR Laboratory Results Laboratory Tests 09/19/24 03:20 Chemistry Test 09/19/24 03:20 Albumin 2.4 g/dL (3.2-4.8) L Calcium Level 8.3 mg/dL (8.7-10.4) L Total Protein 4.3 g/dL (5.7-8.2) L LFT Test 09/19/24 03:20 Alanine Aminotransferase (ALT) 110 U/L (7-40) H Alkaline Phosphatase 183 U/L (46-116) H Aspartate Amino Transferase (AST) 29 U/L (13-40) Total Bilirubin 0.6 mg/dL (0.2-1.0) Urinalysis Test 09/06/24 17:05 Urine Color Yellow (Yellow) Urine Clarity Clear (Clear) Urine pH 6.0 (5.0-9.0) Urine Specific [place] 1.019 (1.001-1.035) Urine Protein Negative (Negative) Urine Ketones Negative (Negative) Urine Blood Trace /uL (Negative) H Urine Nitrite 1+ (Negative) H Urine Bilirubin Negative (Negative) Urine Urobilinogen 3 mg/dL (Negative) H Urine Leukocyte Esterase 1+ /uL (Negative) Urine RBC 1 /hpf (0 - 3) Urine WBC 8 /hpf (0 - 3) Urine Squamous Epithelial Cells Few /hpf (<5) Urine Bacteria None seen /hpf (None Seen) Urine Hyaline Casts Mod /lpf (0 - 2) Urine Mucus Few (None Seen) Urine Glucose 3+ mg/dL (Normal) H Blood Gas Results Test 09/19/24 07:50 Arterial Blood pH 7.514 (7.350-7.450) FiO2 % 30.0 Microbiology Microbiology Date/Time Source Procedure Growth Status 09/15/24 18:20 Catheter Site Aerobic Culture - Preliminary Resulted 09/13/24 18:20 Sputum Gram Stain - Final Complete 09/13/24 18:20 Respiratory Culture - Final Pseudomonas aeruginosa Complete 09/10/24 18:02 Blood Blood Culture - Final NO GROWTH AFTER 5 DAYS OF INCUBATION. Complete 09/06/24 17:05 Urine - [place] Urine Culture - Final Staphylococcus aureus Complete Labs and/or images reviewed: Labs reviewed by me, Image(s) reviewed by me Assessment/Plan Assessment/Plan Covering Dr. Kaminski: #Acute hypoxic/metabolic/toxic encephalopathy in the setting of septic shock; currently intubated and sedated; reviewed brain imaging; neurology is following; continue close monitoring #Septic shock due to aspiration pneumonia, UTI, and infected ulcers; reviewed the available cultures; reviewed the draft note of Infectious Disease; continue current IV antibiotics; continue IV vasopressors as needed; continue close monitoring #Acute on chronic hypoxic respiratory failure due to aspiration pneumonia; on mechanical ventilation (intubated initially on the August, then extubated on the 13 September 2024 and later on reintubated on the August,); reviewed available ABGs and chest x-rays; IV antibiotics as per infectious disease; reviewed available sputum cultures; continue close monitoring #Sinus bradycardia; resolved; was on dopamine infusion; continue close monitoring #Advanced [place]'s disease; bedridden with multiple decubitus ulcers; status post G- tube; patient was nonverbal; continue close monitoring #Elevated LFTs due to septic shock; avoid hepatotoxic agents; continue close monitoring #Distended stomach and large intestine; continue low intermittent suction via NG tube; reviewed available imaging studies; continue close monitoring #Electrolytes disturbances; correct and replace electrolytes as indicated; continue close monitoring #Pancytopenia in the setting of septic shock; hematology/oncology consulted; changed IV antibiotics suspected of causing leukopenia; protective isolation; continue close monitoring #Engorged hepatic vein; unclear etiology; incidental finding on imaging studies; continue close monitoring #Hypoglycemia; most likely due to septic shock; on D/W fluids; on tube feeding; continue close monitoring #Infected sacral decubitus ulcer; present on admission; reviewed wound cultures; wound care is following; continue IV antibiotics as per infectious disease; continue close monitoring 55 minutes of critical care time. Late Entry. This medical document was created using an electronic medical record system with computerized dictation system. Although this document has been carefully reviewed, there might still be some phonetic and typographical errors. These areas are purely typographical due to imperfections of the software programs, and do not reflect any compromise in the patient's medical care. Plan discussed with: Other (Nurse) My Orders Orders - DERRELL GASTON MD Procedure Category Date Status Time Complete Blood Count LAB 09/20/24 Verified 04:00 Comprehensive LAB 09/20/24 Verified Metabolic Panel 04:00 Chest Xray 1 View XY 09/20/24 Logged 04:00 Abg W/ Co-Ox RT 09/20/24 Logged 06:00 Date of Service: Sep 19, 2024 Billing Provider: DERRELL GASTON MD Common Visit Codes: [id number] CARE 30-74 MIN (55 minutes) DERRELL GASTON MD Sep 19, 2024 15:54
--- NOTE | 2024-09-19 16:30 | DVHPN2 ---
Progress Note - Dictate Date Seen: Sep 19, 2024 Medical Necessity Reason Pt with a Central, PICC or Fol: No Subjective Patient is intubated, sedated, but is awake, he follows verbal commands. He moves all the extremities. vital signs Vital Sign Date Time Temp Pulse Resp B/P (MAP) Pulse Ox O2 Delivery O2 Flow Rate FiO2 09/19/24 15:51 14 100 Mechanical Ventilator+ 30 30 09/19/24 15:51 70 09/19/24 14:45 98.1 105/56 (72) 98.1 Total Intake and Output 09/18/24 09/18/24 09/19/24 15:00 23:00 07:00 Intake Total 290.25 ml 655.50 ml 577.00 ml Output Total 400 ml 375 ml Balance 290.25 ml 255.50 ml 202.00 ml medications Current Medications Medications Dose Ordered Sig/Gisselle Route Start Time Stop Time Status Last Admin Dose Admin Vancomycin HCl 0 ml @ 0 mls/hr UD IV 09/06/24 17:15 Fentanyl Citrate 250 ml @ 2.5 mls/hr Q24H IV 09/06/24 17:45 09/19/24 09:26 17.5 MLS/HR Midazolam HCl 50 ml @ 1 mls/hr Q24H IV 09/06/24 19:45 09/19/24 14:36 3 MLS/HR Pantoprazole Sodium 40 mg DAILY IV 09/07/24 10:00 09/19/24 09:32 40 MG Acetaminophen 650 mg Q6HP PRN [place] 09/07/24 05:30 Dextrose 1,000 ml @ 30 mls/hr Q24H IV 09/07/24 20:45 09/14/24 04:14 30 MLS/HR Artificial Tears 2 drop Q6HR EACHEYE 09/09/24 00:00 09/19/24 11:54 2 DROP Enteral Nutritional Formula 1,000 ml 30ML/HR GT 09/09/24 20:00 09/18/24 05:10 1,000 ML Ipratropium [place] 0.5 mg Q4HPRN PRN NEB 09/13/24 13:30 09/16/24 06:45 0.5 MG Albuterol 2.5 mg Q4HPRN PRN NEB 09/13/24 13:30 09/16/24 06:45 2.5 MG Norepinephrine Bitartrate 250 ml @ 3.75 mls/hr Q24H IV 09/13/24 18:15 09/18/24 19:58 3.75 MLS/HR Docusate Sodium 100 mg BID GT 09/14/24 22:00 09/19/24 09:32 100 MG Sodium Chloride 10 ml QSHIFT@10,22 IV 09/15/24 22:00 09/19/24 09:28 10 ML Tobramycin Sulfate 0 ml @ 0 mls/hr PER PHARMACY IV 09/16/24 19:00 UNV Diagnostic Test (Pha) 1 strip Q6HR 09/17/24 12:00 09/19/24 12:21 1 STRIP Insulin Human Regular Q6HR SC 09/17/24 12:00 Dextrose 50 ml UD PRN IV 09/17/24 12:15 Ceftolozane/ Tazobactam 3 gm/ Dextrose 100 ml @ 100 mls/hr Q8HR IV 09/17/24 22:00 09/19/24 13:44 100 MLS/HR objective General Appearance: Ventilated and sedated. Head Exam: Normal inspection Neck Exam: Normal inspection. Non-tender. Normal alignment Pulmonary/Respiratory: Chest non-tender. Clear bilateral breath sounds Cardiovascular/Chest: Regular rate and rhythm. No murmurs. No JVD. Skin: Sacral decubitus ulcer; dressed Abdominal Exam: Normal bowel sounds. Soft. Nontender. No hepatospenomegaly. No masses Ankle Exam: Negative ankle edema Lower extremities: Negative lower extremity edema Neuro/Mental Status: Sedated, pupillary reflex present. laboratory and microbiology Laboratory Tests 09/19/24 03:20 Test 09/19/24 03:20 Range/Units Serum Glucose 110 H 74-106 mg/dL Assessment/Plan Patient is a 29-year-old male presented to the hospital with: Sepsis likely due to UTI Acute metabolic encephalopathy Altered mental status likely due to sepsis Acute hypoxic respiratory failure UTI Asymptomatic bradycardia Transaminitis with hyperbilirubinemia Severe hypoglycemia Hyperkalemia Recommendations: Antibiotic status: Ceftolozane/Tazobactam IV [Started on 09/17 - Ongoing] Vancomycin IV [Started on 09/06 - 09/18] Ceftazidime Sodium IV [Started on 09/16 - 09/17] Vancomycin Random on 09/19 is 21.5 Patient is on pressors WBC count low Culture review: 09/15, Aerobic culture preliminary showed no growth 09/13, Sputum culture showed Pseudomonas aeruginosa 09/10, Blood culture showed no growth 09/07, Wound culture showed Enterobacter cloacae, Enterococcus faecalis, Enterobacter aerogenes and Pseudomonas aeruginosa 09/07, MRSA screening negative 09/06, Urine culture showed Staphylococcus Aureus Thank you for consult. Dietary Evaluation Review Comments: 1) If GI is accessible, consider Jevity 1.2 @ 35 ml/hr x 24hr goal rate as tolerated 2) Consider 1 pkt BEN BID for wound 3) If pt remains NPO >7 days consider TPN to meet at least 75% of estimated needs Expected Outcomes/Goals: 1) Pt to receive nutrition support within 7 days of NPO status 2) F/U in 2-3 days AYUSH SHI MD Sep 19, 2024 16:30
--- NOTE | 2024-09-19 22:47 | DVHPN2 ---
Progress Note - Dictate Date Seen: Sep 19, 2024 Medical Necessity Reason Pt with a Central, PICC or Fol: No Subjective Mr. Delgado is a 29 years old gentleman with a history of [place]'s disease, the patient was brought to the hospital on 08/3024 with a chief company of altered mental status. I have seen and examined the patient, I have talked to his nurse, the patient is intubated, sedated, but is awake, he follows verbal commands, he moves all the extremities UDS, 09/06/2024: Negative Plasma alcohol, 09/06/2019 5:3.3 Urinalysis, 09/06/2024: WBC: 8, urine leukocyte esterase: 1+, urine nitrate: 1+ WBC/HB/PLT/MCV, 09/13/2024: 6/9.4/56/92.5, 09/17/2024: 0.6/7.3/93/93, 09/19/2024: 1/7.8/117/94.4 PT/INR/PTT, 16.9/1.68/30.2 BMP, 09/13/2024: Unremarkable HCO3 :34 . TBI/AST/ALT/AP, 09/13/2024: 1.5/103/426/328, 09/17/2024: 0.6/27/143/202 Hepatitis panel, 09/06/2024: Negative Chest x-ray, 09/07/2024:Lines and tubes in satisfactory position. No significant interval change (Endotracheal tube and enteric catheter in satisfactory position) Chest x-ray, 09/17/19 25: 1. Appropriate position of the support lines and tubes. 2. Right upper and right basilar opacity which may reflect atelectasis or pneumonia. CT head, 09/06/2024: No acute intracranial abnormality vital signs Vital Sign Date Time Temp Pulse Resp B/P (MAP) Pulse Ox O2 Delivery O2 Flow Rate FiO2 09/19/24 22:01 64 15 104/57 (73) 100 30 09/19/24 22:00 Mechanical Ventilator+ 09/19/24 20:00 98.1 98.1 Total Intake and Output 09/18/24 09/18/24 09/19/24 15:00 23:00 07:00 Intake Total 290.25 ml 655.50 ml 577.00 ml Output Total 400 ml 375 ml Balance 290.25 ml 255.50 ml 202.00 ml medications Current Medications Medications Dose Ordered Sig/Gisselle Route Start Time Stop Time Status Last Admin Dose Admin Vancomycin HCl 0 ml @ 0 mls/hr UD IV 09/06/24 17:15 Fentanyl Citrate 250 ml @ 2.5 mls/hr Q24H IV 09/06/24 17:45 09/19/24 09:26 17.5 MLS/HR Midazolam HCl 50 ml @ 1 mls/hr Q24H IV 09/06/24 19:45 09/19/24 14:36 3 MLS/HR Pantoprazole Sodium 40 mg DAILY IV 09/07/24 10:00 09/19/24 09:32 40 MG Acetaminophen 650 mg Q6HP PRN [place] 09/07/24 05:30 Dextrose 1,000 ml @ 30 mls/hr Q24H IV 09/07/24 20:45 09/14/24 04:14 30 MLS/HR Artificial Tears 2 drop Q6HR EACHEYE 09/09/24 00:00 09/19/24 17:55 2 DROP Enteral Nutritional Formula 1,000 ml 30ML/HR GT 09/09/24 20:00 09/18/24 05:10 1,000 ML Ipratropium [place] 0.5 mg Q4HPRN PRN NEB 09/13/24 13:30 09/16/24 06:45 0.5 MG Albuterol 2.5 mg Q4HPRN PRN NEB 09/13/24 13:30 09/16/24 06:45 2.5 MG Norepinephrine Bitartrate 250 ml @ 3.75 mls/hr Q24H IV 09/13/24 18:15 09/18/24 19:58 3.75 MLS/HR Docusate Sodium 100 mg BID GT 09/14/24 22:00 09/19/24 22:04 100 MG Sodium Chloride 10 ml QSHIFT@10,22 IV 09/15/24 22:00 09/19/24 22:00 10 ML Tobramycin Sulfate 0 ml @ 0 mls/hr PER PHARMACY IV 09/16/24 19:00 UNV Diagnostic Test (Pha) 1 strip Q6HR 09/17/24 12:00 09/19/24 17:55 1 STRIP Insulin Human Regular Q6HR SC 09/17/24 12:00 Dextrose 50 ml UD PRN IV 09/17/24 12:15 Ceftolozane/ Tazobactam 3 gm/ Dextrose 100 ml @ 100 mls/hr Q8HR IV 09/17/24 22:00 09/19/24 22:00 100 MLS/HR objective The patient is the cachectic. The patient is intubated MENTAL STATUS: Subjective CRANIAL NERVES: Pupils are equal, round and reactive. He came but I did not see conjugated eye movement. No signs of facial weakness. There are gagging or coughing reflexes SENSATION: Okay to light painful stimuli MOTOR: Normal tone in the upper and lower extremity. Diffuse muscle atrophy. No fasciculations. No spontaneous movement. He can move the extremities, the muscle power is no less than 3/5 in all extremities REFLEXES: Deep tendon reflexes are symmetrical. No pathological reflexes. CEREBELLAR/COORDINATION: Deferred GAIT/STATION: deferred. laboratory and microbiology Laboratory Tests 09/19/24 03:20 Test 09/19/24 03:20 Range/Units Serum Glucose 110 H 74-106 mg/dL Problem List Altered mental status Metabolic encephalopathy Hypoxic encephalopathy Toxic encephalopathy Urinary tract infection Pancytopenia Sepsis Hypoglycemia Respiratory failure [place]'s disease General weakness Gait disturbance/bed-bound Bradycardia Assessment/Plan Monitoring Supportive treatment Reversal isolation Follow-up lab Stabilize vitals Respiratory support/vent management IV antibiotics Tube feeding Follow with his [facility] on discharge More recommendation per clinical course This medical document was created using an electronic medical record system with [employer] dictation system. Although this document has been carefully reviewed, there may still be some phonetic and typographical errors. These areas are purely typographical due to imperfections of the software programs, and do not reflect any compromise in the patient's medical care Prognosis guarded Dietary Evaluation Review Comments: 1) If GI is accessible, consider Jevity 1.2 @ 35 ml/hr x 24hr goal rate as tolerated 2) Consider 1 pkt BEN BID for wound 3) If pt remains NPO >7 days consider TPN to meet at least 75% of estimated needs Expected Outcomes/Goals: 1) Pt to receive nutrition support within 7 days of NPO status 2) F/U in 2-3 days Plan discussed with: Other ALISHA LOVE MD Sep 19, 2024 22:47
--- NOTE | 2024-09-19 22:55 | DVHPN2 ---
Progress Note - Dictate Date Seen: Sep 19, 2024 Medical Necessity Reason Pt with a Central, PICC or Fol: No Subjective Patient seen and examined at bedside. Sedated, intubated on mechanical ventilator. Overnight events reviewed. vital signs Vital Sign Date Time Temp Pulse Resp B/P (MAP) Pulse Ox O2 Delivery O2 Flow Rate FiO2 09/19/24 22:01 64 15 104/57 (73) 100 30 09/19/24 22:00 Mechanical Ventilator+ 09/19/24 20:00 98.1 98.1 Total Intake and Output 09/18/24 09/18/24 09/19/24 15:00 23:00 07:00 Intake Total 290.25 ml 655.50 ml 577.00 ml Output Total 400 ml 375 ml Balance 290.25 ml 255.50 ml 202.00 ml medications Current Medications Medications Dose Ordered Sig/Gisselle Route Start Time Stop Time Status Last Admin Dose Admin Vancomycin HCl 0 ml @ 0 mls/hr UD IV 09/06/24 17:15 Fentanyl Citrate 250 ml @ 2.5 mls/hr Q24H IV 09/06/24 17:45 09/19/24 09:26 17.5 MLS/HR Midazolam HCl 50 ml @ 1 mls/hr Q24H IV 09/06/24 19:45 09/19/24 14:36 3 MLS/HR Pantoprazole Sodium 40 mg DAILY IV 09/07/24 10:00 09/19/24 09:32 40 MG Acetaminophen 650 mg Q6HP PRN [place] 09/07/24 05:30 Dextrose 1,000 ml @ 30 mls/hr Q24H IV 09/07/24 20:45 09/14/24 04:14 30 MLS/HR Artificial Tears 2 drop Q6HR EACHEYE 09/09/24 00:00 09/19/24 17:55 2 DROP Enteral Nutritional Formula 1,000 ml 30ML/HR GT 09/09/24 20:00 09/18/24 05:10 1,000 ML Ipratropium [place] 0.5 mg Q4HPRN PRN NEB 09/13/24 13:30 09/16/24 06:45 0.5 MG Albuterol 2.5 mg Q4HPRN PRN NEB 09/13/24 13:30 09/16/24 06:45 2.5 MG Norepinephrine Bitartrate 250 ml @ 3.75 mls/hr Q24H IV 09/13/24 18:15 09/18/24 19:58 3.75 MLS/HR Docusate Sodium 100 mg BID GT 09/14/24 22:00 09/19/24 22:04 100 MG Sodium Chloride 10 ml QSHIFT@10,22 IV 09/15/24 22:00 09/19/24 22:00 10 ML Tobramycin Sulfate 0 ml @ 0 mls/hr PER PHARMACY IV 09/16/24 19:00 UNV Diagnostic Test (Pha) 1 strip Q6HR 09/17/24 12:00 09/19/24 17:55 1 STRIP Insulin Human Regular Q6HR SC 09/17/24 12:00 Dextrose 50 ml UD PRN IV 09/17/24 12:15 Ceftolozane/ Tazobactam 3 gm/ Dextrose 100 ml @ 100 mls/hr Q8HR IV 09/17/24 22:00 09/19/24 22:00 100 MLS/HR objective Gen.: Patient lying in bed in medical ICU. Sedated, intubated on mechanical ventilator. Head: Normocephalic, atraumatic. Eyes: PERRLA. Ears: Normal external anatomy. Throat: Endotracheal tube and orogastric tube in place. Neck: Supple, trachea midline. Chest: Transmitted breath sounds bilaterally. Decreased air entry bilaterally. No wheezing. Bibasilar crackles. Cardiovascular: Positive S1, positive S2. Regular rate and rhythm. Abdomen: Positive bowel sounds in all 4 quadrants. Soft, nontender, nondistended. : Lilly in place. Normal external genitalia. Rectal: Deferred. Skin: Warm, dry. Intact. Extremities: 2+ radial pulses bilaterally. No lower extremity edema. Neuro: Sedated. laboratory and microbiology Laboratory Tests 09/19/24 03:20 Test 09/19/24 03:20 Range/Units Serum Glucose 110 H 74-106 mg/dL Assessment/Plan Impression: Acute hypoxic respiratory failure On mechanical ventilator [place]'s disease Acute metabolic encephalopathy Septic shock Aspiration pneumonia Urinary tract infection Events: Remains on vent support On AC mode; RR 14, VT 350, PEEP 5, FiO2 30% CXR reviewed. Devices in place. Patchy opacity in the left lower lung and right lower lung, stable ABG reviewed, alkalemia Off Levophed, hemodynamically stable. Sedated on Versed/Fentanyl. Continue antibiotics Tube feeds for nutritional support Hospice eval. Labs and imaging reviewed. Rest of plan as noted below Plan: s/p intubation on mechanical ventilator. On AC mode; RR 14, VT 350, PEEP 5, FiO2 30% Titrate FIO2 to keep O2 saturation above 90%. VAP bundle. Daily ABG and CXR while intubated Sedated for vent synchrony Pressors if necessary for hemodynamic support Titrate to keep mean arterial pressure greater than 65 mmHg. Continue antibiotics. Tube feeds/Clinimix for nutritional support Monitor renal function Monitor electrolytes. Supplement as necessary. Monitor ins and outs. D10W PRN for low blood sugars Consider tracheostomy for liberation from vent. GI prophylaxis. DVT prophylaxis. Prognosis: Poor given patient's multiple co-morbidities. Condition: Critical Rest of plan per hospitalist and other consultants. A total of 35 minutes of critical care time was spent reviewing the patient record, examining the patient, making a diagnostic and therapeutic plan, discussing this plan with the medical personnel, following up on diagnostic studies and following the patient for clinical stability excluding any and all procedures. At least 50% of this time was spent in direct, [id number] contact. Thank you, Dr. Feldman, for allowing me to participate in this patient's care. Further recommendations will depend on the patient's clinical course. Please do not hesitate to contact me if you have any questions or concerns. This medical document was created using an electronic medical record system with [employer] dictation system. Although these documentations are being carefully reviewed, there may still be some phonetic and typographical changes. The errors are purely typographical, due to imperfection on the software program, and do not reflect any compromise in the patient's medical care. Dietary Evaluation Review Comments: 1) If GI is accessible, consider Jevity 1.2 @ 35 ml/hr x 24hr goal rate as tolerated 2) Consider 1 pkt BEN BID for wound 3) If pt remains NPO >7 days consider TPN to meet at least 75% of estimated needs Expected Outcomes/Goals: 1) Pt to receive nutrition support within 7 days of NPO status 2) F/U in 2-3 days Plan discussed with: Other (SANTOSH Pickett) Critical Care Time(min): 35 TIM CADENA MD Sep 19, 2024 22:55
[2024-09-20] VITALS (107 sets, daily range): BP systolic 85–135; BP diastolic 47–94; PULSE 46–123; RESP 12–34; TEMP 97.5–98.2; O2SAT 93–100
[2024-09-20 04:04] LABS: Hematocrit 20.4 % (41.0-53.0); Hemoglobin 7.2 g/dL (13.5-17.5); Mean Corpuscular Hemoglobin 34.3 pg (28.0-32.0); Mean Corpuscular Hgb Conc. 35.5 g/dL (32.0-36.0); Mean Corpuscular Volume 96.7 fL (80.0-100.0); Platelet Count (auto) 121 10^3/uL (140-450); Red Blood Cells 2.11 10^6/uL (4.5-5.90); Red Cell Distribution Width 13.5 % (11.8-14.3)
[2024-09-20 04:26] LABS: Anion Gap 4 (5-15); Aspartate Aminotransferase 33 U/L (13-40); BUN/Creatinine Ratio 36.5 (10.0-20.0); Blood Urea Nitrogen 19 mg/dL (9-23); Chloride 100 mmol/L (98-107); Glucose 78 mg/dL (74-106); Magnesium 1.8 mg/dL (1.6-2.6); Phosphorus 4.1 mg/dL (2.4-5.1); Potassium 4.5 mmol/L (3.5-5.1); Sodium 136 mmol/L (136-145)
[2024-09-20 04:27] LABS: Bilirubin, Total 0.6 mg/dL (0.2-1.0)
[2024-09-20 04:39] LABS: Alanine Aminotransferase 93 U/L (7-40); Albumin 2.3 g/dL (3.2-4.8); Alkaline Phosphatase 167 U/L (46-116); Calcium 7.8 mg/dL (8.7-10.4); Carbon Dioxide 32 mmol/L (20-31); Total Protein 4.2 g/dL (5.7-8.2)
[2024-09-20 04:42] LABS: White Blood Cell 1.1 10^3/uL (4.4-10.8)
[2024-09-20 04:44] LABS: Basophils % (manual) 0 (0.0-2.0); Blast Cells 0; Eosinophils % (manual) 0 (0-7); Metamyelocytes % 0; Myelocytes % 0; Promyelocytes % 0; Reactive Lymphocytes 0
--- NOTE | 2024-09-20 05:27 | DVH ---
EXAM: XY CHEST XRAY 1 VIEW Indication: Intubated. Technique: Single frontal view of the chest was obtained Comparison: XY CHEST XRAY 1 VIEW on DOS: 09/19/24, XY CHEST PORTABLE on DOS: 09/18/24, XY CHEST PORTABL E on DOS: 09/17/24, XY CHEST PORTABLE on DOS: 09/16/24, XY CHEST PORTABLE on DOS: 09/15/24 FINDINGS: Lines and Tubes: Endotracheal tube, right PICC project in appropriate position. Lungs: Bibasilar opacities are unchanged. Pleura: No effusion. No pneumothorax. Cardiomediastinal contours: Unremarkable Bones: No acute osseous abnormality. IMPRESSION: No significant change compared to prior exam.
[2024-09-20 06:59] LABS: Band Neutrophils % (manual) 5; Lymphocytes % (manual) 37 (10.0-50.0); Monocytes % (manual) 27 (0-12); Platelet Estimate Decreased
[2024-09-20 08:02] LABS: Base Excess 5.6 mmol/L (-2.0-3.0)
--- NOTE | 2024-09-20 10:35 | DVHPN2 ---
Progress Note - Dictate Date Seen: Sep 20, 2024 Medical Necessity Reason Pt with a Central, PICC or Fol: No Subjective Mr. Delgado is a 29 years old gentleman with a history of [place]'s disease, the patient was brought to the hospital on 08/3024 with a chief company of altered mental status. I have seen and examined the patient, I have talked to his nurse, the patient is intubated, sedated, but is awake, he follows verbal commands, he moves all the extremities Fentanyl 200 mcg/hour, Versed 3 mcg/minute, levo 2 mcg/minute UDS, 09/06/2024: Negative Plasma alcohol, 09/06/2019 5:3.3 Urinalysis, 09/06/2024: WBC: 8, urine leukocyte esterase: 1+, urine nitrate: 1+ WBC/HB/PLT/MCV, 09/13/2024: 6/9.4/56/92.5, 09/17/2024: 0.6/7.3/93/93, 09/19/2024: 1/7.8/117/94.4 PT/INR/PTT, 16.9/1.68/30.2 BMP, 09/13/2024: Unremarkable HCO3 :34 . TBI/AST/ALT/AP, 09/13/2024: 1.5/103/426/328, 09/17/2024: 0.6/27/143/202 Hepatitis panel, 09/06/2024: Negative Chest x-ray, 09/07/2024:Lines and tubes in satisfactory position. No significant interval change (Endotracheal tube and enteric catheter in satisfactory position) Chest x-ray, 09/17/19 25: 1. Appropriate position of the support lines and tubes. 2. Right upper and right basilar opacity which may reflect atelectasis or pneumonia. CT head, 09/06/2024: No acute intracranial abnormality vital signs Vital Sign Date Time Temp Pulse Resp B/P (MAP) Pulse Ox O2 Delivery O2 Flow Rate FiO2 09/20/24 10:15 52 13 92/59 (70) 100 09/20/24 10:07 30 09/20/24 10:00 Mechanical Ventilator+ 09/20/24 08:00 97.5 97.5 Total Intake and Output 09/19/24 09/19/24 09/20/24 15:00 23:00 07:00 Intake Total 189.75 ml 564.0 ml 296.5 ml Output Total 400 ml 375 ml Balance 189.75 ml 164.0 ml -78.5 ml medications Current Medications Medications Dose Ordered Sig/Gisselle Route Start Time Stop Time Status Last Admin Dose Admin Vancomycin HCl 0 ml @ 0 mls/hr UD IV 09/06/24 17:15 Fentanyl Citrate 250 ml @ 2.5 mls/hr Q24H IV 09/06/24 17:45 09/19/24 09:26 17.5 MLS/HR Midazolam HCl 50 ml @ 1 mls/hr Q24H IV 09/06/24 19:45 09/19/24 14:36 3 MLS/HR Pantoprazole Sodium 40 mg DAILY IV 09/07/24 10:00 09/19/24 09:32 40 MG Acetaminophen 650 mg Q6HP PRN NM 09/07/24 05:30 Artificial Tears 2 drop Q6HR EACHEYE 09/09/24 00:00 09/20/24 05:53 2 DROP Enteral Nutritional Formula 1,000 ml 30ML/HR GT 09/09/24 20:00 09/18/24 05:10 1,000 ML Ipratropium [place] 0.5 mg Q4HPRN PRN NEB 09/13/24 13:30 09/16/24 06:45 0.5 MG Albuterol 2.5 mg Q4HPRN PRN NEB 09/13/24 13:30 09/16/24 06:45 2.5 MG Norepinephrine Bitartrate 250 ml @ 3.75 mls/hr Q24H IV 09/13/24 18:15 09/18/24 19:58 3.75 MLS/HR Sodium Chloride 10 ml QSHIFT@10,22 IV 09/15/24 22:00 09/19/24 22:00 10 ML Tobramycin Sulfate 0 ml @ 0 mls/hr PER PHARMACY IV 09/16/24 19:00 UNV Diagnostic Test (Pha) 1 strip Q6HR 09/17/24 12:00 09/20/24 05:53 1 STRIP Insulin Human Regular Q6HR SC 09/17/24 12:00 Dextrose 50 ml UD PRN IV 09/17/24 12:15 Ceftolozane/ Tazobactam 3 gm/ Dextrose 100 ml @ 100 mls/hr Q8HR IV 09/17/24 22:00 09/20/24 05:53 100 MLS/HR Docusate Sodium 200 mg BID GT 09/20/24 10:00 Vancomycin HCl 100 ml @ 100 mls/hr Q10H IV 09/20/24 11:00 objective The patient is the cachectic. The patient is intubated MENTAL STATUS: Subjective CRANIAL NERVES: Pupils are equal, round and reactive. He came but I did not see conjugated eye movement. No signs of facial weakness. There are gagging or coughing reflexes SENSATION: Okay to light painful stimuli MOTOR: Normal tone in the upper and lower extremity. Diffuse muscle atrophy. No fasciculations. No spontaneous movement. He can move the extremities, the muscle power is no less than 3/5 in all extremities REFLEXES: Deep tendon reflexes are symmetrical. No pathological reflexes. CEREBELLAR/COORDINATION: Deferred GAIT/STATION: deferred. laboratory and microbiology Laboratory Tests 09/20/24 03:39 Test 09/20/24 03:39 Range/Units Serum Glucose 78 74-106 mg/dL Problem List Altered mental status Metabolic encephalopathy Hypoxic encephalopathy Toxic encephalopathy Urinary tract infection Pancytopenia Sepsis Hypoglycemia Respiratory failure [place]'s disease General weakness Gait disturbance/bed-bound Bradycardia Assessment/Plan Monitoring Supportive treatment Reversal isolation Follow-up lab Stabilize vitals Respiratory support/vent management IV antibiotics Tube feeding Follow with his [place] [facility] on discharge More recommendation per clinical course This medical document was created using an electronic medical record system with Wik[employer] computerized dictation system. Although this document has been carefully reviewed, there may still be some phonetic and typographical errors. These areas are purely typographical due to imperfections of the software programs, and do not reflect any compromise in the patient's medical care Prognosis poor Dietary Evaluation Review Comments: 1) If GI is accessible, consider Jevity 1.2 @ 35 ml/hr x 24hr goal rate as tolerated 2) Consider 1 pkt BEN BID for wound 3) If pt remains NPO >7 days consider TPN to meet at least 75% of estimated needs Expected Outcomes/Goals: 1) Pt to receive nutrition support within 7 days of NPO status 2) F/U in 2-3 days Plan discussed with: Other ALISHA LOVE MD Sep 20, 2024 10:35
[2024-09-20] MEDS: DOCUSATE ORAL LIQUID 100 MG/10 ML UD GT SCH (11:32)
[2024-09-20] MEDS: ATROPINE SULF 1 MG/10ml SYR ONE (12:35)
[2024-09-20] MEDS: VANCOMYCIN 750MG KIT 100 ML IV SCH (12:52)
--- NOTE | 2024-09-20 14:27 | DVHPNRES ---
Progress Note Date Seen: Sep 20, 2024 Resident Creating Document: MALDONADO LOPEZ RESIDENT Medical Necessity Reason Pt with a Central, PICC or Fol: No Subjective Review of Systems pt seen and examined at bedside. he is sedated and intubated on [facility] vent ROS could not be done as patient is sedated Objective vital signs Vital Sign Date Time Temp Pulse Resp B/P (MAP) Pulse Ox O2 Delivery O2 Flow Rate FiO2 09/20/24 12:45 57 14 104/68 (80) 98 09/20/24 12:00 Mechanical Ventilator+ 30 30 09/20/24 12:00 97.5 97.5 Total Intake and Output 09/19/24 09/19/24 09/20/24 15:00 23:00 07:00 Intake Total 189.75 ml 564.0 ml 296.5 ml Output Total 400 ml 375 ml Balance 189.75 ml 164.0 ml -78.5 ml medications Current Medications Medications Dose Ordered Sig/Gisselle Route Start Time Stop Time Status Last Admin Dose Admin Vancomycin HCl 0 ml @ 0 mls/hr UD IV 09/06/24 17:15 Fentanyl Citrate 250 ml @ 2.5 mls/hr Q24H IV 09/06/24 17:45 09/20/24 11:56 15 MLS/HR Midazolam HCl 50 ml @ 1 mls/hr Q24H IV 09/06/24 19:45 09/19/24 14:36 3 MLS/HR Pantoprazole Sodium 40 mg DAILY IV 09/07/24 10:00 09/20/24 11:32 40 MG Acetaminophen 650 mg Q6HP PRN CA 09/07/24 05:30 Artificial Tears 2 drop Q6HR EACHEYE 09/09/24 00:00 09/20/24 11:33 2 DROP Enteral Nutritional Formula 1,000 ml 30ML/HR GT 09/09/24 20:00 09/18/24 05:10 1,000 ML Ipratropium [place] 0.5 mg Q4HPRN PRN NEB 09/13/24 13:30 09/16/24 06:45 0.5 MG Albuterol 2.5 mg Q4HPRN PRN NEB 09/13/24 13:30 09/16/24 06:45 2.5 MG Norepinephrine Bitartrate 250 ml @ 3.75 mls/hr Q24H IV 09/13/24 18:15 09/18/24 19:58 3.75 MLS/HR Sodium Chloride 10 ml QSHIFT@10,22 IV 09/15/24 22:00 09/20/24 11:32 10 ML Tobramycin Sulfate 0 ml @ 0 mls/hr PER PHARMACY IV 09/16/24 19:00 UNV Diagnostic Test (Pha) 1 strip Q6HR 09/17/24 12:00 09/20/24 12:00 1 STRIP Insulin Human Regular Q6HR SC 09/17/24 12:00 Dextrose 50 ml UD PRN IV 09/17/24 12:15 Ceftolozane/ Tazobactam 3 gm/ Dextrose 100 ml @ 100 mls/hr Q8HR IV 09/17/24 22:00 09/20/24 05:53 100 MLS/HR Docusate Sodium 200 mg BID GT 09/20/24 10:00 09/20/24 11:32 200 MG Vancomycin HCl 100 ml @ 100 mls/hr Q10H IV 09/20/24 11:00 09/20/24 12:52 100 MLS/HR Examination Examination General Appearance: Sedated and intubated Respiratory: on Mechanical ventilation Cardiovascular: Regular rate, Normal S1, Normal S2 Abdominal: Nondistended, peg tube present Extremities: No cyanosis, No edema, Normal pulses, No tenderness/swelling Skin: No rashes, No breakdown Neuro: sedated and intubated laboratory and microbiology Laboratory Tests 09/20/24 03:39 Test 09/20/24 03:39 Range/Units Serum Glucose 78 74-106 mg/dL Microbiology Date/Time Source Procedure Growth Status 09/15/24 18:20 Catheter Site Aerobic Culture - Final Complete 09/13/24 18:20 Sputum Gram Stain - Final Complete 09/13/24 18:20 Respiratory Culture - Final Pseudomonas aeruginosa Complete 09/10/24 18:02 Blood Blood Culture - Final NO GROWTH AFTER 5 DAYS OF INCUBATION. Complete 09/06/24 17:05 Urine - [place] Urine Culture - Final Staphylococcus aureus Complete Labs and/or images reviewed: Labs reviewed by me, Image(s) reviewed by me Problem List/Assessment/Plan Problem List/Assessment/Plan Assessment/plan Neurology # sedation -on fentanyl, midazolam # metabolic encephalopathy due to sepsis -head CT did not show any acute abnormalities # [place]'s disease -patient was nonverbal and has dysphagia status post PEG tube Cardiology # sinus bradycardia, resolved -currently off dopamine -has history of sinus bradycardia Likely to hypothermia # shock likely septic -currently on norepi Respiratory # acute on chronic hypoxic respiratory failure likely due to sepsis/aspiration pneumonia -on mechanical ventilator, intubated on 09/06/24 extubated 09/13/2024 reintubated 09/13/24 #? Aspiration pneumonia -IV antibiotics Sputum culture: Pseudomonas -IV vancomycin, discontinued -will switch to Zerbaxa considering sudden drop in WBC count after starting the meropenam -ID consulted GI # status post PEG tube, present on admission -was placed due to dysphagia due to Brittany's # transaminitis likely due to septic shock, improving Monitor liver enzymes #Moderately gas distended large bowel. -seen on imaging -NG tube, low continuous suction Repeat KUB started on tube feedings #Moderately gas and fluid distended stomach. -seen on imaging NG tube, low continuous suction Repeat KUB started on tube feedings # engorged hepatic vein Uncertain etiology Seen on imaging Nephrology # hypomagnesemia Corrected Monitor # hypokalemia Corrected Monitor #hyperkalemia -resolved # hyponatremia -monitor BMP #hypophosphatemia corrected Hematology/oncology #Leukopenia -sudden drop in WBC count 0.2 -will switch to tobramycin considering sudden drop in WBC count after starting the meropenam -hematology and oncology consulted -started on filgastrim # thrombocytopenia likely due to sepsis Monitor Endocrine # hypoglycemia likely due to sepsis -started D 10 W, discontinued -Accu-Cheks -started on nutrition through NG tube Dermatology/integumentary # sacral ulcer, POA -wound culture growing enterococcus -pt is already on IV vancomycin # hypothermia likely due to sepsis Warm blanket Urology # UTI -urine culture shows staph aureus IV antibiotic DVT prophylaxis -Low dose Lovenox 30 mg SC daily, on hold because of low platelets -SCD's Peptic ulcer disease prophylaxis IV Protonix Nutrition started on NG tube feedings Bowel Regimen started on colace Drips fentanyl midazolam norepi Lines Lilly's catheter placed on 09/06/2023 Left internal jugular CVC placed on 09/06/2023 Code status discussed with the family for greater than 23 minutes, full code Mother at bedside updated about the condition of the patient after discussion , mother decided for hospice director of rehabilitative services consulted for home hospice Case discussion with Dr mishra Critical care time excluding procedures : 87 minutes Plan discussed with: Other My Orders My Orders Orders - MALDONADO LOPEZ RESIDENT Procedure Category Date Status Time Docusate Sodium PHA 09/20/24 In Process Liquid (Colace Liquid) 10:00 Communication Order ORDERS 09/20/24 Transmitted 08:59 Dietary Evaluation Review Comments: 1) If GI is accessible, consider Jevity 1.2 @ 35 ml/hr x 24hr goal rate as tolerated 2) Consider 1 pkt BEN BID for wound 3) If pt remains NPO >7 days consider TPN to meet at least 75% of estimated needs Expected Outcomes/Goals: 1) Pt to receive nutrition support within 7 days of NPO status 2) F/U in 2-3 days Date of Service: Sep 20, 2024 Billing Provider: RADHA MISHRA MD Common Visit Codes: 70395-[id number] CARE 30-74 MIN, [id number] CARE-EACH +30MIN MALDONADO LOPEZ RESIDENT Sep 20, 2024 14:27 RADHA MISHRA MD Sep 21, 2024 14:19
--- NOTE | 2024-09-20 18:18 | DVHPN2 ---
Progress Note - Dictate Date Seen: Sep 20, 2024 Medical Necessity Reason Pt with a Central, PICC or Fol: No Subjective Patient is intubated, sedated on mechanical ventilation. vital signs Vital Sign Date Time Temp Pulse Resp B/P (MAP) Pulse Ox O2 Delivery O2 Flow Rate FiO2 09/20/24 16:43 104 23 133/94 (107) 99 30 09/20/24 16:00 97.8 97.8 09/20/24 16:00 Mechanical Ventilator+ Total Intake and Output 09/19/24 09/19/24 09/20/24 14:59 22:59 06:59 Intake Total 194.50 ml 464.0 ml 396.5 ml Output Total 400 ml 375 ml Balance 194.50 ml 64.0 ml 21.5 ml medications Current Medications Medications Dose Ordered Sig/Gisselle Route Start Time Stop Time Status Last Admin Dose Admin Fentanyl Citrate 250 ml @ 2.5 mls/hr Q24H IV 09/06/24 17:45 09/20/24 11:56 15 MLS/HR Midazolam HCl 50 ml @ 1 mls/hr Q24H IV 09/06/24 19:45 09/20/24 15:33 4 MLS/HR Pantoprazole Sodium 40 mg DAILY IV 09/07/24 10:00 09/20/24 11:32 40 MG Acetaminophen 650 mg Q6HP PRN [place] 09/07/24 05:30 Artificial Tears 2 drop Q6HR EACHEYE 09/09/24 00:00 09/20/24 11:33 2 DROP Enteral Nutritional Formula 1,000 ml 30ML/HR GT 09/09/24 20:00 09/18/24 05:10 1,000 ML Ipratropium [place] 0.5 mg Q4HPRN PRN NEB 09/13/24 13:30 09/16/24 06:45 0.5 MG Albuterol 2.5 mg Q4HPRN PRN NEB 09/13/24 13:30 09/16/24 06:45 2.5 MG Norepinephrine Bitartrate 250 ml @ 3.75 mls/hr Q24H IV 09/13/24 18:15 09/18/24 19:58 3.75 MLS/HR Sodium Chloride 10 ml QSHIFT@10,22 IV 09/15/24 22:00 09/20/24 11:32 10 ML Tobramycin Sulfate 0 ml @ 0 mls/hr PER PHARMACY IV 09/16/24 19:00 UNV Diagnostic Test (Pha) 1 strip Q6HR 09/17/24 12:00 09/20/24 12:00 1 STRIP Insulin Human Regular Q6HR SC 09/17/24 12:00 Dextrose 50 ml UD PRN IV 09/17/24 12:15 Ceftolozane/ Tazobactam 3 gm/ Dextrose 100 ml @ 100 mls/hr Q8HR IV 09/17/24 22:00 09/20/24 14:00 100 MLS/HR Docusate Sodium 200 mg BID GT 09/20/24 10:00 09/20/24 11:32 200 MG Tbo-Filgrastim 300 mcg DAILY SC 09/21/24 10:00 objective General Appearance: Ventilated and sedated. Head Exam: Normal inspection Neck Exam: Normal inspection. Non-tender. Normal alignment Pulmonary/Respiratory: Chest non-tender. Clear bilateral breath sounds Cardiovascular/Chest: Regular rate and rhythm. No murmurs. No JVD. Skin: Sacral decubitus ulcer; dressed Abdominal Exam: Normal bowel sounds. Soft. Nontender. No hepatospenomegaly. No masses Ankle Exam: Negative ankle edema Lower extremities: Negative lower extremity edema Neuro/Mental Status: Sedated, pupillary reflex present. laboratory and microbiology Laboratory Tests 09/20/24 03:39 Test 09/20/24 03:39 Range/Units Serum Glucose 78 74-106 mg/dL Assessment/Plan Patient is a 29-year-old male presented to the hospital with: Sepsis likely due to UTI Acute metabolic encephalopathy Altered mental status likely due to sepsis Acute hypoxic respiratory failure UTI Asymptomatic bradycardia Transaminitis with hyperbilirubinemia Severe hypoglycemia Hyperkalemia Recommendations: Antibiotic status: Ceftolozane/Tazobactam IV [Started on 09/17 - Ongoing] Vancomycin IV [Started on 09/06 - 09/18] Started Vancomycin again on 09/20 Ceftazidime Sodium IV [Started on 09/16 - 09/17] Vancomycin Random on 09/20 is 12.4 Patient is on pressors WBC count low Culture review: 09/15, Aerobic culture preliminary showed no growth 09/13, Sputum culture showed Pseudomonas aeruginosa 09/10, Blood culture showed no growth 09/07, Wound culture showed Enterobacter cloacae, Enterococcus faecalis, Enterobacter aerogenes and Pseudomonas aeruginosa 09/07, MRSA screening negative 09/06, Urine culture showed Staphylococcus Aureus Thank you for consult. Dietary Evaluation Review Comments: 1) If GI is accessible, consider Jevity 1.2 @ 35 ml/hr x 24hr goal rate as tolerated 2) Consider 1 pkt BEN BID for wound 3) If pt remains NPO >7 days consider TPN to meet at least 75% of estimated needs Expected Outcomes/Goals: 1) Pt to receive nutrition support within 7 days of NPO status 2) F/U in 2-3 days AYUSH SHI MD Sep 20, 2024 18:18
[2024-09-20] MEDS: FILGRASTIM (TBO) 300 MCG/0.5 ML SYRG SC ONE (19:18)
[2024-09-21] VITALS (62 sets, daily range): BP systolic 97–143; BP diastolic 51–110; PULSE 55–124; RESP 12–32; TEMP 97.8–98.1; O2SAT 80–100
[2024-09-21 03:52] LABS: Basophils # (auto) 0 10 ^3/uL (0-0.2); Basophils % (auto) 0.3 % (0.0-2.0); Eosinophils # (auto) 0 10 ^3/uL (0-0.8); Eosinophils % (auto) 0.2 % (0.0-7.0); Hematocrit 25.6 % (41.0-53.0); Lymphocytes # (auto) 0.7 10 ^3/uL (0.4-5.4); Lymphocytes % (auto) 11.5 % (10.0-50.0); Mean Corpuscular Hgb Conc. 35.4 g/dL (32.0-36.0); Mean Corpuscular Volume 96.2 fL (80.0-100.0); Monocytes # (auto) 0.9 10 ^3/uL (0-1.3); Monocytes % (auto) 13.8 % (0.0-12.0); Neutrophils # (auto) 4.8 10 ^3/uL (1.6-8.6); Neutrophils % (auto) 74.2 % (37.0-80.0); Nucleated Red Blood Cells % 0.1 %; Platelet Count (auto) 209 10^3/uL (140-450); Red Blood Cells 2.66 10^6/uL (4.5-5.90); Red Cell Distribution Width 13.1 % (11.8-14.3); White Blood Cell 6.5 10^3/uL (4.4-10.8)
[2024-09-21 04:09] LABS: Anion Gap 8 (5-15); Aspartate Aminotransferase 37 U/L (13-40); BUN/Creatinine Ratio 42.9 (10.0-20.0); Bilirubin, Total 0.6 mg/dL (0.2-1.0); Carbon Dioxide 31 mmol/L (20-31); Chloride 99 mmol/L (98-107); Phosphorus 3.5 mg/dL (2.4-5.1); Potassium 4.4 mmol/L (3.5-5.1); Sodium 138 mmol/L (136-145)
[2024-09-21 04:12] LABS: Alanine Aminotransferase 96 U/L (7-40); Albumin 2.5 g/dL (3.2-4.8); Alkaline Phosphatase 190 U/L (46-116); Blood Urea Nitrogen 24 mg/dL (9-23); Calcium 8.5 mg/dL (8.7-10.4); Glucose 108 mg/dL (74-106); Total Protein 4.8 g/dL (5.7-8.2)
--- NOTE | 2024-09-21 04:36 | DVH ---
EXAM: XY CHEST PORTABLE Indication: mechanical ventilation Technique: Single frontal view of the chest was obtained Comparison: XY CHEST XRAY 1 VIEW on DOS: 09/20/24, XY CHEST XRAY 1 VIEW on DOS: 09/19/24, XY CHEST PORT ABLE on DOS: 09/18/24, XY CHEST PORTABLE on DOS: 09/17/24, XY CHEST PORTABLE on DOS: 09/16/24, XY CHEST XRAY 1 VIEW on DOS: 09/20/24 FINDINGS: Lines and Tubes: Endotracheal tube, right PICC project in appropriate position. Lungs: Bibasilar opacities are unchanged. Pleura: No effusion. No pneumothorax. Cardiomediastinal contours: Unremarkable Bones: No acute osseous abnormality. IMPRESSION: No significant change compared to prior exam.
[2024-09-21 08:19] LABS: Base Excess 4.5 mmol/L (-2.0-3.0)
[2024-09-21] MEDS ORDERED: FILGRASTIM (TBO) 300 MCG/0.5 ML SYRG SC SCH (10:00)
--- NOTE | 2024-09-21 10:37 | DVHPN2 ---
Progress Note - Dictate Date Seen: Sep 21, 2024 Medical Necessity Reason Pt with a Central, PICC or Fol: No Subjective Mr. Delgado is a 29 years old gentleman with a history of [place]'s disease, the patient was brought to the hospital on 08/3024 with a chief company of altered mental status. I have seen and examined the patient, I have talked to his nurse, discussed with his mother. the patient is intubated, sedated, but is awake, he follows verbal commands, he moves all the extremities Fentanyl 100 mcg/hour UDS, 09/06/2024: Negative Plasma alcohol, 09/06/2019 5:3.3 Urinalysis, 09/06/2024: WBC: 8, urine leukocyte esterase: 1+, urine nitrate: 1+ WBC/HB/PLT/MCV, 09/13/2024: 6/9.4/56/92.5, 09/17/2024: 0.6/7.3/93/93, 09/19/2024: 1/7.8/117/94.4 PT/INR/PTT, 16.9/1.68/30.2 BMP, 09/13/2024: Unremarkable HCO3 :34 . TBI/AST/ALT/AP, 09/13/2024: 1.5/103/426/328, 09/17/2024: 0.6/27/143/202 Hepatitis panel, 09/06/2024: Negative Chest x-ray, 09/07/2024:Lines and tubes in satisfactory position. No significant interval change (Endotracheal tube and enteric catheter in satisfactory position) Chest x-ray, 09/17/19 25: 1. Appropriate position of the support lines and tubes. 2. Right upper and right basilar opacity which may reflect atelectasis or pneumonia. CT head, 09/06/2024: No acute intracranial abnormality vital signs Vital Sign Date Time Temp Pulse Resp B/P (MAP) Pulse Ox O2 Delivery O2 Flow Rate FiO2 09/21/24 09:48 72 19 123/84 (97) 97 30 09/21/24 06:00 Mechanical Ventilator+ 09/21/24 03:45 98.1 98.1 Total Intake and Output 09/20/24 09/20/24 09/21/24 15:00 23:00 07:00 Intake Total 272.25 ml 631.5 ml 503.0 ml Output Total 425 ml 450 ml Balance 272.25 ml 206.5 ml 53.0 ml medications Current Medications Medications Dose Ordered Sig/Gisselle Route Start Time Stop Time Status Last Admin Dose Admin Fentanyl Citrate 250 ml @ 2.5 mls/hr Q24H IV 09/06/24 17:45 09/20/24 11:56 15 MLS/HR Midazolam HCl 50 ml @ 1 mls/hr Q24H IV 09/06/24 19:45 09/21/24 01:37 4 MLS/HR Pantoprazole Sodium 40 mg DAILY IV 09/07/24 10:00 09/21/24 10:27 40 MG Acetaminophen 650 mg Q6HP PRN DC 09/07/24 05:30 Artificial Tears 2 drop Q6HR EACHEYE 09/09/24 00:00 09/21/24 05:45 2 DROP Enteral Nutritional Formula 1,000 ml 30ML/HR GT 09/09/24 20:00 09/18/24 05:10 1,000 ML Ipratropium [place] 0.5 mg Q4HPRN PRN NEB 09/13/24 13:30 09/16/24 06:45 0.5 MG Albuterol 2.5 mg Q4HPRN PRN NEB 09/13/24 13:30 09/16/24 06:45 2.5 MG Norepinephrine Bitartrate 250 ml @ 3.75 mls/hr Q24H IV 09/13/24 18:15 09/18/24 19:58 3.75 MLS/HR Sodium Chloride 10 ml QSHIFT@10,22 IV 09/15/24 22:00 09/21/24 10:27 10 ML Tobramycin Sulfate 0 ml @ 0 mls/hr PER PHARMACY IV 09/16/24 19:00 UNV Diagnostic Test (Pha) 1 strip Q6HR 09/17/24 12:00 09/21/24 05:45 1 STRIP Insulin Human Regular Q6HR SC 09/17/24 12:00 Dextrose 50 ml UD PRN IV 09/17/24 12:15 Ceftolozane/ Tazobactam 3 gm/ Dextrose 100 ml @ 100 mls/hr Q8HR IV 09/17/24 22:00 09/21/24 05:45 100 MLS/HR Docusate Sodium 200 mg BID GT 09/20/24 10:00 09/20/24 22:07 200 MG objective The patient is the cachectic. The patient is intubated MENTAL STATUS: Subjective CRANIAL NERVES: Pupils are equal, round and reactive. He came but I did not see conjugated eye movement. No signs of facial weakness. There are gagging or coughing reflexes SENSATION: Okay to light painful stimuli MOTOR: Normal tone in the upper and lower extremity. Diffuse muscle atrophy. No fasciculations. No spontaneous movement. He can move the extremities, the muscle power is no less than 3/5 in all extremities REFLEXES: Deep tendon reflexes are symmetrical. No pathological reflexes. CEREBELLAR/COORDINATION: Deferred GAIT/STATION: deferred. laboratory and microbiology Laboratory Tests 09/21/24 03:10 Test 09/21/24 03:10 Range/Units Serum Glucose 108 H 74-106 mg/dL Problem List Altered mental status Metabolic encephalopathy Hypoxic encephalopathy Toxic encephalopathy Urinary tract infection Pancytopenia Sepsis Hypoglycemia Respiratory failure [place]'s disease General weakness Gait disturbance/bed-bound Bradycardia Assessment/Plan Monitoring Supportive treatment Reversal isolation Follow-up lab Stabilize vitals Respiratory support/vent management IV antibiotics Tube feeding Follow with his [place] [facility] on discharge More recommendation per clinical course This medical document was created using an electronic medical record system with [employer] dictation system. Although this document has been carefully reviewed, there may still be some phonetic and typographical errors. These areas are purely typographical due to imperfections of the software programs, and do not reflect any compromise in the patient's medical care Prognosis guarded Dietary Evaluation Review Comments: 1) If GI is accessible, consider Jevity 1.2 @ 35 ml/hr x 24hr goal rate as tolerated 2) Consider 1 pkt BEN BID for wound 3) If pt remains NPO >7 days consider TPN to meet at least 75% of estimated needs Expected Outcomes/Goals: 1) Pt to receive nutrition support within 7 days of NPO status 2) F/U in 2-3 days Plan discussed with: Other Critical Care Time(min): 35 ALISHA LOVE MD Sep 21, 2024 10:37
[2024-09-21] MEDS: ONDANSETRON HCL 4 MG/2 ML VIAL ONE (12:00)
[2024-09-21] MEDS: LORazepam 2MG/ML-1ML VIAL ONE (12:02)
[2024-09-21] MEDS: ONDANSETRON HCL 4 MG/2 ML VIAL IV PRN (12:03)
[2024-09-21] MEDS: DEXTROSE (50%) 50ML SYRG IV PRN (12:15)
[2024-09-21] MEDS: DEXTROSE (50%) 50ML SYRG IV ONE (12:15)
[2024-09-21] MEDS: LORazepam 2MG/ML-1ML VIAL IV ONE (12:29)
--- NOTE | 2024-09-21 19:01 | DVHDSRES ---
Discharge Summary Date of Admission Resident Creating Document: MALDONADO LOPEZ Sep 06, 2024 at 22:28 Date of Discharge: Sep 21, 2024 Labs/Diagnostic Data: Laboratory Results Test 09/21/24 12:04 09/21/24 07:45 09/21/24 03:10 09/20/24 03:39 POC Glucose 68 mg/dl (70-106) Blood Gas Specimen Type Arterial Blood Gas Sample Site Right radial Blood Gas Patient Temperature 37.0 Arterial Blood Date Drawn [id number] Arterial Blood pH 7.478 (7.350-7.450) Arterial Blood Partial Pressure CO2 39.1 mmHg (35.0-48.0) Arterial Blood Partial Pressure O2 68.9 mmHg (83.0-108.0) Arterial Blood HCO3 28.3 mmol/L (21.0-28.0) Arterial Blood Oxygen Saturation 93.4 % (94.0-98.0) Arterial Blood Base Excess 4.5 mmol/L (-2.0-3.0) Arterial Blood Oxyhemoglobin 92.6 % (94.0-98.0) Arterial Blood Carboxyhemoglobin 0.6 % (0.5-1.5) Arterial Blood Methemoglobin 0.3 % (0.0-1.5) Yasir Test Modified Blood Gas Total Hemoglobin 10.60 g/dL (13.5-17.5) Blood Gas Set Respiration Rate 14.0 Blood Gas Modality Vent - ac FiO2 % 30.0 Blood Gas Tidal Volume 350.0 Blood Gas PEEP or CPAP 5.0 White Blood Count 6.5 10^3/uL (4.4-10.8) Red Blood Count 2.66 10^6/uL (4.5-5.90) Hemoglobin 9.0 g/dL (13.5-17.5) Hematocrit 25.6 % (41.0-53.0) Mean Corpuscular Volume 96.2 fL (80.0-100.0) Mean Corpuscular Hemoglobin 34.0 pg (28.0-32.0) Mean Corpuscular Hemoglobin Concent 35.4 g/dL (32.0-36.0) Red Cell Distribution Width 13.1 % (11.8-14.3) Platelet Count 209 10^3/uL (140-450) Mean Platelet Volume 8.0 fL (6.9-10.8) Neutrophils (%) (Auto) 74.2 % (37.0-80.0) Lymphocytes (%) (Auto) 11.5 % (10.0-50.0) Monocytes (%) (Auto) 13.8 % (0.0-12.0) Eosinophils (%) (Auto) 0.2 % (0.0-7.0) Basophils (%) (Auto) 0.3 % (0.0-2.0) Neutrophils # (Auto) 4.8 10 ^3/uL (1.6-8.6) Lymphocytes # (Auto) 0.7 10 ^3/uL (0.4-5.4) Monocytes # (Auto) 0.9 10 ^3/uL (0-1.3) Eosinophils # (Auto) 0 10 ^3/uL (0-0.8) Basophils # (Auto) 0 10 ^3/uL (0-0.2) Nucleated Red Blood Cells 0.1 % Sodium Level 138 mmol/L (136-145) Potassium Level 4.4 mmol/L (3.5-5.1) Chloride Level 99 mmol/L (98-107) Carbon Dioxide Level 31 mmol/L (20-31) Anion Gap 8 (5-15) Blood Urea Nitrogen 24 mg/dL (9-23) Creatinine 0.56 mg/dL (0.700-1.30) Glomerular Filtration Rate Calc 137 mL/min (>90) BUN/Creatinine Ratio 42.9 (10.0-20.0) Serum Glucose 108 mg/dL (74-106) Calcium Level 8.5 mg/dL (8.7-10.4) Phosphorus Level 3.5 mg/dL (2.4-5.1) Total Bilirubin 0.6 mg/dL (0.2-1.0) Aspartate Amino Transferase (AST) 37 U/L (13-40) Alanine Aminotransferase (ALT) 96 U/L (7-40) Alkaline Phosphatase 190 U/L (46-116) Total Protein 4.8 g/dL (5.7-8.2) Albumin 2.5 g/dL (3.2-4.8) Differential Total Cells Counted 100.0 (100) Neutrophils % (Manual) 31 (37.0-80.0) Band Neutrophils % (Manual) 5 Lymphocytes % (Manual) 37 (10.0-50.0) Monocytes % (Manual) 27 (0-12) Eosinophils % (Manual) 0 (0-7) Basophils % (Manual) 0 (0.0-2.0) Metamyelocytes % (manual) 0 Myelocytes % (Manual) 0 Promyelocytes % (Manual) 0 Blast Cells % (Manual) 0 Reactive Lymphocytes 0 Platelet Estimate Decreased Magnesium Level 1.8 mg/dL (1.6-2.6) Random Vancomycin Level 12.4 ug/mL (5-10) Test 09/18/24 07:48 09/17/24 08:26 09/16/24 05:25 09/16/24 03:05 Vancomycin Level Trough 23.9 ug/mL (5-10) Blood Gas Spontaneous Rate 15 Specimen Drawn By Lexi [facility] Lactic Acid Level 0.8 mmol/L (0.4-2.0) Direct Bilirubin 0.5 mg/dL (<0.3) Test 09/14/24 14:19 09/13/24 16:15 09/13/24 12:03 09/13/24 09:55 Prothrombin Time 13.4 sec (9.3-11.8) Prothrombin Time INR 1.30 (0.9-1.15) Activated Partial Thromboplast Time 28.8 SEC (24.5-34.5) Blood Gas EPAP 5 Blood Gas IPAP 10 Blood Gas Critical Value Read Back Yes Blood Gas Notified Whom Blood Gas Notified Time [id number] Blood Gas Notified By Clin Asst jermaine Blood Gas Pressure Support 8 Test 09/10/24 03:22 09/07/24 11:53 09/07/24 04:58 09/07/24 01:00 Thyroid Stimulating Hormone (TSH) 2.38 uIU/mL (0.55-4.78) Ammonia 35 umol/L (11-32) Acetaminophen Level < 2.0 UG/ML (10.0-20.0) Hemoglobin A1c 4.7 % A1C (<5.7) Lipase 49 U/L (12-53) Test 09/06/24 21:30 09/06/24 18:00 09/06/24 17:05 Troponin I High Sensitivity 10 ng/L (</=54) Plasma/Serum Blood Alcohol 3.3 mg/dL (<10) Hepatitis A IgM Antibody Negative Hepatitis B Surface Antigen Negative (Negative) Hepatitis B Core IgM Antibody Negative (Negative) Hepatitis C Antibody Negative (Negative) Urine Color Yellow (Yellow) Urine Clarity Clear (Clear) Urine pH 6.0 (5.0-9.0) Urine Specific [place] 1.019 (1.001-1.035) Urine Protein Negative (Negative) Urine Ketones Negative (Negative) Urine Blood Trace /uL (Negative) Urine Nitrite 1+ (Negative) Urine Bilirubin Negative (Negative) Urine Urobilinogen 3 mg/dL (Negative) Urine Leukocyte Esterase 1+ /uL (Negative) Urine RBC 1 /hpf (0 - 3) Urine WBC 8 /hpf (0 - 3) Urine Squamous Epithelial Cells Few /hpf (<5) Urine Bacteria None seen /hpf (None Seen) Urine Hyaline Casts Mod /lpf (0 - 2) Urine Mucus Few (None Seen) Urine Glucose 3+ mg/dL (Normal) Urine Opiates Screen Neg (NEGATIVE) Urine Fentanyl Screen Neg (NEGATIVE) Urine Barbiturates Screen Neg (NEGATIVE) Urine Phencyclidine Screen Neg (NEGATIVE) Urine Amphetamines Screen Neg (NEGATIVE) Urine Benzodiazepines Screen Neg (NEGATIVE) Urine Cocaine Screen Neg (NEGATIVE) Urine Cannabinoids Screen Neg (NEGATIVE) Other Laboratory Tests 09/21/24 03:10 Brief Hx & Hospital Course: 29-year-old male with past medical history of [place]'s disease presented with complaints of altered level of consciousness.As per mother , patient was not responding to commands, had upper arm contractions, low temperature that prompted visit to emergency department. Patient was intubated for altered level of consciousness. Patient had sinus bradycardia initially, for which he was started on dopamine. Patient was started on IV antibiotics for sepsis due to UTI. Head CT did not show any abnormalities. Patient had PEG tube present on admission. Patient was started on sedating medications for ventilator compliance. Patient had low body temperature initially which was treated with warm blankets and later temperature improved. Patient was started on NG tube feedings later in the hospital stay. Patient was started on low-dose for DVT prophylaxis. Patient had hypoglycemia after which he was started on D10. Labs showed hypomagnesemia, which was corrected. Labs also showed hypo and hyperkalemia which were corrected. Patient had transaminitis likely due to septic shock which was improving during the hospital stay. Patient was extubated on 09/13/2024 and was started on BiPAP. Patient was reintubated for increased work of breathing on 09/13/2024. Patient was started on IV meropenem because his sputum culture was showing Pseudomonas. Patient WBC dropped to 0.2 , after which IV meropenem was discontinued and he was started on IV Zerbaxa. Excess disease and hematology were consulted. Patient was later started on filgrastim on leukopenia. Family at bedside was explained about the condition of the patient Family decided initially for modified DNR, no shocks and no compressions and later decided for comfort measures. Technical Documentation Specialist was consulted to arrange home hospice as per family. Patient was terminally weaned and later discharged to home hospice as per family request on oxygen. 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 Aspiration pneumonia Status post PEG tube present on admission Transaminitis likely due to septic shock Moderately distended large bowel, seen on imaging Moderately gas and fluid distended stomach, seen on imaging Engorged hepatic vein, seen on imaging, unknown etiology Hypomagnesemia hypokalemia hyperkalemia hyponatremia hypophosphatemia Leukopenia Thrombocytopenia likely due to sepsis Hypoglycemia likely due to sepsis Sacral ulcer present on admission Hypothermia likely due to sepsis Complicated UTI Discharge Disposition: Hospice - Home Discharge Instruct/Medications Diet: Regular Activity: Bed rest Follow Up/Referral: f/u with PCP within 1 week Discharge Statement: "Patient was advised to return to the ER or call 911 if any headaches, dizziness, shortness of breath, chest pain, abdominal pain, bleeding, fevers, or worsening of medical condition. Patient was counseled about treatment plan, medications, possible side effects, patientverbalized understanding. All questions were answered to the best of my ability. This discharge took greater then 30 minutes in planning, reviewing documentation, counseling the patient, and discussing with other team members." ASSESSMENT ASSESSMENT Assessment sepsis UTI MALDONADO LOPEZ RESIDENT Sep 21, 2024 19:01
--- NOTE | 2024-09-21 19:01 | DVHPNRES ---
Progress Note Date Seen: Sep 21, 2024 Resident Creating Document: MALDONADO LOPEZ RESIDENT Medical Necessity Reason Pt with a Central, PICC or Fol: No Subjective Review of Systems pt seen and examined at bedside. pt was initially on mechanical ventilator sedation was turned off for CPAP trial pt's mother decided for terminal wean and transfer to home on oxygen for home hospice Objective vital signs Vital Sign Date Time Temp Pulse Resp B/P (MAP) Pulse Ox O2 Delivery O2 Flow Rate FiO2 09/21/24 13:20 98.0 09/21/24 13:15 86 25 110/72 (85) 92 09/21/24 12:24 45 09/21/24 12:00 Mechanical Ventilator+ Total Intake and Output 09/20/24 09/20/24 09/21/24 15:00 23:00 07:00 Intake Total 272.25 ml 631.5 ml 503.0 ml Output Total 425 ml 450 ml Balance 272.25 ml 206.5 ml 53.0 ml medications Current Medications Medications Dose Ordered Sig/Gisselle Route Start Time Stop Time Status Last Admin Dose Admin Tobramycin Sulfate 0 ml @ 0 mls/hr PER PHARMACY IV 09/16/24 19:00 UNV Examination Examination General Appearance: Sedated and intubated Respiratory: on Mechanical ventilation Cardiovascular: Regular rate, Normal S1, Normal S2 Abdominal: Nondistended, peg tube present Extremities: No cyanosis, No edema, Normal pulses, No tenderness/swelling Skin: No rashes, No breakdown Neuro: sedated and intubated laboratory and microbiology Laboratory Tests 09/21/24 03:10 Test 09/21/24 03:10 Range/Units Serum Glucose 108 H 74-106 mg/dL Microbiology Date/Time Source Procedure Growth Status 09/15/24 18:20 Catheter Site Aerobic Culture - Final Complete 09/13/24 18:20 Sputum Gram Stain - Final Complete 09/13/24 18:20 Respiratory Culture - Final Pseudomonas aeruginosa Complete 09/10/24 18:02 Blood Blood Culture - Final NO GROWTH AFTER 5 DAYS OF INCUBATION. 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 Aspiration pneumonia -IV antibiotics Sputum culture: Pseudomonas -IV vancomycin, discontinued -will switch to Zerbaxa considering sudden drop in WBC count after starting the meropenam -ID consulted GI # status post PEG tube, present on admission -was placed due to dysphagia due to Brown's # transaminitis likely due to septic shock, improving Monitor liver enzymes #Moderately gas distended large bowel. -seen on imaging -NG tube, low continuous suction Repeat KUB son tube feedings #Moderately gas and fluid distended stomach. -seen on imaging NG tube, low continuous suction Repeat KUB on tube feedings # engorged hepatic vein Uncertain etiology Seen on imaging Nephrology # hypomagnesemia Corrected Monitor # hypokalemia Corrected Monitor #hyperkalemia -resolved # hyponatremia -monitor BMP #hypophosphatemia corrected Hematology/oncology #Leukopenia -sudden drop in WBC count 0.2 -will switch to tobramycin considering sudden drop in WBC count after starting the meropenam -hematology and oncology consulted - on filgastrim, discontinued # thrombocytopenia likely due to sepsis Monitor Endocrine # hypoglycemia likely due to sepsis -started D 10 W, discontinued -Accu-Cheks -started on nutrition through NG tube Dermatology/integumentary # sacral ulcer, POA -wound culture growing enterococcus -pt on IV vancomycin, discontinued # hypothermia likely due to sepsis Warm blanket Urology # UTI -urine culture shows staph aureus IV antibiotic DVT prophylaxis -Low dose Lovenox 30 mg SC daily, on hold because of low platelets -SCD's Peptic ulcer disease prophylaxis IV Protonix Nutrition on NG tube feedings Bowel Regimen started on colace Drips Lines Lilly's catheter placed on 09/06/2023 Left internal jugular CVC placed on 09/06/2023 Code status discussed with the family for greater than 23 minutes, full code Mother at bedside updated about the condition of the patient after discussion , mother decided for comfort measures, and terminal weaning and discharge to home on home hospice patient was later discharged to home with home hospice. creative services intern consulted for home hospice Case discussion with Dr shaffer Critical care time excluding procedures and extubation : 87 minutes Plan discussed with: Other My Orders My Orders Orders - MALDONADO LOPEZ RESIDENT Procedure Category Date Status Time Cpap/Sed Vacation Med ORDERS 09/21/24 Transmitted Weaning 11:13 Cpap Trial For Am ORDERS 09/21/24 Transmitted 11:13 Discharge DISCHARGE 09/21/24 Transmitted 13:23 Dietary Evaluation Review Comments: 1) If GI is accessible, consider Jevity 1.2 @ 35 ml/hr x 24hr goal rate as tolerated 2) Consider 1 pkt BEN BID for wound 3) If pt remains NPO >7 days consider TPN to meet at least 75% of estimated needs Expected Outcomes/Goals: 1) Pt to receive nutrition support within 7 days of NPO status 2) F/U in 2-3 days MALDONADO LOPEZ RESIDENT Sep 21, 2024 19:01
== END 2024-09-21 13:30 | disposition hospice, home (50) | DRG 720 ==
LOC: EDBD 16:33 → ER 16:41 → DOU IN ICU 22:28 → TELE 22:29 → ICU WEST 09-07 09:37
PROVIDERS: ADMIT Internal Medicine; ATTEND Internal Medicine
PROC: 5A1955Z Respiratory Ventilation, Greater than 96 Consecutive Hours (ICD-10-PCS; principal; 2024-09-06)
PROC: 0BH17EZ Insertion of Endotracheal Airway into Trachea, Via Natural or Artificial Opening (ICD-10-PCS; 2024-09-06)
PROC: 02HV33Z Insertion of Infusion Device into Superior Vena Cava, Percutaneous Approach (ICD-10-PCS; 2024-09-06)
PROC: 0BH17EZ Insertion of Endotracheal Airway into Trachea, Via Natural or Artificial Opening (ICD-10-PCS; 2024-09-13)
PROC: 5A1955Z Respiratory Ventilation, Greater than 96 Consecutive Hours (ICD-10-PCS; 2024-09-13)
PROC: 5A09357 Assistance with Respiratory Ventilation, Less than 24 Consecutive Hours, Continuous Positive Airway Pressure (ICD-10-PCS; 2024-09-13)
PROC: 02HV33Z Insertion of Infusion Device into Superior Vena Cava, Percutaneous Approach (ICD-10-PCS; 2024-09-15)
PROC: B548ZZA Ultrasonography of Superior Vena Cava, Guidance (ICD-10-PCS; 2024-09-15)
DX: A41.9 Sepsis, unspecified organism (principal); J96.21 Acute and chronic respiratory failure with hypoxia; J69.0 Pneumonitis due to inhalation of food and vomit; R65.21 Severe sepsis with septic shock; G92.8 Other toxic encephalopathy; G93.1 Anoxic brain damage, not elsewhere classified; N17.9 Acute kidney failure, unspecified; D61.818 Other pancytopenia; E83.39 Other disorders of phosphorus metabolism; D69.6 Thrombocytopenia, unspecified; E87.1 Hypo-osmolality and hyponatremia; G10 Huntington's disease; L98.429 Non-pressure chronic ulcer of back with unspecified severity; Z66 Do not resuscitate; Z51.5 Encounter for palliative care; E87.5 Hyperkalemia; N39.0 Urinary tract infection, site not specified; E83.42 Hypomagnesemia; E87.6 Hypokalemia; E16.2 Hypoglycemia, unspecified; R74.01 Elevation of levels of liver transaminase levels; R26.9 Unspecified abnormalities of gait and mobility; Z93.1 Gastrostomy status; Z74.01 Bed confinement status; Z82.49 Family history of ischemic heart disease and other diseases of the circulatory system; Z83.3 Family history of diabetes mellitus; Z79.899 Other long term (current) drug therapy; D72.819 Decreased white blood cell count, unspecified
CPT/HCPCS: 31500; 36415; 36556; 36569; 36600; 70450; 71045; 74018; 74176; 76705; 76937; 80048; 80053; 80074; 80076; 80202; 80307; 80320; 80329; 81001; 82140; 82248; 82805; 82962; 83036; 83605; 83690; 83735; 84100; 84132; 84443; 84484; 85007; 85025; 85027; 85610; 85730; 87040; 87070; 87077; 87081; 87086; 87088; 87147; 87186; 87205; 93005; 93306; 94002; 94003; 94640; 94660; 96361; 96365; 96366; 96367; 96368; 96375; 99291; G0378; J0171; J0330; J0714; J1447; J2185; J2405; J2470; J2543; J3480; J7060